=== PATIENT | female | born 1960 | race Two or more races ===

== ENCOUNTER → 2016-08-18 | Outpatient (CLI) | payer MEDICAID | LOC: RAD 08:50 | PROVIDERS: ATTEND Specialist | DX: C34.92 Malignant neoplasm of unspecified part of left bronchus or lung (principal) | CPT/HCPCS: 71260; 74177 ==

== ENCOUNTER 2016-09-12 08:21 | Day surgery (SDC) | payer MEDICAID ==
[2016-09-09 12:47] LABS: HEMATOCRIT 41.4 % (36.0-47.0); HEMOGLOBIN 13.9 g/dL (12.0-15.5); HGB HCT DIFFERENCE 0.3; MEAN CORPUSCULAR HEMOGLOBIN 30.8 pg (27.0-33.4); MEAN CORPUSCULAR HGB CONC 33.5 g/dL (32.0-36.0); MEAN CORPUSCULAR VOLUME 92 fl (80-97); RED CELL DISTRIBUTION WIDTH 14.9 % (11.5-14.0); WHITE BLOOD COUNT 8.7 10^3/uL (4.0-10.5)
[2016-09-09 13:10] LABS: ANION GAP 17 (5-19); BLOOD UREA NITROGEN 4 mg/dL (7-20); CALCIUM 9.7 mg/dL (8.4-10.2); CARBON DIOXIDE 26 mmol/L (22-30); CHLORIDE 93 mmol/L (98-107); CREATININE RESULT 0.35 mg/dL (0.52-1.25); GLUCOSE 82 mg/dL (75-110); POTASSIUM 3.8 mmol/L (3.6-5.0); SODIUM 136.3 mmol/L (137-145)
--- NOTE | 2016-09-09 19:38 | EKG REPORT ---
SEVERITY:- NORMAL ECG - SINUS RHYTHM : Confirmed by: Jaja Freeman 09-Sep-2016 19:36:56
[~2016-09-12 08:21] MED LIST: CEFAZOLIN 1 GM/D5W RTU 1 GM/50 ML RTUPB IV PRN; DEXTROSE 5%-1/2 NORMAL SALINE 1,000 ML IV PRN; LACTATED RINGERS 1000 ML IV PRN; LIDOCAINE 0.5% INJ-PF (5 MG/ML) 50 ML SDV SUBCUT PRN; METRONIDAZOLE 500 MG/NS RTU 100 ML IV PRN
[2016-09-12] MEDS ORDERED: FENTANYL CITRATE INJ/PF 250 MCG/5 ML AMPULE ONE (10:05)
[2016-09-12] MEDS ORDERED: MIDAZOLAM 2 MG/2 ML INJ ONE (10:05)
[2016-09-12] MEDS ORDERED: PROPOFOL INJ 200 MG/20 ML VIAL IV ONE (10:06)
[2016-09-12] MEDS ORDERED: BUPIVACAINE HCL 0.25 % INJ/PF (2.5 MG/1 ML) 30 ML VIAL ONE (10:07)
[2016-09-12] MEDS ORDERED: LIDOCAINE 0.5% INJ-PF (5 MG/ML) 50 ML SDV ONE (10:07)
[2016-09-12] MEDS ORDERED: PROMETHAZINE HCL INJ 25 MG/1 ML VIAL IV PRN ×2 (11:20)
[2016-09-12] MEDS ORDERED: OXYCODONE-ACETAMINOPHEN 5-325 MG TABLET PO PRN ×3 (11:20→13:00)
[2016-09-12] MEDS ORDERED: FENTANYL CITRATE INJ/PF 100 MCG/2 ML AMPUL IV PRN ×3 (11:20)
[2016-09-12] MEDS ORDERED: DIPHENHYDRAMINE HCL 50 MG/ML VIAL IV PRN (11:20)
[2016-09-12] MEDS ORDERED: MORPHINE SULFATE 10 MG/ML INJ IV PRN (11:20)
[2016-09-12] MEDS ORDERED: MEPERIDINE HCL/PF INJ 25 MG/1 ML DISP.SYRIN IV PRN (11:20)
--- NOTE | 2016-09-12 11:30 | PDOC DISCHARGE SUMMARY ---
Discharge Summary (SDC) - Discharge Final Diagnosis: #1 hidradenitis of axilla. #2 lung cancer. #3 tobacco use disorder. Date of Surgery: 09/12/16 Discharge Date: 09/12/16 Condition: Fair Treatment or Instructions: #1 activities within moderation encouraged. #2 follow up in my office by appointment in about 1 week. Call for appointment. #3 the wounds covered clean and dry until office visit. #4 hold off on school/work until evaluation in office. #5 may shower in 48 hours, keep operated area as dry as possible. #6 discharge from ambulatory when ASU criteria met. #7 medications per medication reconciliation sheet. #8 Toradol by prescription.. Also may have one Percocet up to every 2 hours when necessary for pain greater than 4 out of 10 while in the ASU Prescriptions: Ketorolac Tromethamine [Toradol 10 mg Tablet] 10 mg PO Q8HP #9 tablet Discharge Diet: As Tolerated Respiratory Treatments at Home: Deep Breathing/Coughing Discharge Activity: Activity As Tolerated Report the Following to Your Physician Immediately: Fever over 101 Degrees, Unusual Bleeding
--- NOTE | 2016-09-12 11:42 | Operative Report ---
Operative Report DATE OF SURGERY: 09/12/16 PREOPERATIVE DIAGNOSIS: #1 hidradenitis of axilla. #2 lung cancer. #3 tobacco use disorder. POSTOPERATIVE DIAGNOSIS: #1 hidradenitis of axilla. #2 lung cancer. #3 tobacco use disorder. OPERATION: Complex incision and drainage of left axillary abscesses. SURGEON: BRYSON MORATAYA GLASS CURVATURE GAUGER: none ANESTHESIA: LMAC TISSUE REMOVED OR ALTERED: Skin abscesses COMPLICATIONS: None ESTIMATED BLOOD LOSS: 5 mL. INTRAOPERATIVE FINDINGS: Several superficial small abscesses in the left axilla. Satisfactory drained by unroofing them. Tissue sent for culture. PROCEDURE: After going over the procedure, the patient was taken to the operating room. She was sedated and the left axilla prepared with Betadine. The right axilla which was consented for was actually free of abscess at this time. After the universal timeout in which it was verified that the patient received IV antibiotic, the procedure commenced. Anesthesia was generously infiltrated and a low and around the lesions. 3 separate areas were identified each about 2 cm across. The draining somewhat were now excised using a 15 blade scalpel circumferentially down to the subcutaneous tissue. This was done for the 3 areas. These were submitted for culture. The wounds were now cauterized. There were addressed with Surgicel and gauze and the procedure concluded.
[2016-09-12] MEDS ORDERED: OXYCODONE-ACETAMINOPHEN 5-325 MG TABLET ONE (12:45)
[2016-09-12] MEDS ORDERED: METOCLOPRAMIDE HCL INJ/PF 10 MG/2 ML SDV ONE (13:28)
[2016-09-12] MEDS ORDERED: LIDOCAINE 2% INJ-PF (20 MG/ML) 10 ML AMPUL ONE (13:28)
[2016-09-12] MEDS ORDERED: ONDANSETRON HCL INJ/PF 4 MG/2 ML SDV ONE (13:28)
[2016-09-12] MEDS ORDERED: GLYCOPYRROLATE INJ 0.4 MG/2 ML VIAL ONE (13:28)
[2016-09-12] MEDS ORDERED: KETOROLAC TROMETHAMINE 60 MG/2 ML SDV ONE (13:28)
[2016-09-12 14:26] VITALS: BP 125/85
== END 2016-09-12 14:00 | disposition home or self-care (01) ==
LOC: OROUT 08:21
PROVIDERS: ATTEND Surgery
PROC: 0J9F0ZZ Drainage of Left Upper Arm Subcutaneous Tissue and Fascia, Open Approach (ICD-10-PCS; principal; 2016-09-12 10:00)
DX: L73.2 Hidradenitis suppurativa (principal); I10 Essential (primary) hypertension; C34.90 Malignant neoplasm of unspecified part of unspecified bronchus or lung; F17.210 Nicotine dependence, cigarettes, uncomplicated; J44.9 Chronic obstructive pulmonary disease, unspecified; Z79.899 Other long term (current) drug therapy
CPT/HCPCS: 93005; 36415 ×2; 87070; 87205; 84703; 85027; 87075; 87077; 80048; 87186; 71020; 93010; 10061; J2250; J0690; J1885; J3010; J3490 ×3; J2765; J2405; S0020; J2704

== ENCOUNTER 2016-11-01 21:32 | Inpatient (IN) | payer MEDICAID ==
[2016-11-01] MEDS ORDERED: HYDROMORPHONE HCL INJ/PF 2 MG/ML AMPULE IV ONE (22:38)
--- NOTE | 2016-11-01 22:42 | ER Document Report ---
ED General - General Chief Complaint: General Weakness Stated Complaint: WEAKNESS Mode of Arrival: Ambulatory Information source: Patient Notes: 56-year-old female history of lung cancer presents with complaints of headache abdominal pain. TRAVEL OUTSIDE OF THE [place] IN LAST 30 DAYS: No - HPI Onset: Other - 2 To 3 weeks Onset/Duration: Persistent Quality of pain: Achy Severity: Mild Pain Level: 1 Associated symptoms: Weakness Exacerbated by: Denies Relieved by: Denies Similar symptoms previously: Yes Recently seen / treated by doctor: Yes - patient is to have a CT workup next week - Related Data Allergies/Adverse Reactions: No Known Allergies Allergy (Verified 09/13/16 01:31) Past Medical History - Social History Smoking Status: Former Smoker Cigarette use (# per day): Yes Chew tobacco use (# tins/day): No Smoking Education Provided: No Frequency of alcohol use: Heavy Family History: Reviewed & Not Pertinent Patient has suicidal ideation: No Patient has homicidal ideation: No - Past Medical History Cardiac Medical History: Reports: Hx Hypercholesterolemia, Hx Hypertension Denies: Hx Coronary Artery Disease, Hx Heart Attack Pulmonary Medical History: Reports: Hx COPD Denies: Hx Asthma, Hx Bronchitis, Hx Pneumonia Neurological Medical History: Denies: Hx Cerebrovascular Accident, Hx Seizures Renal/ Medical History: Denies: Hx Peritoneal Dialysis Malignancy Medical History: Reports: Hx Lung Cancer - Stage IIIB, squamous cell carcinoma, lung involvement, lymph node. GI Medical History: Denies: Hx Hepatitis, Hx Hiatal Hernia, Hx Ulcer Musculoskeltal Medical History: Denies Hx Arthritis Psychiatric Medical History: Denies: Hx Depression Infectious Medical History: Denies: Hx Hepatitis Past Surgical History: Reports: Hx Appendectomy, Hx Section - 1, Hx Orthopedic Surgery - right knee. Denies: Hx Hysterectomy, Hx Mastectomy, Hx Open Heart Surgery, Hx Pacemaker - Immunizations Hx Diphtheria, Pertussis, Tetanus Vaccination: No Review of Systems - Review of Systems Notes: REVIEW OF SYSTEMS: CONSTITUTIONAL : Denies fever, chills, or sweats. Denies recent illness. EENT: Denies eye, ear, throat, or mouth pain or symptoms. Denies nasal or sinus congestion or discharge. Denies throat, tongue, or mouth swelling or difficulty swallowing. CARDIOVASCULAR: Denies chest pain. Denies palpitations or racing or irregular heart beat. Denies ankle edema. RESPIRATORY: Denies cough, cold, or chest congestion. Denies shortness of breath, difficulty breathing, or wheezing. GASTROINTESTINAL: Admits to abdominal pain GENITOURINARY: Denies difficulty urinating, painful urination, burning, frequency, blood in urine, or discharge. FEMALE GENITOURINARY: Denies vaginal bleeding, heavy or abnormal periods, irregular periods. Denies vaginal discharge or odor. MUSCULOSKELETAL: Denies back or neck pain or stiffness. Denies joint pain or swelling. SKIN: Denies rash, lesions or sores. HEMATOLOGIC : Denies easy bruising or bleeding. LYMPHATIC: Denies swollen, enlarged glands. NEUROLOGICAL: Admits to headache PSYCHIATRIC: Denies anxiety or stress. Denies depression, suicidal ideation, or homicidal ideation. ALL OTHER SYSTEMS REVIEWED AND NEGATIVE. Dictation was performed using [employer] voice recognition software PHYSICAL EXAMINATION: GENERAL: Well-appearing, well-nourished and in no acute distress. HEAD: Atraumatic, normocephalic. EYES: Pupils equal round and reactive to light, extraocular movements intact, conjunctiva are normal. ENT: Nares patent, oropharynx clear without exudates. Moist mucous membranes. NECK: Normal range of motion, supple without lymphadenopathy LUNGS: Breath sounds clear to auscultation bilaterally and equal. No wheezes rales or rhonchi. HEART: Regular rate and rhythm without murmurs ABDOMEN: Soft, nontender, nondistended abdomen. No guarding, no rebound. No masses appreciated. Female : deferred Musculoskeletal: Normal range of motion, no pitting or edema. No cyanosis. NEUROLOGICAL: Cranial nerves grossly intact. Normal speech, normal gait. Normal sensory, motor exams PSYCH: Normal mood, normal affect. SKIN: Warm, Dry, normal turgor, no rashes or lesions noted. Physical Exam - Vital signs Vitals: Temp BP 97.9 F 115/81 11/01/16 21:37 11/01/16 21:37 Course - Re-evaluation Re-evalutation: 11/01/16 22:43 Lab work is pending at this time as well as CT imaging. Patient otherwise is in no distress 11/02/16 00:59 Patient potassium is noted to be 2.6 calcium is extremely low as well, she will will be given supplementation CT is still pending at this time. She does appear to have acute pancreatitis Patient will be admitted to hospitalist service - Vital Signs Vital signs: Temp Pulse Resp BP Pulse Ox 97.9 F 17 103/82 99 11/01/16 21:37 11/01/16 22:43 11/01/16 22:43 11/01/16 22:43 - Laboratory Result Diagrams: 11/01/16 22:40 11/01/16 23:25 Laboratory results interpreted by me: 11/01/16 11/01/16 22:40 23:25 WBC 11.6 H RBC 3.44 L Hgb 10.2 L Hct 30.2 L RDW 16.9 H Absolute Neutrophils 8.8 H Sodium 135.9 L Potassium 2.6 L* Chloride 93 L BUN 3 L Creatinine 0.46 L Calcium 5.2 L* AST 77 H Alkaline Phosphatase 195 H Total Protein 5.4 L Albumin 2.9 L Lipase 380.3 H Critical Care Note - Critical Care Note Total time excluding time spent on procedures (mins): 39 Comments: 39 minutes of critical care time spent in direct contact evaluating and reevaluating the patient, treating symptoms, reviewing labs and studies and speaking with family and consultants excluding any procedures Discharge - Discharge Clinical Impression: Alcohol abuse, Carcinoma of left lung, History of alcoholism, Hypocalcemia, Hypokalemia Acute pancreatitis Qualifiers: Pancreatitis type: alcohol induced Acute pancreatitis complication: unspecified Qualified Code(s): K85.20 - Alcohol induced acute pancreatitis without necrosis or infection Condition: Fair Disposition: ADMITTED INPATIENT Admitting Provider: Hospitalist Unit Admitted: [facility]
[2016-11-01 22:53] LABS: ABSOLUTE BASOPHILS # (AUTO) 0.1 10^3/uL (0.0-0.2); ABSOLUTE LYMPHOCYTES (AUTO) 1.8 10^3/uL (0.5-4.7); ABSOLUTE MONOCYTES (AUTO) 0.9 10^3/uL (0.1-1.4); ABSOLUTE NEUT (AUTO) 8.8 10^3/uL (1.7-8.2); BASOPHILS % (AUTO) 0.6 % (0-2); EOSINOPHILS % (AUTO) 0.1 % (0-6); HEMATOCRIT 30.2 % (36.0-47.0); HEMOGLOBIN 10.2 g/dL (12.0-15.5); HGB HCT DIFFERENCE 0.4; LYMPHOCYTES % (AUTO) 15.2 % (13-45); MEAN CORPUSCULAR HEMOGLOBIN 29.7 pg (27.0-33.4); MEAN CORPUSCULAR HGB CONC 33.9 g/dL (32.0-36.0); MEAN CORPUSCULAR VOLUME 88 fl (80-97); MONOCYTES % (AUTO) 7.6 % (3-13); RED BLOOD COUNT 3.44 10^6/uL (3.72-5.28); RED CELL DISTRIBUTION WIDTH 16.9 % (11.5-14.0); SEGMENTED NEUTROPHILS % (AUTO) 76.5 % (42-78); WHITE BLOOD COUNT 11.6 10^3/uL (4.0-10.5)
[2016-11-01 23:55] LABS: ALANINE AMINOTRANSFERASE 43 U/L (9-52); ALBUMIN 2.9 g/dL (3.5-5.0); ALCOHOL 169 mg/dL (NONE DETECTED); ALKALINE PHOSPHATASE 195 U/L (38-126); ANION GAP 16 (5-19); ASPARTATE AMINO TRANSFERASE 77 U/L (14-36); BILIRUBIN,DIRECT 0.2 mg/dL (0.0-0.4); BILIRUBIN,TOTAL 0.3 mg/dL (0.2-1.3); BLOOD UREA NITROGEN 3 mg/dL (7-20); CARBON DIOXIDE 27 mmol/L (22-30); CHLORIDE 93 mmol/L (98-107); CREATININE RESULT 0.46 mg/dL (0.52-1.25); GLUCOSE 79 mg/dL (75-110); LIPASE 380.3 U/L (23-300); SODIUM 135.9 mmol/L (137-145); TOTAL PROTEIN 5.4 g/dL (6.3-8.2)
[2016-11-02 00:05] LABS: CALCIUM 5.2 mg/dL (8.4-10.2); POTASSIUM 2.6 mmol/L (3.6-5.0)
[2016-11-02] MEDS ORDERED: POTASSI CL 40 MEQ/NS 1L 1,000 ML IV PRN (00:08)
[2016-11-02] MEDS ORDERED: POTASSIUM CHLORIDE 10 MEQ TABLET.SA PO ONE (00:08)
[2016-11-02] MEDS ORDERED: CALCIUM GLUCONATE 1000 MG/10 ML INJ IV ONE ×2 (00:54→04:52)
[2016-11-02] MEDS ORDERED: THIAMINE HCL 100 MG in NORMAL SALINE 50 ML IV ONE (00:57)
[2016-11-02] MEDS ORDERED: THIAMINE HCL INJ 200 MG/2 ML VIAL ONE (01:35)
[2016-11-02 02:04] LABS: ADD ON TESTING BLD IN LAB ACKNOWLEDGE
[2016-11-02 02:22] LABS: MAGNESIUM 0.5 mg/dL (1.6-2.3)
[2016-11-02 03:24] LABS: URINE BARBITURATES SCREEN NEGATIVE; URINE METHADONE SCREEN NEGATIVE; URINE OPIATES LOW NEGATIVE; URINE PHENCYCLIDINE SCREEN NEGATIVE
[2016-11-02] MEDS: MAGNESIUM SULFATE/D5W 1 GM/100 ML RTUPB IV SCH ×3 (03:30→06:23)
[2016-11-02 04:18] LABS: ALBUMIN 2.8 g/dL (3.5-5.0); ANION GAP 16 (5-19); BLOOD UREA NITROGEN 2 mg/dL (7-20); CARBON DIOXIDE 27 mmol/L (22-30); CHLORIDE 94 mmol/L (98-107); CREATININE RESULT 0.44 mg/dL (0.52-1.25); GLUCOSE 75 mg/dL (75-110); POTASSIUM 3.1 mmol/L (3.6-5.0); SODIUM 137.1 mmol/L (137-145)
[2016-11-02 04:34] LABS: CALCIUM 5.7 mg/dL (8.4-10.2)
[2016-11-02] MEDS ORDERED: POTASSI CL 20 MEQ/50 ML RIDER 50 ML IV SCH (05:00)
[2016-11-02] MEDS ORDERED: IPRATROPIUM/ALBUTEROL 0.5-2.5 MG/3 ML AMPUL NEB PRN (05:47)
[2016-11-02] MEDS ORDERED: LORAZEPAM INJ 2 MG/1 ML VIAL IV PRN (05:49)
[2016-11-02] MEDS ORDERED: POTASSI CL 20 MEQ/NS 1L 1,000 ML IV PRN (05:51)
[2016-11-02] MEDS ORDERED: ACETAMINOPHEN 325 MG TABLET PO PRN (06:08)
[2016-11-02] MEDS ORDERED: MAGNESIUM SULFATE/D5W 1 GM/100 ML RTUPB IV SCH ×2 (08:00→11:00)
[2016-11-02] MEDS ORDERED: POTASSI CL 20 MEQ/50 ML RIDER 20 MEQ/50 ML RTUPB IV SCH (08:00)
[2016-11-02 08:24] LABS: ABSOLUTE BASOPHILS # (AUTO) 0.1 10^3/uL (0.0-0.2); ABSOLUTE LYMPHOCYTES (AUTO) 0.8 10^3/uL (0.5-4.7); ABSOLUTE MONOCYTES (AUTO) 0.7 10^3/uL (0.1-1.4); ABSOLUTE NEUT (AUTO) 7.8 10^3/uL (1.7-8.2); BASOPHILS % (AUTO) 0.9 % (0-2); HEMATOCRIT 27.5 % (36.0-47.0); HEMOGLOBIN 9.7 g/dL (12.0-15.5); HGB HCT DIFFERENCE 1.6; LYMPHOCYTES % (AUTO) 8.9 % (13-45); MEAN CORPUSCULAR HEMOGLOBIN 30.4 pg (27.0-33.4); MEAN CORPUSCULAR HGB CONC 35.2 g/dL (32.0-36.0); MEAN CORPUSCULAR VOLUME 86 fl (80-97); MONOCYTES % (AUTO) 7.2 % (3-13); RED BLOOD COUNT 3.18 10^6/uL (3.72-5.28); RED CELL DISTRIBUTION WIDTH 17.1 % (11.5-14.0); WHITE BLOOD COUNT 9.4 10^3/uL (4.0-10.5)
[2016-11-02 08:29] LABS: PARTIAL THROMBOPLASTIN TIME 27.5 SEC (23.5-35.8)
--- NOTE | 2016-11-02 08:47 | PDOC H&P ---
History of Present Illness Admission Date/PCP: 11/02/16 01:[address] Jett Patient complains of: generalized weakness, headache, abdominal pain History of Present Illness: JOCELIN PALMA is a 56 year old -Sammarinese female, currently undergoing chemotherapy for reported age 5 lung cancer, chronic hypokalemia, pack-a-day smoker, case of beer every "several days," history of pulmonary embolus, history of ulcer at the gastroesophageal junction, COPD, hypertension, current marijuana user, and history of cocaine abuse, who presents to the emergency room for evaluation of above complaints. Patient has been discussed with emergency room physician who evaluated the patient. She describes a 2 to three-week history of persistent aching mild generalized abdominal tenderness, along with associated generalized weakness. Nothing in particular made the abdominal pain worse. No nausea and vomiting for the past 48 hours. No diarrhea for several days. Intermittent mild dysuria. Intermittent feeling of "cold and hot." Chronic cough, without recent significant change. Currently on Keflex; cannot remember exactly why she was taking this.. Laboratory results are listed in [facility] and are reviewed. X-ray summary results are listed below, with full report(s) reviewed. . Social history/personal habits: Single. 5 children. Lives alone. On disability. Pack of cigarettes per day. Remaining personal habits as noted above. Allergies/adverse reactions NKDA. Home medications Home medications initially autopopulated into [employer] may not accurately reflect patient's true medications, dosages, and/or frequencies. technical training manager to reconcile medications. Unfortunately, patient uncertain of medications/dosages/frequencies. REVIEW OF SYSTEMS: Constitutional: See history and present illness. Eyes: Recent laser surgery; scheduled to have laser surgery on other eye in the near future. ENT: No swallowing problems or complaints. No hearing problems or complaints. Pulmonary: No current complaints. Cardiovascular: No current complaints, including chest pain. Gastrointestinal: See history and present illness. Skin: No current complaints, including rashes. Hematologic: Easy bruising. Neurologic: No current complaints, including numbness or tingling. Musculoskeletal: No current complaints, including painful joints. Psychiatric: Anxiety depression; denies suicidal or homicidal ideation. Endocrine: No current complaints, including polyuria. Genitourinary: See history and present illness. PHYSICAL EXAMINATION: 5 feet 4 inches tall. 52 kg. BMI 19.7 kg/m. Blood pressure 115/90. Pulse 87 and regular. 97% saturation on room air. Respirations are 22 and unlabored. Temperature 98.2. Thin otherwise well-developed -[place]ammar[place] female appearing approximately her stated age. Pleasant awake alert and cooperative. Rather talkative. Somewhat anxious, without agitation. Appears to feel a bit under the weather, so to speak. Female emergency room nurse Laya is present. Skin is warm and dry. No grossly obvious evidence of rash in areas of skin examined. No subcutaneous nodules palpated. ENT: Hearing grossly normal to normal conversation. Tongue midline on protrusion pink and slightly moist. Eyes: No scleral icterus. Pupils equal and reactive to light at 4 mm. [place] conjunctivae. Neck is supple and nontender to gentle active range of motion and palpation. Midline trachea. No palpable thyroid nodule mass enlargement or tenderness. Lymphatic: No palpable cervical or clavicular nodes. Neck and lymphatic exams limited by patient body habitus. Psychiatric: Fair to reasonable insight into acute and chronic medical issues. Oriented to time location and why here. Lungs: Auscultation reveals clear and equal breath sounds bilaterally. No use of accessory respiratory muscles. Cardiovascular: Heart regular rate and rhythm, without gallop murmur or rub. No carotid or abdominal aortic bruits. No ankle or pedal edema. palpable dorsalis pedis pulses. Abdomen: soft, , nontender with positive bowel sounds. No upper abdominal mass or organomegaly palpated. Extremities: Feet are warm and dry. No calf tenderness to compression. No grossly obvious visual evidence of calf swelling. Gentle manipulation of lower extremities fails to reveal any obvious evidence of injury or instability to knees hips or ankles. Neurologic: Moves upper extremities grossly normally. Patellar reflexes absent. Absent Babinski. Light touch is intact at feet. Dorsiflexion and plantarflexion of feet 5 / 5 and symmetric. Past Medical History Cardiac Medical History: Reports: Hyperlipidema, Hypertension Denies: Congestive Heart Failure, DVT, Myocardial Infarction, Pulmonary Embolism Pulmonary Medical History: Reports: Chronic Obstructive Pulmonary Disease (COPD) Denies: Asthma, Bronchitis, Pneumonia, Sleep Apnea EENT Medical History: Denies: Ears, Throat Neurological Medical History: Denies: Hemorrhagic CVA, Ischemic CVA, Seizures Endocrine Medical History: Denies: Diabetes Mellitus Type 1, Diabetes Mellitus Type 2, Hyperthyroidism, Hypothyroidism Renal/ Medical History: Reports: None Malignancy Medical History: Reports: Lung Cancer - Stage IIIB, squamous cell carcinoma, lung involvement, lymph node. GI Medical History: Reports: Peptic Ulcer Disease - History of GE ulcer, April 2016 Denies: Cirrhosis, Hepatitis, Hiatal Hernia Musculoskeltal Medical History: Denies: Arthritis Skin Medical History: Reports: None Psychiatric Medical History: Reports: Alcohol Dependency, Depression, General Anxiety Disorder, Substance Abuse - History of cocaine use., Tobacco Dependency Hematology: Reports: Sickle Cell Disease - trait carrier Denies: Anemia Infectious Medical History: Denies: Clostridium Difficile, Hepatitis B, Hepatitis C, Methicillin- Resistant Staph Aureus Past Surgical History Past Surgical History: Reports: Appendectomy, Section - 1, Orthopedic Surgery - right knee Denies: Amputation, Hysterectomy, Mastectomy, Pacemaker Social History Information Source: Patient, Emergency Med Personnel, [facility] Records Lives with: Alone Smoking Status: Current Every Day Smoker Frequency of Alcohol Use: Heavy Hx Recreational Drug Use: Yes Drugs: Cocaine - History of use, Marijuana Hx Prescription Drug Abuse: No - Advance Directive Resuscitation Status: Full Code Surrogate healthcare decision maker:: Siblings Family History Family History: Reviewed & Not Pertinent, CAD, Malignancy Parental Family History Reviewed: Yes - father of cancer; mother of myocardial infarction. Children Family History Reviewed: Yes - Healthy Sibling(s) Family History Reviewed.: Yes - Brother with uncertain medical problems. Medication/Allergy Home Medications: Gabapentin [Neurontin 100 mg Capsule] 100 mg PO TID 11/02/16 Oxycodone HCl [Roxicodone] 30 mg PO Q4HP PRN 11/02/16 Allergies/Adverse Reactions: No Known Allergies Allergy (Verified 09/13/16 01:31) Physical Exam Vital Signs: Temp Pulse Resp BP Pulse Ox 98.2 F 17 115/90 H 91 L 11/02/16 01:00 11/02/16 03:01 11/02/16 03:00 11/02/16 03:01 Intake & Output 11/01/16 11/02/16 11/03/16 00:59 00:59 00:59 Weight 52 kg Results Laboratory Results: 11/02/16 03:48 11/02/16 03:48 Sodium 137.1 Potassium 3.1 L Chloride 94 L Carbon Dioxide 27 Anion Gap 16 BUN 2 L Creatinine 0.44 L Est GFR ( Amer) > 60 Est GFR (Non-Af Amer) > 60 Glucose 75 Calcium 5.7 L* Albumin 2.8 L Impressions: Abdomen/Pelvis CT 11/01/16 21:59 IMPRESSION: Mild nonspecific jejunitis. Otherwise, no suspicious interval change. Head CT 11/01/16 21:59 IMPRESSION: Small right maxillary sinusitis with possible fungal superinfection. Otherwise, no suspicious interval change. Consider contrast MRI correlation for increased sensitivity -specificity . Assessment & Plan - Diagnosis (1) Abnormal CT of paranasal sinuses Is this a current diagnosis for this admission?: YesPlan: Consider further imaging and/or ENT consult. (2) Hypocalcemia Is this a current diagnosis for this admission?: YesPlan: Electrolyte replacement with follow-up chemistry. (3) Hypokalemia Is this a current diagnosis for this admission?: YesPlan: Electrolyte replacement with follow-up chemistry. I have strongly encouraged patient not to get out of bed without notifying staff , to avoid a fall with injury. Knee high SCDs for DVT prophylaxis, [along with subcutaneous heparin. Impression and plans were discussed with patient, who concurs. Time spent in evaluation and management of patient: 63 minutes. (4) Hypomagnesemia Is this a current diagnosis for this admission?: YesPlan: Electrolyte replacement with follow-up chemistry. (5) Alcohol abuse Is this a current diagnosis for this admission?: YesPlan: Banana bag with when necessary Ativan. Observe for withdrawal symptoms. None at present time. (6) Carcinoma of left lung Is this a current diagnosis for this admission?: YesPlan: Oncology consult. (7) Tobacco abuse Is this a current diagnosis for this admission?: YesPlan: When necessary nicotine patch. (8) Abnormal CT of the abdomen Is this a current diagnosis for this admission?: YesPlan: Consider GI consult. - Inpatient Certification Based on my medical assessment, after consideration of the patient's comorbidities, presenting symptoms, or acuity I expect that the services needed warrant INPATIENT care.: Yes I certify that my determination is in accordance with my understanding of Medicare's requirements for reasonable and necessary INPATIENT services [42 CFR 412.3e].: Yes Medical Necessity: Need Close Monitoring Due to Risk of Patient Decompensation, Need For Continuous Telemetry Monitoring, Risk of Complication if Not Cared For in Hospital, Risk of Diagnosis Which Will Require Inpatient Eval/Care/Monitoring Post Hospital Care: D/C or Transfer Summary
[2016-11-02 08:55] LABS: ALBUMIN 2.9 g/dL (3.5-5.0); ANION GAP 14 (5-19); CARBON DIOXIDE 26 mmol/L (22-30); CHLORIDE 98 mmol/L (98-107); CREATININE RESULT 0.44 mg/dL (0.52-1.25); GLUCOSE 79 mg/dL (75-110); MAGNESIUM 1.5 mg/dL (1.6-2.3); POTASSIUM 3.5 mmol/L (3.6-5.0); SODIUM 137.8 mmol/L (137-145)
[2016-11-02 08:59] LABS: BLOOD UREA NITROGEN < 2 mg/dL (7-20)
[2016-11-02 09:05] LABS: FREE T3 2.54 pg/mL (2.77-5.27)
[2016-11-02 09:11] LABS: CALCIUM 6.3 mg/dL (8.4-10.2)
[2016-11-02] MEDS: TIOTROPIUM BROMIDE DPI 5 CAP/KIT (18 MCG/CAP) IH SCH (09:56)
[2016-11-02] MEDS: MAGNESIUM OXIDE 400 MG TABLET PO SCH ×3 (09:56→17:17)
[2016-11-02] MEDS: NICOTINE 21 MG/24 HR PATCH.TD24 TD PRN (09:56)
[2016-11-02] MEDS: HEPARIN SOD (PORCINE) 5,000 UNIT/ML 1 ML SYRINGE SUBCUT SCH ×2 (09:56→23:06)
[2016-11-02] MEDS: THIAMINE HCL 100 MG TABLET PO SCH (09:56)
[2016-11-02] MEDS: FOLIC ACID 1 MG TABLET PO SCH (09:56)
[2016-11-02] MEDS ORDERED: POTASSIUM CHLORIDE 10 MEQ TABLET.SA PO SCH ×2 (10:00)
[2016-11-02] MEDS ORDERED: NORMAL SALINE 1000 ML 1,000 ML with THIAMINE HCL 100 MG, MVI, ADULT NO.1 WITH VIT K 10 ... IV SCH ×4 (10:00)
[2016-11-02] MEDS ORDERED: CALCIUM GLUCONATE 2,000 MG in DEXTROSE 5%-WATER 100 ML IV ONE (10:12)
[2016-11-02] MEDS: OXYCODONE HCL IR 5 MG TABLET PO PRN ×4 (10:28→23:04)
--- NOTE | 2016-11-02 12:28 | PDOC CONSULTATION ---
Consultation Consult Date: 11/02/16 Attending physician:: KELLI CORTES Consult reason:: gerd. abdominal pain. chronic anemia requiring blood transfusions. ETOH use. abnormal CT scan showing jejunitis. lung cancer History of Present Illness Admission Date/PCP: 11/02/16 05:48 History of Present Illness: patient has been admitted by the [facility] service patient does have chronic ETOH use patient admitted for lower abdominal pain patient had CT scan done that showed jejunitis has been receiving chemo for her lung cancer she has had blood transfusion in the past does have anemia patient stated on a PPI for GERD patient has not had a GI work up in the past have spoken with Dr Barger will try to speak with Dr Jett Past Medical History Cardiac Medical History: Reports: Hyperlipidema, Hypertension Denies: Congestive Heart Failure, Coronary Artery Disease, DVT, Myocardial Infarction, Pulmonary Embolism Pulmonary Medical History: Reports: Chronic Obstructive Pulmonary Disease (COPD) Denies: Asthma, Bronchitis, Pneumonia, Sleep Apnea EENT Medical History: Denies: Ears, Throat Neurological Medical History: Denies: Hemorrhagic CVA, Ischemic CVA, Seizures Endocrine Medical History: Denies: Diabetes Mellitus Type 1, Diabetes Mellitus Type 2, Hyperthyroidism, Hypothyroidism Renal/ Medical History: Reports: None Malignancy Medical History: Reports: Lung Cancer - Stage IIIB, squamous cell carcinoma, lung involvement, lymph node. GI Medical History: Reports: Peptic Ulcer Disease - History of GE ulcer, April 2016 Denies: Cirrhosis, Hepatitis, Hiatal Hernia Musculoskeltal Medical History: Denies: Arthritis Skin Medical History: Reports: None Psychiatric Medical History: Reports: Alcohol Dependency, Depression, General Anxiety Disorder, Substance Abuse - History of cocaine use., Tobacco Dependency Hematology: Reports: Sickle Cell Disease - trait carrier Denies: Anemia Infectious Medical History: Denies: Clostridium Difficile, Hepatitis B, Hepatitis C, Methicillin- Resistant Staph Aureus Past Surgical History Past Surgical History: Reports: Appendectomy, Section - 1, Orthopedic Surgery - right knee Denies: Amputation, Hysterectomy, Mastectomy, Pacemaker Social History Lives with: Alone Smoking Status: Current Every Day Smoker Frequency of Alcohol Use: Heavy Hx Recreational Drug Use: Yes Drugs: Cocaine - History of use, Marijuana Hx Prescription Drug Abuse: No - Advance Directive Resuscitation Status: Full Code Family History Family History: Reviewed & Not Pertinent, CAD, Malignancy Parental Family History Reviewed: Yes Children Family History Reviewed: Unknown Sibling(s) Family History Reviewed.: Unknown Medication/Allergy Home Medications: Gabapentin [Neurontin 100 mg Capsule] 100 mg PO TID 11/02/16 Oxycodone HCl [Roxicodone] 30 mg PO Q4HP PRN 11/02/16 Allergies/Adverse Reactions: No Known Allergies Allergy (Verified 09/13/16 01:31) Review of Systems Constitutional: ABSENT: fever(s), headache(s), night sweats, weakness Eyes: ABSENT: visual disturbances Ears: ABSENT: hearing changes Nose, Mouth, and Throat: ABSENT: mouth pain, sore throat Cardiovascular: ABSENT: chest pain, edema, palpitations Respiratory: ABSENT: dyspnea, hemoptysis Gastrointestinal: PRESENT: abdominal pain, heartburn. ABSENT: diarrhea, melena Genitourinary: ABSENT: dysuria, hematuria Musculoskeletal: ABSENT: deformity, joint swelling Integumentary: ABSENT: pruritus Neurological: ABSENT: syncope, tingling, tremor(s), vertigo Psychiatric: PRESENT: anxiety Endocrine: ABSENT: polydipsia, polyphagia, polyuria Hematologic/Lymphatic: ABSENT: easy bruising Physical Exam Vital Signs: Temp Pulse Resp BP Pulse Ox 98.5 F 80 17 111/97 H 94 11/02/16 09:19 11/02/16 10:28 11/02/16 10:28 11/02/16 09:19 11/02/16 10:28 General appearance: PRESENT: no acute distress, well-developed Head exam: PRESENT: atraumatic, normocephalic Eye exam: PRESENT: EOMI, PERRLA. ABSENT: periorbital swelling, scleral icterus Mouth exam: PRESENT: moist Throat exam: ABSENT: tonsillar exudate, tonsillogmegaly Neck exam: ABSENT: meningismus, tenderness, thyromegaly Respiratory exam: PRESENT: symmetrical, unlabored. ABSENT: tachypnea, wheezes Cardiovascular exam: PRESENT: RRR, +S1, +S2 Pulses: PRESENT: normal carotid pulses GI/Abdominal exam: PRESENT: soft, tenderness. ABSENT: ascites, Lozoya's sign, rebound, rigid Extremities exam: ABSENT: joint swelling Musculoskeletal exam: PRESENT: full ROM Neurological exam: PRESENT: alert, awake, oriented to time, oriented to situation, CN II-XII grossly intact Psychiatric exam: PRESENT: anxious Focused psych exam: ABSENT: restlessness Skin exam: PRESENT: normal color. ABSENT: mottled, pallor, urticaria, vesicles Results Laboratory Results: 11/02/16 08:12 11/02/16 08:12 11/02/16 11/02/16 11/02/16 08:12 08:12 08:12 WBC 9.4 RBC 3.18 L Hgb 9.7 L Hct 27.5 L MCV 86 MCH 30.4 MCHC 35.2 RDW 17.1 H Plt Count 174 Seg Neutrophils % 83.0 H Lymphocytes % 8.9 L Monocytes % 7.2 Eosinophils % 0.0 Basophils % 0.9 Absolute Neutrophils 7.8 Absolute Lymphocytes 0.8 Absolute Monocytes 0.7 Absolute Eosinophils 0.0 Absolute Basophils 0.1 Sodium 137.8 Potassium 3.5 L Chloride 98 Carbon Dioxide 26 Anion Gap 14 BUN < 2 L Creatinine 0.44 L Est GFR ( Amer) > 60 Est GFR (Non-Af Amer) > 60 Glucose 79 Calcium 6.3 L* Ionized Calcium Raúl Magnesium 1.5 L Albumin 2.9 L Free T4 1.14 Free T3 pg/mL 2.54 L 11/02/16 08:12 WBC RBC Hgb Hct MCV MCH MCHC RDW Plt Count Seg Neutrophils % Lymphocytes % Monocytes % Eosinophils % Basophils % Absolute Neutrophils Absolute Lymphocytes Absolute Monocytes Absolute Eosinophils Absolute Basophils Sodium Potassium Chloride Carbon Dioxide Anion Gap BUN Creatinine Est GFR ( Amer) Est GFR (Non-Af Amer) Glucose Calcium Ionized Calcium Raúl 0.89 L Magnesium Albumin Free T4 Free T3 pg/mL Impressions: Abdomen/Pelvis CT 11/01/16 21:59 IMPRESSION: Mild nonspecific jejunitis. Otherwise, no suspicious interval change. Head CT 11/01/16 21:59 IMPRESSION: Small right maxillary sinusitis with possible fungal superinfection. Otherwise, no suspicious interval change. Consider contrast MRI correlation for increased sensitivity -specificity . Facial Bones CT 11/02/16 00:00 IMPRESSION: There is moderate mucosal thickening in the right maxillary sinus with some chronic changes of sinusitis seen in the maxillary sinus milian. There is obstruction of the right ostiomeatal unit. The remainder the paranasal sinuses are clear. No other significant abnormality identified. Assessment & Plan - Diagnosis (1) GERD (gastroesophageal reflux disease) Plan: will need EGD , rule out possible peptic ulcer disease probably would benefit from Propofol sedation (2) Abnormal CT of the abdomen Is this a current diagnosis for this admission?: YesPlan: jejunitis could be non specific will evaluate small intestinal mucosa with biopsy (3) History of alcoholism Plan: continue to follow (4) Acute blood loss anemia Plan: will need to exclude a colitis given that she has abdominal pain as well colonoscopy tomorrow as well (5) Abdominal pain Plan: generalized in both LLQ and RLQ started fairly recently with this admission has not had colonoscopy in the past will proceed to make sure no other etiology - Time Time Spent: 50 to 70 Minutes
[2016-11-02] MEDS: MULTIVITAMINS W-IRON TABLET, CHEWABLE PO SCH (12:49)
[2016-11-02] MEDS: METRONIDAZOLE 500 MG/NS RTU 100 ML IV SCH ×3 (12:53→23:11)
[2016-11-02] MEDS ORDERED: POTASSIUM CHLORIDE 20 MEQ/50 ML RTU IV ONE (13:00)
[2016-11-02] MEDS ORDERED: PEG 3350/NA SULF,BICARB,CL/KCL 4000 ML PO PRN (13:45)
[2016-11-02] MEDS: GABAPENTIN 100 MG CAPSULE PO SCH ×2 (13:52→23:05)
[2016-11-02 17:17] LABS: ANION GAP 13 (5-19); BLOOD UREA NITROGEN 4 mg/dL (7-20); CALCIUM 7.3 mg/dL (8.4-10.2); CARBON DIOXIDE 24 mmol/L (22-30); CHLORIDE 97 mmol/L (98-107); CREATININE RESULT 0.45 mg/dL (0.52-1.25); GLUCOSE 99 mg/dL (75-110); MAGNESIUM 1.6 mg/dL (1.6-2.3); POTASSIUM 3.8 mmol/L (3.6-5.0); SODIUM 133.5 mmol/L (137-145)
[2016-11-02] MEDS: [UNRECOGNIZED DRUG - REMARK] IV SCH ×4 (17:28)
[2016-11-02] MEDS ORDERED: MORPHINE SULFATE 10 MG/ML INJ IV ONE (20:30)
[2016-11-02] MEDS: LORATADINE 10 MG TABLET PO SCH (23:05)
[2016-11-02] MEDS: FLUTICASONE NASAL SPRAY 50 MCG/SPRY 120 SPRAY/16 GM NASL SCH (23:15)
[2016-11-03] MEDS: OXYCODONE HCL IR 5 MG TABLET PO PRN ×4 (03:21→23:42)
[2016-11-03] MEDS: GABAPENTIN 100 MG CAPSULE PO SCH ×3 (06:29→21:46)
[2016-11-03] MEDS: METRONIDAZOLE 500 MG/NS RTU 100 ML IV SCH ×4 (06:34→23:41)
[2016-11-03 08:26] LABS: ANION GAP 10 (5-19); CARBON DIOXIDE 28 mmol/L (22-30); CHLORIDE 99 mmol/L (98-107); CREATININE RESULT 0.44 mg/dL (0.52-1.25); GLUCOSE 83 mg/dL (75-110); POTASSIUM 3.4 mmol/L (3.6-5.0); SODIUM 137.1 mmol/L (137-145)
[2016-11-03] MEDS ORDERED: MORPHINE SULFATE 10 MG/ML INJ IV ONE (08:30)
[2016-11-03 08:34] LABS: BLOOD UREA NITROGEN < 2 mg/dL (7-20)
[2016-11-03 08:42] LABS: CALCIUM 6.7 mg/dL (8.4-10.2); MAGNESIUM 0.9 mg/dL (1.6-2.3)
[2016-11-03] MEDS: MAGNESIUM OXIDE 400 MG TABLET PO SCH ×3 (09:21→17:11)
[2016-11-03] MEDS: FOLIC ACID 1 MG TABLET PO SCH (09:21)
[2016-11-03] MEDS: THIAMINE HCL 100 MG TABLET PO SCH (09:21)
[2016-11-03] MEDS: HEPARIN SOD (PORCINE) 5,000 UNIT/ML 1 ML SYRINGE SUBCUT SCH ×2 (09:21→21:47)
[2016-11-03] MEDS: MAGNESIUM SULFATE/D5W 100 ML IV SCH ×3 (09:25→15:33)
[2016-11-03] MEDS: MULTIVITAMINS W-IRON TABLET, CHEWABLE PO SCH (11:15)
[2016-11-03] MEDS: NICOTINE 21 MG/24 HR PATCH.TD24 TD PRN (11:21)
[2016-11-03] MEDS ORDERED: PROPOFOL INJ 200 MG/20 ML VIAL IV ONE (14:18)
--- NOTE | 2016-11-03 14:19 | Operative Report ---
Operative Report DATE OF SURGERY: 11/03/16 Operative Report: The risks, benefits and alternatives of the procedure including risks of bleeding, perforation requiring surgery are explained to the patient detail and informed consent is obtained. Patient was taken to the operating room and placed in the left, lateral decubital position. Timeout is called. Propofol medication is administered. A rectal examination is done which did not reveal any masses, tears or fissures. An Olympus video scope was inserted into the patient's rectum. The scope was then gradually advanced all the way to the cecum. The cecum as identified by the usual anatomical landmarks of the ileocecal valve as well as the appendiceal office. Transillumination also confirms location of the scope. Prep was reasonably good. Photo documentations obtained. The scope was then sequentially pulled back via the various segments of the colon including the ascending colon, hepatic flexure , transverse colon, splenic flexure, descending colon and finally into the rectosigmoid portions of the colon. Retroflexion maneuvers performed. The risks benefits and alternatives of the procedure explained to the patient in detail and informed consent is obtained that GIF Olympus video scope was inserted into the patient's mouth and hypopharynx the esophagus is identified intubated and insufflated the scope was then advanced through the esophagus stomach and duodenum retroflexion maneuver is done the esophagus stomach and first and second portions of the duodenum examined PREOPERATIVE DIAGNOSIS: Anemia weight loss. Abdominal pain. Abnormal CT scan. Gastroesophageal reflux disease POSTOPERATIVE DIAGNOSIS: Diverticulosis. Internal hemorrhoids. Mild right- sided inflammation status post biopsy. Gastritis status post biopsy. Hiatal hernia. Esophagitis OPERATION: Colonoscopy with biopsy. EGD with biopsy SURGEON: KELLI CORTES ANESTHESIA: LMAC TISSUE REMOVED OR ALTERED: Right-sided colon specimens obtained. Gastric mucosal specimen obtained COMPLICATIONS: None. ESTIMATED BLOOD LOSS: none. INTRAOPERATIVE FINDINGS: As described above. PROCEDURE: Patient tolerated the procedure well. She sent back to her room in good condition. No immediate postprocedure complications are noted. We'll restart diet. No GI bleeding noted. Abdominal pain could be explained by spasm, possible IBS. We'll await on biopsies Follow-up as needed
--- NOTE | 2016-11-03 14:40 | PDOC PROGRESS REPORT ---
Subjective Progress Note for:: 11/03/16 Subjective:: Patient underwent prep for colonoscopy last night. Patient reports that she is hungry. Patient denies chest pain, shortness of breath, abdominal pain, nausea, vomiting , fevers, chills, constipation, headache, new onset weakness. Physical Exam Vital Signs: Temp Pulse Resp BP Pulse Ox 97.6 F 65 16 99/67 L 100 11/03/16 13:50 11/03/16 14:05 11/03/16 14:05 11/03/16 14:05 11/03/16 14:05 Intake & Output 11/02/16 11/03/16 11/04/16 06:59 06:59 06:59 Intake Total 1954 700 Balance 1954 700 Weight 55.5 kg Exam: General: Awake alert and oriented x3, no acute respiratory distress HEENT: AT/NC, PERRL, EOMI, oropharynx is moist, pink, no scleral icterus, no conjunctival injection, alopecia Neck: No JVD, trachea midline Chest: Prolonged expiratory phase, Clear to auscultation bilaterally, no wheezes rhonchi or rales CV: Regular rate and rhythm, normal S1 and S2, no murmur, rub, or gallop Abdomen: Soft, nontender to palpation, nondistended, active bowel sounds; no rebound, rigidity, or guarding Extremities: No cyanosis, clubbing or edema Neuro: Cranial nerves II through XII are grossly intact without focal deficits; awake alert and oriented x3 Psych: Normal mood and affect Results Laboratory Results: 11/02/16 08:12 11/03/16 07:54 11/02/16 11/03/16 11/03/16 16:50 07:54 07:54 Sodium 133.5 L 137.1 Potassium 3.8 3.4 L Chloride 97 L 99 Carbon Dioxide 24 28 Anion Gap 13 10 BUN 4 L < 2 L Creatinine 0.45 L 0.44 L Est GFR ( Amer) > 60 > 60 Est GFR (Non-Af Amer) > 60 > 60 Glucose 99 83 Calcium 7.3 L 6.7 L* Ionized Calcium Raúl 0.93 L Magnesium 1.6 0.9 L* Impressions: Abdomen/Pelvis CT 11/01/16 21:59 IMPRESSION: Mild nonspecific jejunitis. Otherwise, no suspicious interval change. Head CT 11/01/16 21:59 IMPRESSION: Small right maxillary sinusitis with possible fungal superinfection. Otherwise, no suspicious interval change. Consider contrast MRI correlation for increased sensitivity -specificity . Facial Bones CT 11/02/16 00:00 IMPRESSION: There is moderate mucosal thickening in the right maxillary sinus with some chronic changes of sinusitis seen in the maxillary sinus milian. There is obstruction of the right ostiomeatal unit. The remainder the paranasal sinuses are clear. No other significant abnormality identified. Assessment & Plan - Diagnosis (1) Abnormal CT of the abdomen Is this a current diagnosis for this admission?: YesPlan: Patient CT reveals jejunitis. Have sent MONALISA and p-ANCA and c-ANCA for possible vasculitis related to her underlying malignancy and treatment. unlikely to be infectious secondary to patient never being neutropenic. (2) Alcohol abuse Is this a current diagnosis for this admission?: YesPlan: Have advised to stop. Place on thiamine and folic acid. (3) Lung cancer Qualifiers: Laterality: unspecified laterality Lung location: unspecified part of lung Qualified Code(s): C34.90 - Malignant neoplasm of unspecified part of unspecified bronchus or lung Is this a current diagnosis for this admission?: YesPlan: Patient is currently undergoing chemotherapy with with good results according to her. (4) GERD (gastroesophageal reflux disease) Qualifiers: Esophagitis presence: with esophagitis Qualified Code(s): K21.0 - Gastro-esophageal reflux disease with esophagitis Is this a current diagnosis for this admission?: YesPlan: Place patient on PPI. (5) GI bleed Qualifiers: GI bleed type/associated pathology: unspecified gastrointestinal hemorrhage type Qualified Code(s): K92.2 - Gastrointestinal hemorrhage, unspecified Is this a current diagnosis for this admission?: NoPlan: Patient has history of GI bleed from GE ulcer. Patient is to undergo upper and lower endoscopy today. (6) Tobacco abuse Is this a current diagnosis for this admission?: YesPlan: Patient is advised to stop. Given nicotine patch. (7) Hypocalcemia Is this a current diagnosis for this admission?: YesPlan: Give IV calcium and place on [employer] before meals. (8) Hypokalemia Is this a current diagnosis for this admission?: YesPlan: Give patient daily potassium supplement. (9) Hypomagnesemia Is this a current diagnosis for this admission?: YesPlan: Replete and recheck. - Time Time Spent with patient: 25-34 minutes Medications reviewed and adjusted accordingly: Yes Anticipated discharge: Home Within: within 24 hours
[2016-11-03] MEDS: FLUTICASONE NASAL SPRAY 50 MCG/SPRY 120 SPRAY/16 GM NASL SCH ×2 (15:05→21:49)
[2016-11-03] MEDS: TIOTROPIUM BROMIDE DPI 5 CAP/KIT (18 MCG/CAP) IH SCH (15:06)
[2016-11-03] MEDS ORDERED: CALCIUM GLUCONATE 1000 MG/10 ML INJ IV ONE (15:30)
[2016-11-03] MEDS ORDERED: POTASSIUM CHLORIDE 10 MEQ TABLET.SA PO ONE (16:00)
[2016-11-03] MEDS: CALCIUM CARBONATE 500 MG TAB.CHEW PO SCH ×2 (17:11→21:46)
[2016-11-03] MEDS: [UNRECOGNIZED DRUG - REMARK] IV SCH ×4 (17:12)
[2016-11-03 17:37] LABS: CYTOPLASMIC (C-ANCA) <1:20 titer (Neg:<1:20)
[2016-11-03] MEDS: LORATADINE 10 MG TABLET PO SCH (21:47)
--- NOTE | 2016-11-04 01:07 | PDOC CONSULTATION ---
Consultation Consult Date: 11/02/16 Consult reason:: NSCLC History of Present Illness Admission Date/PCP: 11/02/16 05:48 History of Present Illness: JOCELIN PALMA is a 56 year old -[place] female, currently undergoing chemotherapy for reported age 5 lung cancer, chronic hypokalemia, pack-a-day smoker, case of beer every "several days," history of pulmonary embolus, history of ulcer at the gastroesophageal junction, COPD, hypertension, current marijuana user, and history of cocaine abuse, who presents to the emergency room for evaluation of above complaints. Patient has been discussed with emergency room physician who evaluated the patient. She describes a 2 to three-week history of persistent aching mild generalized abdominal tenderness, along with associated generalized weakness. Nothing in particular made the abdominal pain worse. No nausea and vomiting for the past 48 hours. No diarrhea for several days. Intermittent mild dysuria. Intermittent feeling of "cold and hot." Chronic cough, without recent significant change. Currently on Keflex; cannot remember exactly why she was taking this.. Laboratory results are listed in [employer] and are reviewed. X-ray summary results are listed below, with full report(s) reviewed. . Social history/personal habits: Single. 5 children. Lives alone. On disability. Pack of cigarettes per day. Remaining personal habits as noted above. Allergies/adverse reactions NKDA. Home medications Home medications initially autopopulated into [employer] may not accurately reflect patient's true medications, dosages, and/or frequencies. communication electronic technician to reconcile medications. Unfortunately, patient uncertain of medications/dosages/frequencies. REVIEW OF SYSTEMS: Constitutional: See history and present illness. Eyes: Recent laser surgery; scheduled to have laser surgery on other eye in the near future. Past Medical History Cardiac Medical History: Reports: Hyperlipidema, Hypertension Denies: Congestive Heart Failure, Coronary Artery Disease, DVT, Myocardial Infarction, Pulmonary Embolism Pulmonary Medical History: Reports: Chronic Obstructive Pulmonary Disease (COPD) Denies: Asthma, Bronchitis, Pneumonia, Sleep Apnea EENT Medical History: Denies: Ears, Throat Neurological Medical History: Denies: Hemorrhagic CVA, Ischemic CVA, Seizures Endocrine Medical History: Denies: Diabetes Mellitus Type 1, Diabetes Mellitus Type 2, Hyperthyroidism, Hypothyroidism Renal/ Medical History: Reports: None Malignancy Medical History: Reports: Lung Cancer - Stage IIIB, squamous cell carcinoma, lung involvement, lymph node. GI Medical History: Reports: Peptic Ulcer Disease - History of GE ulcer, April 2016 Denies: Cirrhosis, Hepatitis, Hiatal Hernia Musculoskeltal Medical History: Denies: Arthritis Skin Medical History: Reports: None Psychiatric Medical History: Reports: Alcohol Dependency, Depression, General Anxiety Disorder, Substance Abuse - History of cocaine use., Tobacco Dependency Hematology: Reports: Sickle Cell Disease - trait carrier Denies: Anemia Infectious Medical History: Denies: Clostridium Difficile, Hepatitis B, Hepatitis C, Methicillin- Resistant Staph Aureus Past Surgical History Past Surgical History: Reports: Appendectomy, Section - 1, Orthopedic Surgery - right knee Denies: Amputation, Hysterectomy, Mastectomy, Pacemaker Social History Lives with: Alone Smoking Status: Current Every Day Smoker Cigarettes Packs Per Day: 1 Number of Years Smokin Frequency of Alcohol Use: Heavy Hx Recreational Drug Use: Yes Drugs: Cocaine - History of use, Marijuana Hx Prescription Drug Abuse: No - Advance Directive Resuscitation Status: Full Code Family History Family History: Reviewed & Not Pertinent, CAD, Malignancy Parental Family History Reviewed: Yes Children Family History Reviewed: Yes Sibling(s) Family History Reviewed.: Yes Medication/Allergy Home Medications: Gabapentin [Neurontin 100 mg Capsule] 100 mg PO TID 11/02/16 Oxycodone HCl [Roxicodone] 30 mg PO Q4HP PRN 11/02/16 Allergies/Adverse Reactions: No Known Allergies Allergy (Verified 09/13/16 01:31) Review of Systems All systems: reviewed and no additional remarkable complaints except as stated Constitutional: PRESENT: anorexia Ears: PRESENT: as per HPI Cardiovascular: PRESENT: as per HPI Respiratory: PRESENT: as per HPI Gastrointestinal: PRESENT: nausea Physical Exam Vital Signs: Temp Pulse Resp BP Pulse Ox 98.8 F 74 16 145/97 H 100 11/03/16 20:00 11/03/16 20:00 11/03/16 20:00 11/03/16 20:00 11/03/16 20:00 Intake & Output 11/02/16 11/03/16 11/04/16 06:59 06:59 06:59 Intake Total 1954 1773 Balance 1954 1773 Weight 55.5 kg General appearance: PRESENT: no acute distress Head exam: PRESENT: atraumatic GI/Abdominal exam: PRESENT: tenderness Musculoskeletal exam: PRESENT: full ROM Neurological exam: PRESENT: alert, awake Psychiatric exam: PRESENT: anxious Results Laboratory Results: 11/02/16 08:12 11/03/16 07:54 11/03/16 11/03/16 07:54 07:54 Sodium 137.1 Potassium 3.4 L Chloride 99 Carbon Dioxide 28 Anion Gap 10 BUN < 2 L Creatinine 0.44 L Est GFR ( Amer) > 60 Est GFR (Non-Af Amer) > 60 Glucose 83 Calcium 6.7 L* Ionized Calcium Raúl 0.93 L Magnesium 0.9 L* Impressions: Abdomen/Pelvis CT 11/01/16 21:59 IMPRESSION: Mild nonspecific jejunitis. Otherwise, no suspicious interval change. Head CT 11/01/16 21:59 IMPRESSION: Small right maxillary sinusitis with possible fungal superinfection. Otherwise, no suspicious interval change. Consider contrast MRI correlation for increased sensitivity -specificity . Facial Bones CT 11/02/16 00:00 IMPRESSION: There is moderate mucosal thickening in the right maxillary sinus with some chronic changes of sinusitis seen in the maxillary sinus milian. There is obstruction of the right ostiomeatal unit. The remainder the paranasal sinuses are clear. No other significant abnormality identified. Assessment & Plan - Diagnosis (1) History of alcoholism Plan: Vitamin replacement, look for withdrawal (2) Lung cancer Qualifiers: Laterality: unspecified laterality Lung location: unspecified part of lung Qualified Code(s): C34.90 - Malignant neoplasm of unspecified part of unspecified bronchus or lung Is this a current diagnosis for this admission?: YesPlan: Change her therapy and set up for staging - Time Critical Time spent with patient: 25-34 minutes
[2016-11-04] MEDS: METRONIDAZOLE 500 MG/NS RTU 100 ML IV SCH ×2 (05:47→12:34)
[2016-11-04] MEDS: GABAPENTIN 100 MG CAPSULE PO SCH (05:47)
[2016-11-04] MEDS: OXYCODONE HCL IR 5 MG TABLET PO PRN ×2 (05:47→09:46)
[2016-11-04 06:57] LABS: ANION GAP 12 (5-19); CALCIUM 7.7 mg/dL (8.4-10.2); CARBON DIOXIDE 26 mmol/L (22-30); CHLORIDE 96 mmol/L (98-107); CREATININE RESULT 0.48 mg/dL (0.52-1.25); GLUCOSE 85 mg/dL (75-110); POTASSIUM 3.5 mmol/L (3.6-5.0)
[2016-11-04 07:05] LABS: BLOOD UREA NITROGEN < 2 mg/dL (7-20)
[2016-11-04 07:06] LABS: MAGNESIUM 0.9 mg/dL (1.6-2.3)
[2016-11-04] MEDS: MAGNESIUM SULFATE/D5W 1 GM/100 ML RTUPB IV SCH ×3 (08:29→12:29)
[2016-11-04] MEDS ORDERED: CALCIUM GLUCONATE 1000 MG/10 ML INJ IV ONE (08:30)
[2016-11-04] MEDS ORDERED: POTASSIUM CHLORIDE 10 MEQ TABLET.SA PO ONE (08:30)
[2016-11-04] MEDS: CALCIUM CARBONATE 500 MG TAB.CHEW PO SCH ×2 (08:40→12:33)
[2016-11-04] MEDS: MAGNESIUM OXIDE 400 MG TABLET PO SCH (09:24)
[2016-11-04] MEDS: FOLIC ACID 1 MG TABLET PO SCH (09:25)
[2016-11-04] MEDS: FLUTICASONE NASAL SPRAY 50 MCG/SPRY 120 SPRAY/16 GM NASL SCH (09:26)
[2016-11-04] MEDS: TIOTROPIUM BROMIDE DPI 5 CAP/KIT (18 MCG/CAP) IH SCH (09:26)
[2016-11-04] MEDS: THIAMINE HCL 100 MG TABLET PO SCH (09:35)
[2016-11-04] MEDS: HEPARIN SOD (PORCINE) 5,000 UNIT/ML 1 ML SYRINGE SUBCUT SCH (09:35)
[2016-11-04] MEDS ORDERED: POTASSIUM CHLORIDE 10 MEQ TABLET.SA PO SCH (10:00)
[2016-11-04] MEDS: MULTIVITAMINS W-IRON TABLET, CHEWABLE PO SCH (12:33)
[2016-11-04 13:29] VITALS: BP 145/97
--- NOTE | 2016-11-04 18:54 | PDOC DISCHARGE SUMMARY ---
General - Admit/Disc Date/PCP Admission Date/Primary Care Provider: 11/02/16 05:48 Discharge Date: 11/04/16 - Discharge Diagnosis (1) Jejunitis Is this a current diagnosis for this admission?: Yes (2) Alcohol abuse Is this a current diagnosis for this admission?: Yes (3) Lung cancer Is this a current diagnosis for this admission?: Yes (4) GERD (gastroesophageal reflux disease) Is this a current diagnosis for this admission?: Yes (5) Tobacco abuse Is this a current diagnosis for this admission?: Yes (6) Hypocalcemia Is this a current diagnosis for this admission?: Yes (7) Hypokalemia Is this a current diagnosis for this admission?: Yes (8) Hypomagnesemia Is this a current diagnosis for this admission?: Yes - Additional Information Resuscitation Status: Full Code Discharge Diet: Regular Discharge Activity: Activity As Tolerated Home Medications: Gabapentin [Neurontin 100 mg Capsule] 100 mg PO TID 11/02/16 Oxycodone HCl [Roxicodone] 30 mg PO Q4HP PRN 11/02/16 Calcium Carbonate [Tums Chewable 500 mg Tab.chew] 500 mg PO MEALSHS #1 bot 11/04 Fluticasone Propionate [Flonase Nasal Bricelyn 50 Mcg/Bricelyn 16 gm] 1 spray NASL Q12 #1 bot 11/04/16 Folic Acid [Folvite 1 mg Tablet] 1 mg PO DAILY #90 tablet 11/04/16 Gabapentin [Neurontin 100 mg Capsule] 100 mg PO Q8 #30 capsule 11/04/16 Loratadine [Claritin 10 mg Tablet] 10 mg PO QHS #90 tablet 11/04/16 Magnesium Oxide [Mag-Ox 400 mg Tablet] 400 mg PO TID #90 tablet 11/04/16 Metronidazole [Flagyl 500 mg Tablet] 500 mg PO TID #21 tablet 11/04/16 Multivitamins W-Iron [Flintstones Chewable Multivit W/Fe Tab] 2 tab PO DAILY@ 1200 tab.chew 11/04/16 Oxycodone HCl [Oxy-Ir 5 mg Tablet] 10 mg PO Q4HP PRN tablet 11/04/16 Pantoprazole Sodium [Protonix] 40 mg PO DAILY #30 tablet 11/04/16 Thiamine HCl [Thiamine 100 mg Tablet] 100 mg PO DAILY #90 tablet 11/04/16 History of Present Illness History of Present Illness: Please see H&P for full history of present illness Hospital Course Hospital Course: Patient is a 56-year-old [place] female with history of lung cancer stage IIIB , tobacco abuse, alcohol abuse, history of pulmonary embolus, history of GI bleed secondary to gastric ulcer, COPD, hypertension, marijuana abuse, prescription drug abuse and cocaine abuse who presented to the emergency department with complaints of generalized weakness headache and abdominal pain. Patient apparently had been at 2-3 week history of mild generalized abdominal tenderness along with weakness. Patient was found to be profoundly hypokalemic , hypocalcemic, and hypomagnesemic. Patient had been drinking a case of beer every few days prior to presentation. CT of the abdomen and pelvis revealed jejunitis. Patient was admitted and placed on IV fluids. Her electrolyte derangements were repleted. Patient underwent upper and lower endoscopy by GI which were unrevealing. Did show resolution in the interim resolution of her ulcer at GE junction. Patient had been started and I elected to continue patient on Flagyl as she had improvement of her white count with this. Patient to continue complain of vague somatic complaints requesting pain medication, but patient is on a pain contract with her oncologist. Patient is discharged home in stable condition today. She is advised not to drink alcohol taking Flagyl. She was advised of the results of this would happen. Patient was advised to stop smoking. Physical Exam Vital Signs: Temp Pulse Resp BP Pulse Ox 98.0 F 75 19 145/97 H 99 11/04/16 13:27 11/04/16 13:27 11/04/16 13:27 11/04/16 13:27 11/04/16 13:27 Intake & Output 11/03/16 11/04/16 11/05/16 06:59 06:59 06:59 Intake Total 1954 2892 240 Output Total 5 Balance 1954 8154 474 Weight 55.5 kg 57.8 kg Exam: General: Awake alert and oriented x3, no acute respiratory distress HEENT: AT/NC, PERRL, EOMI, oropharynx is moist, pink, no scleral icterus, no conjunctival injection, alopecia Neck: No JVD, trachea midline Chest: Prolonged expiratory phase, Clear to auscultation bilaterally, no wheezes rhonchi or rales CV: Regular rate and rhythm, normal S1 and S2, no murmur, rub, or gallop Abdomen: Soft, nontender to palpation, nondistended, active bowel sounds; no rebound, rigidity, or guarding Extremities: No cyanosis, clubbing or edema Neuro: Cranial nerves II through XII are grossly intact without focal deficits; awake alert and oriented x3 Psych: Normal mood and affect Results Laboratory Results: 11/02/16 08:12 11/04/16 06:02 11/04/16 06:02 Sodium 134.0 L Potassium 3.5 L Chloride 96 L Carbon Dioxide 26 Anion Gap 12 BUN < 2 L Creatinine 0.48 L Est GFR ( Amer) > 60 Est GFR (Non-Af Amer) > 60 Glucose 85 Calcium 7.7 L Magnesium 0.9 L* Impressions: Abdomen/Pelvis CT 11/01/16 21:59 IMPRESSION: Mild nonspecific jejunitis. Otherwise, no suspicious interval change. Head CT 11/01/16 21:59 IMPRESSION: Small right maxillary sinusitis with possible fungal superinfection. Otherwise, no suspicious interval change. Consider contrast MRI correlation for increased sensitivity -specificity . Facial Bones CT 11/02/16 00:00 IMPRESSION: There is moderate mucosal thickening in the right maxillary sinus with some chronic changes of sinusitis seen in the maxillary sinus milian. There is obstruction of the right ostiomeatal unit. The remainder the paranasal sinuses are clear. No other significant abnormality identified. Qualifiers PATEINT BEING DISCHARGED WITH ANY OF THE FOLLOWING DIAGNOSIS?: No Plan Time Spent: Less than 30 Minutes
== END 2016-11-04 14:00 | disposition home or self-care (01) | DRG 392 ==
LOC: ER 21:32 → EH 11-02 01:15 → UNDOADMIN 11-02 01:15 → EH 11-02 04:00 → 3N 11-02 15:07
PROVIDERS: ADMIT Family Medicine; ATTEND Family Medicine
PROC: 0DB68ZX Excision of Stomach, Via Natural or Artificial Opening Endoscopic, Diagnostic (ICD-10-PCS; principal; 2016-11-03 13:00)
PROC: 0DBF8ZX Excision of Right Large Intestine, Via Natural or Artificial Opening Endoscopic, Diagnostic (ICD-10-PCS; 2016-11-03 13:00)
DX: K52.9 Noninfective gastroenteritis and colitis, unspecified (principal); C34.90 Malignant neoplasm of unspecified part of unspecified bronchus or lung; D62 Acute posthemorrhagic anemia; K92.2 Gastrointestinal hemorrhage, unspecified; K21.9 Gastro-esophageal reflux disease without esophagitis; E83.51 Hypocalcemia; E87.6 Hypokalemia; E83.42 Hypomagnesemia; J44.9 Chronic obstructive pulmonary disease, unspecified; J32.0 Chronic maxillary sinusitis; I10 Essential (primary) hypertension; F17.210 Nicotine dependence, cigarettes, uncomplicated; F12.10 Cannabis abuse, uncomplicated; F14.10 Cocaine abuse, uncomplicated; E78.5 Hyperlipidemia, unspecified; F10.20 Alcohol dependence, uncomplicated; F32.9 Major depressive disorder, single episode, unspecified; F41.1 Generalized anxiety disorder; D57.3 Sickle-cell trait; K57.90 Diverticulosis of intestine, part unspecified, without perforation or abscess without bleeding; K64.8 Other hemorrhoids; K44.9 Diaphragmatic hernia without obstruction or gangrene; K29.70 Gastritis, unspecified, without bleeding; K20.9 Esophagitis, unspecified; Z86.711 Personal history of pulmonary embolism; Z87.11 Personal history of peptic ulcer disease; Z60.2 Problems related to living alone; Z79.899 Other long term (current) drug therapy; Z80.9 Family history of malignant neoplasm, unspecified; Z82.49 Family history of ischemic heart disease and other diseases of the circulatory system
CPT/HCPCS: 36415; 43239; 45380; 70450; 70486; 740; 74177; 80048; 80053; 80307; 82040; 82330; 82962; 83690; 83735; 84439; 84443; 84481; 85025; 85610; 85730; 86021; 86038; 88305; 88342; 96374; 99291; J0610; J1170; J1644; J2270; J2704; J3411; J3475; J3480; J3490; J7030; J7620

== ENCOUNTER → 2016-11-15 | Outpatient (CLI) | payer MEDICAID | LOC: RAD 12:48 | PROVIDERS: ATTEND Specialist | DX: C34.92 Malignant neoplasm of unspecified part of left bronchus or lung (principal); C34.2 Malignant neoplasm of middle lobe, bronchus or lung | CPT/HCPCS: 70460; 71260 ==

== ENCOUNTER 2016-11-16 14:52 | Inpatient (IN) | payer MEDICAID ==
[2016-11-16] MEDS ORDERED: MORPHINE SULFATE 10 MG/ML INJ ONE (16:46)
[2016-11-16] MEDS ORDERED: HYDROMORPHONE HCL INJ/PF 2 MG/ML AMPULE ONE ×3 (17:29→22:28)
[2016-11-16] MEDS ORDERED: POTASSI CL 20 MEQ/50 ML RIDER 20 MEQ/50 ML RTUPB IV ONE (18:46)
[2016-11-16] MEDS ORDERED: CALCIUM GLUCONATE 1000 MG/10 ML INJ IV ONE (18:48)
[2016-11-16] MEDS ORDERED: POTASSI CL 20 MEQ/D5NS 1L 20 MEQ/1,000 ML RTUINJ IV ONE (20:05)
[2016-11-16] MEDS ORDERED: POTASSI CL 20 MEQ/50 ML RIDER 40 MEQ/100 ML RTUPB IV ONE (21:33)
[2016-11-17] MEDS ORDERED: HYDROMORPHONE HCL INJ/PF 2 MG/ML AMPULE ONE ×9 (01:22→20:13)
--- NOTE | 2016-11-17 07:42 | PDOC CONSULTATION ---
Consultation Consult Date: 11/16/16 Attending physician:: KELLI CORTES Consult reason:: GI bleeding History of Present Illness Admission Date/PCP: 11/16/16 21:53 YEMI RIVERA MD History of Present Illness: JOCELIN PALMA is a 56 year old female she had a previous admission about 2 weeks ago she is currently receiving chemotherapy presented with abdominal pain, GI bleeding on the last admission patient had EGD and colonoscopy done EGD was negative she did have some diverticulosis but no acute bleeding site was identified patient was subsequently discharged patient presents to ED with some rectal bleeding was noted to have Hgb of 6.5 previously Hgb was around 7.5 on last admission I was called by the ED physician electronic medical records not available at time of admission I had spoken to Dr Anders patient will be admitted she likely will need to be transfused I would currently hold off on any intervention unless there are gross signs of bleeding she already had a significant work up 2 weeks ago ? consider bleeding scan Past Medical History Cardiac Medical History: Reports: Hyperlipidema, Hypertension Denies: Congestive Heart Failure, Coronary Artery Disease, DVT, Myocardial Infarction, Pulmonary Embolism Pulmonary Medical History: Reports: Chronic Obstructive Pulmonary Disease (COPD) Denies: Asthma, Bronchitis, Pneumonia, Sleep Apnea Neurological Medical History: Denies: Seizures Endocrine Medical History: Denies: Diabetes Mellitus Type 1, Diabetes Mellitus Type 2, Hyperthyroidism, Hypothyroidism Malignancy Medical History: Reports: Lung Cancer - Stage IIIB, squamous cell carcinoma, lung involvement, lymph node. GI Medical History: Denies: Cirrhosis, Hepatitis, Hiatal Hernia Musculoskeltal Medical History: Denies: Arthritis Psychiatric Medical History: Reports: Depression Hematology: Reports: Sickle Cell Disease - trait carrier Denies: Anemia Infectious Medical History: Denies: Clostridium Difficile, Methicillin-Resistant Staph Aureus Past Surgical History Past Surgical History: Reports: Appendectomy, Section - 1, Orthopedic Surgery - right knee Denies: Amputation, Hysterectomy, Mastectomy, Pacemaker Social History Smoking Status: Unknown if Ever Smoked Frequency of Alcohol Use: Heavy Hx Recreational Drug Use: Yes Drugs: Cocaine - History of use, Marijuana Hx Prescription Drug Abuse: No Family History Family History: Reviewed & Not Pertinent, CAD, Malignancy Parental Family History Reviewed: Yes Children Family History Reviewed: Unknown Sibling(s) Family History Reviewed.: Unknown Medication/Allergy Home Medications: Clonazepam [Klonopin] 0.5 mg PO QHS 11/16/16 Dronabinol [Marinol 2.5 mg Capsule] 2.5 mg PO BID 11/16/16 Gabapentin [Neurontin 100 mg Capsule] 100 mg PO TID 11/16/16 Magnesium Oxide [Mag-Ox 400 mg Tablet] 400 mg PO BID 11/16/16 Oxycodone HCl [Roxicodone] 30 mg PO Q4HP PRN 11/16/16 Potassium Chloride [K-Tab ER] 20 meq PO DAILY 11/16/16 Allergies/Adverse Reactions: No Known Allergies Allergy (Verified 09/13/16 01:31) Review of Systems Constitutional: ABSENT: fever(s), headache(s), night sweats, weakness Eyes: ABSENT: visual disturbances Ears: ABSENT: hearing changes Nose, Mouth, and Throat: ABSENT: mouth pain Cardiovascular: ABSENT: chest pain, orthropnea Respiratory: ABSENT: dyspnea, hemoptysis Gastrointestinal: ABSENT: hematemesis, nausea, vomiting Genitourinary: ABSENT: dysuria, hematuria Musculoskeletal: ABSENT: deformity Integumentary: ABSENT: pruritus Neurological: ABSENT: syncope, tingling, tremor(s), vertigo Endocrine: ABSENT: polydipsia, polyphagia, polyuria Hematologic/Lymphatic: ABSENT: easy bruising Physical Exam Vital Signs: Temp Pulse Resp BP Pulse Ox 98.2 F 97 22 H 141/90 H 98 11/17/16 06:43 11/17/16 06:43 11/17/16 06:43 11/17/16 06:43 11/17/16 06:43 Intake & Output 11/16/16 11/17/16 11/18/16 06:59 06:59 06:59 Weight 50.802 kg General appearance: PRESENT: no acute distress, cooperative Head exam: PRESENT: atraumatic, normocephalic Eye exam: PRESENT: EOMI, PERRLA. ABSENT: periorbital swelling, scleral icterus Mouth exam: PRESENT: moist, neck supple Throat exam: ABSENT: tonsillar exudate, tonsillogmegaly Neck exam: ABSENT: meningismus, tenderness, thyromegaly Respiratory exam: PRESENT: symmetrical. ABSENT: accessory muscle use, chest wall tenderness Cardiovascular exam: PRESENT: RRR, +S1, +S2 GI/Abdominal exam: PRESENT: soft. ABSENT: rebound, rigid, tenderness Extremities exam: ABSENT: joint swelling Musculoskeletal exam: PRESENT: full ROM Neurological exam: PRESENT: oriented to time, oriented to situation, reflexes normal Psychiatric exam: PRESENT: anxious, appropriate affect Skin exam: PRESENT: normal color. ABSENT: mottled, pallor, urticaria, vesicles Results Impressions: Abdomen/Pelvis CT 11/17/16 00:00 IMPRESSION: No acute findings. Small cholelithiasis-sludge. Assessment & Plan - Diagnosis (1) Acute blood loss anemia Plan: previous GI work up done about 2 weeks ago patient had been taken to the OR colonoscopy was completed to the cecum, EGD was performed no source was identified she did have diverticulosis, no colitis was noted no colon mass was noted would transfuse monitor H/H get bleeding scan if has bleeding Spoke with Dr Anders - Time Time Spent: 50 to 70 Minutes
--- NOTE | 2016-11-17 09:36 | HISTORY AND PHYSICAL E ---
History and Physical NAME: JOCELIN PALMA : 1960 AGE: 56Y ADMITTED: 11/15/2016 ROOM: ONCOLOGIST: Yemi Rivera M.D. CHIEF COMPLAINT: Rectal bleeding. HISTORY OF PRESENT ILLNESS: This is a 56-year-old female with past medical history of stage III lung cancer who is under the treatment of Dr. Yemi Rivera of Oncology who presents with rectal bleeding. The patient was admitted to the hospital a few weeks ago and had rectal bleeding for which she was evaluated by Dr. Francois of Gastroenterology. At that time, she had an EGD while in the hospital that was negative. She subsequently had a colonoscopy 2 weeks ago as an outpatient that showed diverticulosis. The case was discussed with Dr. Francois, and he feels that she has a diverticular bleed and that endoscopic workup is not entirely necessary at this time. The patient has also been having 1 day of abdominal pain in the mid abdominal region, really somewhat non-specific. She has no nausea or vomiting. PAST MEDICAL HISTORY: Past medical history includes: 1. Lung cancer. 2. Alcohol abuse. 3. Peptic ulcer disease. PAST SURGICAL HISTORY: 1. Right chest port. 2. Appendectomy. FAMILY HISTORY: Positive for breast cancer in her sister. SOCIAL HISTORY: She drinks. She smokes. She is single. She is a [id number]. [id number] is her sister, Kaylie. MEDICATIONS: 1. Ongoing chemotherapy. 2. Klonopin. 3. Neurontin. 4. Potassium chloride. REVIEW OF SYSTEMS: Notable for abdominal pain and melena as mentioned above. Otherwise, she denies fever or chills, weight loss, weight gain, visual disturbance, headache, hearing loss, dyspnea, cough, hemoptysis, chest pain, orthopnea, edema, nausea or vomiting, dysuria, urinary urgency or frequency, hematuria, rashes, wounds, joint pain, joint swelling, focal weakness or numbness, dizziness, dysphasia, dysarthria, ataxia, polydipsia, polyuria, heat or cold intolerance, depression, anxiety, hallucinations, delusions, bleeding, bruising. PHYSICAL EXAMINATION: VITAL SIGNS: Blood pressure is 99/73. Pulse 114. Respiratory rate is 20. O2 saturation 100% on room air. GENERAL: She is very thin and frail appearing with alopecia noted. HEENT: Normocephalic. Sclerae anicteric. Conjunctivae clear. Extraocular movements intact. Pupils are equal, round, and reactive to light and accommodation. Oropharynx has moist mucous membranes. NECK: Midline trachea. No thyromegaly. RESPIRATORY: Clear to auscultation. No wheeze or rhonchi. ANESTHESIA: Regular rate and rhythm. No murmurs, gallops, rubs. ABDOMEN: Soft, nondistended. She has non-specific tenderness throughout the abdomen with no guarding. Positive bowel sounds. EXTREMITIES: No edema, cyanosis, clubbing. MUSCULOSKELETAL: No joint swelling or deformity. VASCULAR EXAM: Normal radial pulses. NEUROLOGIC: She is alert and oriented to person, place, and time. Normal speech. Cranial nerves intact. 5/5 strength in all four extremities. Normal tactile sensation in all four extremities. SKIN EXAMINATION: No rashes. No wounds. PSYCHIATRIC: Appropriate mood and affect. LABORATORIES: EKG shows sinus tachycardia. CBC: White blood count 5.3, hemoglobin 6.0, hematocrit 18.1, platelets 189. Chemistry panel: Sodium 138, potassium 2.8, chloride 101, bicarbonate 27, BUN 6, creatinine 0.5, glucose 103. Liver function tests unremarkable. ASSESSMENT AND PLAN: 1. Hemorrhagic shock. Patient will be transfused 2 units of packed red blood cells. Continue to monitor vital signs q.1 hour. 2. Acute blood loss anemia. The patient will be transfused 2 units of blood. Monitor hemoglobin and hematocrit q.12 hours. 3. Lower gastrointestinal bleed. Patient had recent upper endoscopy that was negative. Lower endoscopy 2 weeks ago showed diverticular disease. She likely has diverticular bleed. Given her abdominal pain and the fact that she is on chemotherapy, I would like to do a CT of the abdomen and pelvis to rule out acute diverticulitis. Consult Dr. Francois of Gastroenterology. 4. Stage III lung cancer. Consult Dr. Rivera of Oncology for recommendations. 5. Tobacco abuse. 6. Alcohol abuse. Monitor for signs of withdrawal. 7. History of peptic ulcer disease. Recent esophagogastroduodenoscopy negative. DICTATING PHYSICIAN: VINICIUS MURRAY M.D. [id number] PHY#: [id number] ID: [id number] JOB#: [id number] ACCT: [id number] cc:YEMI RIVERA M.D. > MTDD
[2016-11-17 10:36] LABS: ABSOLUTE LYMPHOCYTES (AUTO) 0.7 10^3/uL (0.5-4.7); ABSOLUTE MONOCYTES (AUTO) 0.5 10^3/uL (0.1-1.4); ABSOLUTE NEUT (AUTO) 4.1 10^3/uL (1.7-8.2); BASOPHILS % (AUTO) 0.5 % (0-2); HEMATOCRIT 18.1 % (36.0-47.0); HGB HCT DIFFERENCE -0.1; LYMPHOCYTES % (AUTO) 12.9 % (13-45); MEAN CORPUSCULAR HEMOGLOBIN 30.8 pg (27.0-33.4); MEAN CORPUSCULAR HGB CONC 33.3 g/dL (32.0-36.0); MONOCYTES % (AUTO) 9.1 % (3-13); RED BLOOD COUNT 1.96 10^6/uL (3.72-5.28); RED CELL DISTRIBUTION WIDTH 20.2 % (11.5-14.0); SEGMENTED NEUTROPHILS % (AUTO) 77.5 % (42-78); WHITE BLOOD COUNT 5.3 10^3/uL (4.0-10.5)
--- NOTE | 2016-11-17 10:36 | EKG REPORT ---
SEVERITY:- OTHERWISE NORMAL ECG - SINUS TACHYCARDIA ATRIAL PREMATURE COMPLEX : Confirmed by: Maira Rose MD 17-Nov-2016 10:36:26
[2016-11-17 11:38] LABS: PROTHROMBIN TIME 14.9 SEC (11.4-15.4)
[2016-11-17 12:20] LABS: ANION GAP 7 (5-19); BLOOD UREA NITROGEN 9 mg/dL (7-20); CARBON DIOXIDE 23 mmol/L (22-30); CHLORIDE 104 mmol/L (98-107); CREATININE RESULT 0.53 mg/dL (0.52-1.25); GLUCOSE 93 mg/dL (75-110); POTASSIUM 3.4 mmol/L (3.6-5.0)
[2016-11-17] MEDS ORDERED: POTASSIUM CHLORIDE 20 MEQ/15 ML UDCUP ONE (12:33)
[2016-11-17 12:36] LABS: ABSOLUTE BASOPHILS # (AUTO) 0.1 10^3/uL (0.0-0.2); ABSOLUTE LYMPHOCYTES (AUTO) 1.6 10^3/uL (0.5-4.7); ABSOLUTE MONOCYTES (AUTO) 0.8 10^3/uL (0.1-1.4); ABSOLUTE NEUT (AUTO) 4.3 10^3/uL (1.7-8.2); BASOPHILS % (AUTO) 1.2 % (0-2); EOSINOPHILS % (AUTO) 0.6 % (0-6); HEMATOCRIT 18.1 % (36.0-47.0); HGB HCT DIFFERENCE 1.1; LYMPHOCYTES % (AUTO) 23.3 % (13-45); MEAN CORPUSCULAR HEMOGLOBIN 30.8 pg (27.0-33.4); MEAN CORPUSCULAR HGB CONC 35.2 g/dL (32.0-36.0); MEAN CORPUSCULAR VOLUME 88 fl (80-97); MONOCYTES % (AUTO) 11.5 % (3-13); RED BLOOD COUNT 2.06 10^6/uL (3.72-5.28); RED CELL DISTRIBUTION WIDTH 17.1 % (11.5-14.0); SEGMENTED NEUTROPHILS % (AUTO) 63.4 % (42-78); WHITE BLOOD COUNT 6.8 10^3/uL (4.0-10.5)
[2016-11-17 12:39] LABS: CALCIUM 5.6 mg/dL (8.4-10.2)
[2016-11-17 12:40] LABS: MAGNESIUM 0.5 mg/dL (1.6-2.3)
[2016-11-17 12:41] LABS: HEMOGLOBIN 6.4 g/dL (12.0-15.5)
[2016-11-17] MEDS ORDERED: CALCIUM GLUCONATE 1,000 MG in DEXTROSE 5%-WATER 50 ML IV ONE (12:41)
[2016-11-17 12:43] LABS: MEAN CORPUSCULAR VOLUME 92 fl (80-97)
[2016-11-17 12:45] LABS: ABSOLUTE BASOPHILS # (AUTO) 0.1 10^3/uL (0.0-0.2); ABSOLUTE LYMPHOCYTES (AUTO) 1.7 10^3/uL (0.5-4.7); ABSOLUTE MONOCYTES (AUTO) 0.8 10^3/uL (0.1-1.4); ABSOLUTE NEUT (AUTO) 4.5 10^3/uL (1.7-8.2); BASOPHILS % (AUTO) 0.8 % (0-2); HEMATOCRIT 21.5 % (36.0-47.0); HGB HCT DIFFERENCE -0.2; LYMPHOCYTES % (AUTO) 24.2 % (13-45); MEAN CORPUSCULAR HGB CONC 32.9 g/dL (32.0-36.0); MEAN CORPUSCULAR VOLUME 91 fl (80-97); MONOCYTES % (AUTO) 11.6 % (3-13); RED BLOOD COUNT 2.36 10^6/uL (3.72-5.28); RED CELL DISTRIBUTION WIDTH 17.8 % (11.5-14.0); SEGMENTED NEUTROPHILS % (AUTO) 63.4 % (42-78); WHITE BLOOD COUNT 7.1 10^3/uL (4.0-10.5)
[2016-11-17] MEDS ORDERED: NORMAL SALINE 250 ML IV PRN ×4 (12:45→23:53)
[2016-11-17 12:46] LABS: HEMOGLOBIN 7.1 g/dL (12.0-15.5)
[2016-11-17] MEDS: MAGNESIUM SULFATE/D5W 1 GM/100 ML RTUPB IV SCH ×3 (13:31→16:45)
[2016-11-17] MEDS ORDERED: CALCIUM GLUCONATE 1000 MG/10 ML INJ IV ONE (14:00)
--- NOTE | 2016-11-17 14:01 | PDOC PROGRESS REPORT ---
Subjective Progress Note for:: 11/17/16 Subjective:: Patient had full units of blood ordered and to have been transfused. Her hemoglobin did rise by approximately a crampiness come back down to about 6-1/ 2. She remains in the ED at this point in time. She does have an ICU bed pending. May want to consider doing a bleeding scan. When she was scoped 2 weeks ago she was noted to have some diverticulosis. She likely could have diverticular bleeding. Physical Exam Vital Signs: Temp Pulse Resp BP Pulse Ox 98.2 F 97 22 H 141/90 H 98 11/17/16 06:43 11/17/16 06:43 11/17/16 06:43 11/17/16 06:43 11/17/16 06:43 Intake & Output 11/16/16 11/17/16 11/18/16 06:59 06:59 06:59 Weight 50.802 kg General appearance: PRESENT: mild distress, well-developed, well-nourished Head exam: PRESENT: atraumatic, normocephalic Eye exam: PRESENT: EOMI, PERRLA. ABSENT: nystagmus, periorbital swelling, scleral icterus Mouth exam: PRESENT: moist Throat exam: ABSENT: tonsillar exudate, tonsillogmegaly Neck exam: ABSENT: meningismus, tenderness, thyromegaly Respiratory exam: PRESENT: symmetrical, unlabored. ABSENT: tachypnea, wheezes Cardiovascular exam: PRESENT: RRR, +S1, +S2 GI/Abdominal exam: PRESENT: soft. ABSENT: ascites, Lozoya's sign, rebound, tenderness Extremities exam: ABSENT: joint swelling Neurological exam: PRESENT: oriented to time, oriented to situation, reflexes normal Skin exam: PRESENT: normal color. ABSENT: mottled, pallor, petechiae, urticaria , vesicles Results Laboratory Results: 11/17/16 11:38 11/17/16 11:38 11/17/16 11/17/16 11:38 11:38 WBC 6.8 RBC 2.06 L Hgb 6.4 L Hct 18.1 L MCV 88 MCH 30.8 MCHC 35.2 RDW 17.1 H Plt Count 119 L Seg Neutrophils % 63.4 Lymphocytes % 23.3 Monocytes % 11.5 Eosinophils % 0.6 Basophils % 1.2 Absolute Neutrophils 4.3 Absolute Lymphocytes 1.6 Absolute Monocytes 0.8 Absolute Eosinophils 0.0 Absolute Basophils 0.1 Sodium 134.0 L Potassium 3.4 L Chloride 104 Carbon Dioxide 23 Anion Gap 7 BUN 9 Creatinine 0.53 Est GFR ( Amer) > 60 Est GFR (Non-Af Amer) > 60 Glucose 93 Calcium 5.6 L* Magnesium 0.5 L* Impressions: Abdomen/Pelvis CT 11/17/16 00:00 IMPRESSION: No acute findings. Small cholelithiasis-sludge. Assessment & Plan - Diagnosis (1) Acute blood loss anemia Plan: Monitor H&H. Transfuse 2 more units. May want to consider bleeding scan known diverticulosis no colitis noted on previous colonoscopy EGD was negative - Time Time Spent with patient: 15-24 minutes
[2016-11-17] MEDS ORDERED: ONDANSETRON HCL INJ/PF 4 MG/2 ML SDV ONE (15:27)
[2016-11-17 16:17] LABS: CALCIUM 6.8 mg/dL (8.4-10.2)
[2016-11-17 16:19] LABS: GLUCOSE 103 mg/dL (75-110); POTASSIUM 2.9 mmol/L (3.6-5.0)
[2016-11-17 16:20] LABS: ALBUMIN 2.4 g/dL (3.5-5.0); ANION GAP 9 (5-19); ASPARTATE AMINO TRANSFERASE 35 U/L (14-36); BLOOD UREA NITROGEN 7 mg/dL (7-20); CARBON DIOXIDE 28 mmol/L (22-30); CHLORIDE 102 mmol/L (98-107); SODIUM 138.9 mmol/L (137-145)
[2016-11-17 16:21] LABS: ALANINE AMINOTRANSFERASE 25 U/L (9-52); ALKALINE PHOSPHATASE 85 U/L (38-126); BILIRUBIN,DIRECT 0.3 mg/dL (0.0-0.4); BILIRUBIN,TOTAL 0.8 mg/dL (0.2-1.3); TOTAL PROTEIN 4.7 g/dL (6.3-8.2)
[2016-11-17 16:22] LABS: LIPASE 128.2 U/L (23-300)
[2016-11-17] MEDS ORDERED: POTASSI CL 20 MEQ/50 ML RIDER 50 ML IV ONE (16:31)
[2016-11-17] MEDS ORDERED: LORAZEPAM INJ 2 MG/1 ML VIAL IV PRN (16:45)
[2016-11-17] MEDS ORDERED: POTASSI CL 20 MEQ/D5NS 1L 1,000 ML IV PRN (16:47)
[2016-11-17] MEDS ORDERED: DRONABINOL 2.5 MG CAPSULE PO SCH (18:00)
[2016-11-17] MEDS ORDERED: MAGNESIUM OXIDE 400 MG TABLET PO SCH (18:00)
[2016-11-17] MEDS ORDERED: GABAPENTIN 100 MG CAPSULE PO SCH (18:00)
--- NOTE | 2016-11-17 20:40 | PROGRESS NOTE E ---
Progress Note NAME: JOCELIN PALMA : 1960 AGE: 56Y DATE: 11/17/2016 ROOM: ED60 TIME SPENT: Time spent managing patient 35 minutes. SUBJECTIVE: The patient still has frequent blood bowel movements. She still has some abdominal pain, but this is relieved by current pain regimen. She is complaining of anxiety and difficulty sleeping in the Emergency Department. She denies fever, chills, nausea, vomiting. OBJECTIVE: VITAL SIGNS: Temperature 98.2. Blood pressure 141/90. Pulse 94. Respirations 22. O2 saturation 98%. GENERAL: She is alert in no acute distress. HEENT: Sclerae anicteric. Conjunctivae clear. Oropharynx has moist mucous membranes. NECK: No JVD. Midline trachea. RESPIRATORY: Clear to auscultation. No wheeze or rhonchi. CARDIAC: Regular rate and rhythm. No murmurs, gallops, rubs. ABDOMEN: Soft, nondistended. Non-specific tenderness. No rebound or guarding. EXTREMITIES: No edema, cyanosis, clubbing. NEUROLOGIC: Cranial nerves intact. SKIN: No rashes. PSYCHIATRIC: Appropriate mood and affect. LABORATORIES: White blood count 6.8, hemoglobin 6.4, hematocrit 18.1, platelets 119. Sodium 134, potassium 3.4, chloride 104, bicarbonate 23, BUN 9, creatinine 0.53, glucose 93, calcium 5.6. Magnesium 0.5. CT of the abdomen and pelvis shows no acute findings. It is noted that she has cholelithiasis and sludge. ASSESSMENT: 1. HEMORRHAGIC SHOCK. Now resolved. Blood pressure stabilized after transfusions. 2. ACUTE BLOOD LOSS ANEMIA. Secondary to lower GI bleeding. We will transfuse another 2 units of packed red blood cells for a total of 4 units so far. Monitor H and H for stability. 3. LOWER GASTROINTESTINAL BLEED. Patient had recent upper endoscopy that was negative. Recent lower endoscopy showed diverticular disease. Dr. Francois has been consulted. We will check a bleeding scan. If the patient has identifiable source of bleeding or does not resolve clinically, we may have to consult Surgery as well. 4. STAGE III LUNG CANCER. I have placed a consult for Dr. Jett of Oncology. 5. TOBACCO ABUSE. 6. ALCOHOL ABUSE. Monitor for signs of withdrawal. P.r.n. Ativan. 7. HISTORY OF PEPTIC ULCER DISEASE. Recent EGD negative. 8. HYPOCALCEMIA. Replace. 9. HYPOMAGNESEMIA. Replace. DICTATING PHYSICIAN: VINICIUS MURRAY M.D. [id number] PHY#: [id number] ID: [id number] JOB#: [id number] ACCT: [id number] cc: >
[2016-11-17] MEDS ORDERED: CLONAZEPAM 1 MG TABLET PO SCH (22:00)
[2016-11-18 00:59] LABS: HEMATOCRIT 20.2 % (36.0-47.0); HGB HCT DIFFERENCE -0.1; MEAN CORPUSCULAR HEMOGLOBIN 29.9 pg (27.0-33.4); MEAN CORPUSCULAR VOLUME 91 fl (80-97); RED BLOOD COUNT 2.22 10^6/uL (3.72-5.28); RED CELL DISTRIBUTION WIDTH 15.3 % (11.5-14.0); WHITE BLOOD COUNT 12.6 10^3/uL (4.0-10.5)
[2016-11-18 01:08] LABS: ANION GAP 6 (5-19); BLOOD UREA NITROGEN 8 mg/dL (7-20); CARBON DIOXIDE 21 mmol/L (22-30); CHLORIDE 107 mmol/L (98-107); CREATININE RESULT 0.51 mg/dL (0.52-1.25); GLUCOSE 108 mg/dL (75-110); POTASSIUM 3.1 mmol/L (3.6-5.0); SODIUM 133.9 mmol/L (137-145)
[2016-11-18 01:19] LABS: HEMOGLOBIN 6.7 g/dL (12.0-15.5)
[2016-11-18 01:23] LABS: MAGNESIUM 1.3 mg/dL (1.6-2.3)
[2016-11-18 01:26] LABS: CALCIUM 5.4 mg/dL (8.4-10.2)
[2016-11-18] MEDS ORDERED: MAGNESIUM SULFATE/D5W 1 GM/100 ML RTUPB IV ONE (01:38)
[2016-11-18] MEDS ORDERED: POTASSI CL 20 MEQ/50 ML RIDER 20 MEQ/50 ML RTUPB IV ONE (01:38)
--- NOTE | 2016-11-18 01:47 | PDOC TRANSFER SUMMARY ---
General Admission Date/PCP: 11/16/16 21:53 YEMI RIVERA MD Resuscitation Status: Full Code - Transfer Diagnosis (1) Shock Is this a current diagnosis for this admission?: YesDiagnosis Summary: Secondary to GI bleed. Currently in intensive care unit. Plans are to transport patient to [facility]. Accepting physician Dr. Saleh, screen roller. Hope to proceed with air transport. Continue transfusions as necessary. Systolic pressure 93 at present. No vasopressor needed so far. Patient remains awake alert maintaining her airway well. (2) abn bleeding scan Is this a current diagnosis for this admission?: YesDiagnosis Summary: Per Dr. Navarro, on-call surgeon who saw patient, the next step in workup of patient's GI bleeding should be arteriogram. Unfortunately, our facility does not have this capability at this time of night. Therefore, transport as above. (3) Lung cancer Is this a current diagnosis for this admission?: Yes (4) Hypokalemia Is this a current diagnosis for this admission?: YesDiagnosis Summary: Potassium riders have been ordered. (5) Hypomagnesemia Is this a current diagnosis for this admission?: YesDiagnosis Summary: Magnesium riders have been ordered. (6) GI bleed Is this a current diagnosis for this admission?: Yes (7) Acute blood loss anemia Is this a current diagnosis for this admission?: Yes (8) Hypocalcemia Is this a current diagnosis for this admission?: YesDiagnosis Summary: Albumin pending. Treat as necessary. - Transfer Medications Home Medications: Clonazepam [Klonopin] 0.5 mg PO QHS 11/16/16 Dronabinol [Marinol 2.5 mg Capsule] 2.5 mg PO BID 11/16/16 Gabapentin [Neurontin 100 mg Capsule] 100 mg PO TID 11/16/16 Magnesium Oxide [Mag-Ox 400 mg Tablet] 400 mg PO BID 11/16/16 Oxycodone HCl [Roxicodone] 30 mg PO Q4HP PRN 11/16/16 Potassium Chloride [K-Tab ER] 20 meq PO DAILY 11/16/16 Transfer Medications: Current Medications Clonazepam (Klonopin 1 Mg Tablet) 0.5 mg PO QHS STEWART Stop: 11/24/16 21:59 Gabapentin (Neurontin 100 Mg Capsule) 100 mg PO TID STEWART Stop: 12/17/16 17:59 Potassium Chloride/Dextrose/Sod Cl (D5ns 1000 Ml/Kcl 20 Meq Premix Bag) 1,000 mls @ 100 mls/hr IV CONTINUOUS PRN PRN Reason: THIS MED IS NOT "PRN" Stop: 12/17/16 16:46 Sodium Chloride (Nacl 0.9% 250 Ml Iv Soln) 250 mls @ 30 mls/hr IV .DURING TRANSFUSION PRN PRN Reason: THIS MED IS NOT "PRN" Stop: 11/18/16 23:52 Sodium Chloride (Nacl 0.9% 250 Ml Iv Soln) 250 mls @ 0 mls/hr IV CONTINUOUS PRN ; As Directed PRN Reason: AFTER EACH UNIT Stop: 11/18/16 23:52 Potassium Chloride/Water (Potassium Chloride Dariel 20 Meq/50 Ml) 50 mls @ 25 mls/hr IV Q2H STEWART Stop: 11/18/16 05:44 Magnesium Sulfate/Dextrose (Magnesium Sulfate Rtu-D5w 1 Gm/100 Ml Premix) 100 mls @ 100 mls/hr IV Q1H STEWART Stop: 11/18/16 03:44 Lorazepam (Ativan Inj 2 Mg/1 Ml Vial) 1 mg IV Q8HP PRN PRN Reason: ANXIETY Stop: 11/24/16 16:44 Last Admin: 11/17/16 17:31 Dose: 1 mg Magnesium Oxide (Mag-Ox 400 Mg Tablet) 400 mg PO BID STEWART Stop: 12/17/16 17:59 Potassium Chloride (Klor-Con 10 Meq Tablet.Sa) 20 meq PO DAILY STEWART Stop: 12/18/16 09:59 - Allergies Allergies/Adverse Reactions: No Known Allergies Allergy (Verified 09/13/16 01:31) Hospital Course Hospital Course: Please see transcribed history and physical, GI consult, and progress notes. Patient continues to have bloody stools. Initial hemoglobin of 6. Hemoglobin 6.7 after 4 units of blood. Borderline low blood pressure, with systolic pressure in the low 90s. Patient remains awake alert maintaining airway well. Seen earlier in the evening by on-call surgeon Dr. Navarro. He stated arteriogram of the area of concern would be necessary. Unfortunately, our facility doesn't have such capability at this time of night. Therefore, tertiary center transfer felt warranted. Discussed in detail with Dr. Saleh, screen roller at [facility]. He has graciously accepted the patient for transport. Beds are reportedly available. Daughter and son at patient's bedside with patient's approval. Plans discussed with all in layperson's terms, including rationale for transport to a tertiary facility that has arteriographic capability, and risk of transport, all discussed in detail. All are willing to proceed and patient wishes to be transported. Patient wishes to be full code. Stable for transport. Air transport requested. 65 minutes critical care time spent in evaluation and management of patient, including direct patient evaluation on multiple occasions, lengthy bedside discussion with son and daughter, with patient's approval, telephone discussions with on-call general surgeon, telephone discussion with transfer center at [facility], and telephone discussion with accepting screen roller at [facility]. Time also spent in entering of multiple orders into the electronic health record. Physical Exam Vital Signs: Temp Pulse Resp BP Pulse Ox 98.1 F 120 H 18 110/75 91 L 11/17/16 20:45 11/17/16 20:45 11/17/16 20:45 11/17/16 20:45 11/17/16 20:45 Intake & Output 11/17/16 11/18/16 11/19/16 00:59 00:59 00:59 Intake Total 300 0 Balance 300 0 Weight 50.802 kg Results Laboratory Results: 11/18/16 00:42 11/18/16 00:42 11/17/16 11/17/16 11/18/16 11:38 11:38 00:42 WBC 6.8 12.6 H RBC 2.06 L 2.22 L Hgb 6.4 L 6.7 L Hct 18.1 L 20.2 L MCV 88 91 MCH 30.8 29.9 MCHC 35.2 33.0 RDW 17.1 H 15.3 H Plt Count 119 L 76 L Seg Neutrophils % 63.4 Lymphocytes % 23.3 Monocytes % 11.5 Eosinophils % 0.6 Basophils % 1.2 Absolute Neutrophils 4.3 Absolute Lymphocytes 1.6 Absolute Monocytes 0.8 Absolute Eosinophils 0.0 Absolute Basophils 0.1 Sodium 134.0 L Potassium 3.4 L Chloride 104 Carbon Dioxide 23 Anion Gap 7 BUN 9 Creatinine 0.53 Est GFR ( Amer) > 60 Est GFR (Non-Af Amer) > 60 Glucose 93 Calcium 5.6 L* Magnesium 0.5 L* 11/18/16 00:42 WBC RBC Hgb Hct MCV MCH MCHC RDW Plt Count Seg Neutrophils % Lymphocytes % Monocytes % Eosinophils % Basophils % Absolute Neutrophils Absolute Lymphocytes Absolute Monocytes Absolute Eosinophils Absolute Basophils Sodium 133.9 L Potassium 3.1 L Chloride 107 Carbon Dioxide 21 L Anion Gap 6 BUN 8 Creatinine 0.51 L Est GFR ( Amer) > 60 Est GFR (Non-Af Amer) > 60 Glucose 108 Calcium 5.4 L* Magnesium 1.3 L Impressions: Abdomen/Pelvis CT 11/17/16 00:00 IMPRESSION: No acute findings. Small cholelithiasis-sludge. GI Bleed Scan Nuclear Medicine 11/17/16 00:00 IMPRESSION: Positive for active gastrointestinal bleeding in the right lower quadrant, probably cecum.
[2016-11-18] MEDS: POTASSI CL 20 MEQ/50 ML RIDER 50 ML IV SCH ×2 (01:50→03:14)
[2016-11-18] MEDS: MAGNESIUM SULFATE/D5W 100 ML IV SCH ×2 (01:52→02:40)
[2016-11-18] MEDS ORDERED: DEXTROSE 50%-WATER 25 GM/50 ML DISP.SYRIN IV PRN ×2 (01:55)
[2016-11-18] MEDS ORDERED: GLUCAGON,HUMAN RECOMB 1 MG INJ SUBCUT PRN (01:55)
[2016-11-18] MEDS ORDERED: DEXTROSE 40% GEL 15 GM TUBE PO PRN ×2 (01:55)
[2016-11-18 01:56] LABS: ADD ON TESTING BLD IN LAB ACKNOWLEDGE
[2016-11-18 02:00] LABS: ALBUMIN 1.5 g/dL (3.5-5.0)
[2016-11-18 03:49] VITALS: BP 110/94
[2016-11-18] MEDS ORDERED: DRONABINOL 2.5 MG CAPSULE PO SCH (10:00)
[2016-11-18] MEDS ORDERED: POTASSIUM CHLORIDE 10 MEQ TABLET.SA PO SCH (10:00)
--- NOTE | 2016-11-18 10:26 | PDOC CONSULTATION ---
Consultation Consult Date: 11/17/16 Consult reason:: gi bleed History of Present Illness Admission Date/PCP: 11/16/16 21:53 YEMI RIVERA MD History of Present Illness: JOCELIN PALMA is a 56 year old female currently hospitalized for gi bleed. had recent gi bleed 2 weeks ago and underwent cscope that showed diverticulosis but no tumor and a negative egd. recurrent bleed that began 2 days ago with dark blood per rectum and crampy abdominal pain. on her fourth unit of blood ( received her third unit after last hct of 18 late this am. currently on fourth unit transfusion now). prior h/o appendectomy. no anticoagulation h/o stage 3 lung cancer undergoing chemo- last cycle 3 weeks ago. no known h/o cirrhosis. bleeding scan noted to be positive tonight and general surgery now being consulted. Past Medical History Cardiac Medical History: Reports: Hyperlipidema, Hypertension Denies: Congestive Heart Failure, Coronary Artery Disease, DVT, Myocardial Infarction, Pulmonary Embolism Pulmonary Medical History: Reports: Chronic Obstructive Pulmonary Disease (COPD) Denies: Asthma, Bronchitis, Pneumonia, Sleep Apnea Neurological Medical History: Denies: Seizures Endocrine Medical History: Denies: Diabetes Mellitus Type 1, Diabetes Mellitus Type 2, Hyperthyroidism, Hypothyroidism Malignancy Medical History: Reports: Lung Cancer - Stage IIIB, squamous cell carcinoma, lung involvement, lymph node. GI Medical History: Denies: Cirrhosis, Hepatitis, Hiatal Hernia Musculoskeltal Medical History: Denies: Arthritis Psychiatric Medical History: Reports: Depression Hematology: Reports: Sickle Cell Disease - trait carrier Denies: Anemia Infectious Medical History: Denies: Clostridium Difficile, Methicillin-Resistant Staph Aureus Past Surgical History Past Surgical History: Reports: Appendectomy, Section - 1, Orthopedic Surgery - right knee Denies: Amputation, Hysterectomy, Mastectomy, Pacemaker Social History Smoking Status: Unknown if Ever Smoked Frequency of Alcohol Use: Heavy Hx Recreational Drug Use: Yes Drugs: Cocaine - History of use, Marijuana Hx Prescription Drug Abuse: No Family History Family History: Reviewed & Not Pertinent, CAD, Malignancy Parental Family History Reviewed: No Children Family History Reviewed: No Sibling(s) Family History Reviewed.: No Medication/Allergy Home Medications: Clonazepam [Klonopin] 0.5 mg PO QHS 11/16/16 Dronabinol [Marinol 2.5 mg Capsule] 2.5 mg PO BID 11/16/16 Gabapentin [Neurontin 100 mg Capsule] 100 mg PO TID 11/16/16 Magnesium Oxide [Mag-Ox 400 mg Tablet] 400 mg PO BID 11/16/16 Oxycodone HCl [Roxicodone] 30 mg PO Q4HP PRN 11/16/16 Potassium Chloride [K-Tab ER] 20 meq PO DAILY 11/16/16 Allergies/Adverse Reactions: No Known Allergies Allergy (Verified 09/13/16 01:31) Physical Exam Vital Signs: Temp Pulse Resp BP Pulse Ox 98.1 F 120 H 18 110/75 91 L 11/17/16 20:45 11/17/16 20:45 11/17/16 20:45 11/17/16 20:45 11/17/16 20:45 Intake & Output 11/16/16 11/17/16 11/18/16 06:59 06:59 06:59 Intake Total 300 Balance 300 Weight 50.802 kg General appearance: PRESENT: no acute distress, cooperative Eye exam: PRESENT: conjunctiva pink Respiratory exam: PRESENT: clear to auscultation davide Cardiovascular exam: PRESENT: tachycardia GI/Abdominal exam: PRESENT: other - soft, nd, minimal tenderness diffusely, no peritoneal signs. Neurological exam: PRESENT: other - somnulent but arousable and gives a history. Results Laboratory Results: 11/17/16 11:38 11/17/16 11:38 11/17/16 11/17/16 11:38 11:38 WBC 6.8 RBC 2.06 L Hgb 6.4 L Hct 18.1 L MCV 88 MCH 30.8 MCHC 35.2 RDW 17.1 H Plt Count 119 L Seg Neutrophils % 63.4 Lymphocytes % 23.3 Monocytes % 11.5 Eosinophils % 0.6 Basophils % 1.2 Absolute Neutrophils 4.3 Absolute Lymphocytes 1.6 Absolute Monocytes 0.8 Absolute Eosinophils 0.0 Absolute Basophils 0.1 Sodium 134.0 L Potassium 3.4 L Chloride 104 Carbon Dioxide 23 Anion Gap 7 BUN 9 Creatinine 0.53 Est GFR ( Amer) > 60 Est GFR (Non-Af Amer) > 60 Glucose 93 Calcium 5.6 L* Magnesium 0.5 L* Impressions: Abdomen/Pelvis CT 11/17/16 00:00 IMPRESSION: No acute findings. Small cholelithiasis-sludge. GI Bleed Scan Nuclear Medicine 11/17/16 00:00 IMPRESSION: Positive for active gastrointestinal bleeding in the right lower quadrant, probably cecum. Assessment & Plan - Diagnosis (1) GI bleed Qualifiers: GI bleed type/associated pathology: unspecified gastrointestinal hemorrhage type Qualified Code(s): K92.2 - Gastrointestinal hemorrhage, unspecified Is this a current diagnosis for this admission?: YesPlan: likely ongoing right colon bleed as indicated by tagged RBC scan but RBC scan is not a precise study. need an arteriogram to localize bleeding source accurately. long discussion with daughter about options of performing right hemicolectomy (risk of missing bleeding source), total abdominocolectomy (less risk of missing bleeding source but higher mobidity), or transfer to facility that can do an arteriogram (risk involved in transfer and delay of definitive care). Her daughter gives consent for her to transfer to appropriate facility. d /w Dr Bernal about her management and he will arrange transfer and take care of her transfusion needs.
== END 2016-11-18 03:25 | disposition short-term general hospital (02) | DRG 812 ==
LOC: ER 14:52 → EH 21:53 → UNDOADMIN 21:53 → ICU 11-18 00:29
PROVIDERS: ADMIT Family Medicine; ATTEND Family Medicine
PROC: 30233N1 Transfusion of Nonautologous Red Blood Cells into Peripheral Vein, Percutaneous Approach (ICD-10-PCS; principal; 2016-11-16)
DX: D62 Acute posthemorrhagic anemia (principal); R57.9 Shock, unspecified; K62.5 Hemorrhage of anus and rectum; C34.90 Malignant neoplasm of unspecified part of unspecified bronchus or lung; K92.2 Gastrointestinal hemorrhage, unspecified; K57.90 Diverticulosis of intestine, part unspecified, without perforation or abscess without bleeding; I10 Essential (primary) hypertension; E83.51 Hypocalcemia; E83.42 Hypomagnesemia; E87.6 Hypokalemia; E78.5 Hyperlipidemia, unspecified; J44.9 Chronic obstructive pulmonary disease, unspecified; F41.8 Other specified anxiety disorders; F10.10 Alcohol abuse, uncomplicated; F17.210 Nicotine dependence, cigarettes, uncomplicated; Z79.899 Other long term (current) drug therapy
CPT/HCPCS: 36415; 36430; 74178; 78278; 80048; 80053; 82040; 83690; 83735; 85025; 85027; 85610; 86850; 86900; 86901; 86920; 93005; 93010; 99285; A9560; J0610; J1170; J2060; J3475; J3480; P9016; Q9969

== ENCOUNTER 2016-11-30 13:08 | Inpatient (IN) | payer MEDICAID ==
[2016-11-30] MEDS ORDERED: OXYCODONE-ACETAMINOPHEN 5-325 MG TABLET PO ONE (14:42)
[2016-11-30] MEDS ORDERED: NORMAL SALINE 500 ML IV ONE (14:43)
--- NOTE | 2016-11-30 14:49 | ER Document Report ---
ED Medical Screen (RME) - General Chief Complaint: Shortness Of Breath Stated Complaint: SHORTNESS OF BREATH Time Seen by Provider: 11/30/16 14:40 Mode of Arrival: Wheelchair Notes: This is a 56-year-old female with stage III lung cancer who is undergoing chemotherapy who presents with bilateral flank pain, cough, shortness of breath and dysuria for the past 2 days. She denies any fevers or chills. Of note she was admitted here on November 16 for a GI bleed. She required 4 units blood transfusion prior to transfer to [facility] for persistent bleeding. She was discharged home 1 week ago, on November 23. She denies any further GI bleeding. I have greeted and performed a rapid initial assessment of this patient. A comprehensive ED assessment and evaluation of the patient, analysis of test results and completion of the medical decision making process will be conducted by additional ED providers. TRAVEL OUTSIDE OF THE [place] IN LAST 30 DAYS: No - Related Data Allergies/Adverse Reactions: No Known Allergies Allergy (Verified 11/30/16 14:08) Past Medical History - Past Medical History Cardiac Medical History: Reports: Hx Hypercholesterolemia, Hx Hypertension Denies: Hx Congestive Heart Failure, Hx Coronary Artery Disease, Hx DVT, Hx Heart Attack, Hx Pulmonary Embolism Pulmonary Medical History: Reports: Hx COPD Denies: Hx Asthma, Hx Bronchitis, Hx Pneumonia, Hx Sleep Apnea Neurological Medical History: Denies: Hx Cerebrovascular Accident, Hx Seizures Endocrine Medical History: Denies: Hx Diabetes Mellitus Type 1, Hx Diabetes Mellitus Type 2, Hx Hyperthyroidism, Hx Hypothyroidism Renal/ Medical History: Denies: Hx Peritoneal Dialysis Malignancy Medical History: Reports: Hx Lung Cancer - Stage IIIB, squamous cell carcinoma, lung involvement, lymph node. GI Medical History: Denies: Hx Cirrhosis, Hx Hepatitis, Hx Hiatal Hernia, Hx Ulcer Musculoskeltal Medical History: Denies Hx Arthritis Psychiatric Medical History: Reports: Hx Depression Infectious Medical History: Denies: Hx C-Diff, Hx Hepatitis, Hx MRSA Past Surgical History: Reports: Hx Appendectomy, Hx Section - 1, Hx Orthopedic Surgery - right knee. Denies: Hx Hysterectomy, Hx Mastectomy, Hx Open Heart Surgery, Hx Pacemaker - Immunizations Hx Diphtheria, Pertussis, Tetanus Vaccination: No Physical Exam - Vital signs Vitals: Temp Pulse Resp BP Pulse Ox 98.8 F 120 H 20 115/78 100 11/30/16 13:15 11/30/16 13:15 11/30/16 13:15 11/30/16 13:15 11/30/16 13:15 - General Notes: Ill-appearing elderly female who is in moderate distress secondary to pain. Course - Vital Signs Vital signs: Temp Pulse Resp BP Pulse Ox 98.8 F 120 H 20 115/78 100 11/30/16 13:15 11/30/16 13:15 11/30/16 13:15 11/30/16 13:15 11/30/16 13:15
[2016-11-30 15:36] LABS: HEMATOCRIT 31.5 % (36.0-47.0); HEMOGLOBIN 10.4 g/dL (12.0-15.5); HGB HCT DIFFERENCE -0.3; MEAN CORPUSCULAR HEMOGLOBIN 30.5 pg (27.0-33.4); MEAN CORPUSCULAR HGB CONC 32.9 g/dL (32.0-36.0); MEAN CORPUSCULAR VOLUME 93 fl (80-97); RED BLOOD COUNT 3.41 10^6/uL (3.72-5.28); RED CELL DISTRIBUTION WIDTH 15.1 % (11.5-14.0)
[2016-11-30 15:47] LABS: ALANINE AMINOTRANSFERASE 26 U/L (9-52); ALBUMIN 2.6 g/dL (3.5-5.0); ALKALINE PHOSPHATASE 177 U/L (38-126); ANION GAP 13 (5-19); ASPARTATE AMINO TRANSFERASE 26 U/L (14-36); BILIRUBIN,DIRECT 0.4 mg/dL (0.0-0.4); BILIRUBIN,TOTAL 0.8 mg/dL (0.2-1.3); BLOOD UREA NITROGEN 11 mg/dL (7-20); CALCIUM 7.5 mg/dL (8.4-10.2); CARBON DIOXIDE 27 mmol/L (22-30); CHLORIDE 94 mmol/L (98-107); CREATININE RESULT 0.58 mg/dL (0.52-1.25); GLUCOSE 92 mg/dL (75-110); POTASSIUM 3.1 mmol/L (3.6-5.0); TOTAL PROTEIN 5.9 g/dL (6.3-8.2)
[2016-11-30 15:48] LABS: CREATINE KINASE < 20 U/L (30-135)
[2016-11-30 16:00] LABS: CREATINE KINASE MB < 0.22 ng/mL (<4.55); TROPONIN I < 0.012 ng/mL
[2016-11-30 16:04] LABS: BAND NEUTROPHILS % (MANUAL) 8 % (3-5); BASOPHILS % (MANUAL) 0 % (0-2); EOSINOPHILS % (MANUAL) 0 % (0-6); LYMPHOCYTES % (MANUAL) 2 % (13-45); NUCLEATED RED BLOOD CELLS 1 /100 WBC (0); TOTAL CELLS COUNTED 100
[2016-11-30 16:07] LABS: ANISOCYTOSIS SLIGHT; POIKILOCYTOSIS SLIGHT; POLYCHROMASIA SLIGHT; TARGET CELLS SLIGHT; TOXIC GRANULATION SLIGHT
[2016-11-30 16:08] LABS: PLATELET CLUMPS PRESENT
--- NOTE | 2016-11-30 16:29 | RADIOLOGY REPORT (SQ) ---
EXAM DESCRIPTION: CHEST SINGLE VIEW COMPLETED DATE/TIME: 11/30/2016 4:14 pm REASON FOR STUDY: cough, SOB COMPARISON: CT dated 11/17/2016. EXAM PARAMETERS: NUMBER OF VIEWS: One view. TECHNIQUE: Single frontal radiographic view of the chest acquired. RADIATION DOSE: NA LIMITATIONS: None. FINDINGS: LUNGS AND PLEURA: Mass in the left lung with central cavitation appears essentially unchan ged. No new nodules or masses. No infiltrates. No pleural effusion. No pneumothorax. MEDIASTINUM AND HILAR STRUCTURES: No masses. Contour normal. HEART AND VASCULAR STRUCTURES: Heart normal in size. Normal vasculature. BONES: No acute findings. Degenerative changes with scoliosis. HARDWARE: Vascular access port. OTHER: No other significant finding. IMPRESSION: STABLE APPEARANCE OF THE CAVITARY LESION IN THE LEFT LUNG. NO APPARENT ACUTE FINDINGS. TECHNICAL DOCUMENTATION: JOB ID: [id number]
[2016-11-30] MEDS ORDERED: PIPERACILLIN/TAZOBACTAM 3.375 GM VIAL IV ONE (16:35)
[2016-11-30] MEDS: VANCOMYCIN HCL INJ 1000 MG VIAL IV ONE ×2 (16:35→18:06)
[2016-11-30 16:49] LABS: APPEARANCE,URINE CLOUDY; BILIRUBIN,URINE NEGATIVE (NEGATIVE); GLUCOSE, URINE NEGATIVE (NEGATIVE); KETONES,URINE NEGATIVE (NEGATIVE); LEUKOCYTE ESTERASE,URINE MODERATE (NEGATIVE); NITRITE,URINE POSITIVE (NEGATIVE); PROTEIN,URINE 100 mg/dL (NEGATIVE); URINE SPECIFIC GRAVITY 1.008; UROBILINOGEN,URINE NEGATIVE mg/dL (<2.0)
[2016-11-30] MEDS ORDERED: ONDANSETRON HCL INJ/PF 4 MG/2 ML SDV IV ONE (16:59)
[2016-11-30] MEDS ORDERED: MORPHINE SULFATE 10 MG/ML INJ IV ONE (16:59)
[2016-11-30] MEDS ORDERED: RINGERS SOLUTION,LACTATED 1,000 ML IV ONE (17:18)
--- NOTE | 2016-11-30 17:18 | ER Document Report ---
ED General - General Chief Complaint: Shortness Of Breath Stated Complaint: SHORTNESS OF BREATH Time Seen by Provider: 11/30/16 14:40 Mode of Arrival: Wheelchair Notes: This is a 56-year-old female with stage III lung cancer who is undergoing chemotherapy who presents with bilateral flank pain, cough, shortness of breath and dysuria for the past 2 days. She denies any fevers or chills. Of note she was admitted here on November 16 for a GI bleed. She required 4 units blood transfusion prior to transfer to [facility] for persistent bleeding. She was discharged home 1 week ago, on November 23. She denies any further GI bleeding. TRAVEL OUTSIDE OF THE [place] IN LAST 30 DAYS: No - Related Data Allergies/Adverse Reactions: No Known Allergies Allergy (Verified 11/30/16 14:08) Past Medical History - Social History Smoking Status: Unknown if Ever Smoked Family History: Reviewed & Not Pertinent, CAD, Malignancy Patient has suicidal ideation: No Patient has homicidal ideation: No - Past Medical History Cardiac Medical History: Reports: Hx Hypercholesterolemia, Hx Hypertension Denies: Hx Congestive Heart Failure, Hx Coronary Artery Disease, Hx DVT, Hx Heart Attack, Hx Pulmonary Embolism Pulmonary Medical History: Reports: Hx COPD Denies: Hx Asthma, Hx Bronchitis, Hx Pneumonia, Hx Sleep Apnea Neurological Medical History: Denies: Hx Cerebrovascular Accident, Hx Seizures Endocrine Medical History: Denies: Hx Diabetes Mellitus Type 1, Hx Diabetes Mellitus Type 2, Hx Hyperthyroidism, Hx Hypothyroidism Renal/ Medical History: Denies: Hx Peritoneal Dialysis Malignancy Medical History: Reports: Hx Lung Cancer - Stage IIIB, squamous cell carcinoma, lung involvement, lymph node. GI Medical History: Denies: Hx Cirrhosis, Hx Hepatitis, Hx Hiatal Hernia, Hx Ulcer Musculoskeltal Medical History: Denies Hx Arthritis Psychiatric Medical History: Reports: Hx Depression Infectious Medical History: Denies: Hx C-Diff, Hx Hepatitis, Hx MRSA Past Surgical History: Reports: Hx Appendectomy, Hx Section - 1, Hx Orthopedic Surgery - right knee. Denies: Hx Hysterectomy, Hx Mastectomy, Hx Open Heart Surgery, Hx Pacemaker - Immunizations Hx Diphtheria, Pertussis, Tetanus Vaccination: No Review of Systems - Review of Systems Constitutional: See HPI, Chills, Fever, Malaise EENT: No symptoms reported Cardiovascular: No symptoms reported. denies: Chest pain Respiratory: See HPI, Short of breath Gastrointestinal: See HPI Genitourinary: See HPI, Burning, Dysuria Skin: No symptoms reported Hematologic/Lymphatic: No symptoms reported Neurological/Psychological: No symptoms reported Physical Exam - Vital signs Vitals: Temp Pulse Resp BP Pulse Ox 98.8 F 120 H 20 115/78 100 11/30/16 13:15 11/30/16 13:15 11/30/16 13:15 11/30/16 13:15 11/30/16 13:15 - Notes Notes: PHYSICAL EXAMINATION: GENERAL: well appearing, conversant, appears older than stated age, uncomfortable secondary to back pain HEAD: Atraumatic, normocephalic. EYES: Pupils equal round and reactive to light, extraocular movements intact, sclera anicteric, conjunctiva are normal. ENT: nares patent, oropharynx clear without exudates. Moist mucous membranes. NECK: Normal range of motion, supple without lymphadenopathy LUNGS: Breath sounds clear to auscultation bilaterally and equal. No wheezes rales or rhonchi. HEART: Tachycardic, Regular rate and rhythm without murmurs ABDOMEN: Soft, nontender, normoactive bowel sounds. Bilateral flank TTP. No guarding/rebound EXTREMITIES: Normal range of motion NEUROLOGICAL: Cranial nerves grossly intact. No Gross focal motor or sensory deficits appreciated. PSYCH: Normal mood, normal affect. Course - Re-evaluation Re-evalutation: 11/30/16 19:13 Labs show evidence of pyelonephritis and possible sepsis with elevated white count and bandemia. IV antibiotics were initiated in the triage area as a main side bed was not available yet. I discussed the case with the hospitalist Dr. Anders who will admit patient to the [facility]. - Vital Signs Vital signs: Temp Pulse Resp BP Pulse Ox 99.3 F 107 H 20 108/82 96 11/30/16 17:11 11/30/16 17:11 11/30/16 18:01 11/30/16 18:01 11/30/16 18:52 - Laboratory Result Diagrams: 11/30/16 15:13 11/30/16 15:13 Laboratory results interpreted by me: 11/30/16 11/30/16 11/30/16 13:20 15:13 15:13 WBC 39.2 H* RBC 3.41 L Hgb 10.4 L Hct 31.5 L RDW 15.1 H Seg Neuts % (Manual) 87 H Band Neutrophils % 8 H Lymphocytes % (Manual) 2 L Abs Neuts (Manual) 37.2 H Sodium 134.0 L Potassium 3.1 L Chloride 94 L Calcium 7.5 L Alkaline Phosphatase 177 H Creatine Kinase < 20 L Total Protein 5.9 L Albumin 2.6 L Urine Protein 100 H Urine Blood SMALL H Urine Nitrite POSITIVE H Ur Leukocyte Esterase MODERATE H Discharge - Discharge Clinical Impression: Pyelonephritis Leukocytosis Qualifiers: Leukocytosis type: unspecified Qualified Code(s): D72.829 - Elevated white blood cell count, unspecified Lung cancer Qualifiers: Laterality: unspecified laterality Lung location: unspecified part of lung Qualified Code(s): C34.90 - Malignant neoplasm of unspecified part of unspecified bronchus or lung Condition: Serious Disposition: ADMITTED INPATIENT Admitting Provider: Hospitalist Rosibel Anders Unit Admitted: [facility]
[2016-11-30] MEDS ORDERED: ACETAMINOPHEN 325 MG TABLET PO PRN (17:22)
[2016-11-30] MEDS ORDERED: ONDANSETRON HCL INJ/PF 4 MG/2 ML SDV IV PRN (17:22)
--- NOTE | 2016-11-30 17:59 | PDOC H&P ---
History of Present Illness Admission Date/PCP: Dr. Marguerite jett Patient complains of: Back pain, dysuria History of Present Illness: JOCELIN PALMA is a 56 year old female with past medical history of stage III lung cancer treated by Dr. Shawna Jett presents with 1 day history of dysuria and low back pain. Patient was recently admitted to our facility and transferred to [facility] for gastrointestinal bleeding. During that hospitalization her GI bleed resolved spontaneously. She had a Thomas catheter in during hospitalization it was removed upon discharge. She has also been having fevers and chills. Past Medical History Cardiac Medical History: Reports: Hyperlipidema, Hypertension Denies: Congestive Heart Failure, Coronary Artery Disease, DVT, Myocardial Infarction, Pulmonary Embolism Pulmonary Medical History: Reports: Chronic Obstructive Pulmonary Disease (COPD) Denies: Asthma, Bronchitis, Pneumonia, Sleep Apnea Neurological Medical History: Denies: Seizures Endocrine Medical History: Denies: Diabetes Mellitus Type 1, Diabetes Mellitus Type 2, Hyperthyroidism, Hypothyroidism Malignancy Medical History: Reports: Lung Cancer - Stage IIIB, squamous cell carcinoma, lung involvement, lymph node. GI Medical History: Denies: Cirrhosis, Hepatitis, Hiatal Hernia Musculoskeltal Medical History: Denies: Arthritis Psychiatric Medical History: Reports: Depression Hematology: Reports: Sickle Cell Disease - trait carrier Denies: Anemia Infectious Medical History: Denies: Clostridium Difficile, Methicillin-Resistant Staph Aureus Past Surgical History Past Surgical History: Reports: Appendectomy, Section - 1, Orthopedic Surgery - right knee, Other - Right chest Port-A-Cath Denies: Amputation, Hysterectomy, Mastectomy, Pacemaker Social History Information Source: Patient Lives with: Family Smoking Status: Current Every Day Smoker Frequency of Alcohol Use: Heavy Hx Recreational Drug Use: Yes Drugs: Cocaine - History of use, Marijuana Hx Prescription Drug Abuse: No - Advance Directive Resuscitation Status: Do Not Resuscitate Family History Family History: CAD, Malignancy Parental Family History Reviewed: Yes Children Family History Reviewed: Yes Sibling(s) Family History Reviewed.: Yes Medication/Allergy Home Medications: Clonazepam [Klonopin] 0.5 mg PO QHS 11/16/16 Dronabinol [Marinol 2.5 mg Capsule] 2.5 mg PO BID 11/16/16 Gabapentin [Neurontin 100 mg Capsule] 100 mg PO TID 11/16/16 Magnesium Oxide [Mag-Ox 400 mg Tablet] 400 mg PO BID 11/16/16 Oxycodone HCl [Roxicodone] 30 mg PO Q4HP PRN 11/16/16 Potassium Chloride [K-Tab ER] 20 meq PO DAILY 11/16/16 Allergies/Adverse Reactions: No Known Allergies Allergy (Verified 11/30/16 14:08) Review of Systems Constitutional: PRESENT: chills, fatigue, fever(s). ABSENT: headache(s), weight gain, weight loss Eyes: ABSENT: visual disturbances Ears: ABSENT: hearing changes Cardiovascular: ABSENT: chest pain, dyspnea on exertion, edema, orthropnea, palpitations Respiratory: ABSENT: cough, hemoptysis Gastrointestinal: ABSENT: abdominal pain, constipation, diarrhea, hematemesis, hematochezia, nausea, vomiting Genitourinary: PRESENT: dysuria. ABSENT: hematuria Musculoskeletal: PRESENT: back pain. ABSENT: joint swelling Integumentary: ABSENT: rash, wounds Neurological: ABSENT: abnormal gait, abnormal speech, confusion, dizziness, focal weakness, syncope Psychiatric: ABSENT: anxiety, depression, homidical ideation, suicidal ideation Endocrine: ABSENT: cold intolerance, heat intolerance, polydipsia, polyuria Hematologic/Lymphatic: ABSENT: easy bleeding, easy bruising Physical Exam Vital Signs: Temp Pulse Resp BP Pulse Ox 99.3 F 107 H 20 97/64 L 95 11/30/16 17:11 11/30/16 17:11 11/30/16 17:25 11/30/16 17:11 11/30/16 17:30 Intake & Output 11/29/16 11/30/16 12/01/16 06:59 06:59 06:59 Weight 51.3 kg PHYSICAL EXAM: GENERAL: Appears well, no acute distress HEENT: Normocephalic, no scleral icterus, conjunctiva clear, EOEM intact, PERRLA , moist mucous membranes NECK: trachea midline, no thyromegally RESPIRATORY: Clear to auscultation, no wheezes/rhonchi CARDIAC: Regular rate and rhythm, no murmur/laura/rub ABDOMEN: Soft, no distension, no tenderness, no guarding, normal bowel sounds, negative Lozoya sign RECTAL: deferred : deferred EXTREMITIES: No edema, cyanosis, clubbing MUSCULOSKELETAL: Bilateral CVA tenderness VASCULAR: normal peripheral pulses NEUROLOGIC: Alert, oriented to person/place/time, normal speech, cranial nerves grossly intact, 5/5 strength in all extremities, tactile sensation intact in all extremities SKIN: No rash, no wounds, no worrisome skin lesions PSYCHIATRIC: Normal mood, normal affect Results Laboratory Results: 11/30/16 15:13 11/30/16 15:13 11/30/16 11/30/16 11/30/16 13:20 15:13 15:13 WBC 39.2 H* RBC 3.41 L Hgb 10.4 L Hct 31.5 L MCV 93 MCH 30.5 MCHC 32.9 RDW 15.1 H Plt Count 352 Seg Neutrophils % Not Reportable Lymphocytes % Not Reportable Monocytes % Not Reportable Eosinophils % Not Reportable Basophils % Not Reportable Absolute Neutrophils Not Reportable Absolute Lymphocytes Not Reportable Absolute Monocytes Not Reportable Absolute Eosinophils Not Reportable Absolute Basophils Not Reportable Sodium 134.0 L Potassium 3.1 L Chloride 94 L Carbon Dioxide 27 Anion Gap 13 BUN 11 Creatinine 0.58 Est GFR ( Amer) > 60 Est GFR (Non-Af Amer) > 60 Glucose 92 Calcium 7.5 L Total Bilirubin 0.8 AST 26 ALT 26 Alkaline Phosphatase 177 H Total Protein 5.9 L Albumin 2.6 L Urine Color YELLOW Urine Appearance CLOUDY Urine pH 6.0 Ur Specific [place] 1.008 Urine Protein 100 H Urine Glucose (UA) NEGATIVE Urine Ketones NEGATIVE Urine Blood SMALL H Urine Nitrite POSITIVE H Ur Leukocyte Esterase MODERATE H Urine WBC (Auto) >182 Urine RBC (Auto) 18 11/30/16 11/30/16 15:13 15:13 Creatine Kinase < 20 L CK-MB (CK-2) < 0.22 Troponin I < 0.012 Impressions: Chest X-Ray 11/30/16 14:42 IMPRESSION: STABLE APPEARANCE OF THE CAVITARY LESION IN THE LEFT LUNG. NO APPARENT ACUTE FINDINGS. Assessment & Plan - Diagnosis (1) Sepsis Is this a current diagnosis for this admission?: YesPlan: Secondary to acute pyelonephritis. Give IV fluids, IV antibiotics. (2) Pyelonephritis Is this a current diagnosis for this admission?: YesPlan: Start patient on IV Zosyn pending blood and urine culture. (3) Lung cancer Is this a current diagnosis for this admission?: YesPlan: Consult Dr. Jett of hematology. (4) GI bleed Qualifiers: GI bleed type/associated pathology: unspecified gastrointestinal hemorrhage type Qualified Code(s): K92.2 - Gastrointestinal hemorrhage, unspecified Is this a current diagnosis for this admission?: YesPlan: Patient had GI bleed secondary to diverticular disease and was recently released from [facility]. I will avoid pharmacologic DVT prophylaxis for this reason (5) Hypokalemia Is this a current diagnosis for this admission?: YesPlan: Place. Follow-up labs. Check magnesium level. - Time Time Spent: Greater than 70 Minutes
[2016-11-30] MEDS: HYDROMORPHONE HCL INJ/PF 2 MG/ML AMPULE IV PRN ×2 (18:06→22:00)
[2016-11-30] MEDS: POTASSI CL 20 MEQ/50 ML RIDER 50 ML IV SCH ×2 (19:50→19:57)
[2016-11-30] MEDS: POTASSI CL 20 MEQ/NS 1L 1,000 ML IV PRN (19:54)
[2016-12-01] MEDS: PIPERACILLIN SODIUM/TAZOBACTAM 3.375 GM in NORMAL SALINE 100 ML IV SCH ×5 (00:03→23:35)
[2016-12-01] MEDS: HYDROMORPHONE HCL INJ/PF 2 MG/ML AMPULE IV PRN ×5 (02:16→23:03)
[2016-12-01 05:08] LABS: HEMATOCRIT 22.4 % (36.0-47.0); HGB HCT DIFFERENCE -0.8; MEAN CORPUSCULAR HEMOGLOBIN 29.4 pg (27.0-33.4); MEAN CORPUSCULAR HGB CONC 31.9 g/dL (32.0-36.0); MEAN CORPUSCULAR VOLUME 92 fl (80-97); RED BLOOD COUNT 2.43 10^6/uL (3.72-5.28); RED CELL DISTRIBUTION WIDTH 15.7 % (11.5-14.0)
[2016-12-01 05:22] LABS: HEMOGLOBIN 7.2 g/dL (12.0-15.5)
[2016-12-01 05:30] LABS: BASOPHILS % (MANUAL) 0 % (0-2); EOSINOPHILS % (MANUAL) 0 % (0-6); LYMPHOCYTES % (MANUAL) 5 % (13-45); TOTAL CELLS COUNTED 100
[2016-12-01 05:31] LABS: ANISOCYTOSIS 1+; POLYCHROMASIA SLIGHT; TOXIC GRANULATION 1+; TOXIC VACUOLATION PRESENT
[2016-12-01 05:32] LABS: WHITE BLOOD COUNT 30.5 10^3/uL (4.0-10.5)
[2016-12-01 05:33] LABS: BAND NEUTROPHILS % (MANUAL) 14 % (3-5)
[2016-12-01 06:45] LABS: PROTHROMBIN TIME 17.9 SEC (11.4-15.4)
[2016-12-01 06:46] LABS: PARTIAL THROMBOPLASTIN TIME 38.4 SEC (23.5-35.8)
[2016-12-01 06:48] LABS: ANION GAP 11 (5-19); BLOOD UREA NITROGEN 12 mg/dL (7-20); CARBON DIOXIDE 21 mmol/L (22-30); CHLORIDE 101 mmol/L (98-107); CREATININE RESULT 0.93 mg/dL (0.52-1.25); GLUCOSE 91 mg/dL (75-110); POTASSIUM 3.8 mmol/L (3.6-5.0); SODIUM 132.8 mmol/L (137-145)
[2016-12-01] MEDS ORDERED: NORMAL SALINE 250 ML IV PRN ×2 (06:58)
[2016-12-01 06:59] LABS: CALCIUM 5.9 mg/dL (8.4-10.2); MAGNESIUM 0.6 mg/dL (1.6-2.3)
[2016-12-01] MEDS ORDERED: CALCIUM GLUCONATE 1,000 MG in DEXTROSE 5%-WATER 50 ML IV ONE (07:25)
[2016-12-01] MEDS ORDERED: CALCIUM GLUCONATE 1000 MG/10 ML INJ IV ONE (07:45)
[2016-12-01] MEDS: OXYCODONE HCL IR 5 MG TABLET PO PRN ×3 (08:08→20:17)
[2016-12-01] MEDS: MAGNESIUM SULFATE/D5W 100 ML IV SCH ×2 (08:10→12:56)
[2016-12-01 08:48] LABS: WHITE BLOOD COUNT 39.2 10^3/uL (4.0-10.5)
[2016-12-01] MEDS ORDERED: DRONABINOL 2.5 MG CAPSULE PO ONE (09:00)
[2016-12-01] MEDS: POTASSIUM CHLORIDE 10 MEQ TABLET.SA PO SCH (09:42)
[2016-12-01] MEDS: MAGNESIUM OXIDE 400 MG TABLET PO SCH ×2 (09:45→17:40)
[2016-12-01] MEDS: ONDANSETRON HCL INJ/PF 4 MG/2 ML SDV IV PRN (09:45)
--- NOTE | 2016-12-01 09:57 | EKG REPORT ---
SEVERITY:- ABNORMAL ECG - SINUS TACHYCARDIA MULTIFORM VENTRICULAR PREMATURE COMPLEXES : Confirmed by: Jaja Freeman 01-Dec-2016 09:55:03
[2016-12-01] MEDS ORDERED: (PENDING PHARMACY ID) (Potassium Chloride [K-Tab Er] 20 MEQ) PO SCH (10:00)
--- NOTE | 2016-12-01 12:46 | PDOC PROGRESS REPORT ---
Subjective Progress Note for:: 12/01/16 Subjective:: Patient feeling much better today in general. She is having some nausea. Patient denies fever, chills, headache, new focal weakness, chest pain, shortness of breath, abdominal pain, diarrhea, constipation. Physical Exam Vital Signs: Temp Pulse Resp BP Pulse Ox 98.4 F 124 H 19 118/86 H 100 12/01/16 12:05 12/01/16 12:05 12/01/16 12:05 12/01/16 12:05 12/01/16 12:05 Intake & Output 11/30/16 12/01/16 12/02/16 06:59 06:59 06:59 Intake Total 2367 774 Output Total 250 150 Balance 2117 624 Weight 57.1 kg GENERAL: No acute distress, alopecia secondary to chemotherapy HEENT: Conjunctiva clear, nonicteric, moist mucous membranes, no JVD, midline trachea RESPIRATORY: Clear to auscultation bilaterally, no wheezes, no rhonchi CARDIAC: Regular rate and rhythm, no murmurs/gallops/rubs ABDOMEN: Soft, nondistended, nontender, positive bowel sounds, no rebound, no guarding EXTREMETIES: No edema, cyanosis, clubbing NEUROLOGIC: Alert, oriented to person/place/time, CN's grossly intact, no focal deficits SKIN: No rash, wounds PSYCH: Normal mood, normal affect Results Laboratory Results: 12/01/16 04:00 12/01/16 06:26 11/30/16 11/30/16 12/01/16 18:00 23:00 04:00 WBC RBC Hgb Hct MCV MCH MCHC RDW Plt Count Seg Neutrophils % Lymphocytes % Monocytes % Eosinophils % Basophils % Absolute Neutrophils Absolute Lymphocytes Absolute Monocytes Absolute Eosinophils Absolute Basophils Sodium Cancelled Potassium Cancelled Chloride Cancelled Carbon Dioxide Cancelled Anion Gap Cancelled BUN Cancelled Creatinine Cancelled Est GFR ( Amer) Cancelled Est GFR (Non-Af Amer) Cancelled Glucose Cancelled Lactic Acid 3.2 H 1.0 Calcium Cancelled Magnesium Cancelled Blood Type Antibody Screen 12/01/16 12/01/16 12/01/16 04:00 05:30 06:26 WBC 30.5 H* RBC 2.43 L Hgb 7.2 L D Hct 22.4 L MCV 92 MCH 29.4 MCHC 31.9 L RDW 15.7 H Plt Count 237 Seg Neutrophils % Not Reportable Lymphocytes % Not Reportable Monocytes % Not Reportable Eosinophils % Not Reportable Basophils % Not Reportable Absolute Neutrophils Not Reportable Absolute Lymphocytes Not Reportable Absolute Monocytes Not Reportable Absolute Eosinophils Not Reportable Absolute Basophils Not Reportable Sodium 132.8 L Potassium 3.8 Chloride 101 Carbon Dioxide 21 L Anion Gap 11 BUN 12 Creatinine 0.93 Est GFR ( Amer) > 60 Est GFR (Non-Af Amer) > 60 Glucose 91 Lactic Acid Calcium 5.9 L* Magnesium 0.6 L* Blood Type O POSITIVE Antibody Screen NEGATIVE Impressions: Chest X-Ray 11/30/16 14:42 IMPRESSION: STABLE APPEARANCE OF THE CAVITARY LESION IN THE LEFT LUNG. NO APPARENT ACUTE FINDINGS. Assessment & Plan - Diagnosis (1) Sepsis Is this a current diagnosis for this admission?: YesPlan: Secondary to acute pyelonephritis. Give IV fluids, IV antibiotics. (2) Gram-negative bacteremia Is this a current diagnosis for this admission?: YesPlan: Secondary to urinary tract infection. Continue IV Zosyn pending further identification and susceptibility. (3) Pyelonephritis Is this a current diagnosis for this admission?: YesPlan: Continue IV Zosyn pending blood and urine culture. (4) Lung cancer Qualifiers: Laterality: unspecified laterality Lung location: unspecified part of lung Qualified Code(s): C34.90 - Malignant neoplasm of unspecified part of unspecified bronchus or lung Is this a current diagnosis for this admission?: YesPlan: Consult Dr. Jett of hematology. (5) GI bleed Qualifiers: GI bleed type/associated pathology: unspecified gastrointestinal hemorrhage type Qualified Code(s): K92.2 - Gastrointestinal hemorrhage, unspecified Is this a current diagnosis for this admission?: YesPlan: Patient had GI bleed secondary to diverticular disease and was recently released from [facility]. I will avoid pharmacologic DVT prophylaxis for this reason. Hemoccult stool secondary to drop in H&H over past 24 hours. (6) Hypokalemia Is this a current diagnosis for this admission?: YesPlan: Corrected. (7) Anemia Qualifiers: Anemia type: other cause Other causes of anemia: acute posthemorrhagic Qualified Code(s): D62 - Acute posthemorrhagic anemia Is this a current diagnosis for this admission?: YesPlan: Patient's hemoglobin and hematocrit have dropped significantly over past 24 hours. This is possibly secondary to hemodilution. I will Hemoccult stool. Transfuse 2 units PRBC. Monitor H&H for stability given recent GI bleed. (8) Hypocalcemia Is this a current diagnosis for this admission?: YesPlan: Replace (9) Hypomagnesemia Is this a current diagnosis for this admission?: YesPlan: Replace - Time Time Spent with patient: 35 or more minutes
[2016-12-01] MEDS: GABAPENTIN 100 MG CAPSULE PO SCH ×2 (13:48→21:39)
[2016-12-01 14:46] LABS: PATH REVIEW PATHOLOGIST REVIEWED
[2016-12-01 14:47] LABS: PATH REVIEW PATHOLOGIST REVIEWED
[2016-12-01] MEDS: DRONABINOL 2.5 MG CAPSULE PO SCH (15:34)
[2016-12-01] MEDS: POTASSI CL 20 MEQ/NS 1L 1,000 ML IV PRN ×2 (15:57→23:05)
[2016-12-01] MEDS ORDERED: DRONABINOL 2.5 MG CAPSULE PO SCH (16:00)
[2016-12-01] MEDS ORDERED: MAGNESIUM SULFATE/D5W 1 GM/100 ML RTUPB IV ONE (20:08)
[2016-12-01 20:25] LABS: HEMATOCRIT 28.4 % (36.0-47.0); HEMOGLOBIN 9.2 g/dL (12.0-15.5); HGB HCT DIFFERENCE -0.8; MEAN CORPUSCULAR HEMOGLOBIN 29.2 pg (27.0-33.4); MEAN CORPUSCULAR HGB CONC 32.5 g/dL (32.0-36.0); MEAN CORPUSCULAR VOLUME 90 fl (80-97); RED BLOOD COUNT 3.17 10^6/uL (3.72-5.28); RED CELL DISTRIBUTION WIDTH 16.8 % (11.5-14.0); WHITE BLOOD COUNT 25.8 10^3/uL (4.0-10.5)
[2016-12-01 20:48] LABS: BAND NEUTROPHILS % (MANUAL) 16 % (3-5); BASOPHILS % (MANUAL) 0 % (0-2); EOSINOPHILS % (MANUAL) 0 % (0-6); LYMPHOCYTES % (MANUAL) 3 % (13-45); TOTAL CELLS COUNTED 100
[2016-12-01 20:50] LABS: ANISOCYTOSIS 1+; HYPOCHROMASIA SLIGHT; OVALOCYTES SLIGHT; PLATELET CLUMPS PRESENT; POIKILOCYTOSIS SLIGHT
[2016-12-01] MEDS: CLONAZEPAM 1 MG TABLET PO SCH (21:39)
[2016-12-01] MEDS ORDERED: (PENDING PHARMACY ID) (Clonazepam [Klonopin] 0.5 MG) PO SCH (22:00)
--- NOTE | 2016-12-02 00:34 | PDOC CONSULTATION ---
Consultation Consult Date: 12/01/16 Consult reason:: NSCLC History of Present Illness Admission Date/PCP: 11/30/16 17:23 RUTH WANG MD History of Present Illness: JOCELIN PALMA is a 56 year old female with past medical history of stage III / possibly IV NSC lung cancer treated recently with Taxotere/ Cisplatin who presents with 1 day history of dysuria and low back pain. Patient was recently admitted to [facility] for a GIB and anemia and transferred to [facility]. During that hospitalization her GI bleed resolved spontaneously after a tagged study was suggestive of a cecal bleed. Follow up studies showed cessation of active bleeding and GI did not claude to proceed withy a colonoscopy.She had a Thomas catheter in during hospitalization and it was removed upon discharge. She has also been having fevers and chills and presented here with UTI and marked leukocytosis. She was placed on BSA and transfused 2 units of PRBC's. Her pain has improved. Her recent Head CT was negative and her CT of the chest showed improvement. Past Medical History Cardiac Medical History: Reports: Hyperlipidema, Hypertension Denies: Congestive Heart Failure, Coronary Artery Disease, DVT, Myocardial Infarction, Pulmonary Embolism Pulmonary Medical History: Reports: Chronic Obstructive Pulmonary Disease (COPD) Denies: Asthma, Bronchitis, Pneumonia, Sleep Apnea Neurological Medical History: Denies: Seizures Endocrine Medical History: Denies: Diabetes Mellitus Type 1, Diabetes Mellitus Type 2, Hyperthyroidism, Hypothyroidism Malignancy Medical History: Reports: Lung Cancer - Stage IIIB, squamous cell carcinoma, lung involvement, lymph node. GI Medical History: Denies: Cirrhosis, Hepatitis, Hiatal Hernia Musculoskeltal Medical History: Denies: Arthritis Psychiatric Medical History: Reports: Alcohol Dependency, Depression, Tobacco Dependency Hematology: Reports: Sickle Cell Disease - trait carrier Denies: Anemia Infectious Medical History: Denies: Clostridium Difficile, Methicillin-Resistant Staph Aureus Past Surgical History Past Surgical History: Reports: Appendectomy, Section - 1, Orthopedic Surgery - right knee, Other - Right chest Port-A-Cath Denies: Amputation, Hysterectomy, Mastectomy, Pacemaker Social History Lives with: Family Smoking Status: Current Every Day Smoker Cigarettes Packs Per Day: 1 Last Time Smoked: 11/30/2016 Frequency of Alcohol Use: Occasional Hx Recreational Drug Use: Yes Drugs: Marijuana Hx Prescription Drug Abuse: No - Advance Directive Resuscitation Status: Do Not Resuscitate Family History Family History: Reviewed & Not Pertinent, CAD, Malignancy Parental Family History Reviewed: Yes Children Family History Reviewed: Yes Sibling(s) Family History Reviewed.: Yes Medication/Allergy Home Medications: Clonazepam [Klonopin] 0.5 mg PO QHS 11/30/16 Dronabinol [Marinol 2.5 mg Capsule] 2.5 mg PO BID 11/30/16 Gabapentin [Neurontin 100 mg Capsule] 100 mg PO Q8 11/30/16 Magnesium Oxide [Mag-Ox 400 mg Tablet] 400 mg PO BID 11/30/16 Oxycodone HCl [Roxicodone] 30 mg PO Q4HP PRN 11/30/16 Potassium Chloride [K-Tab ER] 20 meq PO DAILY 11/30/16 Allergies/Adverse Reactions: No Known Allergies Allergy (Verified 11/30/16 14:08) Review of Systems Constitutional: PRESENT: fever(s) Gastrointestinal: PRESENT: as per HPI Physical Exam Vital Signs: Temp Pulse Resp BP Pulse Ox 100.5 F H 103 H 19 136/84 H 95 12/01/16 23:33 12/01/16 23:33 12/01/16 23:33 12/01/16 23:33 12/01/16 23:33 Intake & Output 11/30/16 12/01/16 12/02/16 06:59 06:59 06:59 Intake Total 2367 2548 Output Total 250 450 Balance 2117 2098 Weight 57.1 kg General appearance: PRESENT: no acute distress Head exam: PRESENT: atraumatic, normocephalic, other - Alopecia Eye exam: PRESENT: EOMI, PERRLA Ear exam: PRESENT: normal external ear exam Mouth exam: PRESENT: tongue midline Respiratory exam: PRESENT: rhonchi Cardiovascular exam: PRESENT: RRR GI/Abdominal exam: PRESENT: normal bowel sounds, soft Musculoskeletal exam: PRESENT: full ROM Neurological exam: PRESENT: alert, awake, oriented to person, oriented to place , oriented to time, oriented to situation, CN II-XII grossly intact Psychiatric exam: PRESENT: appropriate affect Results Laboratory Results: 12/01/16 18:20 12/01/16 06:26 12/01/16 12/01/16 12/01/16 04:00 04:00 05:30 WBC 30.5 H* RBC 2.43 L Hgb 7.2 L D Hct 22.4 L MCV 92 MCH 29.4 MCHC 31.9 L RDW 15.7 H Plt Count 237 Seg Neutrophils % Not Reportable Lymphocytes % Not Reportable Monocytes % Not Reportable Eosinophils % Not Reportable Basophils % Not Reportable Absolute Neutrophils Not Reportable Absolute Lymphocytes Not Reportable Absolute Monocytes Not Reportable Absolute Eosinophils Not Reportable Absolute Basophils Not Reportable Sodium Cancelled Potassium Cancelled Chloride Cancelled Carbon Dioxide Cancelled Anion Gap Cancelled BUN Cancelled Creatinine Cancelled Est GFR ( Amer) Cancelled Est GFR (Non-Af Amer) Cancelled Glucose Cancelled Calcium Cancelled Magnesium Cancelled Blood Type O POSITIVE Antibody Screen NEGATIVE 12/01/16 12/01/16 06:26 18:20 WBC 25.8 H RBC 3.17 L Hgb 9.2 L Hct 28.4 L MCV 90 MCH 29.2 MCHC 32.5 RDW 16.8 H Plt Count 178 Seg Neutrophils % Not Reportable Lymphocytes % Not Reportable Monocytes % Not Reportable Eosinophils % Not Reportable Basophils % Not Reportable Absolute Neutrophils Not Reportable Absolute Lymphocytes Not Reportable Absolute Monocytes Not Reportable Absolute Eosinophils Not Reportable Absolute Basophils Not Reportable Sodium 132.8 L Potassium 3.8 Chloride 101 Carbon Dioxide 21 L Anion Gap 11 BUN 12 Creatinine 0.93 Est GFR ( Amer) > 60 Est GFR (Non-Af Amer) > 60 Glucose 91 Calcium 5.9 L* Magnesium 0.6 L* Blood Type Antibody Screen Impressions: Chest X-Ray 11/30/16 14:42 IMPRESSION: STABLE APPEARANCE OF THE CAVITARY LESION IN THE LEFT LUNG. NO APPARENT ACUTE FINDINGS. Assessment & Plan - Diagnosis (1) Gram-negative bacteremia Is this a current diagnosis for this admission?: YesPlan: IV antibioticss per primary team. (2) Leukocytosis Qualifiers: Leukocytosis type: unspecified Qualified Code(s): D72.829 - Elevated white blood cell count, unspecified Is this a current diagnosis for this admission?: YesPlan: Appears to be reactive as recent WBC normal. (3) Lung cancer Qualifiers: Laterality: unspecified laterality Lung location: unspecified part of lung Qualified Code(s): C34.90 - Malignant neoplasm of unspecified part of unspecified bronchus or lung Is this a current diagnosis for this admission?: YesPlan: Recent scans with negative Head CT and Chest CT improved. (4) Pyelonephritis Is this a current diagnosis for this admission?: YesPlan: Antibiotics as above (5) Alcohol abuse Is this a current diagnosis for this admission?: YesPlan: Place on vitamins and prophylaxis - Time Time Spent: 50 to 70 Minutes Critical Time spent with patient: 25-34 minutes Medications reviewed and adjusted accordingly: Yes Anticipated discharge: Home Within: within 48 hours, within 72 hours - Inpatient Certification Based on my medical assessment, after consideration of the patient's comorbidities, presenting symptoms, or acuity I expect that the services needed warrant INPATIENT care.: Yes I certify that my determination is in accordance with my understanding of Medicare's requirements for reasonable and necessary INPATIENT services [42 CFR 412.3e].: Yes Medical Necessity: Need for IV Antibiotics
[2016-12-02] MEDS: OXYCODONE HCL IR 5 MG TABLET PO PRN ×3 (04:17→18:13)
[2016-12-02 04:50] LABS: HEMATOCRIT 29.7 % (36.0-47.0); HEMOGLOBIN 9.9 g/dL (12.0-15.5); MEAN CORPUSCULAR HEMOGLOBIN 29.8 pg (27.0-33.4); MEAN CORPUSCULAR HGB CONC 33.4 g/dL (32.0-36.0); MEAN CORPUSCULAR VOLUME 89 fl (80-97); RED BLOOD COUNT 3.32 10^6/uL (3.72-5.28); RED CELL DISTRIBUTION WIDTH 16.9 % (11.5-14.0); WHITE BLOOD COUNT 19.3 10^3/uL (4.0-10.5)
[2016-12-02] MEDS: GABAPENTIN 100 MG CAPSULE PO SCH ×3 (05:04→21:15)
[2016-12-02] MEDS: PIPERACILLIN SODIUM/TAZOBACTAM 3.375 GM in NORMAL SALINE 100 ML IV SCH ×4 (05:04→23:44)
[2016-12-02 05:05] LABS: ANION GAP 8 (5-19); BLOOD UREA NITROGEN 14 mg/dL (7-20); CARBON DIOXIDE 20 mmol/L (22-30); CHLORIDE 103 mmol/L (98-107); CREATININE RESULT 1.14 mg/dL (0.52-1.25); GLUCOSE 78 mg/dL (75-110); POTASSIUM 3.8 mmol/L (3.6-5.0); SODIUM 131.4 mmol/L (137-145)
[2016-12-02] MEDS: POTASSI CL 20 MEQ/NS 1L 1,000 ML IV PRN ×2 (05:06→18:14)
[2016-12-02 05:37] LABS: ANISOCYTOSIS 1+; BAND NEUTROPHILS % (MANUAL) 5 % (3-5); BASOPHILS % (MANUAL) 0 % (0-2); EOSINOPHILS % (MANUAL) 0 % (0-6); LYMPHOCYTES % (MANUAL) 1 % (13-45); POLYCHROMASIA SLIGHT; TOTAL CELLS COUNTED 100; TOXIC GRANULATION SLIGHT; TOXIC VACUOLATION PRESENT
[2016-12-02 05:38] LABS: BURR CELLS 1+; POIKILOCYTOSIS SLIGHT
[2016-12-02 06:11] LABS: FOLATE 8.68 ng/mL (>2.76)
[2016-12-02 06:15] LABS: CALCIUM 6.6 mg/dL (8.4-10.2)
[2016-12-02 06:20] LABS: MAGNESIUM 1.5 mg/dL (1.6-2.3)
[2016-12-02] MEDS ORDERED: CALCIUM GLUCONATE 1,000 MG in DEXTROSE 5%-WATER 50 ML IV ONE (07:01)
[2016-12-02] MEDS ORDERED: MAGNESIUM SULFATE/D5W 1 GM/100 ML RTUPB IV ONE (07:45)
[2016-12-02] MEDS: DRONABINOL 2.5 MG CAPSULE PO SCH ×2 (07:57→15:08)
[2016-12-02] MEDS ORDERED: CALCIUM GLUCONATE 1000 MG/10 ML INJ IV ONE (08:00)
[2016-12-02] MEDS: ONDANSETRON HCL INJ/PF 4 MG/2 ML SDV IV PRN (08:49)
[2016-12-02] MEDS: POTASSIUM CHLORIDE 10 MEQ TABLET.SA PO SCH (09:11)
[2016-12-02] MEDS: FERROUS SULFATE 325 MG TABLET PO SCH (09:11)
[2016-12-02] MEDS: DOCUSATE SODIUM 100 MG CAPSULE PO SCH ×2 (09:11→17:47)
[2016-12-02] MEDS: POLYETHYLENE GLYCOL 3350 POWDER 17 GM/1 PACKET PO SCH (09:12)
[2016-12-02] MEDS: MAGNESIUM OXIDE 400 MG TABLET PO SCH ×2 (09:12→17:47)
[2016-12-02] MEDS: NICOTINE 21 MG/24 HR PATCH.TD24 TD SCH (09:13)
--- NOTE | 2016-12-02 11:42 | PDOC PROGRESS REPORT ---
Subjective Progress Note for:: 12/02/16 Subjective:: Patient is feeling much better today. Patient denies fever, chills, headache, new focal weakness, chest pain, shortness of breath, abdominal pain, nausea, vomiting, diarrhea, constipation. Physical Exam Vital Signs: Temp Pulse Resp BP Pulse Ox 99.6 F 118 H 18 112/81 97 12/02/16 07:38 12/02/16 07:38 12/02/16 07:38 12/02/16 07:38 12/02/16 07:38 Intake & Output 12/01/16 12/02/16 12/03/16 06:59 06:59 06:59 Intake Total 2367 4775 Output Total 185 2050 Balance 2116 2739 Weight 57.1 kg 61 kg GENERAL: No acute distress, alopecia secondary to chemotherapy HEENT: Conjunctiva clear, nonicteric, moist mucous membranes, no JVD, midline trachea RESPIRATORY: Clear to auscultation bilaterally, no wheezes, no rhonchi CARDIAC: Regular rate and rhythm, no murmurs/gallops/rubs ABDOMEN: Soft, nondistended, nontender, positive bowel sounds, no rebound, no guarding EXTREMETIES: No edema, cyanosis, clubbing NEUROLOGIC: Alert, oriented to person/place/time, CN's grossly intact, no focal deficits SKIN: No rash, wounds PSYCH: Normal mood, normal affect Results Laboratory Results: 12/02/16 04:10 12/02/16 04:10 12/01/16 12/01/16 12/01/16 04:00 05:30 18:20 WBC 30.5 H* 25.8 H RBC 2.43 L 3.17 L Hgb 7.2 L D 9.2 L Hct 22.4 L 28.4 L MCV 92 90 MCH 29.4 29.2 MCHC 31.9 L 32.5 RDW 15.7 H 16.8 H Plt Count 237 178 Seg Neutrophils % Not Reportable Lymphocytes % Not Reportable Monocytes % Not Reportable Eosinophils % Not Reportable Basophils % Not Reportable Absolute Neutrophils Not Reportable Absolute Lymphocytes Not Reportable Absolute Monocytes Not Reportable Absolute Eosinophils Not Reportable Absolute Basophils Not Reportable Retic Count (auto) Absolute Retic Sodium Potassium Chloride Carbon Dioxide Anion Gap BUN Creatinine Est GFR ( Amer) Est GFR (Non-Af Amer) Glucose Calcium Magnesium Iron TIBC % Saturation Ferritin Vitamin B12 Folate Blood Type O POSITIVE Antibody Screen NEGATIVE 12/02/16 12/02/16 04:10 04:10 WBC 19.3 H RBC 3.32 L Hgb 9.9 L Hct 29.7 L MCV 89 MCH 29.8 MCHC 33.4 RDW 16.9 H Plt Count 175 Seg Neutrophils % Not Reportable Lymphocytes % Not Reportable Monocytes % Not Reportable Eosinophils % Not Reportable Basophils % Not Reportable Absolute Neutrophils Not Reportable Absolute Lymphocytes Not Reportable Absolute Monocytes Not Reportable Absolute Eosinophils Not Reportable Absolute Basophils Not Reportable Retic Count (auto) 2.34 Absolute Retic 0.078 Sodium 131.4 L Potassium 3.8 Chloride 103 Carbon Dioxide 20 L Anion Gap 8 BUN 14 Creatinine 1.14 Est GFR ( Amer) > 60 Est GFR (Non-Af Amer) 50 L Glucose 78 Calcium 6.6 L* Magnesium 1.5 L Iron < 10.1 L TIBC 197 L % Saturation UNABLE TO CALCULATE Ferritin 74.00 Vitamin B12 > 1000.0 H Folate 8.68 Blood Type Antibody Screen Impressions: Chest X-Ray 11/30/16 14:42 IMPRESSION: STABLE APPEARANCE OF THE CAVITARY LESION IN THE LEFT LUNG. NO APPARENT ACUTE FINDINGS. Assessment & Plan - Diagnosis (1) Sepsis Is this a current diagnosis for this admission?: YesPlan: Secondary to acute pyelonephritis. Continue IV fluids, IV antibiotics. (2) Gram-negative bacteremia Is this a current diagnosis for this admission?: YesPlan: Secondary to urinary tract infection. Continue IV Zosyn pending further identification and susceptibility. (3) Pyelonephritis Is this a current diagnosis for this admission?: YesPlan: Continue IV Zosyn pending blood and urine culture. (4) Lung cancer Qualifiers: Laterality: unspecified laterality Lung location: unspecified part of lung Qualified Code(s): C34.90 - Malignant neoplasm of unspecified part of unspecified bronchus or lung Is this a current diagnosis for this admission?: YesPlan: Consult Dr. Jett of hematology. (5) GI bleed Qualifiers: GI bleed type/associated pathology: unspecified gastrointestinal hemorrhage type Qualified Code(s): K92.2 - Gastrointestinal hemorrhage, unspecified Is this a current diagnosis for this admission?: YesPlan: Patient had GI bleed secondary to diverticular disease and was recently released from [facility]. I will avoid pharmacologic DVT prophylaxis for this reason. Hemoccult stool secondary to drop in H&H over past 24 hours. (6) Hypokalemia Is this a current diagnosis for this admission?: YesPlan: Corrected. (7) Anemia Qualifiers: Anemia type: other cause Other causes of anemia: acute posthemorrhagic Qualified Code(s): D62 - Acute posthemorrhagic anemia Is this a current diagnosis for this admission?: YesPlan: Patient's hemoglobin and hematocrit have dropped significantly over past 24 hours. This is possibly secondary to hemodilution. I will Hemoccult stool. Transfused 2 units PRBC. Monitor H&H for stability given recent GI bleed. (8) Hypocalcemia Is this a current diagnosis for this admission?: YesPlan: Replace (9) Hypomagnesemia Is this a current diagnosis for this admission?: YesPlan: Replace - Time Time Spent with patient: 35 or more minutes
[2016-12-02] MEDS: ALBUTEROL SULFATE 0.083% NEB 2.5 MG/3 ML AMPUL NEB PRN ×2 (14:17→21:15)
[2016-12-02] MEDS: HYDROMORPHONE HCL INJ/PF 2 MG/ML AMPULE IV PRN ×2 (15:08→22:07)
[2016-12-02] MEDS: CLONAZEPAM 1 MG TABLET PO SCH (21:15)
[2016-12-03] MEDS: HYDROMORPHONE HCL INJ/PF 2 MG/ML AMPULE IV PRN ×2 (04:23→09:57)
[2016-12-03 05:28] LABS: ABSOLUTE LYMPHOCYTES (AUTO) 0.4 10^3/uL (0.5-4.7); ABSOLUTE MONOCYTES (AUTO) 0.5 10^3/uL (0.1-1.4); ABSOLUTE NEUT (AUTO) 6.5 10^3/uL (1.7-8.2); BASOPHILS % (AUTO) 0.5 % (0-2); EOSINOPHILS % (AUTO) 0.6 % (0-6); HEMATOCRIT 28.9 % (36.0-47.0); HEMOGLOBIN 9.7 g/dL (12.0-15.5); HGB HCT DIFFERENCE 0.2; LYMPHOCYTES % (AUTO) 5.8 % (13-45); MEAN CORPUSCULAR HEMOGLOBIN 29.8 pg (27.0-33.4); MEAN CORPUSCULAR HGB CONC 33.5 g/dL (32.0-36.0); MEAN CORPUSCULAR VOLUME 89 fl (80-97); MONOCYTES % (AUTO) 6.4 % (3-13); RED BLOOD COUNT 3.25 10^6/uL (3.72-5.28); RED CELL DISTRIBUTION WIDTH 16.7 % (11.5-14.0); SEGMENTED NEUTROPHILS % (AUTO) 86.7 % (42-78); WHITE BLOOD COUNT 7.5 10^3/uL (4.0-10.5)
[2016-12-03] MEDS: POTASSI CL 20 MEQ/NS 1L 1,000 ML IV PRN (05:28)
[2016-12-03] MEDS: PIPERACILLIN SODIUM/TAZOBACTAM 3.375 GM in NORMAL SALINE 100 ML IV SCH (05:31)
[2016-12-03] MEDS: GABAPENTIN 100 MG CAPSULE PO SCH ×3 (05:33→21:40)
[2016-12-03 05:37] LABS: ANION GAP 8 (5-19); BLOOD UREA NITROGEN 10 mg/dL (7-20); CALCIUM 7.4 mg/dL (8.4-10.2); CARBON DIOXIDE 21 mmol/L (22-30); CHLORIDE 104 mmol/L (98-107); CREATININE RESULT 0.91 mg/dL (0.52-1.25); GLUCOSE 89 mg/dL (75-110); POTASSIUM 3.6 mmol/L (3.6-5.0)
[2016-12-03] MEDS ORDERED: FUROSEMIDE INJ/PF 20 MG/2 ML SDV IV ONE (08:02)
--- NOTE | 2016-12-03 08:07 | PDOC PROGRESS REPORT ---
Subjective Progress Note for:: 12/03/16 Subjective:: Patient is having cough and shortness of breath today. She denies fever, chills , headache, chest pain, abdominal pain, nausea, vomiting. Physical Exam Vital Signs: Temp Pulse Resp BP Pulse Ox 97.4 F 88 17 114/89 H 96 12/03/16 04:38 12/03/16 07:00 12/03/16 04:38 12/03/16 04:38 12/03/16 04:38 Intake & Output 12/02/16 12/03/16 12/04/16 06:59 06:59 06:59 Intake Total 4789 4400 Output Total 2050 2600 Balance 2739 1800 Weight 61 kg 61.2 kg GENERAL: No acute distress, alopecia secondary to chemotherapy HEENT: Conjunctiva clear, nonicteric, moist mucous membranes, no JVD, midline trachea RESPIRATORY: Bilateral rhonchi CARDIAC: Regular rate and rhythm, no murmurs/gallops/rubs ABDOMEN: Soft, nondistended, nontender, positive bowel sounds, no rebound, no guarding EXTREMETIES: No edema, cyanosis, clubbing NEUROLOGIC: Alert, oriented to person/place/time, CN's grossly intact, no focal deficits SKIN: No rash, wounds PSYCH: Normal mood, normal affect Results Laboratory Results: 12/03/16 04:30 12/03/16 04:30 12/03/16 12/03/16 12/03/16 04:30 04:30 06:40 WBC 7.5 RBC 3.25 L Hgb 9.7 L Hct 28.9 L MCV 89 MCH 29.8 MCHC 33.5 RDW 16.7 H Plt Count 129 L Seg Neutrophils % 86.7 H Lymphocytes % 5.8 L Monocytes % 6.4 Eosinophils % 0.6 Basophils % 0.5 Absolute Neutrophils 6.5 Absolute Lymphocytes 0.4 L Absolute Monocytes 0.5 Absolute Eosinophils 0.0 Absolute Basophils 0.0 Sodium 133.0 L Potassium 3.6 Chloride 104 Carbon Dioxide 21 L Anion Gap 8 BUN 10 Creatinine 0.91 Est GFR ( Amer) > 60 Est GFR (Non-Af Amer) > 60 Glucose 89 Calcium 7.4 L Stool Occult Blood NEGATIVE Impressions: Chest X-Ray 11/30/16 14:42 IMPRESSION: STABLE APPEARANCE OF THE CAVITARY LESION IN THE LEFT LUNG. NO APPARENT ACUTE FINDINGS. Assessment & Plan - Diagnosis (1) Dyspnea Qualifiers: Dyspnea type: unspecified Qualified Code(s): R06.00 - Dyspnea, unspecified Is this a current diagnosis for this admission?: YesPlan: Likely secondary to volume overload. Discontinue IV fluids. Give Lasix 20 mg IV 1 dose. Check chest x-ray. (2) Sepsis Is this a current diagnosis for this admission?: YesPlan: Secondary to acute pyelonephritis. White blood count now normal. Afebrile. (3) Gram-negative bacteremia Is this a current diagnosis for this admission?: YesPlan: Secondary to urinary tract infection. (4) Pyelonephritis Is this a current diagnosis for this admission?: YesPlan: Urine culture growing E. coli sensitive to Levaquin. Discontinue Zosyn. Start Levaquin 750 mg p.o. daily until 12/13/2016. (5) Lung cancer Qualifiers: Laterality: unspecified laterality Lung location: unspecified part of lung Qualified Code(s): C34.90 - Malignant neoplasm of unspecified part of unspecified bronchus or lung Is this a current diagnosis for this admission?: YesPlan: Dr. Jett of hematology. (6) GI bleed Qualifiers: GI bleed type/associated pathology: unspecified gastrointestinal hemorrhage type Qualified Code(s): K92.2 - Gastrointestinal hemorrhage, unspecified Is this a current diagnosis for this admission?: YesPlan: Patient had GI bleed secondary to diverticular disease and was recently released from [facility]. I will avoid pharmacologic DVT prophylaxis for this reason. Hemoccult stool negative. (7) Hypokalemia Is this a current diagnosis for this admission?: Yes (8) Anemia Qualifiers: Anemia type: other cause Other causes of anemia: acute posthemorrhagic Qualified Code(s): D62 - Acute posthemorrhagic anemia Is this a current diagnosis for this admission?: YesPlan: Patient's hemoglobin and hematocrit have dropped significantly over past 24 hours. This is possibly secondary to hemodilution. Hemoccult negative. Transfused 2 units PRBC. Monitor H&H for stability given recent GI bleed. (9) Hypocalcemia Is this a current diagnosis for this admission?: Yes (10) Hypomagnesemia Is this a current diagnosis for this admission?: Yes - Time Time Spent with patient: 35 or more minutes
[2016-12-03] MEDS: OXYCODONE HCL IR 5 MG TABLET PO PRN ×3 (08:11→20:02)
[2016-12-03] MEDS: DRONABINOL 2.5 MG CAPSULE PO SCH ×2 (08:13→16:38)
--- NOTE | 2016-12-03 08:53 | RADIOLOGY REPORT (SQ) ---
EXAM DESCRIPTION: CHEST SINGLE VIEW COMPLETED DATE/TIME: 12/03/2016 8:44 am REASON FOR STUDY: dyspnea COMPARISON: CT chest 11/15/2016, 08/18/2016 Chest films 09/09/2016, 11/30/2016 EXAM PARAMETERS: NUMBER OF VIEWS: One view. TECHNIQUE: Single frontal radiographic view of the chest acquired. RADIATION DOSE: NA LIMITATIONS: None. FINDINGS: LUNGS AND PLEURA: Stable cavitary left upper lobe mass. Question early or developing right upper lobe airspace disease marginating the minor fissure, and at the right lung apex. No pleural effusion. No pneumothorax. MEDIASTINUM AND HILAR STRUCTURES: No masses. Contour normal. HEART AND VASCULAR STRUCTURES: Heart normal in size. Normal vasculature. BONES: No acute findings. HARDWARE: Right-sided permanent central line tip superior vena cava. OTHER: No other significant finding. IMPRESSION: New patchy right upper lobe airspace disease worrisome for pneumonia. Unchanged left upper lobe cavitary lung mass. TECHNICAL DOCUMENTATION: JOB ID: [id number]
[2016-12-03] MEDS: DOCUSATE SODIUM 100 MG CAPSULE PO SCH ×2 (09:57→18:02)
[2016-12-03] MEDS: FERROUS SULFATE 325 MG TABLET PO SCH (09:57)
[2016-12-03] MEDS: MAGNESIUM OXIDE 400 MG TABLET PO SCH ×2 (09:57→18:02)
[2016-12-03] MEDS: POLYETHYLENE GLYCOL 3350 POWDER 17 GM/1 PACKET PO SCH (09:58)
[2016-12-03] MEDS: POTASSIUM CHLORIDE 10 MEQ TABLET.SA PO SCH (09:58)
[2016-12-03] MEDS: LEVOFLOXACIN 750 MG TABLET PO SCH (09:58)
[2016-12-03] MEDS: NICOTINE 21 MG/24 HR PATCH.TD24 TD SCH (09:59)
--- NOTE | 2016-12-03 11:07 | PDOC PROGRESS REPORT ---
Subjective Progress Note for:: 12/03/16 Subjective:: No acute events overnight Physical Exam Vital Signs: Temp Pulse Resp BP Pulse Ox 97.6 F 110 H 22 H 137/98 H 100 12/03/16 08:14 12/03/16 08:14 12/03/16 08:14 12/03/16 08:14 12/03/16 08:14 Intake & Output 12/02/16 12/03/16 12/04/16 06:59 06:59 06:59 Intake Total 4789 4400 Output Total 2050 2600 Balance 2739 1800 Weight 61 kg 61.2 kg General appearance: PRESENT: no acute distress, well-developed, well-nourished Head exam: PRESENT: atraumatic, normocephalic Eye exam: PRESENT: conjunctiva pink, EOMI, PERRLA. ABSENT: scleral icterus Ear exam: PRESENT: normal external ear exam Mouth exam: PRESENT: moist, tongue midline Neck exam: ABSENT: carotid bruit, JVD, lymphadenopathy, thyromegaly Respiratory exam: PRESENT: clear to auscultation davide. ABSENT: rales, rhonchi, wheezes Cardiovascular exam: PRESENT: RRR. ABSENT: diastolic murmur, rubs, systolic murmur Pulses: PRESENT: normal dorsalis pedis pul Vascular exam: PRESENT: normal capillary refill GI/Abdominal exam: PRESENT: normal bowel sounds, soft. ABSENT: distended, guarding, mass, organolmegaly, rebound, tenderness Rectal exam: PRESENT: deferred Extremities exam: PRESENT: full ROM. ABSENT: calf tenderness, clubbing, pedal edema Neurological exam: PRESENT: alert, awake, oriented to person, oriented to place , oriented to time, oriented to situation, CN II-XII grossly intact. ABSENT: motor sensory deficit Psychiatric exam: PRESENT: appropriate affect, normal mood. ABSENT: homicidal ideation, suicidal ideation Skin exam: PRESENT: dry, intact, warm. ABSENT: cyanosis, rash Results Laboratory Results: 12/03/16 04:30 12/03/16 04:30 12/03/16 12/03/16 12/03/16 04:30 04:30 06:40 WBC 7.5 RBC 3.25 L Hgb 9.7 L Hct 28.9 L MCV 89 MCH 29.8 MCHC 33.5 RDW 16.7 H Plt Count 129 L Seg Neutrophils % 86.7 H Lymphocytes % 5.8 L Monocytes % 6.4 Eosinophils % 0.6 Basophils % 0.5 Absolute Neutrophils 6.5 Absolute Lymphocytes 0.4 L Absolute Monocytes 0.5 Absolute Eosinophils 0.0 Absolute Basophils 0.0 Sodium 133.0 L Potassium 3.6 Chloride 104 Carbon Dioxide 21 L Anion Gap 8 BUN 10 Creatinine 0.91 Est GFR ( Amer) > 60 Est GFR (Non-Af Amer) > 60 Glucose 89 Calcium 7.4 L Stool Occult Blood NEGATIVE 11/30/16 18:00 Blood Blood Culture - Final Escherichia Coli Impressions: Chest X-Ray 12/03/16 08:02 IMPRESSION: New patchy right upper lobe airspace disease worrisome for pneumonia. Unchanged left upper lobe cavitary lung mass. Assessment & Plan - Diagnosis (1) Lung cancer Qualifiers: Laterality: unspecified laterality Lung location: unspecified part of lung Qualified Code(s): C34.90 - Malignant neoplasm of unspecified part of unspecified bronchus or lung Is this a current diagnosis for this admission?: YesPlan: Per Dr. Jett recent scans stable, no changes, will follow. Con't current management. - Time Time Spent with patient: 15-24 minutes Critical Time spent with patient: 15-24 minutes
[2016-12-03] MEDS: ALBUTEROL SULFATE 0.083% NEB 2.5 MG/3 ML AMPUL NEB PRN (13:41)
[2016-12-03] MEDS ORDERED: FENTANYL 25 MCG/HR PATCH.TD72 TD SCH ×2 (15:00→17:00)
[2016-12-03] MEDS: CLONAZEPAM 1 MG TABLET PO SCH (21:40)
[2016-12-04] MEDS: OXYCODONE HCL IR 5 MG TABLET PO PRN ×4 (00:19→19:46)
[2016-12-04] MEDS: GABAPENTIN 100 MG CAPSULE PO SCH ×3 (06:54→22:08)
[2016-12-04 07:09] LABS: ABSOLUTE EOSINOPHILS # (AUTO) 0.1 10^3/uL (0.0-0.6); ABSOLUTE LYMPHOCYTES (AUTO) 0.7 10^3/uL (0.5-4.7); ABSOLUTE MONOCYTES (AUTO) 0.9 10^3/uL (0.1-1.4); ABSOLUTE NEUT (AUTO) 6.2 10^3/uL (1.7-8.2); BASOPHILS % (AUTO) 0.4 % (0-2); EOSINOPHILS % (AUTO) 0.9 % (0-6); HEMATOCRIT 29.2 % (36.0-47.0); HEMOGLOBIN 9.8 g/dL (12.0-15.5); HGB HCT DIFFERENCE 0.2; LYMPHOCYTES % (AUTO) 8.8 % (13-45); MEAN CORPUSCULAR HEMOGLOBIN 29.2 pg (27.0-33.4); MEAN CORPUSCULAR HGB CONC 33.6 g/dL (32.0-36.0); MEAN CORPUSCULAR VOLUME 87 fl (80-97); MONOCYTES % (AUTO) 10.9 % (3-13); RED BLOOD COUNT 3.37 10^6/uL (3.72-5.28); RED CELL DISTRIBUTION WIDTH 15.9 % (11.5-14.0); WHITE BLOOD COUNT 7.8 10^3/uL (4.0-10.5)
[2016-12-04] MEDS: DRONABINOL 2.5 MG CAPSULE PO SCH ×2 (07:31→18:51)
--- NOTE | 2016-12-04 08:12 | PDOC PROGRESS REPORT ---
Subjective Progress Note for:: 12/04/16 Subjective:: Patient complains of some discomfort with swallowing. Patient is medically stable for discharge from the hospital however she states that she will not leave the hospital until she feels 100%. I advised her that with her lung cancer and comorbid conditions she may never feel 100%. She is ambulating about the hallway to the nurses station and asking for various things I am working on the unit. She denies fever, chills, headache, shortness of breath, chest pain, abdominal pain, nausea, vomiting. Physical Exam Vital Signs: Temp Pulse Resp BP Pulse Ox 98.6 F 104 H 16 116/62 99 12/04/16 07:24 12/04/16 07:24 12/04/16 07:24 12/04/16 07:24 12/04/16 07:24 Intake & Output 12/03/16 12/04/16 12/05/16 06:59 06:59 06:59 Intake Total 4400 3342 Output Total 2600 1100 Balance 1800 2242 Weight 61.2 kg 60.3 kg GENERAL: No acute distress, alopecia secondary to chemotherapy HEENT: Conjunctiva clear, nonicteric, moist mucous membranes, no JVD, midline trachea RESPIRATORY: Bilateral rhonchi CARDIAC: Regular rate and rhythm, no murmurs/gallops/rubs ABDOMEN: Soft, nondistended, nontender, positive bowel sounds, no rebound, no guarding EXTREMETIES: No edema, cyanosis, clubbing NEUROLOGIC: Alert, oriented to person/place/time, CN's grossly intact, no focal deficits SKIN: No rash, wounds PSYCH: Normal mood, normal affect Results Laboratory Results: 12/04/16 06:43 12/03/16 04:30 12/02/16 12/04/16 04:10 06:43 WBC 7.8 RBC 3.37 L Hgb 9.8 L Hct 29.2 L MCV 87 MCH 29.2 MCHC 33.6 RDW 15.9 H Plt Count 150 Seg Neutrophils % 79.0 H Lymphocytes % 8.8 L Monocytes % 10.9 Eosinophils % 0.9 Basophils % 0.4 Absolute Neutrophils 6.2 Absolute Lymphocytes 0.7 Absolute Monocytes 0.9 Absolute Eosinophils 0.1 Absolute Basophils 0.0 Transferrin 113 L 11/30/16 18:00 Blood Blood Culture - Final Escherichia Coli Impressions: Chest X-Ray 12/03/16 08:02 IMPRESSION: New patchy right upper lobe airspace disease worrisome for pneumonia. Unchanged left upper lobe cavitary lung mass. Assessment & Plan - Diagnosis (1) Sepsis Is this a current diagnosis for this admission?: YesPlan: Secondary to acute pyelonephritis and pneumonia. White blood count now normal. Afebrile. (2) Pneumonia Is this a current diagnosis for this admission?: YesPlan: Patient has a right upper lobe pneumonia on chest x-ray. This is likely bacterial. She is afebrile with a normal white blood count on oral Levaquin. (3) Gram-negative bacteremia Is this a current diagnosis for this admission?: YesPlan: Secondary to urinary tract infection. (4) Pyelonephritis Is this a current diagnosis for this admission?: YesPlan: Urine culture growing E. coli sensitive to Levaquin. Continue Levaquin 750 mg p.o. daily until 12/13/2016. (5) Lung cancer Qualifiers: Laterality: unspecified laterality Lung location: unspecified part of lung Qualified Code(s): C34.90 - Malignant neoplasm of unspecified part of unspecified bronchus or lung Is this a current diagnosis for this admission?: YesPlan: Dr. Jett of hematology. (6) GI bleed Qualifiers: GI bleed type/associated pathology: unspecified gastrointestinal hemorrhage type Qualified Code(s): K92.2 - Gastrointestinal hemorrhage, unspecified Is this a current diagnosis for this admission?: YesPlan: Patient had GI bleed secondary to diverticular disease and was recently released from [facility]. I will avoid pharmacologic DVT prophylaxis for this reason. Hemoccult stool negative. (7) Hypokalemia Is this a current diagnosis for this admission?: YesPlan: Corrected. (8) Anemia Qualifiers: Anemia type: other cause Other causes of anemia: acute posthemorrhagic Qualified Code(s): D62 - Acute posthemorrhagic anemia Is this a current diagnosis for this admission?: YesPlan: Patient's hemoglobin and hematocrit have dropped significantly over past 24 hours. This is possibly secondary to hemodilution. Hemoccult negative. Transfused 2 units PRBC. Monitor H&H for stability given recent GI bleed. (9) Hypocalcemia Is this a current diagnosis for this admission?: Yes (10) Hypomagnesemia Is this a current diagnosis for this admission?: Yes - Time Time Spent with patient: 25-34 minutes Anticipated discharge: Home Within: within 24 hours
[2016-12-04] MEDS: LEVOFLOXACIN 750 MG TABLET PO SCH (10:28)
[2016-12-04] MEDS: MAGNESIUM OXIDE 400 MG TABLET PO SCH ×2 (10:28→18:51)
[2016-12-04] MEDS: POTASSIUM CHLORIDE 10 MEQ TABLET.SA PO SCH (10:28)
[2016-12-04] MEDS: FERROUS SULFATE 325 MG TABLET PO SCH (10:28)
[2016-12-04] MEDS: POLYETHYLENE GLYCOL 3350 POWDER 17 GM/1 PACKET PO SCH (10:29)
[2016-12-04] MEDS: NICOTINE 21 MG/24 HR PATCH.TD24 TD SCH (10:29)
[2016-12-04] MEDS: NYSTATIN 500000 UNIT/5 ML UDCUP PO SCH ×4 (10:29→22:08)
[2016-12-04] MEDS: DOCUSATE SODIUM 100 MG CAPSULE PO SCH ×2 (10:29→18:52)
[2016-12-04] MEDS ORDERED: FENTANYL 50 MCG/HR PATCH.TD72 TD SCH (19:00)
[2016-12-04] MEDS: CLONAZEPAM 1 MG TABLET PO SCH (22:08)
[2016-12-05] MEDS: GABAPENTIN 100 MG CAPSULE PO SCH ×2 (05:08→14:48)
[2016-12-05] MEDS: OXYCODONE HCL IR 5 MG TABLET PO PRN ×3 (05:08→14:48)
[2016-12-05] MEDS: ONDANSETRON HCL INJ/PF 4 MG/2 ML SDV IV PRN (05:08)
[2016-12-05 05:10] LABS: ABSOLUTE BASOPHILS # (AUTO) 0.1 10^3/uL (0.0-0.2); ABSOLUTE EOSINOPHILS # (AUTO) 0.1 10^3/uL (0.0-0.6); ABSOLUTE MONOCYTES (AUTO) 0.7 10^3/uL (0.1-1.4); ABSOLUTE NEUT (AUTO) 7.1 10^3/uL (1.7-8.2); EOSINOPHILS % (AUTO) 0.8 % (0-6); HEMATOCRIT 30.9 % (36.0-47.0); HEMOGLOBIN 10.2 g/dL (12.0-15.5); HGB HCT DIFFERENCE -0.3; LYMPHOCYTES % (AUTO) 11.5 % (13-45); MEAN CORPUSCULAR HEMOGLOBIN 29.1 pg (27.0-33.4); MEAN CORPUSCULAR HGB CONC 32.9 g/dL (32.0-36.0); MEAN CORPUSCULAR VOLUME 88 fl (80-97); MONOCYTES % (AUTO) 7.8 % (3-13); RED CELL DISTRIBUTION WIDTH 16.2 % (11.5-14.0); SEGMENTED NEUTROPHILS % (AUTO) 78.9 % (42-78)
[2016-12-05 05:27] LABS: ANION GAP 9 (5-19); BLOOD UREA NITROGEN 4 mg/dL (7-20); CALCIUM 8.1 mg/dL (8.4-10.2); CARBON DIOXIDE 30 mmol/L (22-30); CHLORIDE 95 mmol/L (98-107); CREATININE RESULT 0.83 mg/dL (0.52-1.25); GLUCOSE 94 mg/dL (75-110)
[2016-12-05 05:37] LABS: MAGNESIUM 0.8 mg/dL (1.6-2.3); POTASSIUM 2.7 mmol/L (3.6-5.0)
[2016-12-05] MEDS ORDERED: POTASSIUM CHLORIDE 20 MEQ/15 ML UDCUP PO ONE (06:00)
[2016-12-05] MEDS: MAGNESIUM SULFATE/D5W 1 GM/100 ML RTUPB IV SCH ×3 (06:14→08:31)
[2016-12-05] MEDS: POTASSIUM CHLORIDE 20 MEQ/15 ML UDCUP PO SCH ×4 (07:26→14:48)
[2016-12-05] MEDS: DRONABINOL 2.5 MG CAPSULE PO SCH (07:26)
[2016-12-05] MEDS ORDERED: MAGNESIUM SULFATE/D5W 100 ML IV SCH (08:30)
[2016-12-05] MEDS: POTASSIUM CHLORIDE 10 MEQ TABLET.SA PO SCH (09:47)
[2016-12-05] MEDS: LEVOFLOXACIN 750 MG TABLET PO SCH (09:47)
[2016-12-05] MEDS: MAGNESIUM OXIDE 400 MG TABLET PO SCH (09:47)
[2016-12-05] MEDS: FERROUS SULFATE 325 MG TABLET PO SCH (09:47)
[2016-12-05] MEDS: NICOTINE 21 MG/24 HR PATCH.TD24 TD SCH (09:48)
[2016-12-05] MEDS: NYSTATIN 500000 UNIT/5 ML UDCUP PO SCH ×2 (09:49→14:49)
[2016-12-05] MEDS: DOCUSATE SODIUM 100 MG CAPSULE PO SCH (09:49)
[2016-12-05] MEDS: POLYETHYLENE GLYCOL 3350 POWDER 17 GM/1 PACKET PO SCH (09:49)
[2016-12-05 12:47] LABS: ANION GAP 6 (5-19); BLOOD UREA NITROGEN 4 mg/dL (7-20); CALCIUM 7.9 mg/dL (8.4-10.2); CARBON DIOXIDE 31 mmol/L (22-30); CHLORIDE 94 mmol/L (98-107); CREATININE RESULT 0.73 mg/dL (0.52-1.25); GLUCOSE 95 mg/dL (75-110); MAGNESIUM 1.6 mg/dL (1.6-2.3); SODIUM 130.8 mmol/L (137-145)
[2016-12-05 13:07] LABS: POTASSIUM 3.6 mmol/L (3.6-5.0)
--- NOTE | 2016-12-05 14:53 | PDOC DISCHARGE SUMMARY ---
General - Admit/Disc Date/PCP Admission Date/Primary Care Provider: 11/30/16 17:23 RUTH WANG MD Discharge Date: 12/05/16 - Discharge Diagnosis (1) Sepsis Is this a current diagnosis for this admission?: Yes (2) Pneumonia Is this a current diagnosis for this admission?: Yes (3) Gram-negative bacteremia Is this a current diagnosis for this admission?: Yes (4) Pyelonephritis Is this a current diagnosis for this admission?: Yes (5) Lung cancer Is this a current diagnosis for this admission?: Yes (6) GI bleed Is this a current diagnosis for this admission?: Yes (7) Hypokalemia Is this a current diagnosis for this admission?: Yes (8) Anemia Is this a current diagnosis for this admission?: Yes (9) Hypocalcemia Is this a current diagnosis for this admission?: Yes (10) Hypomagnesemia Is this a current diagnosis for this admission?: Yes - Additional Information Resuscitation Status: Do Not Resuscitate Discharge Diet: Regular Discharge Activity: Activity As Tolerated Home Medications: Clonazepam [Klonopin] 0.5 mg PO QHS 11/30/16 Dronabinol [Marinol 2.5 mg Capsule] 2.5 mg PO BID 11/30/16 Gabapentin [Neurontin 100 mg Capsule] 100 mg PO Q8 11/30/16 Oxycodone HCl [Roxicodone] 30 mg PO Q4HP PRN 11/30/16 Docusate Sodium [Colace 100 mg Capsule] 100 mg PO BID #60 capsule 12/05/16 Fentanyl [Duragesic 50 Mcg/Hr Transdermal Patch] 1 each TD Q72H #4 patch.td72 Ferrous Sulfate [Feosol 325 mg Tablet] 325 mg PO DAILY #30 tablet 12/05/16 Levofloxacin [Levaquin 750 mg Tablet] 750 mg PO DAILY #7 tablet 12/05/16 Magnesium Oxide [Mag-Ox 400 mg Tablet] 800 mg PO BID #120 tablet 12/05/16 Nystatin [Mycostatin 500,000 Unit/5 ml Susp Udcup] 500,000 unit PO QID #28 udc 12/05/16 Polyethylene Glycol 3350 [Miralax Powder 17 gm/Packet] 17 gm PO DAILY #30 powd.pack 12/05/16 Potassium Chloride [K-Tab ER] 20 meq PO BID #60 tablet.er 12/05/16 History of Present Illness Patient complains of: Dysuria History of Present Illness: JOCELIN PALMA is a 56 year old female with past medical history of stage III lung cancer treated by Dr. Shawna Jett presents with 1 day history of dysuria and low back pain. Patient was recently admitted to our facility and transferred to [facility] for gastrointestinal bleeding. During that hospitalization her GI bleed resolved spontaneously. She had a Thomas catheter in during hospitalization it was removed upon discharge. She has also been having fevers and chills. Hospital Course Hospital Course: Patient was admitted for urinary tract infection and pyelonephritis and associated sepsis. She was initially treated with IV antibiotics pending culture. Eventually blood culture and urine culture all grew E. coli sensitive to Levaquin. Patient has now been transitioned to oral Levaquin and remained stable. She has stage III lung cancer that is followed by Dr. Jett of oncology and she is on chemotherapy for this. She will need to follow-up with Dr. Jett for this after discharge. She has hypokalemia and hypomagnesemia chronically. We had to replace her potassium and magnesium via IV route on occasion during hospitalization. Have increased her chronic potassium and magnesium supplements on discharge. Patient has tobacco abuse and was smoking in her bathroom during this admission on the day prior to discharge. Patient had recent GI bleed for which she was transferred to [facility]. GI bleed was diverticular in nature. She has been Hemoccult negative this admission. Patient has anemia of chronic disease for which she required transfusion 2 units PRBC this admission. H&H has been stable posttransfusion. Patient was noted to have right upper lung field airspace disease on chest x- ray. She has remained stable on Levaquin. Physical Exam Vital Signs: Temp Pulse Resp BP Pulse Ox 97.2 F 90 18 106/83 99 12/05/16 11:50 12/05/16 11:50 12/05/16 11:50 12/05/16 11:50 12/05/16 11:50 Intake & Output 12/04/16 12/05/16 12/06/16 06:59 06:59 06:59 Intake Total 3342 1940 240 Output Total 1100 4050 1600 Balance 2242 -2110 -1360 Weight 60.3 kg 57.8 kg GENERAL: No acute distress, alopecia secondary to chemotherapy HEENT: Conjunctiva clear, nonicteric, moist mucous membranes, no JVD, midline trachea RESPIRATORY: Bilateral rhonchi CARDIAC: Regular rate and rhythm, no murmurs/gallops/rubs ABDOMEN: Soft, nondistended, nontender, positive bowel sounds, no rebound, no guarding EXTREMETIES: No edema, cyanosis, clubbing NEUROLOGIC: Alert, oriented to person/place/time, CN's grossly intact, no focal deficits SKIN: No rash, wounds PSYCH: Normal mood, normal affect Results Laboratory Results: 12/05/16 04:45 12/05/16 12:08 12/05/16 12/05/16 12/05/16 04:45 04:45 12:08 WBC 9.0 RBC 3.50 L Hgb 10.2 L Hct 30.9 L MCV 88 MCH 29.1 MCHC 32.9 RDW 16.2 H Plt Count 195 Seg Neutrophils % 78.9 H Lymphocytes % 11.5 L Monocytes % 7.8 Eosinophils % 0.8 Basophils % 1.0 Absolute Neutrophils 7.1 Absolute Lymphocytes 1.0 Absolute Monocytes 0.7 Absolute Eosinophils 0.1 Absolute Basophils 0.1 Sodium 134.0 L 130.8 L Potassium 2.7 L* 3.6 Chloride 95 L 94 L Carbon Dioxide 30 31 H Anion Gap 9 6 BUN 4 L 4 L Creatinine 0.83 0.73 Est GFR ( Amer) > 60 > 60 Est GFR (Non-Af Amer) > 60 > 60 Glucose 94 95 Calcium 8.1 L 7.9 L Magnesium 0.8 L* 1.6 Impressions: Chest X-Ray 12/03/16 08:02 IMPRESSION: New patchy right upper lobe airspace disease worrisome for pneumonia. Unchanged left upper lobe cavitary lung mass. Qualifiers PATEINT BEING DISCHARGED WITH ANY OF THE FOLLOWING DIAGNOSIS?: No Plan Time Spent: Less than 30 Minutes
[2016-12-05 15:58] VITALS: BP 113/74
[2016-12-05] MEDS ORDERED: CLONAZEPAM 1 MG TABLET PO SCH (22:00)
== END 2016-12-05 16:39 | disposition home or self-care (01) | DRG 871 ==
LOC: ER 13:08 → EH 17:23 → UNDOADMIN 18:04 → EH 18:04 → 3N 19:30
PROC: 30233N1 Transfusion of Nonautologous Red Blood Cells into Peripheral Vein, Percutaneous Approach (ICD-10-PCS; principal; 2016-12-01)
PROC: 3E0F73Z Introduction of Anti-inflammatory into Respiratory Tract, Via Natural or Artificial Opening (ICD-10-PCS; 2016-12-02)
DX: A41.51 Sepsis due to Escherichia coli [E. coli] (principal); J18.9 Pneumonia, unspecified organism; N10 Acute pyelonephritis; C34.90 Malignant neoplasm of unspecified part of unspecified bronchus or lung; C77.9 Secondary and unspecified malignant neoplasm of lymph node, unspecified; N39.0 Urinary tract infection, site not specified; D63.8 Anemia in other chronic diseases classified elsewhere; E87.6 Hypokalemia; B96.20 Unspecified Escherichia coli [E. coli] as the cause of diseases classified elsewhere; E83.51 Hypocalcemia; E83.42 Hypomagnesemia; E78.5 Hyperlipidemia, unspecified; F10.10 Alcohol abuse, uncomplicated; I10 Essential (primary) hypertension; J44.9 Chronic obstructive pulmonary disease, unspecified; Z90.49 Acquired absence of other specified parts of digestive tract; F17.210 Nicotine dependence, cigarettes, uncomplicated; Z79.899 Other long term (current) drug therapy; Z82.49 Family history of ischemic heart disease and other diseases of the circulatory system; Z80.9 Family history of malignant neoplasm, unspecified
CPT/HCPCS: 36415; 36430; 71010; 80048; 80053; 81001; 82272; 82550; 82553; 82607; 82728; 82746; 83540; 83550; 83605; 83735; 84466; 84484; 85025; 85045; 85610; 85730; 86850; 86900; 86901; 86920; 87040; 87077; 87086; 87088; 87186; 93005; 93010; 94640; 96365; 96375; 99285; A9270-GY; J0610; J1170; J1940; J2270; J2405; J2543; J3370; J3475; J3480; J3490; J7040; J7120; P9016

== ENCOUNTER 2016-12-22 09:18 | Day surgery (SDC) | payer MEDICAID ==
[~2016-12-22 09:18] MED LIST changes: +BUPIVACAINE HCL 0.75% INJ/PF (7.5 MG/1 ML) 10 ML SDV OD PRN; -CEFAZOLIN 1 GM/D5W RTU 1 GM/50 ML RTUPB IV PRN; +CHONDR SU A NA/HYALUR INTRAOC KIT (SURGICARE) ONE; -DEXTROSE 5%-1/2 NORMAL SALINE 1,000 ML IV PRN; +EPINEPHRINE INJ/PF 1 MG/1 ML AMPULE ONE; +FENTANYL CITRATE INJ/PF 100 MCG/2 ML AMPUL ONE; +KETOROLAC TROMETHAMINE 0.45% 4 DROP/0.4 ML DROPERETTE OD PRN; -LACTATED RINGERS 1000 ML IV PRN; -LIDOCAINE 0.5% INJ-PF (5 MG/ML) 50 ML SDV SUBCUT PRN; +LIDOCAINE 1% INJ-PF (10 MG/ML) 30 ML SDV ONE; -METRONIDAZOLE 500 MG/NS RTU 100 ML IV PRN; +MIDAZOLAM 2 MG/2 ML INJ ONE
[2016-12-22] MEDS: TROPICAMIDE 1% OPH SOLN 3 ML OD PRN ×3 (09:45→10:05)
[2016-12-22] MEDS: BESIFLOXACIN HCL 0.6% OPH SUSP 5 ML BOTTLE OD PRN ×3 (09:45→10:42)
[2016-12-22] MEDS: CYCLOPENTOLATE 0.2%/PHENYLEPHRINE 1% OPH SOLN 2 ML OD PRN ×3 (09:45→10:05)
[2016-12-22] MEDS: TETRACAINE HCL 0.5% OPH SOLN 2 ML OD PRN ×3 (09:46→10:12)
[2016-12-22] MEDS ORDERED: ALBUTEROL SULFATE 0.083% NEB 2.5 MG/3 ML AMPUL NEB ONE (09:50)
--- NOTE | 2016-12-25 20:54 | [facility] OPERATIVE REPORT E ---
[facility] Operative Report NAME: JOCELIN PALMA AGE: 56Y DATE OF SURGERY: 12/22/2016 ROOM: PREOPERATIVE DIAGNOSES: 1. CATARACT, RIGHT EYE. 2. PUPIL MIOSIS, RIGHT EYE. POSTOPERATIVE DIAGNOSES: 1. CATARACT, RIGHT EYE. 2. PUPIL MIOSIS, RIGHT EYE. OPERATION: Complex cataract extraction with use of Malyugin ring due to a very miotic pupil. SURGEON: NOEMI TAO M.D. ANESTHESIA: Topical. PROCEDURE: After obtaining appropriate consent, the patient's right eye was prepped and draped in sterile fashion as well as the surgeon in a sterile manner and cataract surgery was started. First a paracentesis blade was used to make a small side-port incision. Viscoelastic was used to inflate the anterior chamber. Next a 2.4 mm incision was made with the paracentesis blade. A continuous capsulorrhexis incision was made using a cystotome and Utrata forceps. Following this hydrodissection was carried out to make the lens fully loose and mobile and it was rotated 90 degrees. Following this, a ngmmdx-sls-lyqmfzy technique was used to phacoemulsify the lens with a CDE of 6.78. The remaining cortex was removed with irrigation/aspiration. Provisc was instilled into the capsular bag to inflate the bag. A SN60WF, 20.0 diopter lens was placed. The remaining viscoelastic material was removed with irrigation/aspiration. Following this, a 10-0 nylon suture was used to close the incision and it was found to be watertight. Vigamox was instilled in the eye and a protective shield was placed over the eye. The patient returned to the postoperative recovery in stable condition. Prior to making the capsulorrhexis, a Malyugin ring was inserted due to a very miotic pupil. This was removed at the end of the case. DICTATING PHYSICIAN: NOEMI TAO M.D. [id number] PHY#: [id number] ID: [id number] JOB#: [id number] ACCT: [id number] cc:NOEMI TAO M.D. >
--- NOTE | 2016-12-25 20:54 | [facility] DISCHARGE SUMMARY E ---
[facility] Discharge Summary NAME: JOCELIN PALMA AGE: 56Y ADMITTED: 12/22/2016 DISCHARGED: 12/22/2016 HISTORY OF PRESENT ILLNESS: This is a 56-year-old female who underwent cataract extraction complex with use of Malyugin ring due to pupil miosis. DIAGNOSES: 1. Cataract, right eye. 2. Pupil miosis, right eye. HOSPITAL COURSE: She underwent surgery because she was having difficulty seeing words on the TV and blurred vision, making it difficult to watch. DISCHARGE INSTRUCTIONS: 1. She should be on a regular diet. 2. No bending at the waist. 3. No heavy lifting. 4. She should use Besivance, Ilevro, and Durezol at 3 p.m. and 8 p.m. and is to sleep with a rigid shield. 5. I will see her for 1 day postoperative tomorrow. DICTATING PHYSICIAN: NOEMI TAO M.D. [id number] PHY#: [id number] ID: [id number] JOB#: [id number] ACCT: [id number] cc:NOEMI TAO M.D. >
== END 2016-12-22 11:36 | disposition home or self-care (01) ==
LOC: SC 09:18
PROVIDERS: ATTEND Internal Medicine
PROC: 08RJ3JZ Replacement of Right Lens with Synthetic Substitute, Percutaneous Approach (ICD-10-PCS; principal; 2016-12-22 10:30)
DX: H25.811 Combined forms of age-related cataract, right eye (principal); H57.03 Miosis; H40.031 Anatomical narrow angle, right eye; H04.123 Dry eye syndrome of bilateral lacrimal glands; Z96.1 Presence of intraocular lens; E78.00 Pure hypercholesterolemia, unspecified; F17.210 Nicotine dependence, cigarettes, uncomplicated; Z85.118 Personal history of other malignant neoplasm of bronchus and lung; M10.9 Gout, unspecified; Z79.899 Other long term (current) drug therapy
CPT/HCPCS: 66982; V2632; J2250; J3490 ×4; J0171; J3010; 142

== ENCOUNTER → 2017-01-10 | Outpatient (CLI) | payer MEDICAID ==
--- NOTE | 2017-01-10 14:12 | RADIOLOGY REPORT (SQ) ---
EXAM DESCRIPTION: CT CHEST WITH COMPLETED DATE/TIME: 01/10/2017 1:38 pm REASON FOR STUDY: LUNG CA (C34.92) C34.92 MALIGNANT NEOPLASM OF UNSP PART OF LEFT BRONCHUS OR L COMPARISON: 11/15/2016 TECHNIQUE: CT scan of the chest performed using helical scanning technique with dynamic intravenous contrast injection. Images reviewed with lung, soft tissue and bone windows. Reconstructed coronal and sagittal MPR images reviewed. All images stored on PACS. All CT scanners at this facility use dose modulation, iterative reconstruction, and/or weight based d osing when appropriate to reduce radiation dose to as low as reasonably achievable (ALARA). [facility]: Dose Right [facility]: CareDose [facility]: Dose Right [facility]: Teradose 4D [facility]: [employer] CONTRAST TYPE AND DOSE: contrast/concentration: Isovue 370.00 mg/ml; Total Contrast Delivered: 80.0 ml; Total Saline Delivered: 55.0 ml RENAL FUNCTION: BUN 4, creatinine 0.6 RADIATION DOSE: Up-to-date CT equipment and radiation dose reduction techniques were employed. CTDIv ol: 3.3 mGy. DLP: 126 mGy-cm. . LIMITATIONS: None. FINDINGS: LUNGS AND PLEURA: The thick walled cavitary mass in the left hilar region has increased in size. It now measures 5.5 x 3.9 cm in greatest dimensions. This is measured on lung windows. Ther e is focal airspace disease in the right middle lobe new from prior study this could represent atelec tasis or less likely pneumonia. No discrete separate pulmonary nodules are identified. HILAR AND MEDIASTINAL STRUCTURES: No identified masses or abnormal nodes. HEART AND VASCULAR STRUCTURES: No aneurysm or dissection. No central pulmonary emboli. No pericardi al effusion. Filling defect in the SVC is most likely secondary to mixing of opacified an unopacifie d blood. HARDWARE: None in the chest. UPPER ABDOMEN: Stable in appearance. There are hypoattenuating lesions in both the left and right lo bes of liver. Most likely cysts. THYROID AND OTHER SOFT TISSUES: No masses. No adenopathy. BONES: No significant finding. OTHER: No other significant finding. IMPRESSION: The left perihilar cavitary mass is increasing in size. No other significant changes. TECHNICAL DOCUMENTATION: JOB ID: [id number] Quality ID # [id number]: Final reports with documentation of one or more dose reduction techniques (e.g., Au tomated exposure control, adjustment of the mA and/or kV according to patient size, use of iterative reconstruction technique) 2010 [employer]- All Rights Reserved
== END ==
LOC: RAD 12:50
PROVIDERS: ATTEND Specialist
DX: C34.92 Malignant neoplasm of unspecified part of left bronchus or lung (principal)
CPT/HCPCS: 71260

== ENCOUNTER 2017-01-16 08:34 | Observation (INO) | payer MEDICAID ==
[2017-01-16 09:22] LABS: APPEARANCE,URINE SLIGHTLY-CLOUDY; BILIRUBIN,URINE NEGATIVE (NEGATIVE); GLUCOSE, URINE NEGATIVE (NEGATIVE); KETONES,URINE NEGATIVE (NEGATIVE); LEUKOCYTE ESTERASE,URINE TRACE (NEGATIVE); NITRITE,URINE NEGATIVE (NEGATIVE); PROTEIN,URINE NEGATIVE (NEGATIVE); URINE SPECIFIC GRAVITY 1.008; UROBILINOGEN,URINE NEGATIVE mg/dL (<2.0)
--- NOTE | 2017-01-16 09:24 | ER Document Report ---
ED Medical Screen (RME) - General Information source: Patient TRAVEL OUTSIDE OF THE [place] IN LAST 30 DAYS: No - HPI Associated Symptoms: Other - see above - General Chief Complaint: Abdominal Pain Stated Complaint: ABDOMINAL PAIN Time Seen by Provider: 01/16/17 09:19 Notes: Patient is a 56 year old female with a history of stage 4 lung cancer presents to the ED with complaints of back pain (worse on right side), generalized abdominal pain, weakness and burning with urination. Patient denies a fever. ( RAOUL FRANKLIN) - HPI Notes: 01/16/17 09:24 (SADE BAZAN) - Related Data Allergies/Adverse Reactions: No Known Allergies Allergy (Verified 01/16/17 08:38) Past Medical History - General Information source: Patient - Past Medical History Cardiac Medical History: Reports: Hx Hypercholesterolemia, Hx Hypertension - NO MEDS Denies: Hx Congestive Heart Failure, Hx Coronary Artery Disease, Hx DVT, Hx Heart Attack, Hx Pulmonary Embolism Pulmonary Medical History: Reports: Hx COPD Denies: Hx Asthma, Hx Bronchitis, Hx Pneumonia, Hx Sleep Apnea Neurological Medical History: Denies: Hx Cerebrovascular Accident, Hx Seizures Endocrine Medical History: Denies: Hx Diabetes Mellitus Type 1, Hx Diabetes Mellitus Type 2, Hx Hyperthyroidism, Hx Hypothyroidism Renal/ Medical History: Denies: Hx Peritoneal Dialysis Malignancy Medical History: Reports: Hx Lung Cancer - Stage IIIB, squamous cell carcinoma, lung involvement, lymph node. GI Medical History: Denies: Hx Cirrhosis, Hx Hepatitis, Hx Hiatal Hernia, Hx Ulcer Musculoskeltal Medical History: Denies Hx Arthritis Psychiatric Medical History: Reports: Hx Depression Infectious Medical History: Denies: Hx C-Diff, Hx Hepatitis, Hx MRSA Past Surgical History: Reports: Hx Appendectomy, Hx Section - 1, Hx Orthopedic Surgery - right knee, Other - Right chest Port-A-Cath. Denies: Hx Hysterectomy, Hx Mastectomy, Hx Open Heart Surgery, Hx Pacemaker - Immunizations Hx Diphtheria, Pertussis, Tetanus Vaccination: No Review of Systems - Review of Systems Constitutional: See HPI, Weakness. denies: Fever EENT: No symptoms reported Cardiovascular: No symptoms reported Respiratory: No symptoms reported Gastrointestinal: See HPI, Abdominal pain Genitourinary: See HPI, Burning Female Genitourinary: No symptoms reported Musculoskeletal: See HPI, Back pain Skin: No symptoms reported Hematologic/Lymphatic: No symptoms reported Neurological/Psychological: No symptoms reported Physical Exam - General General appearance: Other - uncomfortable - Abdominal Tenderness: Tender - mild generalized tenderness - Vital signs Vitals: Temp Pulse Resp BP Pulse Ox 98.1 F 100 22 H 121/89 H 98 01/16/17 08:38 01/16/17 08:38 01/16/17 08:38 01/16/17 08:38 01/16/17 08:38 Scribe Documentation - Scribe Written by Bryan:: bryan Ayers, 01/16/2017, 0927 acting as scribe for :: Roxi
[2017-01-16 10:18] LABS: ABSOLUTE BASOPHILS # (AUTO) 0.1 10^3/uL (0.0-0.2); ABSOLUTE EOSINOPHILS # (AUTO) 0.1 10^3/uL (0.0-0.6); ABSOLUTE LYMPHOCYTES (AUTO) 1.1 10^3/uL (0.5-4.7); ABSOLUTE MONOCYTES (AUTO) 1.2 10^3/uL (0.1-1.4); ABSOLUTE NEUT (AUTO) 6.3 10^3/uL (1.7-8.2); BASOPHILS % (AUTO) 0.6 % (0-2); EOSINOPHILS % (AUTO) 0.6 % (0-6); HEMATOCRIT 26.5 % (36.0-47.0); HEMOGLOBIN 8.7 g/dL (12.0-15.5); HGB HCT DIFFERENCE -0.4; LYMPHOCYTES % (AUTO) 12.8 % (13-45); MEAN CORPUSCULAR VOLUME 88 fl (80-97); MONOCYTES % (AUTO) 13.2 % (3-13); RED BLOOD COUNT 3.01 10^6/uL (3.72-5.28); RED CELL DISTRIBUTION WIDTH 17.8 % (11.5-14.0); SEGMENTED NEUTROPHILS % (AUTO) 72.8 % (42-78); WHITE BLOOD COUNT 8.7 10^3/uL (4.0-10.5)
[2017-01-16 10:23] LABS: PROTHROMBIN TIME 13.6 SEC (11.4-15.4)
[2017-01-16 10:39] LABS: ALANINE AMINOTRANSFERASE 20 U/L (9-52); ALBUMIN 2.7 g/dL (3.5-5.0); ALKALINE PHOSPHATASE 203 U/L (38-126); ANION GAP 11 (5-19); ASPARTATE AMINO TRANSFERASE 29 U/L (14-36); BILIRUBIN,DIRECT 0.3 mg/dL (0.0-0.4); BILIRUBIN,TOTAL 0.6 mg/dL (0.2-1.3); BLOOD UREA NITROGEN 6 mg/dL (7-20); CALCIUM 9.1 mg/dL (8.4-10.2); CARBON DIOXIDE 26 mmol/L (22-30); CHLORIDE 96 mmol/L (98-107); CREATININE RESULT 0.55 mg/dL (0.52-1.25); GLUCOSE 84 mg/dL (75-110); LIPASE 194.9 U/L (23-300); POTASSIUM 3.1 mmol/L (3.6-5.0); SODIUM 133.2 mmol/L (137-145); TOTAL PROTEIN 6.1 g/dL (6.3-8.2)
[2017-01-16] MEDS ORDERED: NORMAL SALINE 1000 ML 1,000 ML IV ONE (10:52)
[2017-01-16] MEDS ORDERED: ONDANSETRON HCL INJ/PF 4 MG/2 ML SDV IV ONE (10:52)
[2017-01-16] MEDS ORDERED: MORPHINE SULFATE 10 MG/ML INJ IV ONE (10:52)
[2017-01-16] MEDS ORDERED: NORMAL SALINE 500 ML IV ONE (10:52)
[2017-01-16] MEDS ORDERED: MAGNESIUM SULFATE/D5W 100 ML IV ONE (12:35)
--- NOTE | 2017-01-16 12:44 | RADIOLOGY REPORT (SQ) ---
EXAM DESCRIPTION: CT ABD/PELVIS WITH IV ONLY COMPLETED DATE/TIME: 01/16/2017 12:25 pm REASON FOR STUDY: lower abd pain gi bleeding hx of lung ca COMPARISON: 11/02/2016 TECHNIQUE: CT scan of the abdomen and pelvis performed using helical scanning technique with dynamic intravenous contrast injection. No oral contrast. Images reviewed with lung, soft tissue, and bone windows. Reconstructed coronal and sagittal MPR images reviewed. Delayed images for evaluation of the urinary system also acquired. All images stored on PACS. All CT scanners at this facility use dose modulation, iterative reconstruction, and/or weight based d osing when appropriate to reduce radiation dose to as low as reasonably achievable (ALARA). [facility]: Dose Right [facility]: CareDose [facility]: Dose Right [facility]: Teradose 4D [facility]: [employer] CONTRAST TYPE AND DOSE: contrast/concentration: Isovue 370.00 mg/ml; Total Contrast Delivered: 51.0 ml; Total Saline Delivered: 65.0 ml RENAL FUNCTION: Creatinine 0.54 RADIATION DOSE: Up-to-date CT equipment and radiation dose reduction techniques were employed. CTDIv ol: 5.2 - 6.6 mGy. DLP: 560 mGy-cm.. LIMITATIONS: None. FINDINGS: LOWER CHEST: There is fatty infiltration of the liver. The previously described low densi ty areas in the liver appears stable. LIVER: Normal size. No masses. No dilated ducts. SPLEEN: Normal size. No focal lesions. PANCREAS: No masses. No significant calcifications. No adjacent inflammation or peripancreatic fluid collections. Pancreatic duct not dilated. GALLBLADDER: No identified stones by CT criteria. No inflammatory changes to suggest cholecystitis. ADRENAL GLANDS: No significant masses or asymmetry. RIGHT KIDNEY AND URETER: No solid masses. No significant calcifications. No hydronephrosis or hyd roureter. LEFT KIDNEY AND URETER: No solid masses. No significant calcifications. No hydronephrosis or hydr oureter. AORTA AND VESSELS: No aneurysm. There is ectasia of the abdominal aorta and iliac vessels with vascu lar calcifications. No dissection. Renal arteries, SMA, celiac without stenosis. RETROPERITONEUM: No retroperitoneal adenopathy, hemorrhage or masses. BOWEL AND PERITONEAL CAVITY: No masses or inflammatory changes. No free fluid or peritoneal masses. Multiple colonic diverticula are again identified without CT evidence for diverticulitis. APPENDIX: Not identified. PELVIS: No mass. No free fluid. There is some thickening of the milian of the bladder presumably rel ated to its non distended state. ABDOMINAL WALL: No masses. No hernias. BONES: There is a mild lumbar scoliosis with associated degenerative changes. OTHER: No other significant finding. IMPRESSION: NO SIGNIFICANT OR ACUTE FINDING IN THE ABDOMEN OR PELVIS ON CT SCAN WITH IV CONTRAST. TECHNICAL DOCUMENTATION: JOB ID: [id number] Quality ID # [id number]: Final reports with documentation of one or more dose reduction techniques (e.g., Au tomated exposure control, adjustment of the mA and/or kV according to patient size, use of iterative reconstruction technique) 2010 [employer]- All Rights Reserved
[2017-01-16] MEDS ORDERED: ACETAMINOPHEN 325 MG TABLET PO PRN (13:21)
[2017-01-16] MEDS ORDERED: ONDANSETRON HCL INJ/PF 4 MG/2 ML SDV IV PRN (13:21)
--- NOTE | 2017-01-16 13:41 | ER Document Report ---
ED General - General Chief Complaint: Abdominal Pain Stated Complaint: ABDOMINAL PAIN Time Seen by Provider: 01/16/17 09:19 TRAVEL OUTSIDE OF THE [place] IN LAST 30 DAYS: No - HPI Patient complains to provider of: Abdominal pain Notes: Patient coming in for evaluation of abdominal pain. Patient has a history of lung cancer currently undergoing oral chemotherapy with a port in the right upper chest. Patient states lower abdominal pain ongoing for the last few days worse today also states bright red blood per rectum last few times she has had a bowel movement patient does state she has history of GI bleeds in the past. Patient also states has a history of diverticulosis. Denies fevers chills nausea vomiting. Patient is requesting pain medication "stronger than morphine ". Denies chest pain - Related Data Allergies/Adverse Reactions: No Known Allergies Allergy (Verified 01/16/17 08:38) Past Medical History - General Information source: Patient - Social History Smoking Status: Unknown if Ever Smoked Family History: Reviewed & Not Pertinent, CAD, Malignancy Patient has suicidal ideation: No Patient has homicidal ideation: No - Past Medical History Cardiac Medical History: Reports: Hx Hypercholesterolemia, Hx Hypertension - NO MEDS Denies: Hx Congestive Heart Failure, Hx Coronary Artery Disease, Hx DVT, Hx Heart Attack, Hx Pulmonary Embolism Pulmonary Medical History: Reports: Hx COPD Denies: Hx Asthma, Hx Bronchitis, Hx Pneumonia, Hx Sleep Apnea Neurological Medical History: Denies: Hx Cerebrovascular Accident, Hx Seizures Endocrine Medical History: Denies: Hx Diabetes Mellitus Type 1, Hx Diabetes Mellitus Type 2, Hx Hyperthyroidism, Hx Hypothyroidism Renal/ Medical History: Denies: Hx Peritoneal Dialysis Malignancy Medical History: Reports: Hx Lung Cancer - Stage IIIB, squamous cell carcinoma, lung involvement, lymph node. GI Medical History: Denies: Hx Cirrhosis, Hx Hepatitis, Hx Hiatal Hernia, Hx Ulcer Musculoskeltal Medical History: Denies Hx Arthritis Psychiatric Medical History: Reports: Hx Depression Infectious Medical History: Denies: Hx C-Diff, Hx Hepatitis, Hx MRSA Past Surgical History: Reports: Hx Appendectomy, Hx Section - 1, Hx Orthopedic Surgery - right knee, Other - Right chest Port-A-Cath. Denies: Hx Hysterectomy, Hx Mastectomy, Hx Open Heart Surgery, Hx Pacemaker - Immunizations Hx Diphtheria, Pertussis, Tetanus Vaccination: No Review of Systems - Review of Systems Constitutional: No symptoms reported EENT: No symptoms reported Cardiovascular: No symptoms reported Respiratory: No symptoms reported Gastrointestinal: Abdominal pain Genitourinary: No symptoms reported Female Genitourinary: No symptoms reported Musculoskeletal: No symptoms reported Skin: No symptoms reported Hematologic/Lymphatic: No symptoms reported Neurological/Psychological: No symptoms reported -: Yes All other systems reviewed and negative Physical Exam - Vital signs Vitals: Temp Pulse Resp BP Pulse Ox 98.1 F 100 22 H 121/89 H 98 01/16/17 08:38 01/16/17 08:38 01/16/17 08:38 01/16/17 08:38 01/16/17 08:38 Interpretation: Normal - General General appearance: Appears well, Alert - HEENT Head: Normocephalic, Atraumatic Eyes: Normal Pupils: PERRL - Respiratory Respiratory status: No respiratory distress Chest status: Nontender Breath sounds: Normal Chest palpation: Normal - Cardiovascular Rhythm: Regular Heart sounds: Normal auscultation Murmur: No - Abdominal Inspection: Normal Distension: No distension Bowel sounds: Normal Tenderness: Nontender Organomegaly: No organomegaly - Rectal Stool: Heme positive, Other - Bright red blood per rectum Hemorrhoids: None - Back Back: Normal, Nontender - Extremities General upper extremity: Normal inspection, Nontender, Normal color, Normal ROM , Normal temperature General lower extremity: Normal inspection, Nontender, Normal color, Normal ROM , Normal temperature, Normal weight bearing. No: Delbert's sign - Neurological Neuro grossly intact: Yes Cognition: Normal Orientation: AAOx4 Sharon Coma Scale Eye Opening: Spontaneous Gio Coma Scale Verbal: Oriented Sharon Coma Scale Motor: Obeys Commands Sharon Coma Scale Total: 15 Speech: Normal Motor strength normal: LUE, RUE, LLE, RLE Sensory: Normal - Psychological Associated symptoms: Normal affect, Normal mood - Skin Skin Temperature: Warm Skin Moisture: Dry Skin Color: Normal Course - Re-evaluation Re-evalutation: 01/16/17 15:28 Patient's lab work shows hypokalemia hypomagnesemia with bright red blood per rectum with a negative CAT scan for acute diverticulitis. Did discuss surgery states that they will cover in need of colonoscopy. Patient will be admitted to the hospital service for further evaluation. - Vital Signs Vital signs: Temp Pulse Resp BP Pulse Ox 98.1 F 100 22 H 121/89 H 98 01/16/17 08:38 01/16/17 08:38 01/16/17 08:38 01/16/17 08:38 01/16/17 08:38 - Laboratory Result Diagrams: 01/16/17 09:55 01/16/17 09:55 Laboratory results interpreted by me: 01/16/17 01/16/17 01/16/17 08:40 09:55 09:55 RBC 3.01 L Hgb 8.7 L Hct 26.5 L RDW 17.8 H Lymphocytes % 12.8 L Monocytes % 13.2 H Sodium 133.2 L Potassium 3.1 L Chloride 96 L BUN 6 L Magnesium Alkaline Phosphatase 203 H Total Protein 6.1 L Albumin 2.7 L Urine Blood SMALL H Ur Leukocyte Esterase TRACE H 01/16/17 09:55 RBC Hgb Hct RDW Lymphocytes % Monocytes % Sodium Potassium Chloride BUN Magnesium 0.9 L* Alkaline Phosphatase Total Protein Albumin Urine Blood Ur Leukocyte Esterase Discharge - Discharge Clinical Impression: Hypokalemia, Hypomagnesemia, GI bleed Admitting Provider: [facility] Unit Admitted: [facility]
[2017-01-16] MEDS ORDERED: PANTOPRAZOLE SODIUM 40 MG VIAL IV ONE (13:45)
[2017-01-16] MEDS ORDERED: MAGNESIUM SULFATE/D5W 1 GM/100 ML RTUPB IV ONE ×2 (14:00→23:01)
[2017-01-16] MEDS ORDERED: POTASSI CL 20 MEQ/50 ML RIDER 20 MEQ/50 ML RTUPB IV ONE ×2 (14:00→23:01)
--- NOTE | 2017-01-16 14:04 | PDOC H&P ---
History of Present Illness Admission Date/PCP: YEMI RIVERA MD Patient complains of: Rectal bleeding History of Present Illness: JOCELIN PALMA is a 56 year old female with past medical history of lung cancer and rectal bleeding secondary to diverticulosis and internal hemorrhoids presents again with episode of rectal bleeding. She was admitted to our facility at the end of October of this year for the same thing. She underwent colonoscopy prior to that admission on 11/03/[address] Francois which showed diverticulosis and internal hemorrhoids. As mentioned above patient has history of lung cancer and was previously followed by Dr. Rivera of oncology but has transition care to Dr. Alvares. She has not received chemotherapy in 2 months secondary to recurrent hospital admissions. She has chronic pain associated with her malignancy. She is currently complaining of abdominal pain. Her abdominal CT shows no acute source of pain. Patient has a history of tobacco and alcohol abuse but states she quit smoking and drinking 2 months ago. Medications have not been verified. Past Medical History Cardiac Medical History: Reports: Hyperlipidema, Hypertension - NO MEDS Denies: Congestive Heart Failure, Coronary Artery Disease, DVT, Myocardial Infarction, Pulmonary Embolism Pulmonary Medical History: Reports: Chronic Obstructive Pulmonary Disease (COPD) Denies: Asthma, Bronchitis, Pneumonia, Sleep Apnea Neurological Medical History: Denies: Seizures Endocrine Medical History: Denies: Diabetes Mellitus Type 1, Diabetes Mellitus Type 2, Hyperthyroidism, Hypothyroidism Malignancy Medical History: Reports: Lung Cancer - Stage IIIB, squamous cell carcinoma, lung involvement, lymph node. GI Medical History: Denies: Cirrhosis, Hepatitis, Hiatal Hernia Musculoskeltal Medical History: Denies: Arthritis Psychiatric Medical History: Reports: Depression Hematology: Reports: Sickle Cell Disease - trait carrier Denies: Anemia Infectious Medical History: Denies: Clostridium Difficile, Methicillin-Resistant Staph Aureus Past Surgical History Past Surgical History: Reports: Appendectomy, Section - 1, Orthopedic Surgery - right knee, Other - Right chest Port-A-Cath Denies: Amputation, Hysterectomy, Mastectomy, Pacemaker Social History Information Source: Patient Lives with: Family Smoking Status: Former Smoker Frequency of Alcohol Use: None - Quit drinking 2 months ago Hx Recreational Drug Use: Yes Drugs: Marijuana Hx Prescription Drug Abuse: No - Advance Directive Resuscitation Status: Do Not Resuscitate Family History Family History: CAD, Malignancy Parental Family History Reviewed: Yes Children Family History Reviewed: Yes Sibling(s) Family History Reviewed.: Yes Medication/Allergy Home Medications: Clonazepam [Klonopin] 0.5 mg PO QHS 11/30/16 Dronabinol [Marinol 2.5 mg Capsule] 2.5 mg PO BID 11/30/16 Gabapentin [Neurontin 100 mg Capsule] 100 mg PO Q8 11/30/16 Oxycodone HCl [Roxicodone] 30 mg PO Q4HP PRN 11/30/16 Docusate Sodium [Colace 100 mg Capsule] 100 mg PO BID #60 capsule 12/05/16 Fentanyl [Duragesic 50 Mcg/Hr Transdermal Patch] 1 each TD Q72H #4 patch.td72 Ferrous Sulfate [Feosol 325 mg Tablet] 325 mg PO DAILY #30 tablet 12/05/16 Levofloxacin [Levaquin 750 mg Tablet] 750 mg PO DAILY #7 tablet 12/05/16 Magnesium Oxide [Mag-Ox 400 mg Tablet] 800 mg PO BID #120 tablet 12/05/16 Nystatin [Mycostatin 500,000 Unit/5 ml Susp Udcup] 500,000 unit PO QID #28 udc 12/05/16 Polyethylene Glycol 3350 [Miralax Powder 17 gm/Packet] 17 gm PO DAILY #30 powd.pack 12/05/16 Potassium Chloride [K-Tab ER] 20 meq PO BID #60 tablet.er 12/05/16 Besifloxacin HCl [Besivance 0.6% Oph Susp 5 ml] 1 drop OP ASDIR 12/22/16 Difluprednate [Durezol] 1 drop OP ASDIR 12/22/16 Nepafenac [Ilevro] 1 drop OP ASDIR 12/22/16 Allergies/Adverse Reactions: No Known Allergies Allergy (Verified 01/16/17 08:38) Review of Systems Constitutional: ABSENT: chills, fever(s), headache(s), weight gain, weight loss Eyes: ABSENT: visual disturbances Ears: ABSENT: hearing changes Cardiovascular: ABSENT: chest pain, dyspnea on exertion, edema, orthropnea, palpitations Respiratory: ABSENT: cough, hemoptysis Gastrointestinal: PRESENT: abdominal pain, hematochezia. ABSENT: constipation, diarrhea, hematemesis, melena, nausea, vomiting Genitourinary: PRESENT: dysuria. ABSENT: hematuria Musculoskeletal: PRESENT: back pain. ABSENT: joint swelling Integumentary: ABSENT: rash, wounds Neurological: ABSENT: abnormal gait, abnormal speech, confusion, dizziness, focal weakness, syncope Psychiatric: ABSENT: anxiety, depression, homidical ideation, suicidal ideation Endocrine: ABSENT: cold intolerance, heat intolerance, polydipsia, polyuria Hematologic/Lymphatic: ABSENT: easy bleeding, easy bruising Physical Exam Vital Signs: Temp Pulse Resp BP Pulse Ox 98.1 F 100 22 H 121/89 H 98 01/16/17 08:38 01/16/17 08:38 01/16/17 08:38 01/16/17 08:38 01/16/17 08:38 Intake & Output 01/15/17 01/16/17 01/17/17 06:59 06:59 06:59 Weight 47.5 kg PHYSICAL EXAM: GENERAL: Appears well, no acute distress HEENT: Normocephalic, no scleral icterus, conjunctiva clear, EOEM intact, PERRLA , moist mucous membranes NECK: trachea midline, no thyromegally RESPIRATORY: Clear to auscultation, no wheezes/rhonchi CARDIAC: Regular rate and rhythm, no murmur/laura/rub ABDOMEN: Soft, no distension, no tenderness, no guarding, normal bowel sounds, negative Lozoya sign RECTAL: deferred : deferred EXTREMITIES: No edema, cyanosis, clubbing MUSCULOSKELETAL: No joint swelling or deformity VASCULAR: normal peripheral pulses NEUROLOGIC: Alert, oriented to person/place/time, normal speech, cranial nerves grossly intact, 5/5 strength in all extremities, tactile sensation intact in all extremities SKIN: No rash, no wounds, no worrisome skin lesions PSYCHIATRIC: Normal mood, normal affect Results Laboratory Results: 01/16/17 09:55 01/16/17 09:55 01/16/17 01/16/17 01/16/17 08:40 09:55 09:55 WBC 8.7 RBC 3.01 L Hgb 8.7 L Hct 26.5 L MCV 88 MCH 29.0 MCHC 33.0 RDW 17.8 H Plt Count 321 Seg Neutrophils % 72.8 Lymphocytes % 12.8 L Monocytes % 13.2 H Eosinophils % 0.6 Basophils % 0.6 Absolute Neutrophils 6.3 Absolute Lymphocytes 1.1 Absolute Monocytes 1.2 Absolute Eosinophils 0.1 Absolute Basophils 0.1 Sodium 133.2 L Potassium 3.1 L Chloride 96 L Carbon Dioxide 26 Anion Gap 11 BUN 6 L Creatinine 0.55 Est GFR ( Amer) > 60 Est GFR (Non-Af Amer) > 60 Glucose 84 Lactic Acid Calcium 9.1 Magnesium Total Bilirubin 0.6 AST 29 ALT 20 Alkaline Phosphatase 203 H Total Protein 6.1 L Albumin 2.7 L Lipase 194.9 Urine Color YELLOW Urine Appearance SLIGHTLY-CLOUDY Urine pH 6.0 Ur Specific Higgins 1.008 Urine Protein NEGATIVE Urine Glucose (UA) NEGATIVE Urine Ketones NEGATIVE Urine Blood SMALL H Urine Nitrite NEGATIVE Ur Leukocyte Esterase TRACE H Urine WBC (Auto) 6 Urine RBC (Auto) 1 Stool Occult Blood 01/16/17 01/16/17 01/16/17 09:55 10:50 11:10 WBC RBC Hgb Hct MCV MCH MCHC RDW Plt Count Seg Neutrophils % Lymphocytes % Monocytes % Eosinophils % Basophils % Absolute Neutrophils Absolute Lymphocytes Absolute Monocytes Absolute Eosinophils Absolute Basophils Sodium Potassium Chloride Carbon Dioxide Anion Gap BUN Creatinine Est GFR ( Amer) Est GFR (Non-Af Amer) Glucose Lactic Acid 1.1 Calcium Magnesium 0.9 L* Total Bilirubin AST ALT Alkaline Phosphatase Total Protein Albumin Lipase Urine Color Urine Appearance Urine pH Ur Specific Higgins Urine Protein Urine Glucose (UA) Urine Ketones Urine Blood Urine Nitrite Ur Leukocyte Esterase Urine WBC (Auto) Urine RBC (Auto) Stool Occult Blood POSITIVE Impressions: Abdomen/Pelvis CT 01/16/17 10:51 IMPRESSION: NO SIGNIFICANT OR ACUTE FINDING IN THE ABDOMEN OR PELVIS ON CT SCAN WITH IV CONTRAST. Assessment & Plan - Diagnosis (1) GI bleed Qualifiers: GI bleed type/associated pathology: unspecified gastrointestinal hemorrhage type Qualified Code(s): K92.2 - Gastrointestinal hemorrhage, unspecified Is this a current diagnosis for this admission?: YesPlan: Placed in observation status. Serial hemoglobin and hematocrit. IV Protonix. Dr. Seo of surgery aware and agreeable to consult if bleeding worsens. Discharged home in a.m. if H&H remains stable. Likely secondary to diverticulosis and internal hemorrhoids noted on colonoscopy performed by Dr. Francois in October of this year. (2) Anemia Qualifiers: Anemia type: other cause Other causes of anemia: acute posthemorrhagic Qualified Code(s): D62 - Acute posthemorrhagic anemia Is this a current diagnosis for this admission?: YesPlan: Likely secondary to malignancy and rectal bleeding. Monitor H&H every 8 hours and transfuse for hemoglobin less than 8.0. (3) Lung cancer Qualifiers: Laterality: unspecified laterality Lung location: unspecified part of lung Qualified Code(s): C34.90 - Malignant neoplasm of unspecified part of unspecified bronchus or lung Is this a current diagnosis for this admission?: YesPlan: Consult Dr. Alvares of oncology (4) Abdominal pain Is this a current diagnosis for this admission?: YesPlan: CT of the abdomen and pelvis shows no acute process. As needed IV Dilaudid. (5) Hyponatremia Is this a current diagnosis for this admission?: Yes (6) Hypokalemia Is this a current diagnosis for this admission?: YesPlan: Replace. Follow-up labs in morning. (7) Hypomagnesemia Is this a current diagnosis for this admission?: YesPlan: Replace. Follow-up labs in morning. - Time Time Spent: Greater than 70 Minutes Anticipated discharge: Home Within: within 48 hours
[2017-01-16] MEDS: HYDROMORPHONE HCL INJ/PF 2 MG/ML AMPULE IV PRN ×3 (14:37→21:29)
[2017-01-16] MEDS: POTASSI CL 20 MEQ/D5NS 1L 1,000 ML IV PRN (15:30)
[2017-01-16 16:10] LABS: ABSOLUTE BASOPHILS # (AUTO) 0.1 10^3/uL (0.0-0.2); ABSOLUTE EOSINOPHILS # (AUTO) 0.1 10^3/uL (0.0-0.6); ABSOLUTE LYMPHOCYTES (AUTO) 1.5 10^3/uL (0.5-4.7); ABSOLUTE MONOCYTES (AUTO) 1.3 10^3/uL (0.1-1.4); ABSOLUTE NEUT (AUTO) 4.9 10^3/uL (1.7-8.2); BASOPHILS % (AUTO) 0.7 % (0-2); EOSINOPHILS % (AUTO) 1.1 % (0-6); HEMATOCRIT 26.3 % (36.0-47.0); HEMOGLOBIN 8.6 g/dL (12.0-15.5); HGB HCT DIFFERENCE -0.5; LYMPHOCYTES % (AUTO) 18.9 % (13-45); MEAN CORPUSCULAR HEMOGLOBIN 29.1 pg (27.0-33.4); MEAN CORPUSCULAR HGB CONC 32.7 g/dL (32.0-36.0); MEAN CORPUSCULAR VOLUME 89 fl (80-97); MONOCYTES % (AUTO) 16.1 % (3-13); RED BLOOD COUNT 2.96 10^6/uL (3.72-5.28); RED CELL DISTRIBUTION WIDTH 17.7 % (11.5-14.0); SEGMENTED NEUTROPHILS % (AUTO) 63.2 % (42-78); WHITE BLOOD COUNT 7.8 10^3/uL (4.0-10.5)
[2017-01-16] MEDS: PANTOPRAZOLE SODIUM 40 MG VIAL IV SCH (21:30)
[2017-01-16 22:11] LABS: ANION GAP 8 (5-19); BLOOD UREA NITROGEN 6 mg/dL (7-20); CALCIUM 7.9 mg/dL (8.4-10.2); CARBON DIOXIDE 24 mmol/L (22-30); CHLORIDE 100 mmol/L (98-107); CREATININE RESULT 0.44 mg/dL (0.52-1.25); GLUCOSE 80 mg/dL (75-110); POTASSIUM 3.2 mmol/L (3.6-5.0); SODIUM 132.2 mmol/L (137-145)
[2017-01-16 22:37] LABS: MAGNESIUM 1.2 mg/dL (1.6-2.3)
[2017-01-17] MEDS: MAGNESIUM SULFATE/D5W 1 GM/100 ML RTUPB IV SCH ×6 (00:46→11:19)
[2017-01-17] MEDS: POTASSI CL 20 MEQ/50 ML RIDER 20 MEQ/50 ML RTUPB IV SCH ×2 (00:52→01:30)
[2017-01-17 01:26] LABS: ABSOLUTE EOSINOPHILS # (AUTO) 0.3 10^3/uL (0.0-0.6); ABSOLUTE LYMPHOCYTES (AUTO) 1.2 10^3/uL (0.5-4.7); ABSOLUTE MONOCYTES (AUTO) 0.8 10^3/uL (0.1-1.4); ABSOLUTE NEUT (AUTO) 6.7 10^3/uL (1.7-8.2); BASOPHILS % (AUTO) 0.4 % (0-2); EOSINOPHILS % (AUTO) 3.1 % (0-6); HEMATOCRIT 23.2 % (36.0-47.0); HGB HCT DIFFERENCE -0.4; LYMPHOCYTES % (AUTO) 13.1 % (13-45); MEAN CORPUSCULAR HEMOGLOBIN 29.6 pg (27.0-33.4); MEAN CORPUSCULAR HGB CONC 32.9 g/dL (32.0-36.0); MEAN CORPUSCULAR VOLUME 90 fl (80-97); MONOCYTES % (AUTO) 9.3 % (3-13); RED BLOOD COUNT 2.58 10^6/uL (3.72-5.28); RED CELL DISTRIBUTION WIDTH 17.6 % (11.5-14.0); SEGMENTED NEUTROPHILS % (AUTO) 74.1 % (42-78); WHITE BLOOD COUNT 9.1 10^3/uL (4.0-10.5)
[2017-01-17] MEDS: HYDROMORPHONE HCL INJ/PF 2 MG/ML AMPULE IV PRN ×2 (01:28→05:38)
[2017-01-17 01:29] LABS: HEMOGLOBIN 7.6 g/dL (12.0-15.5)
[2017-01-17] MEDS: POTASSI CL 20 MEQ/D5NS 1L 1,000 ML IV PRN (03:10)
[2017-01-17 07:58] LABS: ANION GAP 7 (5-19); BLOOD UREA NITROGEN 4 mg/dL (7-20); CALCIUM 8.3 mg/dL (8.4-10.2); CARBON DIOXIDE 24 mmol/L (22-30); CHLORIDE 100 mmol/L (98-107); CREATININE RESULT 0.47 mg/dL (0.52-1.25); GLUCOSE 93 mg/dL (75-110); MAGNESIUM 1.6 mg/dL (1.6-2.3); POTASSIUM 4.1 mmol/L (3.6-5.0); SODIUM 131.1 mmol/L (137-145)
--- NOTE | 2017-01-17 08:26 | PDOC CONSULTATION ---
Consultation Consult Date: 01/17/17 Attending physician:: VINICIUS MURRAY Consult reason:: Known history of stage IV lung cancer, here with GI bleed, anemia History of Present Illness Admission Date/PCP: 01/16/17 13:22 YEMI RIVERA MD Patient complains of: GI bleed, anemia History of Present Illness: 56-year-old female with known history of stage IV lung cancer, recently with noted progression, specifically progression with increasing size of primary lung tumor, but there is not multiorgan involvement, we were planning on initiating immunotherapy most likely next week, but she has had some recurrent admissions for GI bleed, has had endoscopies done about 8 weeks ago, she does have internal hemorrhoids known. She had transfusion, is feeling a little bit better today, would like to advance her diet. Past Medical History Cardiac Medical History: Reports: Hyperlipidema, Hypertension - NO MEDS Denies: Congestive Heart Failure, Coronary Artery Disease, DVT, Myocardial Infarction, Pulmonary Embolism Pulmonary Medical History: Reports: Chronic Obstructive Pulmonary Disease (COPD) Denies: Asthma, Bronchitis, Pneumonia, Sleep Apnea Neurological Medical History: Denies: Seizures Endocrine Medical History: Denies: Diabetes Mellitus Type 1, Diabetes Mellitus Type 2, Hyperthyroidism, Hypothyroidism Malignancy Medical History: Reports: Lung Cancer - Stage IIIB, squamous cell carcinoma, lung involvement, lymph node. GI Medical History: Denies: Cirrhosis, Hepatitis, Hiatal Hernia Musculoskeltal Medical History: Denies: Arthritis Psychiatric Medical History: Reports: Depression Hematology: Reports: Sickle Cell Disease - trait carrier Denies: Anemia Infectious Medical History: Denies: Clostridium Difficile, Methicillin-Resistant Staph Aureus Past Surgical History Past Surgical History: Reports: Appendectomy, Section - 1, Orthopedic Surgery - right knee, Other - Right chest Port-A-Cath Denies: Amputation, Hysterectomy, Mastectomy, Pacemaker Social History Lives with: Family Smoking Status: Current Every Day Smoker Frequency of Alcohol Use: Heavy Hx Recreational Drug Use: Yes Drugs: Marijuana Hx Prescription Drug Abuse: No - Advance Directive Resuscitation Status: Do Not Resuscitate Family History Family History: Reviewed & Not Pertinent, CAD, Malignancy Parental Family History Reviewed: Yes Children Family History Reviewed: Yes Sibling(s) Family History Reviewed.: Yes Medication/Allergy Home Medications: Oxycodone HCl [Roxicodone] 30 mg PO Q4HP PRN 01/16/17 Allergies/Adverse Reactions: No Known Allergies Allergy (Verified 01/16/17 08:38) Review of Systems Constitutional: ABSENT: chills, fever(s), headache(s), weight gain, weight loss Eyes: ABSENT: visual disturbances Ears: ABSENT: hearing changes Cardiovascular: ABSENT: chest pain, dyspnea on exertion, edema, orthropnea, palpitations Respiratory: ABSENT: cough, hemoptysis Gastrointestinal: ABSENT: abdominal pain, constipation, diarrhea, hematemesis, hematochezia, nausea, vomiting Genitourinary: ABSENT: dysuria, hematuria Musculoskeletal: ABSENT: joint swelling Integumentary: ABSENT: rash, wounds Neurological: ABSENT: abnormal gait, abnormal speech, confusion, dizziness, focal weakness, syncope Psychiatric: ABSENT: anxiety, depression, homidical ideation, suicidal ideation Endocrine: ABSENT: cold intolerance, heat intolerance, polydipsia, polyuria Hematologic/Lymphatic: ABSENT: easy bleeding, easy bruising Physical Exam Vital Signs: Temp Pulse Resp BP Pulse Ox 97.6 F 63 20 127/84 H 99 01/17/17 06:55 01/17/17 07:00 01/17/17 06:55 01/17/17 06:55 01/17/17 06:55 Intake & Output 01/16/17 01/17/17 01/18/17 06:59 06:59 06:59 Intake Total 2243 Balance 2243 Weight 56.2 kg General appearance: PRESENT: no acute distress, well-developed, well-nourished Head exam: PRESENT: atraumatic, normocephalic Eye exam: PRESENT: conjunctiva pink, EOMI, PERRLA. ABSENT: scleral icterus Ear exam: PRESENT: normal external ear exam Mouth exam: PRESENT: moist, tongue midline Neck exam: ABSENT: carotid bruit, JVD, lymphadenopathy, thyromegaly Respiratory exam: PRESENT: clear to auscultation davide. ABSENT: rales, rhonchi, wheezes Cardiovascular exam: PRESENT: RRR. ABSENT: diastolic murmur, rubs, systolic murmur Pulses: PRESENT: normal dorsalis pedis pul Vascular exam: PRESENT: normal capillary refill GI/Abdominal exam: PRESENT: normal bowel sounds, soft. ABSENT: distended, guarding, mass, organolmegaly, rebound, tenderness Rectal exam: PRESENT: deferred Extremities exam: PRESENT: full ROM. ABSENT: calf tenderness, clubbing, pedal edema Neurological exam: PRESENT: alert, awake, oriented to person, oriented to place , oriented to time, oriented to situation, CN II-XII grossly intact. ABSENT: motor sensory deficit Psychiatric exam: PRESENT: appropriate affect, normal mood. ABSENT: homicidal ideation, suicidal ideation Skin exam: PRESENT: dry, intact, warm. ABSENT: cyanosis, rash Results Laboratory Results: 01/17/17 01:10 01/17/17 07:15 01/16/17 01/16/17 01/16/17 15:28 16:02 21:40 WBC 7.8 RBC 2.96 L Hgb 8.6 L Hct 26.3 L MCV 89 MCH 29.1 MCHC 32.7 RDW 17.7 H Plt Count 296 Seg Neutrophils % 63.2 Lymphocytes % 18.9 Monocytes % 16.1 H Eosinophils % 1.1 Basophils % 0.7 Absolute Neutrophils 4.9 Absolute Lymphocytes 1.5 Absolute Monocytes 1.3 Absolute Eosinophils 0.1 Absolute Basophils 0.1 Sodium 132.2 L Potassium 3.2 L Chloride 100 Carbon Dioxide 24 Anion Gap 8 BUN 6 L Creatinine 0.44 L Est GFR ( Amer) > 60 Est GFR (Non-Af Amer) > 60 Glucose 80 Calcium 7.9 L Magnesium 1.2 L* Blood Type O POSITIVE Antibody Screen NEGATIVE 01/17/17 01/17/17 01:10 07:15 WBC 9.1 RBC 2.58 L Hgb 7.6 L Hct 23.2 L MCV 90 MCH 29.6 MCHC 32.9 RDW 17.6 H Plt Count 265 Seg Neutrophils % 74.1 Lymphocytes % 13.1 Monocytes % 9.3 Eosinophils % 3.1 Basophils % 0.4 Absolute Neutrophils 6.7 Absolute Lymphocytes 1.2 Absolute Monocytes 0.8 Absolute Eosinophils 0.3 Absolute Basophils 0.0 Sodium 131.1 L Potassium 4.1 Chloride 100 Carbon Dioxide 24 Anion Gap 7 BUN 4 L Creatinine 0.47 L Est GFR ( Amer) > 60 Est GFR (Non-Af Amer) > 60 Glucose 93 Calcium 8.3 L Magnesium 1.6 Blood Type Antibody Screen Impressions: Abdomen/Pelvis CT 01/16/17 10:51 IMPRESSION: NO SIGNIFICANT OR ACUTE FINDING IN THE ABDOMEN OR PELVIS ON CT SCAN WITH IV CONTRAST. Assessment & Plan - Diagnosis (1) Lung cancer Qualifiers: Laterality: right Lung location: middle lobe of lung Qualified Code(s): C34.2 - Malignant neoplasm of middle lobe, bronchus or lung Is this a current diagnosis for this admission?: YesPlan: Patient with known lung cancer, stage IV, plan for further treatment as an outpatient, today had a long discussion with patient about next steps of care, we spent greater than 40 minutes in discussion. - Time Time Spent: Greater than 70 Minutes Critical Time spent with patient: 35 or more minutes Within: within 24 hours
[2017-01-17 08:56] LABS: ABSOLUTE BASOPHILS # (AUTO) 0.1 10^3/uL (0.0-0.2); ABSOLUTE EOSINOPHILS # (AUTO) 0.4 10^3/uL (0.0-0.6); ABSOLUTE LYMPHOCYTES (AUTO) 1.2 10^3/uL (0.5-4.7); ABSOLUTE MONOCYTES (AUTO) 0.9 10^3/uL (0.1-1.4); BASOPHILS % (AUTO) 0.6 % (0-2); EOSINOPHILS % (AUTO) 4.9 % (0-6); HEMATOCRIT 27.6 % (36.0-47.0); HEMOGLOBIN 9.1 g/dL (12.0-15.5); HGB HCT DIFFERENCE -0.3; LYMPHOCYTES % (AUTO) 14.2 % (13-45); MEAN CORPUSCULAR HEMOGLOBIN 29.8 pg (27.0-33.4); MEAN CORPUSCULAR VOLUME 90 fl (80-97); MONOCYTES % (AUTO) 10.8 % (3-13); RED BLOOD COUNT 3.06 10^6/uL (3.72-5.28); RED CELL DISTRIBUTION WIDTH 16.7 % (11.5-14.0); SEGMENTED NEUTROPHILS % (AUTO) 69.5 % (42-78); WHITE BLOOD COUNT 8.6 10^3/uL (4.0-10.5)
--- NOTE | 2017-01-17 08:56 | Progress Note ---
Provider Note Provider Note: January 17, 2017: Serial hemoglobin and hematocrit show gradual decrease. Hemoglobin 7.6. Review of admitting physician's history and physical reveals recommendation for transfusion for hemoglobin less than 8. At 2:05 AM this morning, I went to the patient's bedside. She is awake and alert smiling quite pleasant. Floor nurse Aurora is present. Rationale for blood transfusion recommended to patient. Discussed in lay person 's terms. She has had transfusions in the past, without difficulty. Patient understands the risks associated with blood product transfusion to include, but not be limited to, transfusion reaction, which can be fatal, along with hepatitis and/or HIV viruses. Discussed in lay person's terms. Patient agrees to undergo transfusion of blood products.
[2017-01-17] MEDS: PANTOPRAZOLE SODIUM 40 MG VIAL IV SCH (09:33)
[2017-01-17] MEDS: OXYCODONE HCL IR 5 MG TABLET PO PRN ×4 (09:33→22:58)
--- NOTE | 2017-01-17 16:31 | PDOC PROGRESS REPORT ---
Subjective Progress Note for:: 01/17/17 Subjective:: Patient reports she is passing a small amount of blood. Patient received one unit of PRBC overnight for a Hgb 7.6 with elevation to 9.1 after. Patient is tolerating oral. She reports a commitment to stopping alcohol, tobacco. Complain of her normal pain, and requests Dilaudid. Physical Exam Vital Signs: Temp Pulse Resp BP Pulse Ox 97.6 F 65 20 127/84 H 99 01/17/17 06:55 01/17/17 06:55 01/17/17 06:55 01/17/17 06:55 01/17/17 06:55 Intake & Output 01/16/17 01/17/17 01/18/17 06:59 06:59 06:59 Intake Total 2243 Balance 2243 Weight 56.2 kg Exam: GENERAL: No acute distress HEENT: Alopecia, Conjunctiva clear, nonicteric, moist mucous membranes, no JVD, midline trachea RESPIRATORY: Clear to auscultation bilaterally, no wheezes, no rhonchi CARDIAC: Regular rate and rhythm, no murmurs/gallops/rubs ABDOMEN: Soft, nondistended, nontender, positive bowel sounds, no rebound, no guarding EXTREMETIES: No edema, cyanosis, clubbing NEUROLOGIC: A+Ox3, oriented to person/place/time, CN's grossly intact, no focal deficits SKIN: No rash, wounds PSYCH: normal mood and affect Results Laboratory Results: 01/17/17 01:10 01/16/17 01/16/17 01/16/17 15:28 16:02 21:40 WBC 7.8 RBC 2.96 L Hgb 8.6 L Hct 26.3 L MCV 89 MCH 29.1 MCHC 32.7 RDW 17.7 H Plt Count 296 Seg Neutrophils % 63.2 Lymphocytes % 18.9 Monocytes % 16.1 H Eosinophils % 1.1 Basophils % 0.7 Absolute Neutrophils 4.9 Absolute Lymphocytes 1.5 Absolute Monocytes 1.3 Absolute Eosinophils 0.1 Absolute Basophils 0.1 Sodium 132.2 L Potassium 3.2 L Chloride 100 Carbon Dioxide 24 Anion Gap 8 BUN 6 L Creatinine 0.44 L Est GFR ( Amer) > 60 Est GFR (Non-Af Amer) > 60 Glucose 80 Calcium 7.9 L Magnesium 1.2 L* Blood Type O POSITIVE Antibody Screen NEGATIVE 01/17/17 01:10 WBC 9.1 RBC 2.58 L Hgb 7.6 L Hct 23.2 L MCV 90 MCH 29.6 MCHC 32.9 RDW 17.6 H Plt Count 265 Seg Neutrophils % 74.1 Lymphocytes % 13.1 Monocytes % 9.3 Eosinophils % 3.1 Basophils % 0.4 Absolute Neutrophils 6.7 Absolute Lymphocytes 1.2 Absolute Monocytes 0.8 Absolute Eosinophils 0.3 Absolute Basophils 0.0 Sodium Potassium Chloride Carbon Dioxide Anion Gap BUN Creatinine Est GFR ( Amer) Est GFR (Non-Af Amer) Glucose Calcium Magnesium Blood Type Antibody Screen Impressions: Abdomen/Pelvis CT 01/16/17 10:51 IMPRESSION: NO SIGNIFICANT OR ACUTE FINDING IN THE ABDOMEN OR PELVIS ON CT SCAN WITH IV CONTRAST. Assessment & Plan - Diagnosis (1) Lung cancer Qualifiers: Laterality: right Lung location: middle lobe of lung Qualified Code(s): C34.2 - Malignant neoplasm of middle lobe, bronchus or lung Is this a current diagnosis for this admission?: YesPlan: Defer to oncology for this. Patient reports a Progression of disease that despite treatment. (2) Hypokalemia Is this a current diagnosis for this admission?: YesPlan: replete and Recheck (3) Hypomagnesemia Is this a current diagnosis for this admission?: YesPlan: replete and recheck (4) Hyponatremia Is this a current diagnosis for this admission?: YesPlan: Mild 2/2 to intravascular volume depletion (5) Acute blood loss anemia Is this a current diagnosis for this admission?: YesPlan: S/p 1 unit of PRBC on 01/16/17 Continue to monitor and if Hgb falls below 8, will transfuse (6) Alcohol abuse Is this a current diagnosis for this admission?: YesPlan: Thiamine and folic acid encourage abstinence (7) Anemia of chronic disease Is this a current diagnosis for this admission?: Yes (8) Tobacco abuse Is this a current diagnosis for this admission?: YesPlan: Given nicotine replacement - Time Time Spent with patient: 25-34 minutes - Inpatient Certification Based on my medical assessment, after consideration of the patient's comorbidities, presenting symptoms, or acuity I expect that the services needed warrant INPATIENT care.: Yes I certify that my determination is in accordance with my understanding of Medicare's requirements for reasonable and necessary INPATIENT services [42 CFR 412.3e].: Yes Medical Necessity: Risk of Complication if Not Cared For in Hospital Post Hospital Care: D/C Supervisor [employer] Documentation
[2017-01-17] MEDS: LANSOPRAZOLE 15 MG TAB.RAP.DR PO SCH (16:32)
[2017-01-17] MEDS ORDERED: NICOTINE 21 MG/24 HR PATCH.TD24 TD SCH (18:00)
[2017-01-18] MEDS: LANSOPRAZOLE 15 MG TAB.RAP.DR PO SCH (05:44)
[2017-01-18] MEDS: OXYCODONE HCL IR 5 MG TABLET PO PRN ×2 (05:45→09:51)
--- NOTE | 2017-01-18 07:58 | PDOC PROGRESS REPORT ---
Subjective Progress Note for:: 01/18/17 Subjective:: Pt doing well this am, no further rectal bleeding, tolerating full diet today Physical Exam Vital Signs: Temp Pulse Resp BP Pulse Ox 98.0 F 69 16 123/87 H 100 01/18/17 00:14 01/18/17 02:00 01/18/17 00:14 01/18/17 00:14 01/18/17 00:14 Intake & Output 01/17/17 01/18/17 01/19/17 06:59 06:59 06:59 Intake Total 2243 944 Balance 2243 944 Weight 56.2 kg General appearance: PRESENT: no acute distress, well-developed, well-nourished Head exam: PRESENT: atraumatic, normocephalic Eye exam: PRESENT: conjunctiva pink, EOMI, PERRLA. ABSENT: scleral icterus Ear exam: PRESENT: normal external ear exam Mouth exam: PRESENT: moist, tongue midline Neck exam: ABSENT: carotid bruit, JVD, lymphadenopathy, thyromegaly Respiratory exam: PRESENT: clear to auscultation davide. ABSENT: rales, rhonchi, wheezes Cardiovascular exam: PRESENT: RRR. ABSENT: diastolic murmur, rubs, systolic murmur Pulses: PRESENT: normal dorsalis pedis pul Vascular exam: PRESENT: normal capillary refill GI/Abdominal exam: PRESENT: normal bowel sounds, soft. ABSENT: distended, guarding, mass, organolmegaly, rebound, tenderness Rectal exam: PRESENT: deferred Extremities exam: PRESENT: full ROM. ABSENT: calf tenderness, clubbing, pedal edema Neurological exam: PRESENT: alert, awake, oriented to person, oriented to place , oriented to time, oriented to situation, CN II-XII grossly intact. ABSENT: motor sensory deficit Psychiatric exam: PRESENT: appropriate affect, normal mood. ABSENT: homicidal ideation, suicidal ideation Skin exam: PRESENT: dry, intact, warm. ABSENT: cyanosis, rash Results Laboratory Results: 01/17/17 08:20 01/17/17 07:15 01/17/17 01/17/17 07:15 08:20 WBC 8.6 RBC 3.06 L Hgb 9.1 L Hct 27.6 L MCV 90 MCH 29.8 MCHC 33.0 RDW 16.7 H Plt Count 280 Seg Neutrophils % 69.5 Lymphocytes % 14.2 Monocytes % 10.8 Eosinophils % 4.9 Basophils % 0.6 Absolute Neutrophils 6.0 Absolute Lymphocytes 1.2 Absolute Monocytes 0.9 Absolute Eosinophils 0.4 Absolute Basophils 0.1 Sodium 131.1 L Potassium 4.1 Chloride 100 Carbon Dioxide 24 Anion Gap 7 BUN 4 L Creatinine 0.47 L Est GFR ( Amer) > 60 Est GFR (Non-Af Amer) > 60 Glucose 93 Calcium 8.3 L Magnesium 1.6 Impressions: Abdomen/Pelvis CT 01/16/17 10:51 IMPRESSION: NO SIGNIFICANT OR ACUTE FINDING IN THE ABDOMEN OR PELVIS ON CT SCAN WITH IV CONTRAST. Assessment & Plan - Diagnosis (1) Lung cancer Qualifiers: Laterality: right Lung location: middle lobe of lung Qualified Code(s): C34.2 - Malignant neoplasm of middle lobe, bronchus or lung Is this a current diagnosis for this admission?: YesPlan: Will f/u in clinic next week for new treatment w/ OPDIVO. From onc standpoint, ok to d/c home today. She should not need any pain meds, we will give thru our office, no other meds per oncology should be needed. Had discussion again about therapy and risks/benefits today, spent 40min in discussion again. Will sign off. - Time Time Spent with patient: 35 or more minutes Critical Time spent with patient: 35 or more minutes Anticipated discharge: Home
[2017-01-18 08:46] LABS: HEMATOCRIT 28.9 % (36.0-47.0); HEMOGLOBIN 9.6 g/dL (12.0-15.5); HGB HCT DIFFERENCE -0.1; MEAN CORPUSCULAR HEMOGLOBIN 29.5 pg (27.0-33.4); MEAN CORPUSCULAR HGB CONC 33.1 g/dL (32.0-36.0); MEAN CORPUSCULAR VOLUME 89 fl (80-97); RED BLOOD COUNT 3.25 10^6/uL (3.72-5.28); RED CELL DISTRIBUTION WIDTH 16.5 % (11.5-14.0); WHITE BLOOD COUNT 8.8 10^3/uL (4.0-10.5)
[2017-01-18 09:42] VITALS: BP 127/84
--- NOTE | 2017-01-18 17:10 | PDOC DISCHARGE SUMMARY ---
General - Admit/Disc Date/PCP Admission Date/Primary Care Provider: 01/16/17 13:22 YEMI RIVERA MD Discharge Date: 01/18/17 - Discharge Diagnosis (1) Lung cancer Is this a current diagnosis for this admission?: Yes (2) Hypokalemia Is this a current diagnosis for this admission?: Yes (3) Hypomagnesemia Is this a current diagnosis for this admission?: Yes (4) Hyponatremia Is this a current diagnosis for this admission?: Yes (5) Acute blood loss anemia Is this a current diagnosis for this admission?: Yes (6) Alcohol abuse Is this a current diagnosis for this admission?: Yes (7) Anemia of chronic disease Is this a current diagnosis for this admission?: Yes (8) Tobacco abuse Is this a current diagnosis for this admission?: Yes - Additional Information Resuscitation Status: Do Not Resuscitate Discharge Diet: Regular Discharge Activity: Activity As Tolerated Home Medications: Oxycodone HCl [Roxicodone] 30 mg PO Q4HP PRN 01/16/17 Omeprazole Magnesium [Prilosec Otc] 20 mg PO BID #60 tablet. 01/18/17 History of Present Illness History of Present Illness: JOCELIN PALMA is a 56 year old female with past medical history of lung cancer and rectal bleeding secondary to diverticulosis and internal hemorrhoids presents again with episode of rectal bleeding. She was admitted to our facility at the end of October of this year for the same thing. She underwent colonoscopy prior to that admission on 11/03/[address] Francois which showed diverticulosis and internal hemorrhoids. As mentioned above patient has history of lung cancer and was previously followed by Dr. Rivera of oncology but has transition care to Dr. Alvares. She has not received chemotherapy in 2 months secondary to recurrent hospital admissions. She has chronic pain associated with her malignancy. She is currently complaining of abdominal pain. Her abdominal CT shows no acute source of pain. Patient has a history of tobacco and alcohol abuse but states she quit smoking and drinking 2 months ago. Hospital Course Hospital Course: Patient reported that she did not actually stop smoking or drinking, but is now committed to doing so. Patient continued to be monitored in the hospital and had several small episodes of rectal bleeding which improved. She received 1 unit of packed red blood cells on 01/16/2015 and hemoglobin was stable from 01/17 -01/18. Patient was discharged in stable condition. She was seen by her oncologist here in the hospital as she continued to request more narcotics, given her history of abuse, I am disinclined to acquiesce to this request. Was only being given 1 week of narcotics by her oncologist at a time. She is advised to follow with him for changes in her pain management. Found to have have hypomagnesemia which was repleted. Doing well and requesting discharge. Physical Exam Vital Signs: Temp Pulse Resp BP Pulse Ox 98.1 F 85 18 127/84 H 100 01/18/17 09:35 01/18/17 09:35 01/18/17 09:35 01/18/17 09:35 01/18/17 09:35 Intake & Output 01/17/17 01/18/17 01/19/17 06:59 06:59 06:59 Intake Total 2243 944 Balance 2243 944 Weight 56.2 kg Exam: GENERAL: No acute distress HEENT: Alopecia, Conjunctiva clear, nonicteric, moist mucous membranes, no JVD, midline trachea RESPIRATORY: Clear to auscultation bilaterally, no wheezes, no rhonchi CARDIAC: Regular rate and rhythm, no murmurs/gallops/rubs ABDOMEN: Soft, nondistended, nontender, positive bowel sounds, no rebound, no guarding EXTREMETIES: No edema, cyanosis, clubbing NEUROLOGIC: A+Ox3, oriented to person/place/time, CN's grossly intact, no focal deficits SKIN: No rash, wounds PSYCH: normal mood and affect Results Laboratory Results: 01/18/17 08:09 01/17/17 07:15 01/18/17 08:09 WBC 8.8 RBC 3.25 L Hgb 9.6 L Hct 28.9 L MCV 89 MCH 29.5 MCHC 33.1 RDW 16.5 H Plt Count 337 01/16/17 23:20 Clean Catch Midstream Urine Culture - Final Lactobacillus (Vaginal Crystal) Impressions: Abdomen/Pelvis CT 01/16/17 10:51 IMPRESSION: NO SIGNIFICANT OR ACUTE FINDING IN THE ABDOMEN OR PELVIS ON CT SCAN WITH IV CONTRAST. Qualifiers PATEINT BEING DISCHARGED WITH ANY OF THE FOLLOWING DIAGNOSIS?: No Plan Time Spent: Less than 30 Minutes
== END 2017-01-18 11:20 | disposition home or self-care (01) ==
LOC: ER 08:34 → INTOOBSV 13:22 → EH 13:22 → UNDOADMIN 13:54 → 3S 16:56
PROVIDERS: ADMIT Family Medicine; ATTEND Family Medicine
DX: C34.2 Malignant neoplasm of middle lobe, bronchus or lung (principal); E87.6 Hypokalemia; E83.42 Hypomagnesemia; E87.1 Hypo-osmolality and hyponatremia; D62 Acute posthemorrhagic anemia; F10.10 Alcohol abuse, uncomplicated; D63.8 Anemia in other chronic diseases classified elsewhere; G89.3 Neoplasm related pain (acute) (chronic); K92.2 Gastrointestinal hemorrhage, unspecified; K64.8 Other hemorrhoids; F17.200 Nicotine dependence, unspecified, uncomplicated; D57.3 Sickle-cell trait; R30.0 Dysuria; M54.9 Dorsalgia, unspecified; R10.84 Generalized abdominal pain; Z87.19 Personal history of other diseases of the digestive system; Z79.899 Other long term (current) drug therapy; Z90.49 Acquired absence of other specified parts of digestive tract; Z66 Do not resuscitate; Z80.9 Family history of malignant neoplasm, unspecified
CPT/HCPCS: 36591; 99285; 86900; 86901; 36415; 87086; 36430; 86850; 82962; 83690; 83735 ×2; 85025 ×2; 85027; 85610; 82272; 80048 ×2; 80053; 81001; 86920; 83605; 74177; G0378 ×4; P9016; J3490 ×7; J3480 ×4; J2270; J1170 ×2; J3475 ×2; S0164 ×2; J2405; J7030; J7040

== ENCOUNTER 2017-02-06 09:26 | Outpatient (CLI) | payer MEDICAID ==
[~2017-02-06 09:26] MED LIST changes: +ACETAMINOPHEN 325 MG TABLET PO PRN; -BUPIVACAINE HCL 0.75% INJ/PF (7.5 MG/1 ML) 10 ML SDV OD PRN; -CHONDR SU A NA/HYALUR INTRAOC KIT (SURGICARE) ONE; +DIPHENHYDRAMINE HCL 25 MG CAPSULE PO PRN; -EPINEPHRINE INJ/PF 1 MG/1 ML AMPULE ONE; -FENTANYL CITRATE INJ/PF 100 MCG/2 ML AMPUL ONE; +FUROSEMIDE INJ/PF 20 MG/2 ML SDV IV PRN; -KETOROLAC TROMETHAMINE 0.45% 4 DROP/0.4 ML DROPERETTE OD PRN; -LIDOCAINE 1% INJ-PF (10 MG/ML) 30 ML SDV ONE; -MIDAZOLAM 2 MG/2 ML INJ ONE
[2017-02-06] MEDS ORDERED: NORMAL SALINE 250 ML IV PRN (10:27)
[2017-02-06] MEDS ORDERED: OXYCODONE HCL IR 5 MG TABLET PO ONE (12:00)
[2017-02-06 12:01] LABS: HGB HCT DIFFERENCE 0.1; MEAN CORPUSCULAR HEMOGLOBIN 28.3 pg (27.0-33.4); MEAN CORPUSCULAR HGB CONC 33.4 g/dL (32.0-36.0); RED BLOOD COUNT 2.01 10^6/uL (3.72-5.28); RED CELL DISTRIBUTION WIDTH 17.5 % (11.5-14.0); WHITE BLOOD COUNT 7.7 10^3/uL (4.0-10.5)
[2017-02-06 12:17] LABS: HEMOGLOBIN 5.7 g/dL (12.0-15.5)
[2017-02-06 12:37] LABS: MEAN CORPUSCULAR VOLUME 85 fl (80-97)
[2017-02-06] MEDS ORDERED: MAGNESIUM SULFATE 4 GM/D5W 100 ML IV ONE (13:00)
[2017-02-06] MEDS ORDERED: OXYCODONE HCL IR 5 MG TABLET PO PRN (16:00)
[2017-02-06 21:15] VITALS: BP 113/88
[2017-02-06] MEDS ORDERED: WARFARIN SODIUM 2 MG TABLET PO SCH (22:00)
== END 2017-02-06 22:06 | disposition home or self-care (01) ==
LOC: II 09:26 → 2N 09:32 → 3S 12:34 → II 22:06
PROVIDERS: ATTEND Internal Medicine
PROC: 30243N1 Transfusion of Nonautologous Red Blood Cells into Central Vein, Percutaneous Approach (ICD-10-PCS; principal; 2017-02-06)
DX: D64.9 Anemia, unspecified (principal)
CPT/HCPCS: 96374; 86900; 86901; 36415; 36430; 86850; 86920; P9016; J3475; J3490 ×3; J1940

== ENCOUNTER → 2017-03-22 | Outpatient (CLI) | payer MEDICAID ==
--- NOTE | 2017-03-22 11:49 | RADIOLOGY REPORT (SQ) ---
EXAM DESCRIPTION: CT CHEST WITH COMPLETED DATE/TIME: 03/22/2017 10:38 am REASON FOR STUDY: LUNG CA (C34.92) C34.92 MALIGNANT NEOPLASM OF UNSP PART OF LEFT BRONCHUS OR L COMPARISON: 01/10/2017. 11/15/2016. TECHNIQUE: CT scan of the chest performed using helical scanning technique with dynamic intravenous contrast injection. Images reviewed with lung, soft tissue and bone windows. Reconstructed coronal and sagittal MPR images reviewed. All images stored on PACS. All CT scanners at this facility use dose modulation, iterative reconstruction, and/or weight based d osing when appropriate to reduce radiation dose to as low as reasonably achievable (ALARA). [facility]: Dose Right [facility]: CareDose [facility]: Dose Right [facility]: Teradose 4D [facility]: [employer] CONTRAST TYPE AND DOSE: contrast/concentration: Isovue 370.00 mg/ml; Total Contrast Delivered: 80.0 ml; Total Saline Delivered: 26.6 ml RENAL FUNCTION: Creatinine 0.5 RADIATION DOSE: Up-to-date CT equipment and radiation dose reduction techniques were employed. CTDIv ol: 3.2 mGy. DLP: 121 mGy-cm. . LIMITATIONS: None. FINDINGS: LUNGS AND PLEURA: Cavitary lesion in the left upper lobe. The degree of peripheral soft t issue about the lesion has considerably improved. Some persistent lateral nodularity. Lesion measur es up to 3.3 cm maximally today, cavitary portion larger but overall the lesion has decreased in size . No developing lung lesions. Mild areas of scar. No pleural disease. HILAR AND MEDIASTINAL STRUCTURES: No identified masses or abnormal nodes. HEART AND VASCULAR STRUCTURES: Moderate coronary calcification. No pericardial effusion. Normal hea rt size. No evidence of focal aortic aneurysm or dissection. Central pulmonary arteries are free of clot. HARDWARE: Right port. Tip to the superior vena cava. UPPER ABDOMEN: Several low density grossly stable presumed cysts in the liver. No developing adrenal mass. THYROID AND OTHER SOFT TISSUES: No masses. No adenopathy. BONES: No significant finding. OTHER: No other significant finding. IMPRESSION: 1. Left upper lobe lesion has generally decreased in size since December, suggesting respon se to therapy. Although the cavity itself is larger, the peripheral soft tissue component has largel y regressed. Some mild associated peripheral nodularity persists. 2. No developing lung lesions. TECHNICAL DOCUMENTATION: JOB ID: [id number] Quality ID # [id number]: Final reports with documentation of one or more dose reduction techniques (e.g., Au tomated exposure control, adjustment of the mA and/or kV according to patient size, use of iterative reconstruction technique) 2010 [employer]- All Rights Reserved
== END ==
LOC: RAD 10:10
PROVIDERS: ATTEND Physician Assistant
DX: C34.92 Malignant neoplasm of unspecified part of left bronchus or lung (principal)
CPT/HCPCS: 71260

== ENCOUNTER → 2017-03-31 | Outpatient (CLI) | payer MEDICAID ==
--- NOTE | 2017-03-31 14:02 | RADIOLOGY REPORT (SQ) ---
EXAM DESCRIPTION: NM WHOLE BODY BONE SCAN COMPLETED DATE/TIME: 03/31/2017 1:00 pm REASON FOR STUDY: LUNG CA (C34.92) C34.92 MALIGNANT NEOPLASM OF UNSP PART OF LEFT BRONCHUS OR L COMPARISON: CT abdomen pelvis 01/16/2017 CT chest 03/30/2017 RADIONUCLIDE AND DOSE: 19.3 millicuries Tc99m MDP. The route of agent administration: Intravenous. ADDITIONAL DRUGS AND DOSES: None. TECHNIQUE: Routine delayed images at 3 hours post radionuclide injection acquired of the bony skelet on including anterior and posterior whole-body projections and additional focused images as needed. LIMITATIONS: None. FINDINGS: BONES: No increased uptake worrisome for metastatic disease given history of lung cancer. There is convex rightward lower thoracic/ upper lumbar spine curvature, with some facet arthropathy at on the last at L1-2. KIDNEYS: Symmetric excretion without obstruction. OTHER: No other significant finding. IMPRESSION: No bone scan evidence of metastatic disease COMMENT: Quality measure 147: Current bone scan is compared with any available plain radiographs, p rior bone scans, and CT/MRI. TECHNICAL DOCUMENTATION: JOB ID: [id number] [employer]- All Rights Reserved
== END ==
LOC: RAD 07:54
PROVIDERS: ATTEND Internal Medicine Hematology & Oncology
DX: C34.92 Malignant neoplasm of unspecified part of left bronchus or lung (principal)
CPT/HCPCS: 78306; A9561; Q9969

== ENCOUNTER → 2017-05-12 | Outpatient (CLI) | payer MEDICAID ==
--- NOTE | 2017-05-12 11:06 | RADIOLOGY REPORT (SQ) ---
EXAM DESCRIPTION: CT CHEST WITH COMPLETED DATE/TIME: 05/12/2017 9:47 am REASON FOR STUDY: LUNG CA (C34.92) C34.92 MALIGNANT NEOPLASM OF UNSP PART OF LEFT BRONCHUS OR L COMPARISON: CT chest 05/14/2007, 09/24/2010, 12/23/2015, 08/18/2016, 01/10/2017, 03/22/2017 Bone scan 03/31/2017 TECHNIQUE: CT scan of the chest performed using helical scanning technique with dynamic intravenous contrast injection. Images reviewed with lung, soft tissue and bone windows. Reconstructed coronal and sagittal MPR images reviewed. All images stored on PACS. All CT scanners at this facility use dose modulation, iterative reconstruction, and/or weight based d osing when appropriate to reduce radiation dose to as low as reasonably achievable (ALARA). [facility]: Dose Right [facility]: CareDose [facility]: Dose Right [facility]: Teradose 4D [facility]: [employer] CONTRAST TYPE AND DOSE: contrast/concentration: Isovue 370.00 mg/ml; Total Contrast Delivered: 80.0 ml; Total Saline Delivered: 55.0 ml RENAL FUNCTION: Creatinine 0.6 RADIATION DOSE: Up-to-date CT equipment and radiation dose reduction techniques were employed. CTDIv ol: 3.2 mGy. DLP: 134 mGy-cm. . LIMITATIONS: None. FINDINGS: LUNGS AND PLEURA: A thin walled residual cavity present in the left upper lobe abutting th e major fissure. There is persistent nodularity along the inferior edge of the cavity which is stabl e. Overall, this measures about 3.3 x 3 cm in size, similar compared to 03/22/2017. Cavity smaller, without NR wall as compared to 01/10/2017. No other significant lung parenchymal findings. No pleural effusion. No pneumothorax. HILAR AND MEDIASTINAL STRUCTURES: No identified masses or abnormal nodes. HEART AND VASCULAR STRUCTURES: No aneurysm or dissection. No central pulmonary emboli. No pericardi al effusion. Minimal coronary artery calcification HARDWARE: Right-sided permanent central line tip superior vena cava UPPER ABDOMEN: Small hiatal hernia. Focal fat at the falciform ligament. THYROID AND OTHER SOFT TISSUES: No masses. No adenopathy. BONES: No significant finding. OTHER: No other significant finding. IMPRESSION: Thin walled left upper lobe cavity in the area of prior tumor, similar compared to 2016 and smaller than on 01/10/2015 as above. TECHNICAL DOCUMENTATION: JOB ID: [id number] Quality ID # [id number]: Final reports with documentation of one or more dose reduction techniques (e.g., Au tomated exposure control, adjustment of the mA and/or kV according to patient size, use of iterative reconstruction technique) 2010 [employer]- All Rights Reserved
== END ==
LOC: RAD 09:07
PROVIDERS: ATTEND Internal Medicine Hematology & Oncology
DX: C34.92 Malignant neoplasm of unspecified part of left bronchus or lung (principal)
CPT/HCPCS: 71260

== ENCOUNTER 2017-05-18 01:25 | Emergency (ER) | payer MEDICAID ==
[2017-05-18] MEDS ORDERED: ASPIRIN 81 MG TABLET, CHEWABLE PO ONE (01:50)
[2017-05-18] MEDS ORDERED: MORPHINE SULFATE 10 MG/ML INJ IV ONE ×2 (01:55→04:25)
[2017-05-18] MEDS ORDERED: ONDANSETRON HCL INJ/PF 4 MG/2 ML SDV IV ONE (01:57)
--- NOTE | 2017-05-18 01:57 | ER Document Report ---
ED General - General Chief Complaint: Shortness Of Breath Stated Complaint: SHORT OF BREATH Time Seen by Provider: 05/18/17 01:31 Mode of Arrival: Medic Information source: Patient Notes: 56 year old female brought into ED today via EMS with complaints of nausea all day, and shortness of breath, weakness, and substernal chest pain "pressure" for the past hour. Patient additionally endorses a productive cough, though reports she usually has a productive cough, reporting stage 4 lung cancer, COPD , and is still actively smoking tobacco. Patient denies additional associated symptoms, including radiation of pain, palpitations, or fever/chills. Patient denies previous cardiac medical history. TRAVEL OUTSIDE OF THE [place] IN LAST 30 DAYS: No - Related Data Allergies/Adverse Reactions: No Known Allergies Allergy (Verified 01/16/17 08:38) Past Medical History - General Information source: Patient - Social History Smoking Status: Current Every Day Smoker Family History: Reviewed & Not Pertinent, CAD, Malignancy - Past Medical History Cardiac Medical History: Reports: Hx Hypercholesterolemia, Hx Hypertension - NO MEDS Denies: Hx Congestive Heart Failure, Hx Coronary Artery Disease, Hx DVT, Hx Heart Attack, Hx Pulmonary Embolism Pulmonary Medical History: Reports: Hx COPD Denies: Hx Asthma, Hx Bronchitis, Hx Pneumonia, Hx Sleep Apnea Neurological Medical History: Denies: Hx Cerebrovascular Accident, Hx Seizures Endocrine Medical History: Denies: Hx Diabetes Mellitus Type 1, Hx Diabetes Mellitus Type 2, Hx Hyperthyroidism, Hx Hypothyroidism Renal/ Medical History: Denies: Hx Peritoneal Dialysis Malignancy Medical History: Reports: Hx Lung Cancer - Stage IIIB, squamous cell carcinoma, lung involvement, lymph node. GI Medical History: Denies: Hx Cirrhosis, Hx Hepatitis, Hx Hiatal Hernia, Hx Ulcer Musculoskeltal Medical History: Denies Hx Arthritis Psychiatric Medical History: Reports: Hx Depression Infectious Medical History: Denies: Hx C-Diff, Hx Hepatitis, Hx MRSA Past Surgical History: Reports: Hx Appendectomy, Hx Section - 1, Hx Orthopedic Surgery - right knee, Other - Right chest Port-A-Cath. Denies: Hx Hysterectomy, Hx Mastectomy, Hx Open Heart Surgery, Hx Pacemaker - Immunizations Hx Diphtheria, Pertussis, Tetanus Vaccination: No Review of Systems - Review of Systems Constitutional: See HPI EENT: No symptoms reported Cardiovascular: See HPI Respiratory: See HPI Gastrointestinal: No symptoms reported Genitourinary: No symptoms reported Female Genitourinary: No symptoms reported Musculoskeletal: No symptoms reported Skin: No symptoms reported Hematologic/Lymphatic: No symptoms reported Neurological/Psychological: No symptoms reported Physical Exam - Vital signs Vitals: Pulse Ox 98 05/18/17 01:33 - Notes Notes: PHYSICAL EXAMINATION: GENERAL: Mildly uncomfortable appearing, but in no acute distress. Alert, oriented, and cooperative with exam. Speaking clearly and in full sentences. HEAD: Atraumatic, normocephalic. LUNGS: Breath sounds equal. Expiratory rhonchi noted RUL and MEGAN, cleared with coughing. HEART: Regular rate and rhythm without murmurs CHEST: Implanted port noted to right upper quadrant of chest. Chest expansion symmetrical, no tenderness on palpation of chest. ABDOMEN: Soft, no tenderness. EXTREMITIES: Normal range of motion, no edema, no cyanosis. PSYCH: Normal mood, normal affect. SKIN: Warm, dry, normal turgor Course - Re-evaluation Re-evalutation: Labwork today showing anemia, though on review, this appears to be a chronic, stable issue for patient. Cardiac workup negative/normal. EKG reviewed with MD. No inverted T waves or ST segment changes in consecutive leads. No acute pulmonary process identified on CXR. No PE identified, unchanged 3.3cm left upper lobe thin walled cavity, no definite acute pulmonary process identified on Chest/Abdomen CTA. Patient reports improvement in symptoms after administration of pain and nausea medications. 0710: Reviewed case with Oncologist, Dr. Goodwin. Dr. Goodwin reports patient has current narcotic agreement with her and so no recommended change to current treatment/pain management regimen. Patient to contact Dr. Goodwin today to arrange follow up. - Vital Signs Vital signs: Temp Pulse Resp BP Pulse Ox 98.5 F 13 98/70 L 94 05/18/17 08:26 05/18/17 08:01 05/18/17 08:01 05/18/17 08:01 - Laboratory Result Diagrams: 05/18/17 03:15 05/18/17 03:15 Laboratory results interpreted by me: 05/18/17 05/18/17 03:15 03:15 RBC 3.61 L Hgb 8.2 L Hct 25.4 L MCV 71 L MCH 22.8 L RDW 23.1 H Sodium 136.3 L Chloride 95 L AST 67 H - Diagnostic Test Radiology reviewed: Reports reviewed Discharge - Discharge Clinical Impression: Shortness of breath Chest pain Qualifiers: Chest pain type: unspecified Qualified Code(s): R07.9 - Chest pain, unspecified Condition: Stable Disposition: HOME, SELF-CARE Additional Instructions: At this time, your examination and workup show no significant acute abnormality. No significant abnormal physical findings were noted. All laboratory, EKG, and imaging (x-ray, CT scans) studies that were ordered show no significant abnormality or change from your baseline. Although your examination and all studies that were ordered showed no significant abnormal finding, there are no examinations and no studies that are 100% accurate. There is always the possibility that some abnormality could exist and not be detected with physical examination or within the limits and capabilities of laboratory and other studies. You should return or follow up as you were instructed on your visit today for further evaluation if your symptoms do not resolve. FOLLOW-UP CARE: Call your oncologist's office today to schedule follow up appointment. Please return to emergency department immediately if you have worsening or a significant change in your symptoms, chest pain, shortness of breath, vomiting, become unable to exert yourself due to pain or difficulty breathing, you pass out, have any pain that radiates into your arms, jaw, or back, or develop a fever. Please also return if you have any additional symptoms that are concerning to you. Referrals: RUTH WANG MD [Primary Care Provider] - Follow up as needed JAVI ABBOTT MD [ACTIVE STAFF] - 05/18/17
[2017-05-18] MEDS ORDERED: LIDOCAINE 4% TRANSPARENT DRESSING 5 GM KIT TP ONE (02:30)
--- NOTE | 2017-05-18 03:15 | RADIOLOGY REPORT (SQ) ---
EXAM DESCRIPTION: CHEST SINGLE VIEW CLINICAL HISTORY: Lung Cancer, COPD, new onset SOB, chest pain COMPARISON: 05/12/2017 FINDINGS: Single frontal view of the chest. Right-sided Mediport with tip in the SVC. Atherosclerotic calcification aortic arch. Heart is not enlarged. Leads overlie the chest. No consolidation, pneumothorax, or pleural effusion. No displaced rib fractures identified. Upper abdominal soft tissues are unremarkable. IMPRESSION: 1. No acute pulmonary process identified.
[2017-05-18 03:46] LABS: HEMATOCRIT 25.4 % (36.0-47.0); HEMOGLOBIN 8.2 g/dL (12.0-15.5); HGB HCT DIFFERENCE -0.8; MEAN CORPUSCULAR HEMOGLOBIN 22.8 pg (27.0-33.4); MEAN CORPUSCULAR HGB CONC 32.4 g/dL (32.0-36.0); MEAN CORPUSCULAR VOLUME 71 fl (80-97); RED BLOOD COUNT 3.61 10^6/uL (3.72-5.28); RED CELL DISTRIBUTION WIDTH 23.1 % (11.5-14.0); WHITE BLOOD COUNT 5.1 10^3/uL (4.0-10.5)
[2017-05-18 03:47] LABS: ALANINE AMINOTRANSFERASE 39 U/L (9-52); ALBUMIN 3.9 g/dL (3.5-5.0); ALKALINE PHOSPHATASE 85 U/L (38-126); ANION GAP 13 (5-19); ASPARTATE AMINO TRANSFERASE 67 U/L (14-36); BILIRUBIN,DIRECT 0.4 mg/dL (0.0-0.4); BILIRUBIN,TOTAL 0.7 mg/dL (0.2-1.3); BLOOD UREA NITROGEN 14 mg/dL (7-20); CALCIUM 9.2 mg/dL (8.4-10.2); CARBON DIOXIDE 28 mmol/L (22-30); CHLORIDE 95 mmol/L (98-107); CREATINE KINASE 96 U/L (30-135); CREATININE RESULT 0.57 mg/dL (0.52-1.25); GLUCOSE 77 mg/dL (75-110); POTASSIUM 3.6 mmol/L (3.6-5.0); SODIUM 136.3 mmol/L (137-145)
[2017-05-18 03:59] LABS: CREATINE KINASE MB 0.98 ng/mL (<4.55); TROPONIN I < 0.012 ng/mL
[2017-05-18 04:08] LABS: BAND NEUTROPHILS % (MANUAL) 3 % (3-5); BASOPHILS % (MANUAL) 0 % (0-2); EOSINOPHILS % (MANUAL) 1 % (0-6); LYMPHOCYTES % (MANUAL) 17 % (13-45); TOTAL CELLS COUNTED 100
[2017-05-18 04:10] LABS: ANISOCYTOSIS 3+; HYPOCHROMASIA 2+; MICROCYTOSIS 2+; OVALOCYTES SLIGHT; POIKILOCYTOSIS SLIGHT; POLYCHROMASIA SLIGHT; SCHISTOCYTES SLIGHT; TARGET CELLS SLIGHT; TOXIC GRANULATION SLIGHT
[2017-05-18] MEDS ORDERED: IPRATROPIUM/ALBUTEROL 0.5-2.5 MG/3 ML AMPUL NEB ONE (04:17)
--- NOTE | 2017-05-18 06:11 | RADIOLOGY REPORT (SQ) ---
EXAM DESCRIPTION: CTA of the chest per PE protocol with contrast. CLINICAL HISTORY: Lung Cancer, new onset chest pain, SOB COMPARISON: 05/12/2017 TECHNIQUE: CTA of the chest obtained following the uncomplicated intravenous administration of 100.3 mL of Isovue-370. 3-D/MIP reformatted images of the chest available for evaluation. FINDINGS: Chest: Mediastinal windows demonstrate an adequate contrast bolus. No pulmonary embolus identified. Respiratory motion artifact obscures the second middle and subsegmental pulmonary arterial branches particularly in the left upper lobe. Visualized thyroid gland is unremarkable. Atherosclerotic calcification of the thoracic aorta. Coronary artery atherosclerosis. No pericardial effusion or cardiomegaly. Small hiatal hernia. Scattered mediastinal lymph nodes are not enlarged by CT criteria. Lung windows demonstrate thin-walled cavity in the left upper lobe abutting the major fissure measuring 3.3 cm is unchanged. No pneumothorax or pleural effusion. No lobar consolidation. No abnormalities of the visualized trachea or airways. Limited images of the upper abdomen demonstrate no abnormalities of the visualized liver, spleen, pancreas, adrenal glands, or kidneys. No destructive osseous lesions. Degenerative change of the spine. DLP: 496.37 mGycm IMPRESSION: 1. No pulmonary embolus identified. 2. Unchanged 3.3 cm left upper lobe thin-walled cavity. 3. No definite acute pulmonary process identified. This exam was performed according to our departmental dose-optimization program, which includes automated exposure control, adjustment of the mA and/or kV according to patient size and/or use of iterative reconstruction technique.
[2017-05-18 08:27] VITALS: BP 98/70
--- NOTE | 2017-05-18 09:15 | EKG REPORT ---
SEVERITY:- ABNORMAL ECG - SINUS RHYTHM CONSIDER ANTEROSEPTAL INFARCT BORDERLINE T ABNORMALITIES, ANTERIOR LEADS : Confirmed by: Jaja Freeman 18-May-2017 09:15:06
== END 2017-05-18 08:27 | disposition home or self-care (01) ==
LOC: ER 01:25
DX: R06.02 Shortness of breath (principal); R11.0 Nausea; R53.1 Weakness; R07.9 Chest pain, unspecified; F17.200 Nicotine dependence, unspecified, uncomplicated; E78.00 Pure hypercholesterolemia, unspecified; I10 Essential (primary) hypertension; J44.9 Chronic obstructive pulmonary disease, unspecified
CPT/HCPCS: 93005; 36591; 96376; 94640; 99285; 96374; 96375; 36415; 82553; 82550; 85025; 80053; 84484; 71010; 71275; 93010; J2270; J3490; J2405; J7620

== ENCOUNTER 2017-05-22 10:29 | Outpatient (CLI) | payer MEDICAID ==
[2017-05-22] MEDS ORDERED: NORMAL SALINE 250 ML IV PRN (11:11)
[2017-05-22] MEDS ORDERED: ACETAMINOPHEN 325 MG TABLET PO PRN (11:12)
[2017-05-22] MEDS ORDERED: DIPHENHYDRAMINE HCL 25 MG CAPSULE PO PRN (11:12)
[2017-05-22] MEDS ORDERED: FUROSEMIDE INJ/PF 20 MG/2 ML SDV IV PRN (11:13)
[2017-05-22 12:16] LABS: HEMATOCRIT 19.4 % (36.0-47.0); HGB HCT DIFFERENCE -0.2; MEAN CORPUSCULAR HEMOGLOBIN 24.1 pg (27.0-33.4); MEAN CORPUSCULAR HGB CONC 32.9 g/dL (32.0-36.0); MEAN CORPUSCULAR VOLUME 73 fl (80-97); RED BLOOD COUNT 2.65 10^6/uL (3.72-5.28); RED CELL DISTRIBUTION WIDTH 24.4 % (11.5-14.0); WHITE BLOOD COUNT 5.3 10^3/uL (4.0-10.5)
[2017-05-22 12:20] LABS: HEMOGLOBIN 6.4 g/dL (12.0-15.5)
[2017-05-22] MEDS ORDERED: OXYCODONE HCL IR 5 MG TABLET PO ONE (12:30)
[2017-05-22 18:12] VITALS: BP 132/91
== END 2017-05-22 19:03 | disposition home or self-care (01) ==
LOC: II 10:29 → 2N 10:33 → II 19:03
PROVIDERS: ATTEND Internal Medicine Hematology & Oncology
PROC: 30243N1 Transfusion of Nonautologous Red Blood Cells into Central Vein, Percutaneous Approach (ICD-10-PCS; principal; 2017-05-22)
DX: D64.9 Anemia, unspecified (principal)
CPT/HCPCS: 86900; 86901; 36415; 36430; 86850; 86920; P9016; J3490 ×3; J1940

== ENCOUNTER 2017-07-21 07:53 | Outpatient (CLI) | payer MEDICAID ==
[~2017-07-21 07:53] MED LIST changes: -DIPHENHYDRAMINE HCL 25 MG CAPSULE PO PRN; +DIPHENHYDRAMINE HCL 50 MG/ML VIAL IV PRN; -FUROSEMIDE INJ/PF 20 MG/2 ML SDV IV PRN; +IRON DEXTRAN COMPLEX 1,000 MG in NORMAL SALINE 1000 ML 1,000 ML IV PRN; +NORMAL SALINE 250 ML IV PRN
[2017-07-21 08:23] VITALS: BP 127/90
== END 2017-07-21 13:13 | disposition home or self-care (01) ==
LOC: II 07:53 → 5TH 07:59 → II 13:13
PROVIDERS: ATTEND Internal Medicine Hematology & Oncology
PROC: 3E043GC Introduction of Other Therapeutic Substance into Central Vein, Percutaneous Approach (ICD-10-PCS; principal; 2017-07-21)
DX: D50.9 Iron deficiency anemia, unspecified (principal)
CPT/HCPCS: 96367; 96375; J3490; J1200; J1750; J7030; 96365; 96366

== ENCOUNTER 2017-07-23 11:14 | Emergency (ER) | payer MEDICAID ==
[2017-07-23] MEDS ORDERED: ONDANSETRON HCL INJ/PF 4 MG/2 ML SDV IV ONE ×2 (11:57→16:47)
[2017-07-23] MEDS ORDERED: NORMAL SALINE 1000 ML 1,000 ML IV PRN (11:57)
[2017-07-23] MEDS ORDERED: MORPHINE SULFATE 10 MG/ML INJ IV PRN (11:57)
--- NOTE | 2017-07-23 11:58 | ER Document Report ---
ED Medical Screen (RME) - General Chief Complaint: Decreased Appetite Stated Complaint: WEAKNESS Time Seen by Provider: 07/23/17 11:39 Mode of Arrival: Wheelchair Information source: Patient Notes: 57-year-old female with stage IV lung cancer presents to the emergency room with nausea, vomiting and abdominal pain. TRAVEL OUTSIDE OF THE [place] IN LAST 30 DAYS: No - Related Data Allergies/Adverse Reactions: No Known Allergies Allergy (Verified 07/23/17 11:14) Past Medical History - Social History Frequency of alcohol use: 4 -5 beers daily Drug Abuse: Marijuana - Past Medical History Cardiac Medical History: Reports: Hx Hypercholesterolemia, Hx Hypertension - NO MEDS Denies: Hx Congestive Heart Failure, Hx Coronary Artery Disease, Hx DVT, Hx Heart Attack, Hx Pulmonary Embolism Pulmonary Medical History: Reports: Hx COPD Denies: Hx Asthma, Hx Bronchitis, Hx Pneumonia, Hx Sleep Apnea Neurological Medical History: Denies: Hx Cerebrovascular Accident, Hx Seizures Endocrine Medical History: Denies: Hx Diabetes Mellitus Type 1, Hx Diabetes Mellitus Type 2, Hx Hyperthyroidism, Hx Hypothyroidism Renal/ Medical History: Denies: Hx Peritoneal Dialysis Malignancy Medical History: Reports: Hx Lung Cancer - Stage IIIB, squamous cell carcinoma, lung involvement, lymph node. GI Medical History: Denies: Hx Cirrhosis, Hx Hepatitis, Hx Hiatal Hernia, Hx Ulcer Musculoskeltal Medical History: Denies Hx Arthritis Psychiatric Medical History: Reports: Hx Depression Infectious Medical History: Denies: Hx C-Diff, Hx Hepatitis, Hx MRSA Past Surgical History: Reports: Hx Appendectomy, Hx Section - 1, Hx Orthopedic Surgery - right knee, Other - Right chest Port-A-Cath. Denies: Hx Hysterectomy, Hx Mastectomy, Hx Open Heart Surgery, Hx Pacemaker - Immunizations Hx Diphtheria, Pertussis, Tetanus Vaccination: No History of Influenza Vaccine for 04/2017 - 08/2017 Season: Yes Physical Exam - Vital signs Vitals: Temp Pulse Resp BP Pulse Ox 98.4 F 109 H 22 H 125/98 H 99 07/23/17 11:25 07/23/17 11:25 07/23/17 11:25 07/23/17 11:25 07/23/17 11:25 Course - Vital Signs Vital signs: Temp Pulse Resp BP Pulse Ox 98.4 F 109 H 22 H 125/98 H 99 07/23/17 11:25 07/23/17 11:25 07/23/17 11:25 07/23/17 11:25 07/23/17 11:25
--- NOTE | 2017-07-23 13:10 | ER Document Report ---
ED General - General Chief Complaint: Decreased Appetite Stated Complaint: WEAKNESS Time Seen by Provider: 07/23/17 11:39 Mode of Arrival: Wheelchair TRAVEL OUTSIDE OF THE [place] IN LAST 30 DAYS: No - HPI Notes: 57-year-old female with history of stage IV lung cancer, anemia, chronic pain syndrome, alcohol and tobacco abuse, presents with 3 days of inability to keep anything down she reports. She states she is vomiting liquids as well as not been able to keep her pain medication down. Denies diarrhea or stool change. She has had rectal bleeding in the past but has not noted this. She did receive an iron infusion 2 days ago. Symptoms seemed to start around that period of time. The pain is generalized, worse in her hips and abdomen though again does have recurrent abdominal pain. She denies hematemesis. Reports diffuse weakness. No melena. No specific chest pain or breathing difficulty. - Related Data Allergies/Adverse Reactions: No Known Allergies Allergy (Verified 07/23/17 11:14) Past Medical History - General Information source: Patient - Social History Smoking Status: Current Every Day Smoker Frequency of alcohol use: 4 -5 beers daily Drug Abuse: Marijuana Family History: Reviewed & Not Pertinent, CAD, Malignancy Patient has suicidal ideation: No Patient has homicidal ideation: No - Past Medical History Cardiac Medical History: Reports: Hx Hypercholesterolemia, Hx Hypertension - NO MEDS Denies: Hx Congestive Heart Failure, Hx Coronary Artery Disease, Hx DVT, Hx Heart Attack, Hx Pulmonary Embolism Pulmonary Medical History: Reports: Hx COPD Denies: Hx Asthma, Hx Bronchitis, Hx Pneumonia, Hx Sleep Apnea Neurological Medical History: Denies: Hx Cerebrovascular Accident, Hx Seizures Endocrine Medical History: Denies: Hx Diabetes Mellitus Type 1, Hx Diabetes Mellitus Type 2, Hx Hyperthyroidism, Hx Hypothyroidism Renal/ Medical History: Denies: Hx Peritoneal Dialysis Malignancy Medical History: Reports: Hx Lung Cancer - Stage IIIB, squamous cell carcinoma, lung involvement, lymph node. GI Medical History: Denies: Hx Cirrhosis, Hx Hepatitis, Hx Hiatal Hernia, Hx Ulcer Musculoskeltal Medical History: Denies Hx Arthritis Psychiatric Medical History: Reports: Hx Depression Infectious Medical History: Denies: Hx C-Diff, Hx Hepatitis, Hx MRSA Past Surgical History: Reports: Hx Appendectomy, Hx Section - 1, Hx Orthopedic Surgery - right knee, Other - Right chest Port-A-Cath. Denies: Hx Hysterectomy, Hx Mastectomy, Hx Open Heart Surgery, Hx Pacemaker - Immunizations Hx Diphtheria, Pertussis, Tetanus Vaccination: No Review of Systems - Review of Systems -: Yes All other systems reviewed and negative Physical Exam - Vital signs Vitals: Temp Pulse Resp BP Pulse Ox 98.4 F 109 H 22 H 125/98 H 99 07/23/17 11:25 07/23/17 11:25 07/23/17 11:25 07/23/17 11:25 07/23/17 11:25 Interpretation: Tachycardic - Notes Notes: GENERAL: VS as per nursing doc. thin female, chronically ill-appearing and in no acute distress. HEAD: Atraumatic, normocephalic. EYES: Pupils equal round and reactive to light, extraocular movements intact, sclera anicteric, no conjunctival injection or discharge. ENT: Nares patent, oropharynx clear without exudates, dry mucous membranes. NECK: Normal range of motion, supple without lymphadenopathy. LUNGS: Coarse and slightly decreased bilaterally. HEART: Tachycardic, regular without murmurs. ABDOMEN: Soft, mild generalized tenderness more in the periumbilical and epigastric region no guarding, no rebound. No masses appreciated. BACK: No CVA tenderness. EXTREMITIES: Normal range of motion, no calf tenderness, no edema. NEUROLOGICAL: Cranial nerves grossly intact. Normal speech. Normal sensory and motor exams. No gross cerebellar abnormalities. PSYCH: Normal mood, normal affect. SKIN: Warm, dry, poor skin turgor. Course - Re-evaluation Re-evalutation: 07/23/17 17:36 Patient's anemia is much improved since her infusion on Monday. I suspect she has a small amount of pancreatitis though her CT did not show it, she had some mild elevation in her lipase which seems consistent with the location of the pain she had. She does have a history of alcohol use though her alcohol was negative today. Her vomiting has resolved and she is feeling much better and asking for both food and drink. Magnesium has been supplemented. Abdominal recheck shows only minimal epigastric tenderness at this point. Currently having no signs of GI bleeding. She requests to go home but agrees to wait for the p.o. trial. - Vital Signs Vital signs: Temp Pulse Resp BP Pulse Ox 98.4 F 109 H 18 130/104 H 96 07/23/17 11:25 07/23/17 11:25 07/23/17 17:00 07/23/17 17:00 07/23/17 17:00 - Laboratory Result Diagrams: 07/23/17 13:25 07/23/17 13:25 Laboratory results interpreted by me: 07/23/17 07/23/17 13:25 13:25 Hgb 10.4 L Hct 31.3 L MCH 26.7 L RDW 22.0 H Plt Count 487 H Monocytes % 13.4 H Potassium 3.3 L Chloride 97 L Magnesium 1.4 L Direct Bilirubin 0.5 H AST 42 H Lipase 403.7 H - Diagnostic Test Radiology reviewed: Reports reviewed - No significant acute process noted. - EKG Interpretation by Me EKG shows normal: Sinus rhythm - Heart rate 94, nonspecific ST and T-wave abnormalities. QRS of normal duration. Discharge - Discharge Clinical Impression: Vomiting, Abdominal pain, Hypokalemia, Hypomagnesemia, Lung cancer Condition: Good Disposition: HOME, SELF-CARE Instructions: Abdominal Pain ([facility]), Antinausea Medication ([facility]), Oral Narcotic Medication ([facility]) Additional Instructions: Start with clear liquids and slowly advance diet. Return for worsening or concern. Take a multivitamin daily. Contact your oncologist tomorrow for follow-up in the next 1-2 days. Prescriptions: Promethazine HCl [Phenergan 25 mg Tablet] 1 tab PO Q4HP PRN #10 tablet PRN Reason: Hydrocodone/Acetaminophen [Conklin 10-325 mg Tablet] 1 tab PO Q6HP PRN #10 tablet PRN Reason: For Pain Referrals: RUTH WANG MD [Primary Care Provider] - Follow up tomorrow JAVI ABBOTT MD [ACTIVE STAFF] - (Call tomorrow for follow-up )
[2017-07-23 14:00] LABS: ABSOLUTE BASOPHILS # (AUTO) 0.1 10^3/uL (0.0-0.2); ABSOLUTE LYMPHOCYTES (AUTO) 1.1 10^3/uL (0.5-4.7); ABSOLUTE MONOCYTES (AUTO) 0.8 10^3/uL (0.1-1.4); ABSOLUTE NEUT (AUTO) 4.1 10^3/uL (1.7-8.2); EOSINOPHILS % (AUTO) 0.1 % (0-6); HEMATOCRIT 31.3 % (36.0-47.0); HEMOGLOBIN 10.4 g/dL (12.0-15.5); LYMPHOCYTES % (AUTO) 17.4 % (13-45); MEAN CORPUSCULAR HEMOGLOBIN 26.7 pg (27.0-33.4); MEAN CORPUSCULAR HGB CONC 33.3 g/dL (32.0-36.0); MEAN CORPUSCULAR VOLUME 80 fl (80-97); MONOCYTES % (AUTO) 13.4 % (3-13); PLATELET COUNT 487 10^3/uL (150-450); SEGMENTED NEUTROPHILS % (AUTO) 68.1 % (42-78); TOTAL CELLS COUNTED % (AUTO) 100 %; WHITE BLOOD COUNT 6.1 10^3/uL (4.0-10.5)
[2017-07-23 14:08] LABS: APPEARANCE,URINE SLIGHTLY-CLOUDY; BILIRUBIN,URINE NEGATIVE (NEGATIVE); COLOR,URINE YELLOW; GLUCOSE, URINE NEGATIVE (NEGATIVE); KETONES,URINE NEGATIVE (NEGATIVE); LEUKOCYTE ESTERASE,URINE NEGATIVE (NEGATIVE); NITRITE,URINE NEGATIVE (NEGATIVE); PROTEIN,URINE NEGATIVE (NEGATIVE); URINE SPECIFIC GRAVITY 1.011; UROBILINOGEN,URINE NEGATIVE mg/dL (<2.0)
[2017-07-23 14:19] LABS: ALANINE AMINOTRANSFERASE 16 U/L (9-52); ALBUMIN 4.4 g/dL (3.5-5.0); ALKALINE PHOSPHATASE 107 U/L (38-126); ANION GAP 10 (5-19); ASPARTATE AMINO TRANSFERASE 42 U/L (14-36); BILIRUBIN,DIRECT 0.5 mg/dL (0.0-0.4); BLOOD UREA NITROGEN 7 mg/dL (7-20); CALCIUM 9.6 mg/dL (8.4-10.2); CARBON DIOXIDE 30 mmol/L (22-30); CHLORIDE 97 mmol/L (98-107); GLUCOSE 96 mg/dL (75-110); LIPASE 403.7 U/L (23-300); MAGNESIUM 1.4 mg/dL (1.6-2.3); POTASSIUM 3.3 mmol/L (3.6-5.0); SODIUM 137.3 mmol/L (137-145); TOTAL PROTEIN 8.1 g/dL (6.3-8.2)
[2017-07-23 14:21] LABS: ALCOHOL < 10 mg/dL (NONE DETECTED)
[2017-07-23] MEDS ORDERED: MAGNESIUM SULFATE/D5W 1 GM/100 ML RTUPB IV ONE (14:23)
--- NOTE | 2017-07-23 16:32 | RADIOLOGY REPORT (SQ) ---
EXAM DESCRIPTION: CT ABD/PELVIS WITH IV ORAL COMPLETED DATE/TIME: 07/23/2017 4:20 pm REASON FOR STUDY: Abd pain COMPARISON: 08/18/2016 and 01/29/2016. None TECHNIQUE: CT scan of the abdomen and pelvis performed with intravenous and oral contrast using kylie tray scanning technique with dynamic intravenous contrast injection. Images reviewed with lung, soft t issue, and bone windows. Reconstructed coronal and sagittal MPR images reviewed. Delayed images for e valuation of the urinary system also acquired. All images stored on PACS. All CT scanners at this facility use dose modulation, iterative reconstruction, and/or weight based d osing when appropriate to reduce radiation dose to as low as reasonably achievable (ALARA). [facility]: Dose Right [facility]: CareDose [facility]: Dose Right [facility]: Teradose 4D [facility]: [employer] CONTRAST TYPE AND DOSE: contrast/concentration: Isovue 370.00 mg/ml; Total Contrast Delivered: 51.0 ml; Total Saline Delivered: 65.0 ml RENAL FUNCTION: BUN 7 creatinine 0.57. RADIATION DOSE: CT Rad equipment meets quality standard of care and radiation dose reduction techniq ues were employed. CTDIvol: 4.8 - 5.1 mGy. DLP: 479 mGy-cm.. LIMITATIONS: None. FINDINGS: LOWER CHEST: No significant findings. No nodules or infiltrates. LIVER: Normal size. Small subcentimeter low-attenuation lesions, probably cysts, unchanged. No dila randolph ducts. SPLEEN: Normal size. No focal lesions. PANCREAS: No masses. No significant calcifications. No adjacent inflammation or peripancreatic fluid collections. Pancreatic duct not dilated. GALLBLADDER: No identified stones by CT criteria. No inflammatory changes to suggest cholecystitis. ADRENAL GLANDS: No significant masses or asymmetry. RIGHT KIDNEY AND URETER: No solid masses. No significant calcification. No hydronephrosis or hydroure ter. LEFT KIDNEY AND URETER: No solid masses. No significant calcification. No hydronephrosis or hydrouret er. AORTA AND VESSELS: No aneurysm. No dissection. Renal arteries, SMA, celiac without stenosis. RETROPERITONEUM: No retroperitoneal adenopathy, hemorrhage or masses. BOWEL AND PERITONEAL CAVITY: No obstruction. No visualized masses. No free fluid. No inflammatory ch anges or thickening of bowel wall. APPENDIX: Surgically absent. PELVIS: No significant masses. Normal bladder. No free fluid. ABDOMINAL WALL: No masses. No hernias. BONES: No significant or acute findings. OTHER: No other significant finding. IMPRESSION: STABLE SMALL HEPATIC CYSTS. NO OTHER SIGNIFICANT OR ACUTE FINDINGS IN THE ABDOMEN OR PE LVIS. TECHNICAL DOCUMENTATION: JOB ID: [id number] Quality ID # [id number]: Final reports with documentation of one or more dose reduction techniques (e.g., Au tomated exposure control, adjustment of the mA and/or kV according to patient size, use of iterative reconstruction technique) 2010 [employer]- All Rights Reserved
[2017-07-23] MEDS ORDERED: MORPHINE SULFATE 10 MG/ML INJ IV ONE (16:46)
[2017-07-23] MEDS ORDERED: POTASSIUM CHLORIDE 20 MEQ/15 ML UDCUP PO ONE (17:23)
[2017-07-23 19:03] VITALS: BP 121/84
--- NOTE | 2017-07-23 19:51 | EKG REPORT ---
SEVERITY:- ABNORMAL ECG - SINUS RHYTHM CONSIDER ANTEROSEPTAL INFARCT BORDERLINE T WAVE ABNORMALITIES LV[facility] WITH SECONDARY ST-T CHANGES : Confirmed by: Jaja Freeman 23-Jul-2017 19:50:53
== END 2017-07-23 18:52 | disposition home or self-care (01) ==
LOC: ER 11:14
DX: R11.10 Vomiting, unspecified (principal); E83.42 Hypomagnesemia; E87.6 Hypokalemia; R10.9 Unspecified abdominal pain; R10.817 Generalized abdominal tenderness; R74.8 Abnormal levels of other serum enzymes; C34.90 Malignant neoplasm of unspecified part of unspecified bronchus or lung; D64.9 Anemia, unspecified; R53.1 Weakness; M25.559 Pain in unspecified hip; F17.200 Nicotine dependence, unspecified, uncomplicated; I10 Essential (primary) hypertension; J44.9 Chronic obstructive pulmonary disease, unspecified; R00.0 Tachycardia, unspecified
CPT/HCPCS: 93005; 36591; 96376; 99285; 96361; 96374; 96375; 86900; 86901; 36415; 86850; 80307; 83690; 83735; 85025; 80053; 81001; 74177; 93010; J2270; J3475; J3490; J2405; J7030

== ENCOUNTER → 2017-08-03 | Outpatient (CLI) | payer MEDICAID ==
--- NOTE | 2017-08-03 12:17 | RADIOLOGY REPORT (SQ) ---
EXAM DESCRIPTION: CT CHEST WITH; CT ABDOMEN IV CONTRAST ONLY COMPLETED DATE/TIME: 08/03/2017 10:24 am REASON FOR STUDY: LUNG CA C34.92 MALIGNANT NEOPLASM OF UNSP PART OF LEFT BRONCHUS OR L COMPARISON: CT chest and abdomen 01/29/2016, 01/10/2017, 03/22/2017, 05/12/2017, 05/18/2017 CT abdomen pelvis 08/18/2016, 01/16/2017, 07/22/2017 CONTRAST TYPE AND DOSE: contrast/concentration: Isovue 370.00 mg/ml; Total Contrast Delivered: 51.0 ml; Total Saline Delivered: 65.0 ml RENAL FUNCTION: Creatinine 0.6 TECHNIQUE: CT scan of the chest performed using helical scanning technique with dynamic intravenous contrast injection. Images reviewed with lung, soft tissue and bone windows. Reconstructed coronal a nd sagittal MPR images reviewed. All images stored on PACS. CT scan of the abdomen performed with intravenous and without oral contrastusing helical scanning matheus hnique with dynamic intravenous contrast injection. Images reviewed with lung, soft tissue and bone windows. Reconstructed coronal and sagittal MPR images reviewed. Delayed images for evaluation of t he urinary system also acquired and evaluated. All images stored on PACS. All CT scanners at this facility use dose modulation, iterative reconstruction, and/or weight based d osing when appropriate to reduce radiation dose to as low as reasonably achievable (ALARA). [facility]: Dose Right [facility]: CareDose [facility]: Dose Right [facility]: Teradose 4D [facility]: [employer] RADIATION DOSE: CT Rad equipment meets quality standard of care and radiation dose reduction techniq ues were employed. CTDIvol: 4.4 - 4.4 mGy. DLP: 427 mGy-cm. . LIMITATIONS: None. FINDINGS: CHEST: LUNGS AND PLEURA: In the left upper lobe, a cavitary nodule at the left lower hilum abuts the major f issure, 2.4 x 2.3 cm in size on image 60. This is currently over [facility] opacified with soft tissue or debris (was a thin walled cavity 05/18/2017, 2.4 x 2 cm in size). Remainder of the lungs are otherwise unremarkable. No pleural effusion. No pneumothorax. HILAR AND MEDIASTINAL STRUCTURES: No identified masses or abnormal nodes. HEART AND VASCULAR STRUCTURES: No aneurysm or dissection. No central pulmonary emboli. No pericardi al effusion. HARDWARE: Right-sided permanent central line tip superior vena cava THYROID AND OTHER SOFT TISSUES: No masses. No adenopathy. BONES: No significant finding. OTHER: No other significant finding. ABDOMEN AND PELVIS: LIVER: Normal size. No masses. No dilated ducts. Stable subcentimeter cysts scattered throughout th e liver parenchyma SPLEEN: Normal size. No focal lesions. PANCREAS: No masses. No significant calcifications. No adjacent inflammation or peripancreatic fluid collections. Pancreatic duct not dilated. GALLBLADDER: No identified stones by CT criteria. No inflammatory changes to suggest cholecystitis. ADRENAL GLANDS: No significant masses or asymmetry. RIGHT KIDNEY AND URETER: No solid masses. No significant calcification. No hydronephrosis or hydroure ter. LEFT KIDNEY AND URETER: No solid masses. No significant calcification. No hydronephrosis or hydrouret er. AORTA AND VESSELS: No aneurysm or dissection. Calcified abdominal aorta and origins of the renal art eries RETROPERITONEUM: No retroperitoneal adenopathy, hemorrhage or masses. BOWEL AND PERITONEAL CAVITY: No masses or inflammatory changes. No free fluid or peritoneal masses. APPENDIX: Not identified, post appendectomy ABDOMINAL WALL: No masses. No hernias. BONES: Multilevel degenerative disc changes OTHER: No other significant finding. IMPRESSION: Left upper lobe mass abutting the major fissure, now opacified with soft tissue or debri s. Slight enlargement compared to 05/18/2017. No CT evidence of metastatic disease to the chest or abdomen. TECHNICAL DOCUMENTATION: JOB ID: [id number] Quality ID # [id number]: Final reports with documentation of one or more dose reduction techniques (e.g., Au tomated exposure control, adjustment of the mA and/or kV according to patient size, use of iterative reconstruction technique) 2010 [employer]- All Rights Reserved
== END ==
LOC: RAD 08:47
PROVIDERS: ATTEND Internal Medicine
DX: C34.92 Malignant neoplasm of unspecified part of left bronchus or lung (principal)
CPT/HCPCS: 71260; 74160

== ENCOUNTER → 2017-08-11 | Outpatient (CLI) | payer MEDICAID ==
--- NOTE | 2017-08-11 10:29 | RADIOLOGY REPORT (SQ) ---
EXAM DESCRIPTION: MRI LUMBAR SPINE COMBO COMPLETED DATE/TIME: 08/11/2017 9:31 am REASON FOR STUDY: LOW BACK PAIN (M54.5), LUNG CA (C34.92) C34.92 MALIGNANT NEOPLASM OF UNSP PART OF LEFT BRONCHUS OR L M54.5 LOW BACK PAIN COMPARISON: None. TECHNIQUE: Sagittal and Axial imaging includes T1, T1 post gadolinium, T2, STIR and gradient echo se quences. Coronal T2/HASTE imaging. CONTRAST TYPE AND DOSE: 10 mL Prohance. RENAL FUNCTION: GFR > 60. LIMITATIONS: Motion. Positioning. FINDINGS: VISUALIZED UPPER ABDOMEN: Limited evaluation. No acute or suspicious findings suggested. SEGMENTATION: No transitional anatomy. The lowest well-developed disc space is labeled L5-S1. ALIGNMENT: Moderate scoliosis. Grade 1 anterolisthesis L4 relative to L 3, L5 relative to L4. VERTEBRAE: No acute fracture. BONE MARROW: Edema and enhancement L2-3 and L4-5 endplates. DISC SIGNAL: Desiccation multiple levels. POSTERIOR ELEMENTS: Intact. HARDWARE: None in the spine. CORD AND CONUS: Normal in size and signal intensity. Conus at the appropriate level. SOFT TISSUES: No aortic aneurysm seen. No bulky retroperitoneal adenopathy or mass. No paraspinal mas s or fluid. L1-L2: Disc bulge. No significant stenosis. L2-L3: Mild spinal stenosis due to disc osteophyte complex. L3-L4: Mild spinal stenosis due to disc osteophyte complex. L4-L5: Right lateral disc protrusion contacts the exiting right L4 nerve root. Facet arthropathy. L5-S1: Mild spinal stenosis due to disc osteophyte complex. Disc contacts the exiting right L5 nerve root. Facet arthropathy. LOWER THORACIC: Incompletely imaged. No stenosis seen. SACRUM: Visualized upper sacrum intact. ENHANCEMENT: Inflammatory enhancement pattern L2-3 and L 5 S1. No evidence of bone metastasis. OTHER: No other significant findings. IMPRESSION: Spondylosis, malalignment and facet arthropathy. Mild spinal stenosis. Right lateral d isc herniations at L4- 5 and L5-S1. TECHNICAL DOCUMENTATION: JOB ID: [id number] [employer]- All Rights Reserved
== END ==
LOC: RAD 08:22
PROVIDERS: ATTEND Internal Medicine Hematology & Oncology
DX: C34.92 Malignant neoplasm of unspecified part of left bronchus or lung (principal); M54.5 Low back pain
CPT/HCPCS: 82565; 72158; A9577

== ENCOUNTER 2017-08-29 14:49 | Emergency (ER) | payer MEDICAID ==
[2017-08-29] MEDS ORDERED: NORMAL SALINE 1000 ML 1,000 ML IV ONE (15:05)
[2017-08-29] MEDS ORDERED: NORMAL SALINE 250 ML IV PRN ×2 (15:14)
[2017-08-29] MEDS ORDERED: PANTOPRAZOLE SODIUM 40 MG VIAL IV ONE (15:14)
[2017-08-29] MEDS ORDERED: PANTOPRAZOLE SODIUM 40 MG VIAL IV PRN (15:15)
--- NOTE | 2017-08-29 15:17 | ER Document Report ---
ED GI Bleed / Rectal Pain - General Mode of Arrival: Ambulatory Information source: Patient TRAVEL OUTSIDE OF THE [place] IN LAST 30 DAYS: No - HPI Patient complains to provider of: Dark/tarry stools Onset: Yesterday <MAURA CORADO - Last Filed: 08/29/17 20:52> <MARCELLA FRAGA - Last Filed: 08/29/17 23:39> - General Chief Complaint: Rectal Bleeding Stated Complaint: RECTAL BLEEDING Time Seen by Provider: 08/29/17 15:02 Notes: Patient is a 57-year-old female with a history of stage IV lung cancer and GI bleeds presents to the emergency department via EMS complaining of rectal bleeding onset yesterday. Patient states the bleeding has worsened today and describes it as black and tarry. Patient states that she has had 4 episodes of bloody stool today. Patient also complains of abdominal pain and general malaise. Patient denies any recent illnesses or chest pain. Patient further denies being on any blood thinners or acid reflux medications. Patient is currently on Chemo. Patient also states she had a scope performed but unsure if any prevention was done. (MAURA CORADO) - Related Data Allergies/Adverse Reactions: No Known Allergies Allergy (Verified 07/23/17 11:14) Past Medical History - General Information source: Patient - Social History Smoking Status: Unknown if Ever Smoked Family History: Reviewed & Not Pertinent, CAD, Malignancy - Past Medical History Cardiac Medical History: Reports: Hx Hypercholesterolemia, Hx Hypertension - NO MEDS Pulmonary Medical History: Reports: Hx COPD Malignancy Medical History: Reports: Hx Lung Cancer - Stage IIIB, squamous cell carcinoma, lung involvement, lymph node. Psychiatric Medical History: Reports: Hx Depression Past Surgical History: Reports: Hx Appendectomy, Hx Section - 1, Hx Orthopedic Surgery - right knee, Other - Right chest Port-A-Cath - Immunizations Hx Diphtheria, Pertussis, Tetanus Vaccination: No <MAURA CORADO - Last Filed: 08/29/17 20:52> Review of Systems - Review of Systems Constitutional: No symptoms reported EENT: No symptoms reported Cardiovascular: No symptoms reported Respiratory: No symptoms reported Gastrointestinal: See HPI, Abdominal pain, Black stools, Rectal bleeding Genitourinary: No symptoms reported Female Genitourinary: No symptoms reported Musculoskeletal: No symptoms reported Skin: No symptoms reported Hematologic/Lymphatic: No symptoms reported Neurological/Psychological: No symptoms reported -: Yes All other systems reviewed and negative <MAURA CORADO - Last Filed: 08/29/17 20:52> Physical Exam <MAURA CORADO - Last Filed: 08/29/17 20:52> <MARCELLA FRAGA - Last Filed: 08/29/17 23:39> - Vital signs Vitals: Temp Pulse Resp BP Pulse Ox 97.6 F 92 18 89/64 L 95 08/29/17 15:03 08/29/17 15:03 08/29/17 15:03 08/29/17 15:03 08/29/17 15:03 - Notes Notes: GENERAL: Alert, interacts well. No acute distress. Hypotensive. HEAD: Normocephalic, atraumatic. EYES: Pupils equal, round, and reactive to light. Extraocular movements intact. ENT: Oral mucosa moist, tongue midline. NECK: Full range of motion. Supple. Trachea midline. LUNGS: Clear to auscultation bilaterally, no wheezes, rales, or rhonchi. No respiratory distress. HEART: Regular rate and rhythm. No murmurs, gallops, or rubs. ABDOMEN: Soft, non-tender. Non-distended. Bowel sounds present in all 4 quadrants. EXTREMITIES: Moves all 4 extremities spontaneously. No edema, radial and dorsalis pedis pulses 2/4 bilaterally. No cyanosis. NEUROLOGICAL: Alert and oriented x3. Normal speech. PSYCH: Normal affect, normal mood. SKIN: Warm, dry, normal turgor. No rashes or lesions noted. RECTAL: [place] to black colored stool. (MAURA CORADO) Course - Laboratory Result Diagrams: 08/29/17 15:19 08/29/17 15:19 - Consults Dr. Rodriguez Time consulted: 17:51 - Dr. Rodriguez accepts patient to [facility]. <MAURA CORADO - Last Filed: 08/29/17 20:52> - Laboratory Result Diagrams: 08/29/17 15:19 08/29/17 15:19 <FLAKITOMARCELLA - Last Filed: 08/29/17 23:39> - Vital Signs Vital signs: Temp Pulse Resp BP Pulse Ox 97.6 F 87 18 111/83 99 08/29/17 18:01 08/29/17 20:36 08/29/17 20:36 08/29/17 20:16 08/29/17 20:36 - Laboratory Laboratory results interpreted by me: 08/29/17 08/29/17 08/29/17 15:19 15:19 15:19 RBC 1.44 L Hgb 4.6 L* Hct 13.6 L* RDW 24.6 H Sodium 135.4 L Potassium 2.8 L* Carbon Dioxide 18 L Glucose 42 L Calcium 7.3 L Magnesium AST 47 H Total Protein 4.5 L Albumin 2.7 L Crossmatch See Detail 08/29/17 15:19 RBC Hgb Hct RDW Sodium Potassium Carbon Dioxide Glucose Calcium Magnesium 0.9 L* AST Total Protein Albumin Crossmatch Discharge <MAURA CORADO - Last Filed: 08/29/17 20:52> <MARCELLA FRAGA - Last Filed: 08/29/17 23:39> - Discharge Clinical Impression: GI bleed Qualifiers: GI bleed type/associated pathology: unspecified gastrointestinal hemorrhage type Qualified Code(s): K92.2 - Gastrointestinal hemorrhage, unspecified Condition: Stable Disposition: [facility] Scribe Attestation: 08/29/17 23:39 I personally performed the services described documentation, reviewed and edited the documentation which was dictated to describe my presence, and it accurately records my words and actions. (MARCELLA FRAGA) Scribe Documentation - Scribe Written by Scribe:: Blade Urbina, 08/29/2017 15:26 acting as scribe for :: Flakito <MAURA CORADO - Last Filed: 08/29/17 20:52>
[2017-08-29 15:37] LABS: MEAN CORPUSCULAR HEMOGLOBIN 32.3 pg (27.0-33.4); MEAN CORPUSCULAR HGB CONC 34.1 g/dL (32.0-36.0); MEAN CORPUSCULAR VOLUME 95 fl (80-97); PLATELET COUNT 244 10^3/uL (150-450); RED BLOOD COUNT 1.44 10^6/uL (3.72-5.28); RED CELL DISTRIBUTION WIDTH 24.6 % (11.5-14.0); WHITE BLOOD COUNT 4.7 10^3/uL (4.0-10.5)
[2017-08-29 15:42] LABS: PARTIAL THROMBOPLASTIN TIME 31.5 SEC (23.5-35.8)
[2017-08-29 15:50] LABS: ALANINE AMINOTRANSFERASE 26 U/L (9-52); ALBUMIN 2.7 g/dL (3.5-5.0); ALKALINE PHOSPHATASE 64 U/L (38-126); ANION GAP 16 (5-19); ASPARTATE AMINO TRANSFERASE 47 U/L (14-36); BILIRUBIN,DIRECT 0.1 mg/dL (0.0-0.4); BILIRUBIN,TOTAL 0.3 mg/dL (0.2-1.3); BLOOD UREA NITROGEN 13 mg/dL (7-20); CALCIUM 7.3 mg/dL (8.4-10.2); CARBON DIOXIDE 18 mmol/L (22-30); CHLORIDE 101 mmol/L (98-107); GLUCOSE 42 mg/dL (75-110); SODIUM 135.4 mmol/L (137-145); TOTAL PROTEIN 4.5 g/dL (6.3-8.2)
[2017-08-29 15:53] LABS: POTASSIUM 2.8 mmol/L (3.6-5.0)
[2017-08-29] MEDS ORDERED: POTASSI CL 20 MEQ/50 ML RIDER 20 MEQ/50 ML RTUPB IV SCH (15:55)
[2017-08-29 16:01] LABS: ABSOLUTE LYMPHOCYTES# (MANUAL) 0.9 10^3/uL (0.5-4.7); ABSOLUTE MONOCYTES # (MANUAL) 0.2 10^3/uL (0.1-1.4); ABSOLUTE NEUTROPHILS# (MANUAL) 3.5 10^3/uL (1.7-8.2); BASOPHILS % (MANUAL) 0 % (0-2); EOSINOPHILS % (MANUAL) 0 % (0-6); LYMPHOCYTES % (MANUAL) 20 % (13-45); MONOCYTES % (MANUAL) 5 % (3-13); SEGMENTED NEUTROPHILS % (MAN) 75 % (42-78); TOTAL CELLS COUNTED 100
[2017-08-29 16:02] LABS: ANISOCYTOSIS 3+; PLATELET COMMENT ADEQUATE
[2017-08-29 16:06] LABS: OVALOCYTES SLIGHT; POIKILOCYTOSIS 2+; TARGET CELLS 2+
[2017-08-29 16:12] LABS: HEMATOCRIT 13.6 % (36.0-47.0)
[2017-08-29 16:13] LABS: HEMOGLOBIN 4.6 g/dL (12.0-15.5)
[2017-08-29] MEDS: POTASSI CL 20 MEQ/50 ML RIDER 20 MEQ/50 ML RTUPB IV SCH ×3 (16:20→20:11)
[2017-08-29] MEDS: MAGNESIUM SULFATE/D5W 1 GM/100 ML RTUPB IV SCH ×2 (17:16→18:36)
[2017-08-29] MEDS ORDERED: ONDANSETRON HCL INJ/PF 4 MG/2 ML SDV IV ONE (19:48)
[2017-08-29] MEDS ORDERED: FENTANYL CITRATE INJ/PF 100 MCG/2 ML AMPUL IV ONE (19:48)
[2017-08-29 20:24] VITALS: BP 111/83
--- NOTE | 2017-08-29 20:42 | EKG REPORT ---
SEVERITY:- ABNORMAL ECG - SINUS RHYTHM LOW VOLTAGE THROUGHOUT NONSPECIFIC T ABNORMALITIES, DIFFUSE LEADS : Confirmed by: Domenico Mancilla MD 29-Aug-2017 20:41:49
[2017-08-30 12:12] LABS: PATH REVIEW PATHOLOGIST REVIEWED
== END 2017-08-29 20:55 | disposition short-term general hospital (02) ==
LOC: ER 14:49
DX: K92.2 Gastrointestinal hemorrhage, unspecified (principal); R53.81 Other malaise; R10.9 Unspecified abdominal pain; Z85.118 Personal history of other malignant neoplasm of bronchus and lung; Z79.899 Other long term (current) drug therapy
CPT/HCPCS: 99285; 96361; 96375; 96365; 96366; 96368; 86900; 86901; 36415; 36430; 86850; 83735; 85025; 85610; 85730; 82272; 80053; 84484; 86920; 93005; 93010; P9016; J3010; J3475; S0164; J2405; J3480; J7030

== ENCOUNTER → 2017-10-30 | Outpatient (CLI) | payer MEDICAID ==
--- NOTE | 2017-10-30 13:24 | RADIOLOGY REPORT (SQ) ---
EXAM DESCRIPTION: CT CHEST WITH; CT ABD/PELVIS WITH IV ORAL COMPLETED DATE/TIME: 10/30/2017 10:14 am REASON FOR STUDY: LUNG CA (C34.92) C34.92 MALIGNANT NEOPLASM OF UNSP PART OF LEFT BRONCHUS OR L COMPARISON: CT abdomen pelvis 08/03/2017 CT chest 08/03/2017, 05/18/2017, 03/22/2017, 06/08/2016, 01/29/2016, 12/23/2015, 09/24/2010 CONTRAST TYPE AND DOSE: contrast/concentration: Isovue 370.00 mg/ml; Total Contrast Delivered: 50.0 ml; Total Saline Delivered: 65.0 ml RENAL FUNCTION: creatinine 0.4 TECHNIQUE: CT scan of the chest performed using helical scanning technique with dynamic intravenous contrast injection. Images reviewed with lung, soft tissue and bone windows. Reconstructed coronal a nd sagittal MPR images reviewed. All images stored on PACS. CT scan of the abdomen and pelvis performed with intravenous and with oral contrastusing helical scan lisa technique with dynamic intravenous contrast injection. Images reviewed with lung, soft tissue a nd bone windows. Reconstructed coronal and sagittal MPR images reviewed. Delayed images for evaluat ion of the urinary system also acquired and evaluated. All images stored on PACS. All CT scanners at this facility use dose modulation, iterative reconstruction, and/or weight based d osing when appropriate to reduce radiation dose to as low as reasonably achievable (ALARA). [facility]: Dose Right [facility]: CareDose [facility]: Dose Right [facility]: Teradose 4D [facility]: Smart [employer] RADIATION DOSE: CT Rad equipment meets quality standard of care and radiation dose reduction techniq ues were employed. CTDIvol: 4.4 - 4.5 mGy. DLP: 586 mGy-cm. . LIMITATIONS: None. FINDINGS: CHEST: LUNGS AND PLEURA: In the left upper lobe, abutting the ventral edge of the major fissure, a treated l richie tumor is present with residual cavitary mass measuring 3.4 x 3.2 cm in size. This is larger than on 08/03/2017 where it measured 2.4 x 2.3 cm in size. There are multiple less than 5 mm new lung parenchymal nodules as compared to 08/18/2016 as follows: Anterior right upper lobe image 36 Right lower lobe near the major fissure axial image 52 Lateral right middle lobe image 73 and image 78 Right lateral costophrenic sulcus in the lower lobe image 97 Anterior left lower lobe image 74 Medial left lower lobe image 94 No pleural effusions. No pneumothorax. Airways are patent. HILAR AND MEDIASTINAL STRUCTURES: No adenopathy. Moderate wall thickening and luminal narrowing dist al esophagus above a small to moderate size hiatal hernia HEART AND VASCULAR STRUCTURES: No aneurysm or dissection. No central pulmonary emboli. No pericardi al effusion. HARDWARE: None. THYROID AND OTHER SOFT TISSUES: No masses. No adenopathy. BONES: Multiple subacute right anterior 4th through 6th rib fractures. OTHER: No other significant finding. ABDOMEN AND PELVIS: LIVER: Normal size. No masses. No dilated ducts. Stable small subcentimeter cysts in the right and left lobe liver unchanged from previous studies SPLEEN: Normal size. No focal lesions. PANCREAS: No masses. No significant calcifications. No adjacent inflammation or peripancreatic fluid collections. Pancreatic duct not dilated. GALLBLADDER: No identified stones by CT criteria. No inflammatory changes to suggest cholecystitis. ADRENAL GLANDS: No significant masses or asymmetry. RIGHT KIDNEY AND URETER: No solid masses. No significant calcification. No hydronephrosis or hydroure ter. LEFT KIDNEY AND URETER: No solid masses. No significant calcification. No hydronephrosis or hydrouret er. AORTA AND VESSELS: No aneurysm. No dissection. Renal arteries, SMA, celiac without stenosis. RETROPERITONEUM: No retroperitoneal adenopathy, hemorrhage or masses. BOWEL AND PERITONEAL CAVITY: No masses or inflammatory changes. No free fluid or peritoneal masses. APPENDIX: Surgically absent ABDOMINAL WALL: No masses. No hernias. PELVIS: No mass or free fluid. Normal bladder. BONES: No significant or acute findings. OTHER: No other significant finding. IMPRESSION: Increase in size of left upper lobe cavitary mass compared to previous exams Multiple new less than 5 mm lung parenchymal nodules compared to previous exams. No CT evidence of metastatic disease to the abdomen or pelvis NORMAL CT OF THE ABDOMEN AND PELVIS WITH ORAL AND INTRAVENOUS CONTRAST. TECHNICAL DOCUMENTATION: JOB ID: [id number] Quality ID # [id number]: Final reports with documentation of one or more dose reduction techniques (e.g., Au tomated exposure control, adjustment of the mA and/or kV according to patient size, use of iterative reconstruction technique) 2010 [employer]- All Rights Reserved Reading location - IP/workstation name: [email or web address]
== END ==
LOC: RAD 08:31
PROVIDERS: ATTEND Internal Medicine Hematology & Oncology
DX: C34.92 Malignant neoplasm of unspecified part of left bronchus or lung (principal); R91.8 Other nonspecific abnormal finding of lung field
CPT/HCPCS: 71260; 74177

== ENCOUNTER → 2018-02-07 | Outpatient (CLI) | payer MEDICAID ==
--- NOTE | 2018-02-07 15:56 | RADIOLOGY REPORT (SQ) ---
EXAM DESCRIPTION: CT CHEST WITHOUT COMPLETED DATE/TIME: 02/07/2018 11:11 am REASON FOR STUDY: MAL STACIE OF UNSPECIFIED PART OF LEFT BRONCHUS OR LUNG C34.92 MALIGNANT NEOPLASM OF UNSP PART OF LEFT BRONCHUS OR L COMPARISON: 10/30/2017 TECHNIQUE: CT scan performed of the chest without intravenous contrast. Images reviewed with lung, soft tissue and bone windows. Reconstructed coronal and sagittal MPR images reviewed. All images st ored on PACS. All CT scanners at this facility use dose modulation, iterative reconstruction, and/or weight based d osing when appropriate to reduce radiation dose to as low as reasonably achievable (ALARA). [facility]: Dose Right [facility]: CareDose [facility]: Dose Right [facility]: Teradose 4D [facility]: [employer] RADIATION DOSE: mGy. LIMITATIONS: No technical limitations. FINDINGS: LUNGS AND PLEURA: There is a small lesion in the anterior right lung on image 30 with the appearance of a torus. This is about 6 mm in size. The appearance but not the size has changed sinc e the earlier study. A couple small lesions adjacent to the fissure on image 48 are minimally more p rominent than on the earlier study. There is a 32 x 33 mm cavitary lesion in the left upper lobe adj acent to the hilum. The appearance is slightly different. The size is unchanged. A 1 cm satellite lesion is seen anterior to this on image 61. Another small donut shaped lesion is seen on the left o n image 73. This likewise has changed appearance since the earlier study. Multiple additional very small lesions are scattered in the lungs. HILAR AND MEDIASTINAL STRUCTURES: Small hiatal hernia. No mediastinal adenopathy or masses. HEART AND VASCULAR STRUCTURES: No aneurysm. No pericardial effusion. UPPER ABDOMEN: No significant findings. Limited exam. THYROID AND OTHER SOFT TISSUES: No masses. No adenopathy. BONES: There appear to be a couple of old anterior rib fractures on the right. No osseous metastases are appreciated. HARDWARE: None in the chest. OTHER: No other significant findings. IMPRESSION: Large cavitary left upper lobe lung mass with numerous smaller lesions in the lungs. Th ere is a 1 cm satellite lesion anterior to the mass that appears to be new. There are some slight ch anges. TECHNICAL DOCUMENTATION: JOB ID: [id number] Quality ID # [id number]: Final reports with documentation of one or more dose reduction techniques (e.g., Au tomated exposure control, adjustment of the mA and/or kV according to patient size, use of iterative reconstruction technique) 2010 [employer]- All Rights Reserved Reading location - IP/workstation name: [email or web address]
== END ==
LOC: RAD 11:24
PROVIDERS: ATTEND Internal Medicine Hematology & Oncology
DX: C34.92 Malignant neoplasm of unspecified part of left bronchus or lung (principal); R91.8 Other nonspecific abnormal finding of lung field; K44.9 Diaphragmatic hernia without obstruction or gangrene
CPT/HCPCS: 71250

== ENCOUNTER → 2018-03-09 | Outpatient (CLI) | payer MEDICAID ==
--- NOTE | 2018-03-09 14:04 | RADIOLOGY REPORT (SQ) ---
EXAM DESCRIPTION: BARIUM SWALLOW ESOPHAGUS COMPLETED DATE/TIME: 03/09/2018 9:25 am REASON FOR STUDY: DYSPHAGIA (R13.12) R13.12 DYSPHAGIA, OROPHARYNGEAL PHASE COMPARISON: None. TECHNIQUE: Under fluoroscopic guidance, patient ingested effervescent granules followed by thick and thin barium. Fluoroscopic spot images and routine radiographic images acquired and stored on PACS. 12 MM BARIUM TABLET GIVEN: No LIMITATIONS: None. FLUOROSCOPY TIME: FLUORO TIME: 1.37 minutes 8 images saved to PACS. FINDINGS: NEUROMUSCULAR COORDINATION OF SWALLOW: Normal. No aspiration. ESOPHAGEAL MOTILITY: Normal peristalsis. No esophageal spasm. ESOPHAGEAL MUCOSA: There is several cm of narrowing of the distal esophagus with mucosal irregularity . Upper endoscopy recommended for further evaluation. GASTRO-ESOPHAGEAL JUNCTION: A small hiatal hernia is present. No reflux identified. NON-GI TRACT STRUCTURES: No significant finding. OTHER: Irregular filling defects seen in the fundus of the stomach. IMPRESSION: SEVERAL CM OF IRREGULAR NARROWING OF THE DISTAL ESOPHAGUS. IRREGULAR FILLING DEFECTS IN THE FUNDUS. FINDINGS ARE CONCERNING FOR POSSIBLE MALIGNANCY. UPPER ENDOSCOPY RECOMMENDED FOR CRITICAL ACCESS HOSPITAL EVALUATION. SMALL HIATAL HERNIA RECOMMENDATION: UPPER ENDOSCOPY COMMENT: NONE Quality ID 145: Final reports for procedures using fluoroscopy that document radiation exposure cheryl myrna, or exposure time and number of fluorographic images (if radiation exposure indices are not avail able) TECHNICAL DOCUMENTATION: JOB ID: [id number] [employer]- All Rights Reserved Reading location - IP/workstation name: [email or web address]
== END ==
LOC: RAD 08:20
PROVIDERS: ATTEND Internal Medicine Gastroenterology
DX: K44.9 Diaphragmatic hernia without obstruction or gangrene (principal); R13.12 Dysphagia, oropharyngeal phase
CPT/HCPCS: 74220

== ENCOUNTER → 2018-03-12 | Outpatient (CLI) | payer MEDICAID ==
--- NOTE | 2018-03-12 11:13 | RADIOLOGY REPORT (SQ) ---
EXAM DESCRIPTION: CHEST 2 VIEWS COMPLETED DATE/TIME: 03/12/2018 10:38 am REASON FOR STUDY: COUGH (R05), LUNG CA (C34.92) COMPARISON: Chest CT scan dated 02/07/2018 EXAM PARAMETERS: NUMBER OF VIEWS: two views TECHNIQUE: Digital Frontal and Lateral radiographic views of the chest acquired. RADIATION DOSE: NA LIMITATIONS: none FINDINGS: LUNGS AND PLEURA: The previously described cavitary left upper lobe lung mass is again maureen ntified and demonstrates interval increase in size as compared to the previous study. I cannot exclu de a component of adjacent airspace consolidation or atelectatic changes. Tiny nodular density is id entified in the left lung apex. Chest CT scan may be of value for further evaluation. Remaining barbara g dasilva are clear. No pleural effusions are identified. MEDIASTINUM AND HILAR STRUCTURES: No masses or contour abnormalities. Left hilum is partially obscur ed due to adjacent densities. HEART AND VASCULAR STRUCTURES: Heart normal size. No evidence for failure. BONES: Thoracolumbar scoliosis is again identified. HARDWARE: Port-A-Cath is unchanged in position OTHER: No other significant finding. IMPRESSION: Interval increase in size of the cavitary left upper lobe lung mass as noted above. I c annot exclude a component of adjacent airspace consolidation or atelectatic changes. Chest CT scan m ay be of value for further evaluation. Other findings as noted above TECHNICAL DOCUMENTATION: JOB ID: [id number]- All Rights Reserved Reading location - IP/workstation name: [email or web address]
== END ==
LOC: RAD 10:13
PROVIDERS: ATTEND Internal Medicine Hematology & Oncology
DX: C34.92 Malignant neoplasm of unspecified part of left bronchus or lung (principal); R05 Cough
CPT/HCPCS: 71046

== ENCOUNTER 2018-03-15 08:06 | Inpatient (IN) | payer MEDICAID ==
--- NOTE | 2018-03-15 08:56 | ER Document Report ---
ED General - General Chief Complaint: Weakness Stated Complaint: WEAKNESS Time Seen by Provider: 03/15/18 08:19 Notes: 57-year-old female patient with known history of lung cancer, stage IV, on chemotherapy. Not on hospice, to the emergency department for evaluation of chest pain and not feeling well. Was diagnosed with pneumonia. Currently on antibiotics. Uncertain whether not she is running a fever or not. Complaining of left posterior chest pain and back pain. No significant shortness of breath outside of her normal shortness of breath. TRAVEL OUTSIDE OF THE [place] IN LAST 30 DAYS: No - HPI Onset: Last week Onset/Duration: Gradual, Worse Severity: Moderate Pain Level: 3 - Related Data Allergies/Adverse Reactions: No Known Allergies Allergy (Verified 03/15/18 08:52) Past Medical History - General Information source: Patient, [facility] Records - Social History Smoking Status: Current Every Day Smoker Cigarette use (# per day): Yes Smoking Education Provided: No Frequency of alcohol use: None Drug Abuse: None Lives with: Family Family History: Reviewed & Not Pertinent, CAD, Malignancy - Past Medical History Cardiac Medical History: Reports: Hx Hypercholesterolemia, Hx Hypertension - NO MEDS Denies: Hx Congestive Heart Failure, Hx Coronary Artery Disease, Hx DVT, Hx Heart Attack, Hx Pulmonary Embolism Pulmonary Medical History: Reports: Hx COPD Denies: Hx Asthma, Hx Bronchitis, Hx Pneumonia, Hx Sleep Apnea Neurological Medical History: Denies: Hx Cerebrovascular Accident, Hx Seizures Endocrine Medical History: Denies: Hx Diabetes Mellitus Type 1, Hx Diabetes Mellitus Type 2, Hx Hyperthyroidism, Hx Hypothyroidism Renal/ Medical History: Denies: Hx Peritoneal Dialysis Malignancy Medical History: Reports: Hx Lung Cancer - Stage IIIB, squamous cell carcinoma, lung involvement, lymph node. GI Medical History: Denies: Hx Cirrhosis, Hx Hepatitis, Hx Hiatal Hernia, Hx Ulcer Musculoskeletal Medical History: Denies Hx Arthritis Psychiatric Medical History: Reports: Hx Depression Infectious Medical History: Denies: Hx C-Diff, Hx Hepatitis, Hx MRSA Past Surgical History: Reports: Hx Appendectomy, Hx Section - 1, Hx Orthopedic Surgery - right knee, Other - Right chest Port-A-Cath. Denies: Hx Hysterectomy, Hx Mastectomy, Hx Open Heart Surgery, Hx Pacemaker - Immunizations Hx Diphtheria, Pertussis, Tetanus Vaccination: No Review of Systems - Review of Systems Notes: Constitutional: denies: Chills, Diaphoresis, Fever, Malaise, Weakness EENT: denies: Eye discharge, Blurred vision, Tearing, Double vision, Nose congestion, Nose discharge, Throat swelling, Mouth pain Cardiovascular: denies: Palpitations, Heart racing, Orthopnea,. Complains of chest pain and shortness of breath Respiratory: Chest pain, shortness of breath, cough, pneumonia Gastrointestinal: denies: Abdominal pain, Diarrhea, Nausea, Vomiting, Black stools, bright red blood in stool Genitourinary: denies: Burning, Dysuria, Discharge, Frequency, Flank pain, Hematuria Musculoskeletal: denies: Joint pain, Joint swelling, Muscle pain, Muscle stiffness,. Does complain of back pain Hematologic/Lymphatic: denies: Anemia, Easy bleeding, Easy bruising, Blood clots. History of lung cancer Neurological/Psychological: denies: Confusion, Dementia, Depression, Loss of consciousness Skin: No lesions, no masses, no skin breakdown, no abscesses Physical Exam - Vital signs Vitals: Temp Resp BP Pulse Ox 97.5 F 24 H 121/63 96 03/15/18 08:13 03/15/18 08:13 03/15/18 08:13 03/15/18 08:13 Interpretation: Normal - General General appearance: Appears well, Alert - HEENT Head: Normocephalic, Atraumatic Eyes: Normal Pupils: PERRL - Respiratory Respiratory status: No respiratory distress Chest status: Nontender Breath sounds: Nonproductive cough, Rhonchi. No: Wheezing Chest palpation: Normal - Cardiovascular Rhythm: Regular Heart sounds: Normal auscultation Murmur: No - Abdominal Inspection: Normal Distension: No distension Bowel sounds: Normal Tenderness: Nontender Organomegaly: No organomegaly - Back Back: Normal, Nontender - Extremities General upper extremity: Normal inspection, Nontender, Normal color, Normal ROM , Normal temperature General lower extremity: Normal inspection, Nontender, Normal color, Normal ROM , Normal temperature, Normal weight bearing. No: Delbert's sign - Neurological Neuro grossly intact: Yes Cognition: Normal Orientation: AAOx4 Ewing Coma Scale Eye Opening: Spontaneous Ewing Coma Scale Verbal: Oriented Ewing Coma Scale Motor: Obeys Commands Ewing Coma Scale Total: 15 Speech: Normal Motor strength normal: LUE, RUE, LLE, RLE Sensory: Normal - Psychological Associated symptoms: Normal affect, Normal mood - Skin Skin Temperature: Warm Skin Moisture: Dry Skin Color: Normal Course - Re-evaluation Re-evalutation: 03/15/18 09:10 Patient with known lung cancer. On chemo, on antibiotics, not hypoxic. Not on oxygen. Heart rate is 86. Oxygen saturations 98%. Give her some pain medication. Will check basic labs and reassess. 03/15/18 10:30 She has worsening chest x-ray. Has poor prognosis at this time with her lung malignancy. Will start on antibiotics including antifungal medication based on the fact that previous aspirate showed that she grew out fungus. Have consulted hospitalist at this time for admission. - Vital Signs Vital signs: Temp Pulse Resp BP Pulse Ox 97.5 F 21 H 121/63 97 03/15/18 08:13 03/15/18 10:09 03/15/18 08:13 03/15/18 10:09 - Laboratory Result Diagrams: 03/15/18 08:19 03/15/18 08:19 Laboratory results interpreted by me: 03/15/18 03/15/18 03/15/18 08:19 08:19 09:20 WBC 18.8 H RBC 3.39 L Hgb 11.0 L Hct 33.5 L MCV 99 H RDW 21.6 H Plt Count 877 H Seg Neutrophils % 78.7 H Lymphocytes % 7.8 L Absolute Neutrophils 14.8 H Absolute Monocytes 2.4 H Sodium 134.5 L Chloride 96 L Creatinine 0.48 L Lactic Acid 2.2 H Direct Bilirubin 0.5 H Total Protein 6.1 L Albumin 3.0 L Urine Protein Urine Ketones Urine Bilirubin Urine Urobilinogen 03/15/18 10:10 WBC RBC Hgb Hct MCV RDW Plt Count Seg Neutrophils % Lymphocytes % Absolute Neutrophils Absolute Monocytes Sodium Chloride Creatinine Lactic Acid Direct Bilirubin Total Protein Albumin Urine Protein 30 H Urine Ketones TRACE H Urine Bilirubin SMALL H Urine Urobilinogen 4.0 H Discharge - Discharge Clinical Impression: Lung cancer, upper lobe Qualifiers: Laterality: left Qualified Code(s): C34.12 - Malignant neoplasm of upper lobe, left bronchus or lung Condition: Poor Disposition: ADMITTED INPATIENT Admitting Provider: Hospitalist - [facility] Admitted: Telemetry Referrals: SHERRY BECK MD [Primary Care Provider] - Follow up as needed
[2018-03-15] MEDS ORDERED: HYDROMORPHONE HCL INJ/PF 2 MG/ML AMPULE IV ONE (09:05)
[2018-03-15] MEDS ORDERED: ALBUTEROL SULFATE 0.083% NEB 2.5 MG/3 ML AMPUL NEB ONE (09:05)
[2018-03-15] MEDS ORDERED: KETOROLAC TROMETHAMINE INJ/PF 30 MG/1 ML SDV IV ONE (09:06)
[2018-03-15 09:10] LABS: ABSOLUTE BASOPHILS # (AUTO) 0.1 10^3/uL (0.0-0.2); ABSOLUTE LYMPHOCYTES (AUTO) 1.5 10^3/uL (0.5-4.7); ABSOLUTE MONOCYTES (AUTO) 2.4 10^3/uL (0.1-1.4); ABSOLUTE NEUT (AUTO) 14.8 10^3/uL (1.7-8.2); BASOPHILS % (AUTO) 0.8 % (0-2); HEMATOCRIT 33.5 % (36.0-47.0); LYMPHOCYTES % (AUTO) 7.8 % (13-45); MEAN CORPUSCULAR HEMOGLOBIN 32.3 pg (27.0-33.4); MEAN CORPUSCULAR HGB CONC 32.7 g/dL (32.0-36.0); MEAN CORPUSCULAR VOLUME 99 fl (80-97); MONOCYTES % (AUTO) 12.7 % (3-13); PLATELET COUNT 877 10^3/uL (150-450); RED BLOOD COUNT 3.39 10^6/uL (3.72-5.28); RED CELL DISTRIBUTION WIDTH 21.6 % (11.5-14.0); SEGMENTED NEUTROPHILS % (AUTO) 78.7 % (42-78); TOTAL CELLS COUNTED % (AUTO) 100 %; WHITE BLOOD COUNT 18.8 10^3/uL (4.0-10.5)
[2018-03-15] MEDS ORDERED: PIPERACILLIN/TAZOBACTAM 3.375 GM VIAL IV ONE (09:17)
[2018-03-15] MEDS ORDERED: RINGERS SOLUTION,LACTATED 1,000 ML IV ONE (09:18)
[2018-03-15 09:19] LABS: ALANINE AMINOTRANSFERASE 23 U/L (9-52); ALKALINE PHOSPHATASE 102 U/L (38-126); ANION GAP 11 (5-19); ASPARTATE AMINO TRANSFERASE 19 U/L (14-36); BILIRUBIN,DIRECT 0.5 mg/dL (0.0-0.4); BLOOD UREA NITROGEN 11 mg/dL (7-20); CALCIUM 9.6 mg/dL (8.4-10.2); CARBON DIOXIDE 28 mmol/L (22-30); CHLORIDE 96 mmol/L (98-107); GLUCOSE 88 mg/dL (75-110); POTASSIUM 4.5 mmol/L (3.6-5.0); SODIUM 134.5 mmol/L (137-145); TOTAL PROTEIN 6.1 g/dL (6.3-8.2)
--- NOTE | 2018-03-15 09:24 | RADIOLOGY REPORT (SQ) ---
EXAM DESCRIPTION: CHEST SINGLE VIEW COMPLETED DATE/TIME: 03/15/2018 9:05 am REASON FOR STUDY: sob,cough COMPARISON: Multiple previous chest CTs since 12/31/2015 Multiple chest films since 01/26/2016 EXAM PARAMETERS: NUMBER OF VIEWS: One view. TECHNIQUE: Single frontal radiographic view of the chest acquired. RADIATION DOSE: NA LIMITATIONS: None. FINDINGS: LUNGS AND PLEURA: Persistent cavitary mass with air-fluid levels in the left upper lobe pe rihilar region. Findings discussed with Dr. Goncalves in the emergency room. No acute infiltrates. No pleural effusion or pneumothorax. MEDIASTINUM AND HILAR STRUCTURES: No masses. Contour normal. HEART AND VASCULAR STRUCTURES: Heart normal in size. Normal vasculature. BONES: No acute findings. HARDWARE: Right jugular permanent central line tip superior vena cava OTHER: Radiodense barium in the left colon from prior barium swallow 03/09/2018. IMPRESSION: Unchanged cavitary mass in the left upper lobe with air-fluid levels. Multiple other sm aller nodules seen on prior CT chest are not apparent by plain film. No acute infiltrates. Findings discussed with Dr. Goncalves in the emergency room TECHNICAL DOCUMENTATION: JOB ID: [id number] [employer]- All Rights Reserved Reading location - IP/workstation name: [email or web address]
--- NOTE | 2018-03-15 09:27 | EKG REPORT ---
SEVERITY:- ABNORMAL ECG - SINUS RHYTHM CONSIDER ANTEROSEPTAL INFARCT : Confirmed by: Jaja Freeman 15-Mar-2018 09:26:25
[2018-03-15 10:27] LABS: APPEARANCE,URINE SLIGHTLY-CLOUDY; BILIRUBIN,URINE SMALL (NEGATIVE); GLUCOSE, URINE NEGATIVE (NEGATIVE); KETONES,URINE TRACE mg/dL (NEGATIVE); LEUKOCYTE ESTERASE,URINE NEGATIVE (NEGATIVE); NITRITE,URINE NEGATIVE (NEGATIVE); PROTEIN,URINE 30 mg/dL (NEGATIVE); URINE SPECIFIC GRAVITY 1.021
[2018-03-15 10:28] LABS: COLOR,URINE DARK YELLOW
[2018-03-15] MEDS ORDERED: VANCOMYCIN HCL INJ 1000 MG VIAL IV ONE (10:28)
[2018-03-15] MEDS ORDERED: FLUCONAZOLE 400 MG/NS RTU 400 MG/200 ML RTUPB IV ONE (10:29)
[2018-03-15] MEDS ORDERED: VANCOMYCIN HCL 0 MG in DEXTROSE 5%-WATER 250 ML IV NR (12:15)
[2018-03-15] MEDS ORDERED: ACETAMINOPHEN SOLN 325 MG/10.15 ML UDCUP PO PRN (12:18)
[2018-03-15] MEDS: HYDROMORPHONE HCL INJ/PF 2 MG/ML AMPULE IV PRN ×3 (13:02→22:29)
--- NOTE | 2018-03-15 13:12 | PDOC H&P ---
History of Present Illness Admission Date/PCP: 03/15/18 10:48 SHERRY BECK MD Patient complains of: Cough and increasing shortness of breath History of Present Illness: JOCLEIN PALMA is a 57 year old female Who has been suffering with lung cancer for the past 2 years. Patient has been undergoing chemotherapy but has not done radiation therapy. On Monday of this week she was seen by her oncologist . She had productive cough with white sputum and was given a prescription of azithromycin. She took it on Monday and Monday had progressive shortness of breath and presented to the emergency room.Workup in the emergency room found the patient to have a normal oxygen saturation. She had a chest x-ray that showed a cavitary lesion in the left lung which was unchanged from her CT done earlier this month.Patient recently had a barium swallow done which showed esophageal narrowing in the distal esophagus and patient has been experiencing dysphasia for the past 2 weeks. She is scheduled to undergo an upper endoscopy with possible dilatation on Monday of next week.She has had nausea vomiting and painful swallowing at home.She denies fevers or rigorsBut has had progressive shortness of breath with increased sputum production and a change in character to a thick white sputum.Request for admission was made to treat suspected postobstructive pneumonitis. Patient was treated in the emergency room with laboratory studies which showed only 18,000 white count and her lactic acid was mildly elevated. She was not tachypneic or tachycardic.She has cachexia consistent with her advanced cancer.Was given lactated Ringer's hydration blood cultures and urine culture were obtained in the emergency room. Past Medical History Cardiac Medical History: Reports: Hyperlipidema, Hypertension - NO MEDS Denies: Congestive Heart Failure, Coronary Artery Disease, DVT, Myocardial Infarction, Pulmonary Embolism Pulmonary Medical History: Reports: Chronic Obstructive Pulmonary Disease (COPD) , Pneumonia, Other - Metastatic lung cancer with left upper lobe cavitary lesion Denies: Asthma, Bronchitis, Sleep Apnea Neurological Medical History: Denies: Seizures Endocrine Medical History: Denies: Diabetes Mellitus Type 1, Diabetes Mellitus Type 2, Hyperthyroidism, Hypothyroidism Malignancy Medical History: Reports: Lung Cancer - Stage IIIB, squamous cell carcinoma, lung involvement, lymph node. GI Medical History: Reports: Other - Dysphasia 2-3 weeks with distal esophageal mass noted on radiographic stud Denies: Cirrhosis, Hepatitis, Hiatal Hernia Musculoskeltal Medical History: Denies: Arthritis Psychiatric Medical History: Reports: Depression Hematology: Reports: Anemia, Sickle Cell Disease - trait carrier Infectious Medical History: Denies: Clostridium Difficile, Methicillin-Resistant Staph Aureus Past Surgical History Past Surgical History: Reports: Appendectomy, Section - 1, Orthopedic Surgery - right knee, Other - Right chest Port-A-Cath Denies: Amputation, Hysterectomy, Mastectomy, Pacemaker Social History Lives with: Family Smoking Status: Current Every Day Smoker Cigarettes Packs Per Day: 1 Frequency of Alcohol Use: Heavy Last Alcohol Use: 03/14/18 Hx Recreational Drug Use: Yes Drugs: Marijuana Hx Prescription Drug Abuse: No Family History Family History: Reviewed & Not Pertinent, CAD, Malignancy Parental Family History Reviewed: Yes Children Family History Reviewed: Yes Sibling(s) Family History Reviewed.: Yes Medication/Allergy Home Medications: Oxycodone HCl [Roxicodone] 30 mg PO Q6HP PRN 01/16/17 Fentanyl [Duragesic 100 Mcg/Hr Transdermal Patch] 1 patch TOP Q3D PRN 07/23/17 Allergies/Adverse Reactions: No Known Allergies Allergy (Verified 03/15/18 08:52) Review of Systems Constitutional: ABSENT: chills, fever(s), headache(s), weight gain, weight loss Eyes: ABSENT: visual disturbances Ears: ABSENT: hearing changes Cardiovascular: ABSENT: chest pain, dyspnea on exertion, edema, orthropnea, palpitations Respiratory: PRESENT: cough, dyspnea, sputum. ABSENT: hemoptysis Gastrointestinal: PRESENT: nausea, vomiting. ABSENT: abdominal pain, constipation, diarrhea, hematemesis, hematochezia Genitourinary: ABSENT: dysuria, hematuria Musculoskeletal: ABSENT: joint swelling Integumentary: ABSENT: rash, wounds Neurological: PRESENT: tingling. ABSENT: abnormal gait, abnormal speech, confusion, dizziness, focal weakness, syncope Psychiatric: ABSENT: anxiety, depression, homidical ideation, suicidal ideation Endocrine: ABSENT: cold intolerance, heat intolerance, polydipsia, polyuria Hematologic/Lymphatic: ABSENT: easy bleeding, easy bruising Physical Exam Vital Signs: Temp Pulse Resp BP Pulse Ox 97.5 F 20 129/85 H 95 03/15/18 08:13 03/15/18 12:01 03/15/18 11:00 03/15/18 12:01 Intake & Output 09/06/1903/15/18 03/16/18 06:59 06:59 06:59 Intake Total 1000 Balance 1000 General appearance: PRESENT: no acute distress, well-developed, other - Cachexia. ABSENT: well-nourished Head exam: PRESENT: atraumatic, normocephalic Eye exam: PRESENT: conjunctiva pink, EOMI, PERRLA. ABSENT: scleral icterus Neck exam: PRESENT: other - Chemo-Port right. ABSENT: carotid bruit, JVD, lymphadenopathy, thyromegaly Respiratory exam: PRESENT: crackles, rales, rhonchi, other - Left greater than right. ABSENT: symmetrical, wheezes Cardiovascular exam: PRESENT: RRR. ABSENT: diastolic murmur, rubs, systolic murmur Pulses: PRESENT: normal dorsalis pedis pul GI/Abdominal exam: PRESENT: normal bowel sounds, soft. ABSENT: distended, guarding, mass, organolmegaly, rebound, tenderness Rectal exam: PRESENT: deferred Extremities exam: PRESENT: full ROM. ABSENT: calf tenderness, clubbing, pedal edema Musculoskeletal exam: PRESENT: full ROM, normal inspection, other - Muscle wasting Neurological exam: PRESENT: alert, altered, reflexes normal, other - Numbness secondary to chemo. ABSENT: motor sensory deficit Psychiatric exam: PRESENT: normal mood Skin exam: PRESENT: dry, intact, warm. ABSENT: cyanosis, rash Results Impressions: Chest X-Ray 03/15/18 08:55 IMPRESSION: Unchanged cavitary mass in the left upper lobe with air-fluid levels. Multiple other smaller nodules seen on prior CT chest are not apparent by plain film. No acute infiltrates. Findings discussed with Dr. Goncalves in the emergency room Assessment & Plan - Diagnosis (1) Pneumonia Qualifiers: Pneumonia type: due to unspecified organism Laterality: left Lung location: upper lobe of lung Qualified Code(s): J18.1 - Lobar pneumonia, unspecified organism Is this a current diagnosis for this admission?: Yes Plan: Patient failed outpatient antibiotics of azithromycin. Because of the cavitary lesion from the lung cancer will treat with Zosyn to cover aspiration vancomycin and Diflucan.Patient may need infectious disease consultation but currently is comfortable not requiring oxygenation. Additionally patient was recently diagnosed with esophageal mass and has been having dysphasia so aspiration is a possibility an infection may not be related to the cavitary lesion in the left upper lobe.Patient may need infectious disease consultation but currently is comfortable not requiring oxygenation. Additionally patient was recently diagnosed with esophageal mass and has been having dysphasia so aspiration is a possibility an infection may not be related to the cavitary lesion in the left upper lobe.Daily CBCsNebulizing treatments (2) Lung cancer, upper lobe Qualifiers: Laterality: left Qualified Code(s): C34.12 - Malignant neoplasm of upper lobe, left bronchus or lung Is this a current diagnosis for this admission?: Yes Plan: Chest x-ray shows unchanged cavitary lesion in the left upper lobe recent CT January 31 will not repeat at this time.Patient denies hemoptysis (3) Sepsis Qualifiers: Sepsis type: sepsis due to unspecified organism Qualified Code(s): A41.9 - Sepsis, unspecified organism Is this a current diagnosis for this admission?: Yes Plan: Elevated white count and elevated lactic acid. Patient's received hydration initiated on antibiotics repeat lactic acid in 4 hours (4) Marijuana dependence Is this a current diagnosis for this admission?: Yes Plan: Daily use as per patient (5) Mass of esophagus Is this a current diagnosis for this admission?: Yes Plan: Confirmed by radiologic study patient scheduled for upper endoscopy Monday of next week with possible dilatation and biopsy. If still in the hospital will consult gastroenterology.We will place patient on a dysphasia diet (6) Severe protein-calorie malnutrition Is this a current diagnosis for this admission?: Yes (7) Tobacco dependence Plan: Consult dietary - Time Time Spent: 50 to 70 Minutes Smoking Cessation Education: 3 to 10 minutes Medications reviewed and adjusted accordingly: Yes Anticipated discharge: Home Within: within 72 hours - Inpatient Certification Based on my medical assessment, after consideration of the patient's comorbidities, presenting symptoms, or acuity I expect that the services needed warrant INPATIENT care.: Yes I certify that my determination is in accordance with my understanding of Medicare's requirements for reasonable and necessary INPATIENT services [42 CFR 412.3e].: Yes Post Hospital Care: D/C [employer] Documentation
--- NOTE | 2018-03-15 13:14 | Progress Note ---
Provider Note Provider Note: ACP Discussed with patient the extent of her lung cancer of the cavitary lesion in the satellite lesions detected on CAT scan and the mass in the esophagus. Patient is medically illiterate and has limited knowledge of the extent of her tumor. Explained that tumor could erode into a blood vessel causing bleeding in the lung and clearing infection from a cavity could be difficult. Discussed treatment options such as palliative care hospice and resuscitation status. At this point the patient is involved in receiving chemotherapy. She does understand that if she were to have a cardiopulmonary collapse a successful resuscitation would leave her with a progressive lung cancer and for this reason she has chosen to be a DO NOT RESUSCITATE. Time spent in counseling 20 minutes
[2018-03-15] MEDS ORDERED: PIPERACILLIN/TAZOBACTAM 3.375 GM VIAL IV SCH (14:00)
[2018-03-15] MEDS: IPRATROPIUM/ALBUTEROL 0.5-2.5 MG/3 ML AMPUL NEB SCH ×2 (15:09→19:07)
[2018-03-15] MEDS: RINGERS SOLUTION,LACTATED 1,000 ML IV PRN (17:29)
[2018-03-15] MEDS: PIPERACILLIN SODIUM/TAZOBACTAM 3.375 GM in NORMAL SALINE 100 ML IV SCH (17:47)
[2018-03-15] MEDS: OXYCODONE HCL IR 5 MG TABLET PO PRN (17:58)
[2018-03-15] MEDS: VANCOMYCIN HCL 750 MG in DEXTROSE 5%-WATER 250 ML IV SCH (18:52)
[2018-03-15] MEDS: FAMOTIDINE 20 MG TABLET PO SCH (22:29)
[2018-03-15] MEDS: ENOXAPARIN SODIUM INJ 30 MG/0.3 ML DISP.SYRIN SUBCUT SCH (22:30)
[2018-03-16] MEDS: OXYCODONE HCL IR 5 MG TABLET PO PRN ×2 (00:17→09:42)
[2018-03-16] MEDS: PIPERACILLIN SODIUM/TAZOBACTAM 3.375 GM in NORMAL SALINE 100 ML IV SCH ×3 (03:33→17:20)
[2018-03-16] MEDS: RINGERS SOLUTION,LACTATED 1,000 ML IV PRN ×2 (03:35→18:38)
[2018-03-16] MEDS: VANCOMYCIN HCL 750 MG in DEXTROSE 5%-WATER 250 ML IV SCH ×2 (06:41→18:35)
[2018-03-16 07:08] LABS: HEMOGLOBIN 9.4 g/dL (12.0-15.5); MEAN CORPUSCULAR HEMOGLOBIN 32.5 pg (27.0-33.4); MEAN CORPUSCULAR HGB CONC 32.5 g/dL (32.0-36.0); MEAN CORPUSCULAR VOLUME 100 fl (80-97); PLATELET COUNT 842 10^3/uL (150-450); RED CELL DISTRIBUTION WIDTH 22.2 % (11.5-14.0); WHITE BLOOD COUNT 25.4 10^3/uL (4.0-10.5)
[2018-03-16] MEDS: HYDROMORPHONE HCL INJ/PF 2 MG/ML AMPULE IV PRN ×3 (07:24→16:55)
[2018-03-16 07:39] LABS: ANION GAP 10 (5-19); BLOOD UREA NITROGEN 12 mg/dL (7-20); CALCIUM 9.3 mg/dL (8.4-10.2); CARBON DIOXIDE 27 mmol/L (22-30); CHLORIDE 96 mmol/L (98-107); GLUCOSE 84 mg/dL (75-110); PHOSPHORUS 3.1 mg/dL (2.5-4.5); POTASSIUM 4.5 mmol/L (3.6-5.0); SODIUM 133.1 mmol/L (137-145)
[2018-03-16] MEDS ORDERED: MAGNESIUM SULFATE INJ 8 MEQ/2 ML IV ONE (07:49)
[2018-03-16] MEDS: IPRATROPIUM/ALBUTEROL 0.5-2.5 MG/3 ML AMPUL NEB SCH ×4 (08:22→19:36)
[2018-03-16] MEDS ORDERED: MAGNESIUM SULFATE 1 GM/D5W 100 ML IV SCH (09:00)
[2018-03-16] MEDS ORDERED: MAGNESIUM SULFATE/D5W 1 GM/100 ML RTUPB IV ONE ×3 (09:05→10:58)
--- NOTE | 2018-03-16 09:09 | PDOC PROGRESS REPORT ---
Subjective Progress Note for:: 03/16/18 Subjective:: Patient sitting up in bed feels improved. White count elevated to 24,000. Patient received her chemo approximately 2 weeks ago and is unsure if she received Neupogen.Patient's blood pressure below normal range likely her baseline lactic acid however increased but feel this is not due to sepsis rather her underlying malignancy.She has no new complaints Reason For Visit: LEFT LUNG PNEUMONIA Physical Exam Vital Signs: Temp Pulse Resp BP Pulse Ox 97.4 F 70 20 99/73 L 98 03/16/18 08:00 03/16/18 08:00 03/16/18 08:00 03/16/18 08:00 03/16/18 08:00 Intake & Output 03/15/18 03/16/18 03/17/18 06:59 06:59 06:59 Intake Total 3716 Balance 3716 Weight 44.6 kg General appearance: PRESENT: no acute distress, thin, well-nourished. ABSENT: well-developed Head exam: PRESENT: atraumatic, normocephalic Eye exam: PRESENT: conjunctiva pink, EOMI, PERRLA. ABSENT: scleral icterus Neck exam: ABSENT: carotid bruit, JVD, lymphadenopathy, thyromegaly Respiratory exam: PRESENT: rales, rhonchi. ABSENT: symmetrical Cardiovascular exam: PRESENT: RRR. ABSENT: diastolic murmur, rubs, systolic murmur Pulses: PRESENT: normal dorsalis pedis pul GI/Abdominal exam: PRESENT: normal bowel sounds, soft. ABSENT: distended, guarding, mass, organolmegaly, rebound, tenderness Rectal exam: PRESENT: deferred Musculoskeletal exam: PRESENT: ambulatory. ABSENT: tenderness Neurological exam: PRESENT: alert, awake, oriented to person, oriented to place , oriented to time, oriented to situation, CN II-XII grossly intact. ABSENT: motor sensory deficit Skin exam: PRESENT: dry, intact, warm. ABSENT: cyanosis, rash Results Laboratory Results: 03/16/18 06:32 03/16/18 06:32 03/15/18 03/16/18 03/16/18 12:50 06:32 06:32 WBC 25.4 H RBC 2.90 L Hgb 9.4 L Hct 29.0 L MCV 100 H MCH 32.5 MCHC 32.5 RDW 22.2 H Plt Count 842 H Sodium 133.1 L Potassium 4.5 Chloride 96 L Carbon Dioxide 27 Anion Gap 10 BUN 12 Creatinine 0.56 Est GFR ( Amer) > 60 Est GFR (Non-Af Amer) > 60 Glucose 84 Lactic Acid 3.2 H Calcium 9.3 Phosphorus 3.1 Magnesium 1.1 L* Impressions: Chest X-Ray 03/15/18 08:55 IMPRESSION: Unchanged cavitary mass in the left upper lobe with air-fluid levels. Multiple other smaller nodules seen on prior CT chest are not apparent by plain film. No acute infiltrates. Findings discussed with Dr. Goncalves in the emergency room Assessment & Plan - Diagnosis (1) Pneumonia Qualifiers: Pneumonia type: due to unspecified organism Laterality: left Lung location: upper lobe of lung Qualified Code(s): J18.1 - Lobar pneumonia, unspecified organism Is this a current diagnosis for this admission?: Yes Plan: Patient failed outpatient antibiotics of azithromycin. Because of the cavitary lesion from the lung cancer will treat with Zosyn to cover aspiration vancomycin and Diflucan.Patient may need infectious disease consultation but currently is comfortable not requiring oxygenation. Additionally patient was recently diagnosed with esophageal mass and has been having dysphasia so aspiration is a possibility an infection may not be related to the cavitary lesion in the left upper lobe.Patient may need infectious disease consultation but currently is comfortable not requiring oxygenation. Patient clinically improved appears to be mobilizing sputum continue nebulizing treatments continue antibiotics as ordered. White count elevated to 24,000 may be secondary to Neupogen Send sputum for culture. (2) Lung cancer, upper lobe Qualifiers: Laterality: left Qualified Code(s): C34.12 - Malignant neoplasm of upper lobe, left bronchus or lung Is this a current diagnosis for this admission?: Yes Plan: Chest x-ray shows unchanged cavitary lesion in the left upper lobe recent CT January 31 will not repeat at this time.Patient denies hemoptysis. Continue nebulizing treatments if white count continues to climb consider CT to further evaluate lesion. (3) Sepsis Qualifiers: Sepsis type: sepsis due to unspecified organism Qualified Code(s): A41.9 - Sepsis, unspecified organism Is this a current diagnosis for this admission?: Yes Plan: Elevated white count and elevated lactic acid. Patient's received hydration initiated on antibiotics repeat lactic acid in 4 hoursLactic acid 3.5 patient has borderline hypotension coupled with tumor likely lactic acidosis secondary to underlying malignancy and not sepsis at this time. We will increase IV hydration repeat lactic acid at 1400 and in a.m.Lactic acid 3.5 patient has borderline hypotension coupled with tumor likely lactic acidosis secondary to underlying malignancy and not sepsis at this time. We will increase IV hydration repeat lactic acid at 1400 and in a.m. (4) Hypomagnesemia Is this a current diagnosis for this admission?: Yes Plan: 2 g IV mag sulfate and begin p.o. supplementation repeat magnesium in a.m. (5) Mass of esophagus Is this a current diagnosis for this admission?: Yes Plan: Confirmed by radiologic study patient scheduled for upper endoscopy Monday of next week with possible dilatation and biopsy. If still in the hospital will consult gastroenterology.We will place patient on a dysphasia diet (6) Marijuana dependence Is this a current diagnosis for this admission?: Yes Plan: Daily use as per patient (7) Severe protein-calorie malnutrition Is this a current diagnosis for this admission?: Yes Plan: Dietary consult has been ordered - Time Time Spent with patient: 25-34 minutes Anticipated discharge: Home
[2018-03-16] MEDS: ENOXAPARIN SODIUM INJ 30 MG/0.3 ML DISP.SYRIN SUBCUT SCH ×2 (09:26→21:06)
[2018-03-16] MEDS: FAMOTIDINE 20 MG TABLET PO SCH ×2 (09:26→21:06)
[2018-03-16] MEDS ORDERED: MAGNESIUM OXIDE 400 MG TABLET ONE ×2 (09:37→17:16)
[2018-03-16] MEDS: MAGNESIUM OXIDE 400 MG TABLET PO SCH ×2 (09:38→17:19)
[2018-03-16] MEDS: MAGNESIUM SULFATE 1 GM/D5W 100 ML IV SCH ×2 (09:43→13:11)
[2018-03-16] MEDS: FLUCONAZOLE 200 MG/NS RTU 200 MG/100 ML RTUPB IV SCH (11:32)
[2018-03-16] MEDS: OXYCODONE HCL IR 5 MG TABLET PO SCH ×2 (17:20→23:23)
[2018-03-16 20:59] LABS: APPEARANCE,URINE CLEAR; BILIRUBIN,URINE NEGATIVE (NEGATIVE); COLOR,URINE STRAW; GLUCOSE, URINE NEGATIVE (NEGATIVE); KETONES,URINE NEGATIVE (NEGATIVE); LEUKOCYTE ESTERASE,URINE NEGATIVE (NEGATIVE); NITRITE,URINE NEGATIVE (NEGATIVE); PROTEIN,URINE NEGATIVE (NEGATIVE); URINE SPECIFIC GRAVITY 1.008; UROBILINOGEN,URINE NEGATIVE mg/dL (<2.0)
[2018-03-17] MEDS: HYDROMORPHONE HCL INJ/PF 2 MG/ML AMPULE IV PRN ×2 (02:32→15:21)
[2018-03-17] MEDS: IPRATROPIUM/ALBUTEROL 0.5-2.5 MG/3 ML AMPUL NEB SCH ×4 (02:32→19:20)
[2018-03-17] MEDS: PIPERACILLIN SODIUM/TAZOBACTAM 3.375 GM in NORMAL SALINE 100 ML IV SCH ×3 (02:32→17:39)
[2018-03-17] MEDS: RINGERS SOLUTION,LACTATED 1,000 ML IV PRN ×2 (02:32→11:59)
[2018-03-17] MEDS: VANCOMYCIN HCL 750 MG in DEXTROSE 5%-WATER 250 ML IV SCH (05:56)
[2018-03-17] MEDS: OXYCODONE HCL IR 5 MG TABLET PO SCH ×3 (05:56→17:39)
[2018-03-17] MEDS ORDERED: LORAZEPAM INJ 2 MG/1 ML VIAL IV ONE (06:00)
[2018-03-17 06:30] LABS: ABSOLUTE BASOPHILS # (AUTO) 0.1 10^3/uL (0.0-0.2); ABSOLUTE LYMPHOCYTES (AUTO) 1.4 10^3/uL (0.5-4.7); ABSOLUTE MONOCYTES (AUTO) 1.1 10^3/uL (0.1-1.4); ABSOLUTE NEUT (AUTO) 14.6 10^3/uL (1.7-8.2); BASOPHILS % (AUTO) 0.8 % (0-2); HEMATOCRIT 28.5 % (36.0-47.0); HEMOGLOBIN 9.7 g/dL (12.0-15.5); LYMPHOCYTES % (AUTO) 7.9 % (13-45); MEAN CORPUSCULAR HEMOGLOBIN 33.6 pg (27.0-33.4); MEAN CORPUSCULAR VOLUME 99 fl (80-97); MONOCYTES % (AUTO) 6.5 % (3-13); PLATELET COUNT 854 10^3/uL (150-450); RED BLOOD COUNT 2.89 10^6/uL (3.72-5.28); RED CELL DISTRIBUTION WIDTH 21.5 % (11.5-14.0); SEGMENTED NEUTROPHILS % (AUTO) 84.8 % (42-78); TOTAL CELLS COUNTED % (AUTO) 100 %; WHITE BLOOD COUNT 17.2 10^3/uL (4.0-10.5)
[2018-03-17 06:56] LABS: VANCOMYCIN,TROUGH 10.5 ug/mL (5.0-20.0)
[2018-03-17 06:58] LABS: ANION GAP 7 (5-19); BLOOD UREA NITROGEN 7 mg/dL (7-20); CALCIUM 9.2 mg/dL (8.4-10.2); CARBON DIOXIDE 29 mmol/L (22-30); CHLORIDE 101 mmol/L (98-107); GLUCOSE 73 mg/dL (75-110); SODIUM 137.2 mmol/L (137-145)
[2018-03-17 07:02] LABS: POTASSIUM 3.5 mmol/L (3.6-5.0)
[2018-03-17] MEDS ORDERED: MAGNESIUM SULFATE INJ 8 MEQ/2 ML IV ONE (08:33)
[2018-03-17] MEDS: MAGNESIUM SULFATE 1 GM/D5W 100 ML IV SCH ×2 (10:45→12:04)
[2018-03-17] MEDS: ENOXAPARIN SODIUM INJ 30 MG/0.3 ML DISP.SYRIN SUBCUT SCH ×2 (10:46→22:45)
[2018-03-17] MEDS: POTASSIUM CHLORIDE 10 MEQ CAPSULE.ER PO SCH (10:46)
[2018-03-17] MEDS: MAGNESIUM OXIDE 400 MG TABLET PO SCH ×2 (10:46→17:39)
[2018-03-17] MEDS: FAMOTIDINE 20 MG TABLET PO SCH ×2 (10:46→22:45)
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
[2018-03-17] MEDS: FLUCONAZOLE 200 MG/NS RTU 200 MG/100 ML RTUPB IV SCH (11:58)
[2018-03-17] MEDS: VANCOMYCIN HCL 500 MG in DEXTROSE 5%-WATER 100 ML IV SCH ×2 (15:11→22:45)
[2018-03-17] MEDS: LORAZEPAM 1 MG TABLET PO PRN (22:45)
[2018-03-18] MEDS: OXYCODONE HCL IR 5 MG TABLET PO SCH ×4 (02:09→18:43)
[2018-03-18] MEDS: IPRATROPIUM/ALBUTEROL 0.5-2.5 MG/3 ML AMPUL NEB SCH ×4 (02:32→20:04)
[2018-03-18] MEDS: PIPERACILLIN SODIUM/TAZOBACTAM 3.375 GM in NORMAL SALINE 100 ML IV SCH ×3 (03:12→18:42)
[2018-03-18] MEDS: VANCOMYCIN HCL 500 MG in DEXTROSE 5%-WATER 100 ML IV SCH ×3 (05:25→22:48)
[2018-03-18 05:39] LABS: ABSOLUTE BASOPHILS # (AUTO) 0.1 10^3/uL (0.0-0.2); ABSOLUTE LYMPHOCYTES (AUTO) 1.6 10^3/uL (0.5-4.7); ABSOLUTE MONOCYTES (AUTO) 1.3 10^3/uL (0.1-1.4); ABSOLUTE NEUT (AUTO) 12.7 10^3/uL (1.7-8.2); BASOPHILS % (AUTO) 0.4 % (0-2); EOSINOPHILS % (AUTO) 0.3 % (0-6); HEMATOCRIT 30.4 % (36.0-47.0); HEMOGLOBIN 10.2 g/dL (12.0-15.5); LYMPHOCYTES % (AUTO) 10.4 % (13-45); MEAN CORPUSCULAR HEMOGLOBIN 32.8 pg (27.0-33.4); MEAN CORPUSCULAR HGB CONC 33.7 g/dL (32.0-36.0); MEAN CORPUSCULAR VOLUME 97 fl (80-97); MONOCYTES % (AUTO) 8.1 % (3-13); PLATELET COUNT 904 10^3/uL (150-450); RED BLOOD COUNT 3.12 10^6/uL (3.72-5.28); RED CELL DISTRIBUTION WIDTH 21.5 % (11.5-14.0); SEGMENTED NEUTROPHILS % (AUTO) 80.8 % (42-78); TOTAL CELLS COUNTED % (AUTO) 100 %; WHITE BLOOD COUNT 15.7 10^3/uL (4.0-10.5)
[2018-03-18 06:04] LABS: BLOOD UREA NITROGEN 3 mg/dL (7-20); CALCIUM 9.4 mg/dL (8.4-10.2); CARBON DIOXIDE 34 mmol/L (22-30); GLUCOSE 73 mg/dL (75-110); POTASSIUM 3.4 mmol/L (3.6-5.0)
[2018-03-18 06:43] LABS: ANION GAP 6 (5-19); CHLORIDE 96 mmol/L (98-107); SODIUM 135.8 mmol/L (137-145)
[2018-03-18] MEDS ORDERED: MAGNESIUM SULFATE/D5W 0 GM/0 ML RTUPB IV ONE (08:34)
[2018-03-18] MEDS: RINGERS SOLUTION,LACTATED 1,000 ML IV PRN (09:02)
[2018-03-18] MEDS ORDERED: MAGNESIUM SULFATE 4 GM/D5W 100 ML IV ONE (09:30)
[2018-03-18] MEDS: ENOXAPARIN SODIUM INJ 30 MG/0.3 ML DISP.SYRIN SUBCUT SCH ×2 (10:36→22:47)
[2018-03-18] MEDS: FAMOTIDINE 20 MG TABLET PO SCH ×2 (10:36→22:47)
[2018-03-18] MEDS: POTASSIUM CHLORIDE 10 MEQ CAPSULE.ER PO SCH (10:36)
[2018-03-18] MEDS: MAGNESIUM OXIDE 400 MG TABLET PO SCH ×2 (10:36→18:44)
[2018-03-18] MEDS: FLUCONAZOLE 200 MG/NS RTU 200 MG/100 ML RTUPB IV SCH (11:57)
[2018-03-18] MEDS ORDERED: NICOTINE 21 MG/24 HR PATCH.TD24 TD PRN (12:02)
--- NOTE | 2018-03-18 12:26 | PDOC PROGRESS REPORT ---
Subjective Progress Note for:: 03/18/18 Subjective:: Patient sitting up in bed feels improved. White count elevated to 17,000. Patient received her chemo approximately 2 weeks ago and is unsure if she received Neupogen.Patient's blood pressure below normal range likely her baseline lactic acid however increased but feel this is not due to sepsis rather her underlying malignancy. I count decreases further. Patient continues to threaten to leave AGAINST MEDICAL ADVICE. Less agitation on as needed p.o. Ativan.Experiencing some nicotine withdrawal as well. Reason For Visit: LEFT LUNG PNEUMONIA Physical Exam Vital Signs: Temp Pulse Resp BP Pulse Ox 97.4 F 76 16 140/84 H 96 03/18/18 07:43 03/18/18 07:54 03/18/18 07:54 03/18/18 07:43 03/18/18 07:54 Intake & Output 03/17/18 03/18/18 03/19/18 06:59 06:59 06:59 Intake Total 4502 3590 Balance 4502 3590 Weight 49.5 kg General appearance: PRESENT: no acute distress, well-developed, well-nourished Eye exam: PRESENT: conjunctiva pink, EOMI, PERRLA. ABSENT: scleral icterus Neck exam: ABSENT: carotid bruit, JVD, lymphadenopathy, thyromegaly Respiratory exam: PRESENT: rales, rhonchi. ABSENT: wheezes Cardiovascular exam: PRESENT: RRR. ABSENT: diastolic murmur, rubs, systolic murmur Pulses: PRESENT: normal dorsalis pedis pul GI/Abdominal exam: PRESENT: normal bowel sounds, soft. ABSENT: distended, guarding, mass, organolmegaly, rebound, tenderness Extremities exam: ABSENT: calf tenderness, pedal edema Musculoskeletal exam: ABSENT: deformity, tenderness Psychiatric exam: PRESENT: anxious Results Laboratory Results: 03/18/18 05:25 03/18/18 05:25 03/18/18 03/18/18 03/18/18 05:25 05:25 05:25 WBC 15.7 H RBC 3.12 L Hgb 10.2 L Hct 30.4 L MCV 97 MCH 32.8 MCHC 33.7 RDW 21.5 H Plt Count 904 H Seg Neutrophils % 80.8 H Lymphocytes % 10.4 L Monocytes % 8.1 Eosinophils % 0.3 Basophils % 0.4 Absolute Neutrophils 12.7 H Absolute Lymphocytes 1.6 Absolute Monocytes 1.3 Absolute Eosinophils 0.0 Absolute Basophils 0.1 Sodium 135.8 L Potassium 3.4 L Chloride 96 L Carbon Dioxide 34 H Anion Gap 6 BUN 3 L Creatinine 0.45 L Est GFR ( Amer) > 60 Est GFR (Non-Af Amer) > 60 Glucose 73 L Lactic Acid 0.9 Calcium 9.4 Magnesium 1.1 L* Impressions: Chest X-Ray 03/15/18 08:55 IMPRESSION: Unchanged cavitary mass in the left upper lobe with air-fluid levels. Multiple other smaller nodules seen on prior CT chest are not apparent by plain film. No acute infiltrates. Findings discussed with Dr. Goncalves in the emergency room Assessment & Plan - Diagnosis (1) Pneumonia Qualifiers: Pneumonia type: due to unspecified organism Laterality: left Lung location: upper lobe of lung Qualified Code(s): J18.1 - Lobar pneumonia, unspecified organism Is this a current diagnosis for this admission?: Yes Plan: Patient failed outpatient antibiotics of azithromycin. Because of the cavitary lesion from the lung cancer will treat with Zosyn to cover aspiration vancomycin and Diflucan. Patient may need infectious disease consultation but currently is comfortable not requiring oxygenation. Additionally patient was recently diagnosed with esophageal mass and has been having dysphasia so aspiration is a possibility an infection may not be related to the cavitary lesion in the left upper lobe.Patient may need infectious disease consultation but currently is comfortable not requiring oxygenation. Patient clinically improved appears to be mobilizing sputum continue nebulizing treatments continue antibiotics Diflucan, vancomycin, Zosyn. White count elevated to 17,000 Continue to monitor response to antibiotics.Should patient insist on signing out AGAINST MEDICAL ADVICE will provide Levaquin p.o. and instructed to follow-up with her primary care provider. She does not require oxygen at this point and would not warrant readmission if she leaves AGAINST MEDICAL ADVICE. (2) Lung cancer, upper lobe Qualifiers: Laterality: left Qualified Code(s): C34.12 - Malignant neoplasm of upper lobe, left bronchus or lung Is this a current diagnosis for this admission?: Yes Plan: Chest x-ray shows unchanged cavitary lesion in the left upper lobe recent CT January 31 will not repeat at this time.Patient denies hemoptysis. Continue nebulizing treatments if white count continues to climb consider CT to further evaluate lesion. (3) Hypomagnesemia Is this a current diagnosis for this admission?: Yes Plan: Despite 2 sequential days of IV supplementation potassium was 1.1. We will give 4 g IV today continue p.o. replacement magnesium level in a.m. (4) Mass of esophagus Is this a current diagnosis for this admission?: Yes Plan: Confirmed by radiologic study patient scheduled for upper endoscopy Monday of next week with possible dilatation and biopsy. If still in the hospital will consult gastroenterology.We will place patient on a dysphasia diet (5) Severe protein-calorie malnutrition Is this a current diagnosis for this admission?: Yes Plan: Dietary consult has been ordered (6) Marijuana dependence Is this a current diagnosis for this admission?: Yes Plan: Daily use as per patient (7) Tobacco dependence Is this a current diagnosis for this admission?: Yes Plan: Complaining of withdrawal will initiate NicoDerm patch (8) Alcohol withdrawal Is this a current diagnosis for this admission?: Yes Plan: Continue p.o. Ativan we will decrease frequency to every 6 hours. (9) Sepsis Qualifiers: Sepsis type: sepsis due to unspecified organism Qualified Code(s): A41.9 - Sepsis, unspecified organism Is this a current diagnosis for this admission?: Yes
[2018-03-18] MEDS: LORAZEPAM 1 MG TABLET PO PRN (15:08)
[2018-03-19] MEDS: OXYCODONE HCL IR 5 MG TABLET PO SCH ×4 (01:05→17:25)
[2018-03-19] MEDS: PIPERACILLIN SODIUM/TAZOBACTAM 3.375 GM in NORMAL SALINE 100 ML IV SCH ×3 (01:18→17:26)
[2018-03-19] MEDS: RINGERS SOLUTION,LACTATED 1,000 ML IV PRN ×3 (01:18→21:20)
[2018-03-19] MEDS: LORAZEPAM 1 MG TABLET PO PRN ×3 (02:08→18:30)
[2018-03-19] MEDS: IPRATROPIUM/ALBUTEROL 0.5-2.5 MG/3 ML AMPUL NEB SCH ×4 (02:21→20:56)
[2018-03-19 05:26] LABS: HEMATOCRIT 28.2 % (36.0-47.0); HEMOGLOBIN 9.4 g/dL (12.0-15.5); MEAN CORPUSCULAR HEMOGLOBIN 32.2 pg (27.0-33.4); MEAN CORPUSCULAR HGB CONC 33.2 g/dL (32.0-36.0); MEAN CORPUSCULAR VOLUME 97 fl (80-97); PLATELET COUNT 778 10^3/uL (150-450); RED CELL DISTRIBUTION WIDTH 21.6 % (11.5-14.0); WHITE BLOOD COUNT 14.7 10^3/uL (4.0-10.5)
[2018-03-19] MEDS: VANCOMYCIN HCL 500 MG in DEXTROSE 5%-WATER 100 ML IV SCH ×3 (05:46→21:07)
[2018-03-19] MEDS: FAMOTIDINE 20 MG TABLET PO SCH ×2 (10:31→21:07)
[2018-03-19] MEDS: MAGNESIUM OXIDE 400 MG TABLET PO SCH ×2 (10:31→17:25)
[2018-03-19] MEDS: ENOXAPARIN SODIUM INJ 30 MG/0.3 ML DISP.SYRIN SUBCUT SCH ×2 (10:31→21:08)
[2018-03-19] MEDS: POTASSIUM CHLORIDE 10 MEQ CAPSULE.ER PO SCH (10:31)
[2018-03-19] MEDS: FLUCONAZOLE 200 MG/NS RTU 200 MG/100 ML RTUPB IV SCH (11:45)
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
[2018-03-19] MEDS ORDERED: MAG HYDROX/AL HYDROX/SIMETH SUSP 30 ML UDCUP PO PRN (18:22)
[2018-03-19] MEDS: ONDANSETRON HCL INJ/PF 4 MG/2 ML SDV IV PRN (18:30)
[2018-03-20] MEDS: OXYCODONE HCL IR 5 MG TABLET PO SCH ×4 (00:48→17:54)
[2018-03-20] MEDS: IPRATROPIUM/ALBUTEROL 0.5-2.5 MG/3 ML AMPUL NEB SCH ×4 (02:08→19:39)
[2018-03-20] MEDS: PIPERACILLIN SODIUM/TAZOBACTAM 3.375 GM in NORMAL SALINE 100 ML IV SCH ×3 (03:23→19:41)
[2018-03-20] MEDS: VANCOMYCIN HCL 500 MG in DEXTROSE 5%-WATER 100 ML IV SCH ×3 (05:37→22:49)
[2018-03-20] MEDS: LORAZEPAM INJ 2 MG/1 ML VIAL IV PRN ×2 (07:41→11:40)
[2018-03-20] MEDS: ONDANSETRON HCL INJ/PF 4 MG/2 ML SDV IV PRN (07:43)
[2018-03-20] MEDS: RINGERS SOLUTION,LACTATED 1,000 ML IV PRN (07:46)
[2018-03-20] MEDS: MAGNESIUM OXIDE 400 MG TABLET PO SCH ×2 (10:44→17:54)
[2018-03-20] MEDS: FAMOTIDINE 20 MG TABLET PO SCH ×2 (10:44→22:56)
[2018-03-20] MEDS: ENOXAPARIN SODIUM INJ 30 MG/0.3 ML DISP.SYRIN SUBCUT SCH ×2 (10:44→22:49)
[2018-03-20] MEDS: POTASSIUM CHLORIDE 10 MEQ CAPSULE.ER PO SCH (10:44)
[2018-03-20] MEDS ORDERED: DEXTROSE 40% GEL 15 GM TUBE PO PRN ×2 (11:06)
[2018-03-20] MEDS ORDERED: GLUCAGON,HUMAN RECOMB 1 MG INJ SUBCUT PRN (11:06)
[2018-03-20] MEDS ORDERED: DEXTROSE 50%-WATER 25 GM/50 ML DISP.SYRIN IV PRN ×2 (11:06)
--- NOTE | 2018-03-20 11:30 | PDOC PROGRESS REPORT ---
Subjective Progress Note for:: 03/20/18 Subjective:: Patient sitting up in bed feels improved. White count elevated to 17,000. Patient received her chemo approximately 2 weeks ago and is unsure if she received Neupogen.Patient's blood pressure below normal range likely her baseline lactic acid however increased but feel this is not due to sepsis rather her underlying malignancy. Patient has had continual vomiting with attempting to eat. Diet changed to pure still vomiting pure. She is unable to keep oral medication down.She was scheduled for an outpatient EGD with dilatation for this week. Reason For Visit: LEFT LUNG PNEUMONIA Physical Exam Vital Signs: Temp Pulse Resp BP Pulse Ox 98.1 F 70 16 122/89 H 94 03/20/18 07:47 03/20/18 07:59 03/20/18 07:59 03/20/18 07:47 03/20/18 07:59 Intake & Output 03/19/18 03/20/18 03/21/18 06:59 06:59 06:59 Intake Total 3510 3465 100 Output Total 575 Balance 3510 2890 100 Weight 49.2 kg 47.2 kg General appearance: PRESENT: no acute distress, thin Neck exam: ABSENT: carotid bruit, JVD, lymphadenopathy, thyromegaly Respiratory exam: PRESENT: rales, rhonchi. ABSENT: wheezes Cardiovascular exam: PRESENT: RRR. ABSENT: diastolic murmur, rubs, systolic murmur GI/Abdominal exam: PRESENT: normal bowel sounds, soft. ABSENT: distended, guarding, mass, organolmegaly, rebound, tenderness Extremities exam: PRESENT: full ROM. ABSENT: calf tenderness, clubbing, pedal edema Skin exam: PRESENT: dry, intact, warm. ABSENT: cyanosis, rash Results Laboratory Results: 03/19/18 04:35 03/18/18 13:45 03/17/18 00:30 Sputum Gram Stain - Final 03/17/18 00:30 Sputum Sputum Culture - Final NORMAL LARISSA Impressions: Chest X-Ray 03/15/18 08:55 IMPRESSION: Unchanged cavitary mass in the left upper lobe with air-fluid levels. Multiple other smaller nodules seen on prior CT chest are not apparent by plain film. No acute infiltrates. Findings discussed with Dr. Goncalves in the emergency room Assessment & Plan - Diagnosis (1) Pneumonia Qualifiers: Pneumonia type: due to unspecified organism Laterality: left Lung location: upper lobe of lung Qualified Code(s): J18.1 - Lobar pneumonia, unspecified organism Is this a current diagnosis for this admission?: Yes Plan: Patient failed outpatient antibiotics of azithromycin. Because of the cavitary lesion from the lung cancer will treat with Zosyn to cover aspiration vancomycin and Diflucan. Patient may need infectious disease consultation but currently is comfortable not requiring oxygenation. Additionally patient was recently diagnosed with esophageal mass and has been having dysphasia so aspiration is a possibility an infection may not be related to the cavitary lesion in the left upper lobe.At this point with intractable vomiting patient likely is having intermittent aspiration rather than a cavitary infection.Continue current antibiotics Patient clinically improved Blood cultures negative. Sputum culture growing normal larissa. Unable to transition patient p.o. due to her intractable vomiting. Review of her esophagram shows significant stenosis with proximal dilatation of the esophagus. I discussed case with Dr. Seo who will see the patient in consultation for EGD. (2) Lung cancer, upper lobe Qualifiers: Laterality: left Qualified Code(s): C34.12 - Malignant neoplasm of upper lobe, left bronchus or lung Is this a current diagnosis for this admission?: Yes Plan: Chest x-ray shows unchanged cavitary lesion in the left upper lobe recent CT January 31 will not repeat at this time.Patient denies hemoptysis. Continue nebulizing treatments if white count continues to climb consider CT to further evaluate lesion. Family member expressed nurse she did not know patient had metastatic disease. CT is far back as October showed diffuse satellite lesions in both lung and now there is an esophageal mass. I have suggested that they go with patient to the next oncology appointment to ask their questions of her oncologist. (3) Hypomagnesemia Is this a current diagnosis for this admission?: Yes Plan: A.m. labs not drawn will order stat (4) Mass of esophagus Is this a current diagnosis for this admission?: Yes Plan: Patient to have EGD with dilatation and possible biopsy today. (5) Severe protein-calorie malnutrition Is this a current diagnosis for this admission?: Yes Plan: Dietary consult recommended dietary changes will have to be initiated post EGD (6) Tobacco dependence Is this a current diagnosis for this admission?: Yes (7) Alcohol withdrawal Is this a current diagnosis for this admission?: Yes Plan: Currently on Ativan 0.5 mg every 6 as needed IV as she cannot tolerate p.o. (8) Marijuana dependence Is this a current diagnosis for this admission?: Yes (9) Sepsis Qualifiers: Sepsis type: sepsis due to unspecified organism Qualified Code(s): A41.9 - Sepsis, unspecified organism Is this a current diagnosis for this admission?: Yes - Time Time Spent with patient: 25-34 minutes
[2018-03-20] MEDS: FLUCONAZOLE 200 MG/NS RTU 200 MG/100 ML RTUPB IV SCH (11:31)
[2018-03-20 13:15] LABS: ABSOLUTE BASOPHILS # (AUTO) 0.1 10^3/uL (0.0-0.2); ABSOLUTE EOSINOPHILS # (AUTO) 0.1 10^3/uL (0.0-0.6); ABSOLUTE LYMPHOCYTES (AUTO) 1.1 10^3/uL (0.5-4.7); ABSOLUTE MONOCYTES (AUTO) 1.2 10^3/uL (0.1-1.4); ABSOLUTE NEUT (AUTO) 12.3 10^3/uL (1.7-8.2); BASOPHILS % (AUTO) 0.6 % (0-2); EOSINOPHILS % (AUTO) 0.5 % (0-6); HEMATOCRIT 29.7 % (36.0-47.0); HEMOGLOBIN 9.7 g/dL (12.0-15.5); LYMPHOCYTES % (AUTO) 7.6 % (13-45); MEAN CORPUSCULAR HEMOGLOBIN 31.5 pg (27.0-33.4); MEAN CORPUSCULAR HGB CONC 32.6 g/dL (32.0-36.0); MEAN CORPUSCULAR VOLUME 97 fl (80-97); MONOCYTES % (AUTO) 8.3 % (3-13); PLATELET COUNT 766 10^3/uL (150-450); RED BLOOD COUNT 3.06 10^6/uL (3.72-5.28); RED CELL DISTRIBUTION WIDTH 21.3 % (11.5-14.0); TOTAL CELLS COUNTED % (AUTO) 100 %; WHITE BLOOD COUNT 14.8 10^3/uL (4.0-10.5)
[2018-03-20 13:40] LABS: BLOOD UREA NITROGEN 3 mg/dL (7-20); CALCIUM 9.8 mg/dL (8.4-10.2); GLUCOSE 82 mg/dL (75-110); PHOSPHORUS 3.2 mg/dL (2.5-4.5); POTASSIUM 3.9 mmol/L (3.6-5.0)
[2018-03-20 13:46] LABS: ANION GAP 6 (5-19); CARBON DIOXIDE 32 mmol/L (22-30); CHLORIDE 96 mmol/L (98-107); SODIUM 134.2 mmol/L (137-145)
[2018-03-20] MEDS ORDERED: ONDANSETRON HCL INJ/PF 4 MG/2 ML SDV ONE (14:07)
[2018-03-20] MEDS ORDERED: DIPHENHYDRAMINE HCL 50 MG/ML VIAL ONE (14:07)
[2018-03-20] MEDS ORDERED: EPINEPHRINE INJ 1 MG/10 ML DISP.SYRIN ONE (14:08)
[2018-03-20] MEDS ORDERED: MIDAZOLAM 2 MG/2 ML INJ ONE (14:08)
[2018-03-20] MEDS ORDERED: FLUMAZENIL INJ 0.5 MG/5 ML VIAL ONE (14:08)
[2018-03-20] MEDS ORDERED: FENTANYL CITRATE INJ/PF 100 MCG/2 ML AMPUL ONE (14:08)
[2018-03-20] MEDS ORDERED: NALOXONE HCL INJ/PF 0.4 MG/1 ML SDV ONE (14:08)
[2018-03-20] MEDS ORDERED: GLUCAGON,HUMAN RECOMB 1 MG INJ ONE (14:08)
[2018-03-20] MEDS ORDERED: MAGNESIUM SULFATE INJ 8 MEQ/2 ML IV ONE (15:56)
--- NOTE | 2018-03-20 16:24 | Operative Report ---
Operative Report DATE OF SURGERY: 03/20/18 PREOPERATIVE DIAGNOSIS: 1. Metastatic lung carcinoma. 2. Esophageal stricture. 3. Extensive substance abuse POSTOPERATIVE DIAGNOSIS: Same with. 1. Extensive esophageal stricture suspicious for malignancy. 2. Retained gastric contents OPERATION: 1. Esophagogastroduodenoscopy. 2. Multiple biopsies of the distal esophagus SURGEON: JOSUE HASKINS ANESTHESIA: Other - None TISSUE REMOVED OR ALTERED: Biopsies of distal esophagus COMPLICATIONS: None ESTIMATED BLOOD LOSS: Scant INTRAOPERATIVE FINDINGS: See below PROCEDURE: Patient was taken from the floor to the endoscopy suite devices were attached. Because the patient was on [id number] Ativan, no additional sedation was required. Surgical plan and surgical timeout were conducted. Oral mouthpiece was inserted. The flexible adult upper endoscope was advanced pharynx uneventfully, and down the esophagus. There was minimal fluid in the midesophagus and some undigested food. In the distal esophagus approximately 37 -38 cm from the incisors were was a concentric irregular narrowing, with bloody , erosive changes to the mucosa. The narrowing tapered down to a diameter of approximately 1.5 cm. I was able to advance the endoscope through this tight narrowing into the stomach proper. The stomach had retained food contents. The contents were too extensive to irrigate out. I did not cannulate the pylorus. The scope was retroflexed in the mid body of the stomach looking at the GE junction from the gastric side. No significant hiatal hernia detected. The scope was brought back through the distal esophagus. Several biopsies were obtained at approximately 37 cm from the incisor. Bleeding was minimal. Specimens were sent as distal esophageal mucosal biopsies. The remainder the esophagus appeared grossly unremarkable. Scope was brought out through the patient's oral pharynx. The patient tolerated the procedure well Recommendations: 1. Await biopsies; highly suspicious for malignancy 2. Pured diet only 3. Discussed the above with primary care team.
[2018-03-20] MEDS: MAGNESIUM SULFATE 1 GM/D5W 100 ML IV SCH ×2 (16:59→17:54)
[2018-03-20] MEDS: MAGNESIUM SULFATE/D5W 1 GM/100 ML RTUPB IV SCH (18:47)
[2018-03-20] MEDS: HYDROMORPHONE HCL INJ/PF 2 MG/ML AMPULE IV PRN (22:48)
[2018-03-21] MEDS: IPRATROPIUM/ALBUTEROL 0.5-2.5 MG/3 ML AMPUL NEB SCH ×4 (02:20→20:20)
[2018-03-21] MEDS: RINGERS SOLUTION,LACTATED 1,000 ML IV PRN ×2 (02:38→12:43)
[2018-03-21] MEDS: OXYCODONE HCL IR 5 MG TABLET PO SCH ×5 (02:43→23:27)
[2018-03-21] MEDS: HYDROMORPHONE HCL INJ/PF 2 MG/ML AMPULE IV PRN ×2 (03:02→21:32)
[2018-03-21] MEDS: PIPERACILLIN SODIUM/TAZOBACTAM 3.375 GM in NORMAL SALINE 100 ML IV SCH ×3 (03:02→17:05)
[2018-03-21] MEDS: VANCOMYCIN HCL 500 MG in DEXTROSE 5%-WATER 100 ML IV SCH ×3 (05:55→21:33)
[2018-03-21 07:59] LABS: HEMATOCRIT 27.4 % (36.0-47.0); HEMOGLOBIN 9.2 g/dL (12.0-15.5); MEAN CORPUSCULAR HEMOGLOBIN 32.5 pg (27.0-33.4); MEAN CORPUSCULAR HGB CONC 33.7 g/dL (32.0-36.0); MEAN CORPUSCULAR VOLUME 97 fl (80-97); PLATELET COUNT 708 10^3/uL (150-450); RED BLOOD COUNT 2.84 10^6/uL (3.72-5.28); RED CELL DISTRIBUTION WIDTH 21.4 % (11.5-14.0); WHITE BLOOD COUNT 14.7 10^3/uL (4.0-10.5)
[2018-03-21 08:26] LABS: BLOOD UREA NITROGEN 3 mg/dL (7-20); CALCIUM 9.4 mg/dL (8.4-10.2); CARBON DIOXIDE 32 mmol/L (22-30); CHLORIDE 98 mmol/L (98-107); GLUCOSE 92 mg/dL (75-110); POTASSIUM 3.6 mmol/L (3.6-5.0)
[2018-03-21 08:44] LABS: SODIUM 133.5 mmol/L (137-145)
[2018-03-21 08:51] LABS: ANION GAP 4 (5-19)
[2018-03-21] MEDS: MAGNESIUM OXIDE 400 MG TABLET PO SCH ×2 (09:09→17:04)
[2018-03-21] MEDS: POTASSIUM CHLORIDE 10 MEQ CAPSULE.ER PO SCH (09:09)
[2018-03-21] MEDS: FAMOTIDINE 20 MG TABLET PO SCH ×2 (09:10→21:33)
[2018-03-21] MEDS: ENOXAPARIN SODIUM INJ 30 MG/0.3 ML DISP.SYRIN SUBCUT SCH ×2 (09:10→21:32)
[2018-03-21] MEDS: FLUCONAZOLE 200 MG/NS RTU 200 MG/100 ML RTUPB IV SCH (11:20)
--- NOTE | 2018-03-21 19:32 | Progress Note ---
Provider Note Provider Note: ID Consult Note Asked to review pt's chart by Pharmacy. Pt not seen or examined. Ms. Huang is a 57 year old woman with PMH including stage IIIB squamous cell lung cancer on chemotherapy, nicotine dependence, continued smoking. She presented to [facility] ED on 03/15/18 with cough productive of thick white sputum and increasing SOB. Associated sx included nausea, vomiting and painful swallowing at home x 2-3 weeks with distal esophageal narrowing on recent swallow study identified. No fever or rigors. Pt noted on exam to be afebrile, without tachypnea or tachycardia, cachectic in appearance, and to have crackles and rhonchi L>R with good O2 sats on room air. Labs included WBC count of 19k on presentation, elevated serum lactic acid. Recent prior CT scan of the chest from January 2018 showed her known cavitary MEGAN mass. Single view AP CXR from shows same cavitary lesion but with air-fluid level. Vancomycin, Zosyn and fluconazole were started empirically. BCx from admission negative x 5 days at this point. Sputum culture was reported as showing growth of normal larissa. Pt has been noted to be clinically improved at this point, suspected of having intermittent aspiration with vomiting upon attempting to eat. She underwent EGD - was found to have extensive esophageal stricture suspicious for malignancy and some undigested food in the esophagus. Impression/Recommendations Pt has had MEGAN cavitary lung lesion due to her malignancy, which is unchanged, apart from new air-fluid level appearing on CXR, and has been predisposed to aspiration due to dysphagia from her esophageal disease. With no resistant organisms identified from sputum culture - only normal oropharyngeal larissa - anti-MRSA and anti-Pseudomonal activity of vancomycin and Zosyn, respectively, should not be required. Recommend discontinuing vancomycin and Zosyn. Unasyn would be sufficient or PO Augmentin if able to take oral medication. Fluconazole is generally not required for treatment of aspiration pneumonia or lung abscess due to aspiration. Susy pneumonia is extremely rare and results from hematogenous dissemination to the lungs causing multiple microabscesses rather than from aspiration of oropharyngeal secretions. Recommend discontinuing fluconazole in absence of another indication for its use. Jaime Navarrete MD [facility] Infectious Diseases pager [phone]
[2018-03-21] MEDS: LORAZEPAM INJ 2 MG/1 ML VIAL IV PRN (23:27)
[2018-03-22] MEDS: IPRATROPIUM/ALBUTEROL 0.5-2.5 MG/3 ML AMPUL NEB SCH ×4 (02:23→20:43)
[2018-03-22] MEDS: HYDROMORPHONE HCL INJ/PF 2 MG/ML AMPULE IV PRN ×2 (02:28→08:42)
[2018-03-22] MEDS: PIPERACILLIN SODIUM/TAZOBACTAM 3.375 GM in NORMAL SALINE 100 ML IV SCH (02:28)
--- NOTE | 2018-03-22 06:02 | PDOC PROGRESS REPORT ---
Subjective Progress Note for:: 03/21/18 Subjective:: The patient states that she is feeling better. Reason For Visit: LEFT LUNG PNEUMONIA Physical Exam Vital Signs: Temp Pulse Resp BP Pulse Ox 97.7 F 72 16 107/77 94 03/21/18 23:05 03/22/18 02:23 03/22/18 02:23 03/21/18 23:05 03/22/18 02:23 Intake & Output 03/20/18 03/21/18 03/22/18 06:59 06:59 06:59 Intake Total 3465 1842 1999 Output Total 575 Balance 2890 1842 1999 Weight 47.2 kg 45.7 kg General appearance: PRESENT: no acute distress, cooperative, thin Head exam: PRESENT: atraumatic, normocephalic Respiratory exam: PRESENT: other - No increased work of breathing.. ABSENT: rales, rhonchi, wheezes Cardiovascular exam: PRESENT: RRR. ABSENT: gallop, rubs, systolic murmur Pulses: PRESENT: other - Diminished distal pulses. GI/Abdominal exam: PRESENT: normal bowel sounds, soft. ABSENT: distended, hernia, mass, tenderness Extremities exam: ABSENT: clubbing, pedal edema, tenderness Neurological exam: PRESENT: alert, awake, oriented to person, oriented to place , oriented to time, oriented to situation, CN II-XII grossly intact. ABSENT: motor sensory deficit Skin exam: PRESENT: dry, intact, warm Results Laboratory Results: 03/21/18 07:30 03/21/18 07:00 03/21/18 03/21/18 07:00 07:30 WBC 14.7 H RBC 2.84 L Hgb 9.2 L Hct 27.4 L MCV 97 MCH 32.5 MCHC 33.7 RDW 21.4 H Plt Count 708 H Sodium 133.5 L Potassium 3.6 Chloride 98 Carbon Dioxide 32 H Anion Gap 4 L BUN 3 L Creatinine 0.52 Est GFR ( Amer) > 60 Est GFR (Non-Af Amer) > 60 Glucose 92 Calcium 9.4 Magnesium 1.4 L Impressions: Chest X-Ray 03/15/18 08:55 IMPRESSION: Unchanged cavitary mass in the left upper lobe with air-fluid levels. Multiple other smaller nodules seen on prior CT chest are not apparent by plain film. No acute infiltrates. Findings discussed with Dr. Goncalves in the emergency room Assessment & Plan - Diagnosis (1) Esophageal stricture Is this a current diagnosis for this admission?: Yes Plan: Biopsies taken during EGD. No dilatation. Pureed diet. (2) Intractable vomiting Is this a current diagnosis for this admission?: Yes Plan: Resolved. (3) Alcohol withdrawal Is this a current diagnosis for this admission?: Yes Plan: CIWA protocol and ativan as needed. (4) Lung cancer, upper lobe Qualifiers: Laterality: left Qualified Code(s): C34.12 - Malignant neoplasm of upper lobe, left bronchus or lung Is this a current diagnosis for this admission?: Yes Plan: Noted (5) Mass of esophagus Is this a current diagnosis for this admission?: Yes Plan: Noted. (6) Severe protein-calorie malnutrition Is this a current diagnosis for this admission?: Yes Plan: Nutrition consult. (7) Tobacco abuse Is this a current diagnosis for this admission?: Yes Plan: Nicotine patch - Time Time Spent with patient: 25-34 minutes Medications reviewed and adjusted accordingly: Yes
[2018-03-22] MEDS: OXYCODONE HCL IR 5 MG TABLET PO SCH ×3 (06:26→17:08)
[2018-03-22] MEDS: RINGERS SOLUTION,LACTATED 1,000 ML IV PRN ×2 (06:27→15:04)
[2018-03-22] MEDS ORDERED: AMOXICILLIN TR/POT CLAVULANATE 250-62.5 MG/5 ML 75 ML PO ONE ×2 (06:30→10:00)
[2018-03-22] MEDS: VANCOMYCIN HCL 500 MG in DEXTROSE 5%-WATER 100 ML IV SCH (08:12)
[2018-03-22] MEDS: FLUCONAZOLE 200 MG/NS RTU 200 MG/100 ML RTUPB IV SCH (09:17)
[2018-03-22] MEDS: POTASSIUM CHLORIDE 10 MEQ CAPSULE.ER PO SCH (09:18)
[2018-03-22] MEDS: FAMOTIDINE 20 MG TABLET PO SCH ×2 (09:23→22:22)
[2018-03-22] MEDS: ENOXAPARIN SODIUM INJ 30 MG/0.3 ML DISP.SYRIN SUBCUT SCH ×2 (09:23→22:22)
[2018-03-22] MEDS: MAGNESIUM OXIDE 400 MG TABLET PO SCH ×2 (09:23→17:08)
[2018-03-22] MEDS: AMOXICILLIN TR/POT CLAVULANATE 250-62.5 MG/5 ML 75 ML PO SCH (13:11)
[2018-03-22] MEDS: LORAZEPAM 1 MG TABLET PO PRN ×2 (15:04→22:22)
--- NOTE | 2018-03-22 16:35 | PDOC PROGRESS REPORT ---
Subjective Progress Note for:: 03/22/18 Subjective:: The patient is very lethargic. She is lying back. When I address her verbally she tells me that she "hurts everywhere" without opening her eyes. She then goes back to sleep. Reason For Visit: LEFT LUNG PNEUMONIA Physical Exam Vital Signs: Temp Pulse Resp BP Pulse Ox 97.7 F 82 18 126/90 H 100 03/22/18 15:04 03/22/18 15:04 03/22/18 15:04 03/22/18 15:04 03/22/18 15:04 Intake & Output 03/21/18 03/22/18 03/23/18 06:59 06:59 06:59 Intake Total 1842 3597 1906 Output Total 6 Balance 2 3591 1906 Weight 45.7 kg 45.8 kg General appearance: PRESENT: no acute distress, cooperative Respiratory exam: PRESENT: other - No increased work of breathing.. ABSENT: rales, rhonchi, wheezes Cardiovascular exam: PRESENT: RRR. ABSENT: gallop, rubs, systolic murmur GI/Abdominal exam: PRESENT: normal bowel sounds, soft, other - Scaffoid. ABSENT : hernia, mass, organolmegaly, tenderness Extremities exam: ABSENT: clubbing, pedal edema, tenderness Musculoskeletal exam: PRESENT: normal inspection. ABSENT: deformity, dislocation, tenderness Neurological exam: PRESENT: other - The patient was lethargic. She said that she wanted more pain medicine, but was barely awake. Skin exam: PRESENT: dry, intact, warm Results Laboratory Results: 03/21/18 07:30 03/21/18 07:00 Impressions: Chest X-Ray 03/15/18 08:55 IMPRESSION: Unchanged cavitary mass in the left upper lobe with air-fluid levels. Multiple other smaller nodules seen on prior CT chest are not apparent by plain film. No acute infiltrates. Findings discussed with Dr. Goncalves in the emergency room Assessment & Plan - Diagnosis (1) Esophageal stricture Is this a current diagnosis for this admission?: Yes Plan: Biopsies taken during EGD. No dilatation. Pureed diet. (2) Intractable vomiting Is this a current diagnosis for this admission?: Yes Plan: Resolved. (3) Alcohol withdrawal Is this a current diagnosis for this admission?: Yes Plan: CIWA protocol and ativan as needed. (4) Lung cancer, upper lobe Qualifiers: Laterality: left Qualified Code(s): C34.12 - Malignant neoplasm of upper lobe, left bronchus or lung Is this a current diagnosis for this admission?: Yes Plan: Noted (5) Mass of esophagus Is this a current diagnosis for this admission?: Yes Plan: Noted. (6) Severe protein-calorie malnutrition Is this a current diagnosis for this admission?: Yes Plan: Nutrition consult. (7) Tobacco abuse Is this a current diagnosis for this admission?: Yes Plan: Nicotine patch - Time Time Spent with patient: 25-34 minutes
[2018-03-23] MEDS: IPRATROPIUM/ALBUTEROL 0.5-2.5 MG/3 ML AMPUL NEB SCH ×4 (02:19→19:27)
[2018-03-23] MEDS: AMOXICILLIN TR/POT CLAVULANATE 250-62.5 MG/5 ML 75 ML PO SCH ×5 (02:37→22:54)
[2018-03-23] MEDS: LORAZEPAM INJ 2 MG/1 ML VIAL IV PRN (02:55)
[2018-03-23] MEDS: OXYCODONE HCL IR 5 MG TABLET PO SCH ×3 (02:56→14:24)
[2018-03-23 06:01] LABS: HEMOGLOBIN 9.9 g/dL (12.0-15.5); MEAN CORPUSCULAR HEMOGLOBIN 32.6 pg (27.0-33.4); MEAN CORPUSCULAR VOLUME 96 fl (80-97); PLATELET COUNT 665 10^3/uL (150-450); RED BLOOD COUNT 3.03 10^6/uL (3.72-5.28); RED CELL DISTRIBUTION WIDTH 21.3 % (11.5-14.0); WHITE BLOOD COUNT 12.1 10^3/uL (4.0-10.5)
[2018-03-23] MEDS: RINGERS SOLUTION,LACTATED 1,000 ML IV PRN ×2 (07:57→14:24)
[2018-03-23] MEDS: ENOXAPARIN SODIUM INJ 30 MG/0.3 ML DISP.SYRIN SUBCUT SCH ×2 (09:17→22:55)
[2018-03-23] MEDS: POTASSIUM CHLORIDE 10 MEQ CAPSULE.ER PO SCH (09:19)
[2018-03-23] MEDS: MAGNESIUM OXIDE 400 MG TABLET PO SCH ×2 (09:20→17:36)
[2018-03-23] MEDS: FAMOTIDINE 20 MG TABLET PO SCH ×2 (09:20→22:53)
--- NOTE | 2018-03-23 12:44 | PDOC PROGRESS REPORT ---
Subjective Progress Note for:: 03/23/18 Subjective:: Patient was admitted with cough with productive sputum and felt to have pneumonia superimposed on underlying lung cancer. She had a left upper lobe cavitary lung lesion thought to be due to malignant. ID evaluation suggest discontinue vancomycin and Zosyn and continuing on p.o. Augmentin which patient is already on. He did recommend also discontinuing fluconazole. 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 Dr. Goodwin has been informed by the pathologist as to the result. Reason For Visit: LEFT LUNG PNEUMONIA Physical Exam Vital Signs: Temp Pulse Resp BP Pulse Ox 98.0 F 82 16 131/89 H 96 03/23/18 11:11 03/23/18 11:11 03/23/18 11:11 03/23/18 11:11 03/23/18 11:11 Intake & Output 03/22/18 03/23/18 03/24/18 06:59 06:59 06:59 Intake Total 3597 3024 Output Total 6 Balance 3591 3024 Weight 45.8 kg 45.9 kg General appearance: PRESENT: no acute distress, cooperative, thin Head exam: PRESENT: atraumatic, normocephalic Mouth exam: PRESENT: dry mucosa Neck exam: ABSENT: carotid bruit, JVD, lymphadenopathy, thyromegaly GI/Abdominal exam: PRESENT: normal bowel sounds, soft. ABSENT: distended, guarding, mass, organolmegaly, rebound, tenderness Rectal exam: PRESENT: deferred Results Laboratory Results: 03/23/18 05:30 03/21/18 07:00 03/23/18 05:30 WBC 12.1 H RBC 3.03 L Hgb 9.9 L Hct 29.0 L MCV 96 MCH 32.6 MCHC 34.0 RDW 21.3 H Plt Count 665 H Impressions: Chest X-Ray 03/15/18 08:55 IMPRESSION: Unchanged cavitary mass in the left upper lobe with air-fluid levels. Multiple other smaller nodules seen on prior CT chest are not apparent by plain film. No acute infiltrates. Findings discussed with Dr. Goncalves in the emergency room Assessment & Plan - Time Time Spent with patient: 15-24 minutes Medications reviewed and adjusted accordingly: Yes Anticipated discharge: Home - Inpatient Certification Based on my medical assessment, after consideration of the patient's comorbidities, presenting symptoms, or acuity I expect that the services needed warrant INPATIENT care.: Yes Medical Necessity: Need Close Monitoring Due to Risk of Patient Decompensation, Need for IV Antibiotics, Risk of Complication if Not Cared For in Hospital - Plan Summary Plan Summary: Pneumonia upper lobe of left lung currently off Zosyn and vancomycin and wound Augmentin as suggested by infectious disease. 2. Lung cancer of the left upper lobe which is currently under management by oncologist. 3. Esophageal mass resulting with adenocarcinoma likely metastatic with questionable GI origin although patient has a known lung primary. Further stains have been requested by service technician oncologist 4. Marijuana dependence 5. Sepsis on initial presentation which has resolved 6. Severe protein calorie malnutrition likely due to the underlying illness. This will impair patient's recovery from an acute pneumonia as well as other diseases 7. Hypokalemia and hypomagnesemia we will recheck labs
[2018-03-23 15:22] LABS: ANION GAP 7 (5-19); BLOOD UREA NITROGEN 2 mg/dL (7-20); CALCIUM 10.9 mg/dL (8.4-10.2); CARBON DIOXIDE 30 mmol/L (22-30); CHLORIDE 98 mmol/L (98-107); GLUCOSE 98 mg/dL (75-110); POTASSIUM 4.2 mmol/L (3.6-5.0); SODIUM 135.4 mmol/L (137-145)
[2018-03-23] MEDS ORDERED: MAGNESIUM SULFATE 4 GM/100 ML RTUPB IV ONE (15:41)
[2018-03-23] MEDS: MAGNESIUM SULFATE/D5W 1 GM/100 ML RTUPB IV SCH ×4 (16:16→22:49)
[2018-03-23] MEDS: LORAZEPAM 1 MG TABLET PO PRN (22:53)
[2018-03-23] MEDS ORDERED: MAGNESIUM SULFATE/D5W 1 GM/100 ML RTUPB IV SCH (23:00)
[2018-03-24] MEDS ORDERED: OXYCODONE HCL IR 5 MG TABLET PO ONE (01:15)
[2018-03-24] MEDS: IPRATROPIUM/ALBUTEROL 0.5-2.5 MG/3 ML AMPUL NEB SCH ×4 (02:13→19:57)
[2018-03-24] MEDS: RINGERS SOLUTION,LACTATED 1,000 ML IV PRN (02:47)
[2018-03-24] MEDS: AMOXICILLIN TR/POT CLAVULANATE 250-62.5 MG/5 ML 75 ML PO SCH ×3 (05:29→21:03)
[2018-03-24] MEDS: OXYCODONE HCL IR 5 MG TABLET PO SCH ×3 (05:29→18:21)
[2018-03-24 07:37] LABS: ABSOLUTE BASOPHILS # (AUTO) 0.2 10^3/uL (0.0-0.2); ABSOLUTE EOSINOPHILS # (AUTO) 0.2 10^3/uL (0.0-0.6); ABSOLUTE LYMPHOCYTES (AUTO) 1.5 10^3/uL (0.5-4.7); ABSOLUTE MONOCYTES (AUTO) 0.9 10^3/uL (0.1-1.4); ABSOLUTE NEUT (AUTO) 9.3 10^3/uL (1.7-8.2); BASOPHILS % (AUTO) 1.9 % (0-2); EOSINOPHILS % (AUTO) 1.5 % (0-6); HEMATOCRIT 31.2 % (36.0-47.0); HEMOGLOBIN 10.3 g/dL (12.0-15.5); LYMPHOCYTES % (AUTO) 12.3 % (13-45); MEAN CORPUSCULAR HEMOGLOBIN 31.8 pg (27.0-33.4); MEAN CORPUSCULAR VOLUME 97 fl (80-97); MONOCYTES % (AUTO) 7.7 % (3-13); PLATELET COUNT 720 10^3/uL (150-450); RED BLOOD COUNT 3.23 10^6/uL (3.72-5.28); RED CELL DISTRIBUTION WIDTH 21.4 % (11.5-14.0); SEGMENTED NEUTROPHILS % (AUTO) 76.6 % (42-78); TOTAL CELLS COUNTED % (AUTO) 100 %; WHITE BLOOD COUNT 12.2 10^3/uL (4.0-10.5)
[2018-03-24] MEDS: FAMOTIDINE 20 MG TABLET PO SCH ×2 (09:43→21:05)
[2018-03-24] MEDS: ENOXAPARIN SODIUM INJ 30 MG/0.3 ML DISP.SYRIN SUBCUT SCH ×2 (09:44→21:04)
[2018-03-24] MEDS: MAGNESIUM OXIDE 400 MG TABLET PO SCH ×2 (09:44→17:13)
--- NOTE | 2018-03-24 13:35 | PDOC PROGRESS REPORT ---
Subjective Progress Note for:: 03/24/18 Subjective:: Patient was admitted with cough with productive sputum and felt to have pneumonia superimposed on underlying lung cancer. She had a left upper lobe cavitary lung lesion thought to be due to malignant. ID evaluation suggest discontinue vancomycin and Zosyn and continuing on p.o. Augmentin which patient is already on. He did recommend also discontinuing fluconazole. 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 Dr. Goodwin has been informed by the pathologist as to the result. Patient informed of results of biopsy today and she is understandably upset to find out about the malignancy. I also informed her sister per patient's permission about the diagnosis. Reason For Visit: LEFT LUNG PNEUMONIA Physical Exam Vital Signs: Temp Pulse Resp BP Pulse Ox 98.5 F 79 18 128/96 H 100 03/24/18 11:11 03/24/18 11:11 03/24/18 11:11 03/24/18 11:11 03/24/18 11:11 Intake & Output 03/23/18 03/24/18 03/25/18 06:59 06:59 06:59 Intake Total 3024 3676 200 Balance 3024 3676 200 Weight 45.9 kg 46.4 kg General appearance: PRESENT: no acute distress, thin, other - cachectic, chronically ill looking Head exam: PRESENT: atraumatic, normocephalic Eye exam: PRESENT: conjunctiva pink, EOMI, PERRLA. ABSENT: scleral icterus Ear exam: PRESENT: normal external ear exam Mouth exam: PRESENT: moist, tongue midline Neck exam: ABSENT: carotid bruit, JVD, lymphadenopathy, thyromegaly Respiratory exam: PRESENT: clear to auscultation davide, decreased breath sounds, rhonchi. ABSENT: rales, wheezes Cardiovascular exam: PRESENT: RRR, +S1, +S2. ABSENT: diastolic murmur, rubs, systolic murmur Pulses: PRESENT: normal dorsalis pedis pul Vascular exam: PRESENT: normal capillary refill GI/Abdominal exam: PRESENT: normal bowel sounds, soft. ABSENT: distended, guarding, mass, organolmegaly, rebound, tenderness Rectal exam: PRESENT: deferred Extremities exam: PRESENT: full ROM. ABSENT: calf tenderness, clubbing, pedal edema Neurological exam: PRESENT: alert, awake, oriented to person, oriented to place , oriented to time, oriented to situation, CN II-XII grossly intact. ABSENT: motor sensory deficit Psychiatric exam: PRESENT: appropriate affect. ABSENT: homicidal ideation, suicidal ideation Skin exam: PRESENT: dry, intact, warm. ABSENT: cyanosis, rash Results Laboratory Results: 03/24/18 05:30 03/23/18 14:35 03/23/18 03/24/18 03/24/18 14:35 05:30 05:30 WBC 12.2 H RBC 3.23 L Hgb 10.3 L Hct 31.2 L MCV 97 MCH 31.8 MCHC 33.0 RDW 21.4 H Plt Count 720 H Seg Neutrophils % 76.6 Lymphocytes % 12.3 L Monocytes % 7.7 Eosinophils % 1.5 Basophils % 1.9 Absolute Neutrophils 9.3 H Absolute Lymphocytes 1.5 Absolute Monocytes 0.9 Absolute Eosinophils 0.2 Absolute Basophils 0.2 Sodium 135.4 L Potassium 4.2 Chloride 98 Carbon Dioxide 30 Anion Gap 7 BUN 2 L Creatinine 0.45 L Est GFR ( Amer) > 60 Est GFR (Non-Af Amer) > 60 Glucose 98 Calcium 10.9 H Magnesium 1.1 L* 1.8 Impressions: Chest X-Ray 03/15/18 08:55 IMPRESSION: Unchanged cavitary mass in the left upper lobe with air-fluid levels. Multiple other smaller nodules seen on prior CT chest are not apparent by plain film. No acute infiltrates. Findings discussed with Dr. Goncalves in the emergency room Assessment & Plan - Time Time Spent with patient: 15-24 minutes Medications reviewed and adjusted accordingly: Yes Anticipated discharge: Home Within: within 72 hours - Inpatient Certification Based on my medical assessment, after consideration of the patient's comorbidities, presenting symptoms, or acuity I expect that the services needed warrant INPATIENT care.: Yes Medical Necessity: Need for IV Antibiotics, Risk of Complication if Not Cared For in Hospital - Plan Summary Plan Summary: Pneumonia upper lobe of left lung currently on Augmentin as suggested by infectious disease. 2. Lung cancer of the left upper lobe which is currently under management by oncologist. 3. Esophageal mass biopsy proven adenocarcinoma likely metastatic with questionable GI origin although patient has a known lung primary. Further stains have been requested by computer installation engineer oncologist 4. Marijuana dependence 5. Sepsis on initial presentation which has resolved 6. Severe protein calorie malnutrition likely due to the underlying illness. This will impair patient's recovery from an acute pneumonia as well as other diseases 7. Hypokalemia and hypomagnesemia -replaced 8. Hypercalcemia, mild likely secondary to dehydration with underlying malignancy
[2018-03-24] MEDS: LORAZEPAM INJ 2 MG/1 ML VIAL IV PRN ×2 (14:35→21:05)
[2018-03-24] MEDS: HYDROMORPHONE HCL 2 MG TABLET PO PRN (17:14)
[2018-03-25] MEDS: OXYCODONE HCL IR 5 MG TABLET PO SCH ×4 (00:45→18:21)
[2018-03-25] MEDS: IPRATROPIUM/ALBUTEROL 0.5-2.5 MG/3 ML AMPUL NEB SCH ×2 (01:30→08:19)
[2018-03-25] MEDS: HYDROMORPHONE HCL 2 MG TABLET PO PRN ×3 (03:50→22:29)
[2018-03-25] MEDS: AMOXICILLIN TR/POT CLAVULANATE 250-62.5 MG/5 ML 75 ML PO SCH ×3 (05:58→21:06)
[2018-03-25] MEDS ORDERED: IPRATROPIUM/ALBUTEROL 0.5-2.5 MG/3 ML AMPUL NEB PRN (09:00)
[2018-03-25] MEDS: FAMOTIDINE 20 MG TABLET PO SCH ×2 (09:39→21:06)
[2018-03-25] MEDS: MAGNESIUM OXIDE 400 MG TABLET PO SCH ×2 (09:39→18:21)
[2018-03-25] MEDS: ENOXAPARIN SODIUM INJ 30 MG/0.3 ML DISP.SYRIN SUBCUT SCH ×2 (09:40→21:06)
--- NOTE | 2018-03-25 15:28 | PDOC PROGRESS REPORT ---
Subjective Progress Note for:: 03/25/18 Subjective:: Patient was admitted with cough with productive sputum and felt to have pneumonia superimposed on underlying lung cancer. She had a left upper lobe cavitary lung lesion thought to be due to malignant. ID evaluation suggest discontinue vancomycin and Zosyn and continuing on p.o. Augmentin which patient is already on. He did recommend also discontinuing fluconazole. 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 Dr. Goodwin has been informed by the pathologist as to the result. Patient's daughter was updated on her condition and answers answered to her satisfaction. Reason For Visit: LEFT LUNG PNEUMONIA Physical Exam Vital Signs: Temp Pulse Resp BP Pulse Ox 98.5 F 52 L 16 115/88 H 98 03/25/18 11:12 03/25/18 13:33 03/25/18 13:33 03/25/18 11:12 03/25/18 13:33 Intake & Output 03/24/18 03/25/18 03/26/18 06:59 06:59 06:59 Intake Total 3676 2758 Balance 3676 2758 Weight 46.4 kg 43.5 kg General appearance: PRESENT: no acute distress, thin Head exam: PRESENT: atraumatic Respiratory exam: PRESENT: chest wall tenderness, crackles, decreased breath sounds, rhonchi Cardiovascular exam: PRESENT: RRR, +S1, +S2. ABSENT: diastolic murmur, rubs, systolic murmur Rectal exam: PRESENT: deferred Musculoskeletal exam: PRESENT: ambulatory Neurological exam: PRESENT: alert, awake, oriented to person, oriented to place , oriented to time, oriented to situation Results Laboratory Results: 03/24/18 05:30 03/23/18 14:35 Impressions: Chest X-Ray 03/15/18 08:55 IMPRESSION: Unchanged cavitary mass in the left upper lobe with air-fluid levels. Multiple other smaller nodules seen on prior CT chest are not apparent by plain film. No acute infiltrates. Findings discussed with Dr. Goncalves in the emergency room Assessment & Plan - Time Time Spent with patient: 25-34 minutes Medications reviewed and adjusted accordingly: Yes Anticipated discharge: Home Within: within 24 hours - Inpatient Certification Based on my medical assessment, after consideration of the patient's comorbidities, presenting symptoms, or acuity I expect that the services needed warrant INPATIENT care.: Yes Medical Necessity: Need For Continuous Telemetry Monitoring, Risk of Complication if Not Cared For in Hospital - Plan Summary Plan Summary: Pneumonia upper lobe of left lung currently on Augmentin as suggested by infectious disease. Will plan to dc home in am if stable/ 2. Lung cancer of the left upper lobe which is currently under management by oncologist. 3. Esophageal mass biopsy proven adenocarcinoma likely metastatic with questionable GI origin although patient has a known lung primary. Further stains have been requested by oncologist. Will discuss with Dr. Tao re further plans 4. Marijuana dependence 5. Sepsis on initial presentation which has resolved 6. Severe protein calorie malnutrition likely due to the underlying illness. This will impair patient's recovery from an acute pneumonia as well as other diseases 7. Hypokalemia and hypomagnesemia -replaced 8. Hypercalcemia, mild likely secondary to dehydration with underlying malignancy 9. F/u labs in am
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
[2018-03-25] MEDS: RINGERS SOLUTION,LACTATED 1,000 ML IV PRN (18:23)
[2018-03-26] MEDS: OXYCODONE HCL IR 5 MG TABLET PO SCH ×4 (00:03→18:13)
[2018-03-26] MEDS: AMOXICILLIN TR/POT CLAVULANATE 250-62.5 MG/5 ML 75 ML PO SCH ×3 (06:03→21:06)
[2018-03-26 06:37] LABS: HEMATOCRIT 32.3 % (36.0-47.0); HEMOGLOBIN 10.8 g/dL (12.0-15.5); MEAN CORPUSCULAR HGB CONC 33.4 g/dL (32.0-36.0); MEAN CORPUSCULAR VOLUME 96 fl (80-97); PLATELET COUNT 629 10^3/uL (150-450); RED BLOOD COUNT 3.38 10^6/uL (3.72-5.28); RED CELL DISTRIBUTION WIDTH 21.5 % (11.5-14.0); WHITE BLOOD COUNT 10.9 10^3/uL (4.0-10.5)
[2018-03-26 06:53] LABS: ANION GAP 5 (5-19); BLOOD UREA NITROGEN 6 mg/dL (7-20); CALCIUM 10.9 mg/dL (8.4-10.2); CARBON DIOXIDE 32 mmol/L (22-30); CHLORIDE 97 mmol/L (98-107); GLUCOSE 90 mg/dL (75-110); POTASSIUM 3.9 mmol/L (3.6-5.0); SODIUM 133.7 mmol/L (137-145)
[2018-03-26] MEDS ORDERED: SENNOSIDES/DOCUSATE 8.6-50 MG 1 EACH TABLET PO PRN (09:12)
--- NOTE | 2018-03-26 09:20 | PDOC PROGRESS REPORT ---
Subjective Progress Note for:: 03/26/18 Subjective:: Patient without new complaints. Still with same pain in the chest and abdomen. Worse with deep breaths. ROS: No nausea Positive Constipation. No weakness. Reason For Visit: LEFT LUNG PNEUMONIA Physical Exam Vital Signs: Temp Pulse Resp BP Pulse Ox 97.7 F 73 20 111/71 97 03/26/18 00:00 03/26/18 00:00 03/26/18 00:00 03/26/18 00:00 03/26/18 00:00 Intake & Output 03/25/18 03/26/18 03/27/18 06:59 06:59 06:59 Intake Total 2758 1867 Balance 2758 1867 Weight 43.5 kg 46 kg General appearance: PRESENT: no acute distress Respiratory exam: PRESENT: clear to auscultation davide, unlabored Cardiovascular exam: PRESENT: RRR Extremities exam: ABSENT: pedal edema Skin exam: PRESENT: normal color Results Laboratory Results: 03/26/18 06:24 03/26/18 06:24 03/26/18 03/26/18 06:24 06:24 WBC 10.9 H RBC 3.38 L Hgb 10.8 L Hct 32.3 L MCV 96 MCH 32.0 MCHC 33.4 RDW 21.5 H Plt Count 629 H Sodium 133.7 L Potassium 3.9 Chloride 97 L Carbon Dioxide 32 H Anion Gap 5 BUN 6 L Creatinine 0.63 Est GFR ( Amer) > 60 Est GFR (Non-Af Amer) > 60 Glucose 90 Calcium 10.9 H Magnesium 1.4 L Impressions: Chest X-Ray 03/15/18 08:55 IMPRESSION: Unchanged cavitary mass in the left upper lobe with air-fluid levels. Multiple other smaller nodules seen on prior CT chest are not apparent by plain film. No acute infiltrates. Findings discussed with Dr. Goncalves in the emergency room Assessment & Plan - Diagnosis (1) Lung cancer, upper lobe Qualifiers: Laterality: left Qualified Code(s): C34.12 - Malignant neoplasm of upper lobe, left bronchus or lung Is this a current diagnosis for this admission?: Yes Plan: Treatment on hold until pneumonia clears. (2) Esophageal cancer Is this a current diagnosis for this admission?: Yes Plan: I discussed again with patient as well as family today. I have explained that this is NOT metastatic from the lung, but appears to be a new primary. However , it will be very difficult to stage and treat this with her known metastatic lung cancer. I may consider PET/CT as outpatient, but will not be able to see which cancer is more active, only which areas of the body are most active. Although surgery, radiation and chemo may be used to treat esophageal cancer, again, with her known metastatic lung cancer, we may opt to only give chemo that may benefit both primaries. Will discuss more as outpatient. (3) Hypothyroid Is this a current diagnosis for this admission?: Yes Plan: She is back on her synthroid. (4) Chest pain Qualifiers: Chest pain type: unspecified Qualified Code(s): R07.9 - Chest pain, unspecified Is this a current diagnosis for this admission?: Yes Plan: Continue current pain meds., No changes. May consider CT/angio to rule out PE if clinically no improvement in pain with treatment of pneumonia.
[2018-03-26] MEDS: MAGNESIUM OXIDE 400 MG TABLET PO SCH ×2 (09:48→18:12)
[2018-03-26] MEDS: FAMOTIDINE 20 MG TABLET PO SCH ×2 (09:48→21:10)
[2018-03-26] MEDS: ENOXAPARIN SODIUM INJ 30 MG/0.3 ML DISP.SYRIN SUBCUT SCH ×2 (09:49→21:10)
[2018-03-26] MEDS: LEVOTHYROXINE SODIUM 0.075 MG TABLET PO SCH (09:49)
[2018-03-26] MEDS: RINGERS SOLUTION,LACTATED 1,000 ML IV PRN (09:54)
[2018-03-26] MEDS: HYDROMORPHONE HCL 2 MG TABLET PO PRN (10:06)
[2018-03-26] MEDS: MAGNESIUM SULFATE/D5W 1 GM/100 ML RTUPB IV SCH ×2 (10:17→12:34)
[2018-03-26] MEDS ORDERED: ACETAMINOPHEN 325 MG TABLET PO PRN (15:13)
--- NOTE | 2018-03-26 16:27 | PDOC PROGRESS REPORT ---
Subjective Progress Note for:: 03/26/18 Subjective:: Patient was admitted with cough with productive sputum and felt to have pneumonia superimposed on underlying lung cancer. She had a left upper lobe cavitary lung lesion thought to be due to malignant. ID evaluation suggest discontinue vancomycin and Zosyn and continuing on p.o. Augmentin which patient is already on. He did recommend also discontinuing fluconazole. 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 Dr. Goodwin has been informed by the pathologist as to the result. P Reason For Visit: LEFT LUNG PNEUMONIA Physical Exam Vital Signs: Temp Pulse Resp BP Pulse Ox 97.9 F 70 18 128/94 H 100 03/26/18 11:32 03/26/18 11:35 03/26/18 11:35 03/26/18 11:32 03/26/18 11:35 Intake & Output 03/25/18 03/26/18 03/27/18 06:59 06:59 06:59 Intake Total 2758 1867 1383 Balance 2758 1867 1383 Weight 43.5 kg 46 kg General appearance: PRESENT: no acute distress, thin Head exam: PRESENT: atraumatic, normocephalic Eye exam: PRESENT: conjunctiva pink, EOMI, PERRLA. ABSENT: scleral icterus Ear exam: PRESENT: normal external ear exam Mouth exam: PRESENT: moist, tongue midline Neck exam: ABSENT: carotid bruit, JVD, lymphadenopathy, thyromegaly Respiratory exam: PRESENT: clear to auscultation davide. ABSENT: rales, rhonchi, wheezes Cardiovascular exam: PRESENT: RRR. ABSENT: diastolic murmur, rubs, systolic murmur Pulses: PRESENT: normal dorsalis pedis pul Vascular exam: PRESENT: normal capillary refill GI/Abdominal exam: PRESENT: normal bowel sounds, soft. ABSENT: distended, guarding, mass, organolmegaly, rebound, tenderness Rectal exam: PRESENT: deferred Extremities exam: PRESENT: full ROM. ABSENT: calf tenderness, clubbing, pedal edema Neurological exam: PRESENT: alert, awake, oriented to person, oriented to place , oriented to time, oriented to situation, CN II-XII grossly intact. ABSENT: motor sensory deficit Psychiatric exam: PRESENT: appropriate affect, normal mood. ABSENT: homicidal ideation, suicidal ideation Skin exam: PRESENT: dry, intact, warm. ABSENT: cyanosis, rash Results Laboratory Results: 03/26/18 06:24 03/26/18 06:24 03/26/18 03/26/18 06:24 06:24 WBC 10.9 H RBC 3.38 L Hgb 10.8 L Hct 32.3 L MCV 96 MCH 32.0 MCHC 33.4 RDW 21.5 H Plt Count 629 H Sodium 133.7 L Potassium 3.9 Chloride 97 L Carbon Dioxide 32 H Anion Gap 5 BUN 6 L Creatinine 0.63 Est GFR ( Amer) > 60 Est GFR (Non-Af Amer) > 60 Glucose 90 Calcium 10.9 H Magnesium 1.4 L Impressions: Chest X-Ray 03/15/18 08:55 IMPRESSION: Unchanged cavitary mass in the left upper lobe with air-fluid levels. Multiple other smaller nodules seen on prior CT chest are not apparent by plain film. No acute infiltrates. Findings discussed with Dr. Goncalves in the emergency room Assessment & Plan - Time Time Spent with patient: 15-24 minutes Medications reviewed and adjusted accordingly: Yes Anticipated discharge: Home Within: within 48 hours - Inpatient Certification Based on my medical assessment, after consideration of the patient's comorbidities, presenting symptoms, or acuity I expect that the services needed warrant INPATIENT care.: Yes Medical Necessity: Need for Pain Control, Need for IV Antibiotics - Plan Summary Plan Summary: Pneumonia upper lobe of left lung currently on Augmentin as suggested by infectious disease. Will plan to dc home in am if stable/ 2. Lung cancer of the left upper lobe which is currently under management by oncologist. 3. Esophageal mass biopsy proven adenocarcinoma likely metastatic with questionable GI origin. Dr. Tao thinks this is another primary malignancy. 4. Marijuana dependence 5. Sepsis on initial presentation which has resolved 6. Severe protein calorie malnutrition likely due to the underlying illness. This will impair patient's recovery from an acute pneumonia as well as other diseases. Continue supplementations 7. Hypokalemia and hypomagnesemia -replaced 8. Hypercalcemia, mild likely secondary to dehydration with underlying malignancy 9.Plan to dc in am
[2018-03-26 21:38] LABS: APPEARANCE,URINE CLEAR; BILIRUBIN,URINE NEGATIVE (NEGATIVE); COLOR,URINE YELLOW; GLUCOSE, URINE NEGATIVE (NEGATIVE); KETONES,URINE NEGATIVE (NEGATIVE); LEUKOCYTE ESTERASE,URINE NEGATIVE (NEGATIVE); NITRITE,URINE NEGATIVE (NEGATIVE); PROTEIN,URINE NEGATIVE (NEGATIVE); URINE SPECIFIC GRAVITY 1.006; UROBILINOGEN,URINE NEGATIVE mg/dL (<2.0)
[2018-03-27] MEDS: OXYCODONE HCL IR 5 MG TABLET PO SCH ×3 (00:47→11:55)
[2018-03-27] MEDS: AMOXICILLIN TR/POT CLAVULANATE 250-62.5 MG/5 ML 75 ML PO SCH (06:46)
[2018-03-27] MEDS: LEVOTHYROXINE SODIUM 0.075 MG TABLET PO SCH (06:46)
[2018-03-27] MEDS: FAMOTIDINE 20 MG TABLET PO SCH (09:09)
[2018-03-27] MEDS: MAGNESIUM OXIDE 400 MG TABLET PO SCH (09:09)
[2018-03-27] MEDS: ENOXAPARIN SODIUM INJ 30 MG/0.3 ML DISP.SYRIN SUBCUT SCH (09:10)
[2018-03-27 12:04] VITALS: BP 127/86
--- NOTE | 2018-03-27 17:58 | PDOC DISCHARGE SUMMARY ---
General - Admit/Disc Date/PCP Admission Date/Primary Care Provider: 03/15/18 10:48 SHERRY BECK MD Discharge Date: 03/27/18 - Discharge Diagnosis (1) Esophageal cancer Is this a current diagnosis for this admission?: Yes (2) Pneumonia Is this a current diagnosis for this admission?: Yes (3) Anemia of chronic disease Is this a current diagnosis for this admission?: Yes (4) Lung cancer, upper lobe Is this a current diagnosis for this admission?: Yes (5) Severe protein-calorie malnutrition Is this a current diagnosis for this admission?: Yes (6) Opioid abuse, continuous use Is this a current diagnosis for this admission?: Yes (7) Sepsis Is this a current diagnosis for this admission?: Yes - Additional Information Resuscitation Status: Do Not Resuscitate Discharge Diet: Regular Discharge Activity: Activity As Tolerated Prescriptions: Amox Tr/Potassium Clavulanate [Augmentin 250-62.5 mg/5 ml Susp] 500 mg PO Q8 # 120 ml Levothyroxine Sodium [Synthroid 0.075 mg Tablet] 0.075 mg PO Q6AM #30 tablet Home Medications: Oxycodone HCl [Roxicodone] 30 mg PO Q6HP PRN 01/16/17 Amox Tr/Potassium Clavulanate [Augmentin 250-62.5 mg/5 ml Susp] 500 mg PO Q8 # 120 ml 03/27/18 Levothyroxine Sodium [Synthroid 0.075 mg Tablet] 0.075 mg PO Q6AM #30 tablet Magnesium Oxide [Mag-Ox 400 mg Tablet] 800 mg PO BID tablet 03/27/18 Sennosides/Docusate 8.6-50 mg [Senna Plus Tablet] 2 each PO BIDP PRN tablet History of Present Illness History of Present Illness: JOCELIN PALMA is a 57 year old female ho has been suffering with lung cancer for the past 2 years. Patient has been undergoing chemotherapy but has not done radiation therapy. On Monday of this week she was seen by her oncologist . She had productive cough with white sputum and was given a prescription of azithromycin. She took it on Monday and Monday had progressive shortness of breath and presented to the emergency room.Workup in the emergency room found the patient to have a normal oxygen saturation. She had a chest x-ray that showed a cavitary lesion in the left lung which was unchanged from her CT done earlier this month.Patient recently had a barium swallow done which showed esophageal narrowing in the distal esophagus and patient has been experiencing dysphasia for the past 2 weeks. She is scheduled to undergo an upper endoscopy with possible dilatation on Monday of next week.She has had nausea vomiting and painful swallowing at home.She denies fevers or rigorsBut has had progressive shortness of breath with increased sputum production and a change in character to a thick white sputum.Request for admission was made to treat suspected postobstructive pneumonitis. Patient was treated in the emergency room with laboratory studies which showed only 18,000 white count and her lactic acid was mildly elevated. She was not tachypneic or tachycardic.She has cachexia consistent with her advanced cancer.Was given lactated Ringer's hydration blood cultures and urine culture were obtained in the emergency room. Hospital Course Hospital Course: This patient was admitted with cough and increasing shortness of breath. She has a history of underlying lung cancer. She had been undergoing chemotherapy. She also complained of difficulty swallowing and CT scan done revealed cavitary lung lesion that was basically unchanged however a barium swallow done revealed esophageal thickening. Patient had an upper endoscopy done with dilatation due to dysphagia and a biopsy was also done and this returned for adenocarcinoma likely of GI origin. Dr. Goodwin was consulted as she is oncologist as outpatient. It is felt that patient has a new GI primary but further interventions and management has been deferred until outpatient Patient was also treated with empiric antibiotics for pneumonia. She was initially on IV antibiotics for this was changed to Augmentin on the advice of infectious disease and patient has actually improved respiratory masterson and has been stable from a respiratory standpoint. She still has some difficulty swallowing but she is actually able to eat pretty well. She and her family were informed of the new diagnosis of the esophageal cancer and the aware that she will follow-up with Dr. Goodwin as outpatient. Physical Exam Vital Signs: Temp Pulse Resp BP Pulse Ox 97.5 F 58 L 16 127/86 H 100 03/27/18 11:42 03/27/18 11:42 03/27/18 11:42 03/27/18 11:42 03/27/18 11:42 Intake & Output 03/26/18 03/27/18 03/28/18 06:59 06:59 06:59 Intake Total 1 4783 Balance 7 3933 Weight 46 kg 46.2 kg General appearance: PRESENT: no acute distress, thin, other - cachectic Head exam: PRESENT: atraumatic, normocephalic Eye exam: PRESENT: conjunctiva pink, EOMI, PERRLA. ABSENT: scleral icterus Ear exam: PRESENT: normal external ear exam Mouth exam: PRESENT: moist, tongue midline Neck exam: ABSENT: carotid bruit, JVD, lymphadenopathy, thyromegaly Respiratory exam: PRESENT: clear to auscultation davide. ABSENT: rales, rhonchi, wheezes Cardiovascular exam: PRESENT: RRR. ABSENT: diastolic murmur, rubs, systolic murmur Pulses: PRESENT: normal dorsalis pedis pul Vascular exam: PRESENT: normal capillary refill GI/Abdominal exam: PRESENT: normal bowel sounds, soft. ABSENT: distended, guarding, mass, organolmegaly, rebound, tenderness Rectal exam: PRESENT: deferred Extremities exam: PRESENT: full ROM. ABSENT: calf tenderness, clubbing, pedal edema Neurological exam: PRESENT: alert, awake, oriented to person, oriented to place , oriented to time, oriented to situation, CN II-XII grossly intact. ABSENT: motor sensory deficit Psychiatric exam: PRESENT: appropriate affect, normal mood. ABSENT: homicidal ideation, suicidal ideation Skin exam: PRESENT: dry, intact, warm. ABSENT: cyanosis, rash Results Laboratory Results: 03/26/18 06:24 03/26/18 06:24 03/26/18 03/27/18 21:20 05:10 Magnesium 1.7 Urine Color YELLOW Urine Appearance CLEAR Urine pH 7.0 Ur Specific [place] 1.006 Urine Protein NEGATIVE Urine Glucose (UA) NEGATIVE Urine Ketones NEGATIVE Urine Blood NEGATIVE Urine Nitrite NEGATIVE Ur Leukocyte Esterase NEGATIVE Urine WBC (Auto) 5 Urine RBC (Auto) 0 Impressions: Chest X-Ray 03/15/18 08:55 IMPRESSION: Unchanged cavitary mass in the left upper lobe with air-fluid levels. Multiple other smaller nodules seen on prior CT chest are not apparent by plain film. No acute infiltrates. Findings discussed with Dr. Goncalves in the emergency room Qualifiers - * PATIENT BEING DISCHARGED WITH ANY OF THE FOLLOWING DIAGNOSIS: No
== END 2018-03-27 12:36 | disposition home or self-care (01) | DRG 871 ==
LOC: ER 08:06 → EH 10:48 → 4N 14:45
PROVIDERS: ADMIT Internal Medicine; ATTEND Internal Medicine
PROC: 0DD38ZX Extraction of Lower Esophagus, Via Natural or Artificial Opening Endoscopic, Diagnostic (ICD-10-PCS; principal; 2018-03-20 15:00)
DX: A41.9 Sepsis, unspecified organism (principal); J18.9 Pneumonia, unspecified organism; E43 Unspecified severe protein-calorie malnutrition; C34.12 Malignant neoplasm of upper lobe, left bronchus or lung; C78.89 Secondary malignant neoplasm of other digestive organs; Z68.1 Body mass index [BMI] 19.9 or less, adult; F10.239 Alcohol dependence with withdrawal, unspecified; Z66 Do not resuscitate; E78.00 Pure hypercholesterolemia, unspecified; E87.6 Hypokalemia; E83.52 Hypercalcemia; E03.9 Hypothyroidism, unspecified; E83.42 Hypomagnesemia; K22.8 Other specified diseases of esophagus; I10 Essential (primary) hypertension; J44.9 Chronic obstructive pulmonary disease, unspecified; R53.1 Weakness; F12.20 Cannabis dependence, uncomplicated; F32.9 Major depressive disorder, single episode, unspecified; F17.210 Nicotine dependence, cigarettes, uncomplicated; Y90.9 Presence of alcohol in blood, level not specified
CPT/HCPCS: 36415; 43239; 71045; 80048; 80053; 80202; 81001; 82565; 83605; 83735; 84100; 84443; 84484; 85025; 85027; 87040; 87070; 87086; 87205; 88305; 88313; 88341; 88342; 93005; 93010; 94640; 96365; 96375; 99285; J0171; J1170; J1200; J1450; J1610; J1650; J1885; J2060; J2250; J2310; J2405; J2543; J3010; J3370; J3475; J3490; J7060; J7620

== ENCOUNTER 2018-04-01 16:49 | Inpatient (IN) | payer MEDICAID ==
[2018-04-01] MEDS ORDERED: RINGERS SOLUTION,LACTATED 1,000 ML IV ONE (17:24)
[2018-04-01] MEDS ORDERED: HYDROMORPHONE HCL INJ/PF 2 MG/ML AMPULE IV ONE ×2 (17:24→19:28)
[2018-04-01] MEDS ORDERED: ONDANSETRON HCL INJ/PF 4 MG/2 ML SDV IV ONE (17:24)
--- NOTE | 2018-04-01 17:43 | ER Document Report ---
ED General - General Mode of Arrival: Ambulatory Information source: Patient TRAVEL OUTSIDE OF THE [place] IN LAST 30 DAYS: No <MAURA CORADO - Last Filed: 04/01/18 23:28> <BRANDENJASMYNOLIVIA - Last Filed: 04/01/18 23:34> - General Chief Complaint: Flank Pain Stated Complaint: BODY PAIN Time Seen by Provider: 04/01/18 17:12 Notes: Patient is a 57 year old female with lung cancer and esophageal cancer presents to the emergency department complaining of diffuse body pain and left sided chest pain. She states her pain has been present for "a while" and further states the oxycodone prescribed to her by her oncologist, Dr. Tao, has not been helping. Patient also complains of vomiting described as green in appearance and throat pain. She denies any diarrhea or fevers. Patient admits to smoking crack cocaine and marijuana yesterday and states this did not alleviate her pain. Patient states she has an appointment with Dr. Tao tomorrow. Patient's PCP is Dr. Guerrero. (MAURA CORADO) - Related Data Allergies/Adverse Reactions: No Known Allergies Allergy (Verified 03/15/18 08:52) Past Medical History - General Information source: Patient - Social History Smoking Status: Current Every Day Smoker Cigarette use (# per day): Yes Chew tobacco use (# tins/day): No Smoking Education Provided: No Frequency of alcohol use: None Drug Abuse: Cocaine, Marijuana Family History: Reviewed & Not Pertinent, CAD, Malignancy - Past Medical History Cardiac Medical History: Reports: Hx Hypercholesterolemia, Hx Hypertension - NO MEDS Pulmonary Medical History: Reports: Hx COPD, Hx Pneumonia Endocrine Medical History: Reports: Hx Hypothyroidism Malignancy Medical History: Reports: Hx Lung Cancer - Stage IIIB, squamous cell carcinoma, lung involvement, lymph node. Psychiatric Medical History: Reports: Hx Depression Past Surgical History: Reports: Hx Appendectomy, Hx Section - 1, Hx Hysterectomy, Hx Orthopedic Surgery - right knee, Other - Right chest Port-A- Cath - Immunizations Hx Diphtheria, Pertussis, Tetanus Vaccination: No <MAURA CORADO - Last Filed: 04/01/18 23:28> Review of Systems - Review of Systems Constitutional: No symptoms reported EENT: See HPI, Throat pain Cardiovascular: No symptoms reported Respiratory: No symptoms reported Gastrointestinal: See HPI, Vomiting Genitourinary: No symptoms reported Female Genitourinary: No symptoms reported Musculoskeletal: See HPI Skin: No symptoms reported Hematologic/Lymphatic: No symptoms reported Neurological/Psychological: No symptoms reported -: Yes All other systems reviewed and negative <MAURA CORADO - Last Filed: 04/01/18 23:28> Physical Exam <MAURA CORADO - Last Filed: 04/01/18 23:28> <OLIVIA CALLAHAN - Last Filed: 04/01/18 23:34> - Vital signs Vitals: Resp Pulse Ox 16 96 04/01/18 17:03 04/01/18 17:03 - Notes Notes: GENERAL: Alert, interacts well. Appears uncomfortable. HEAD: Normocephalic, atraumatic. EYES: Pupils equal, round, and reactive to light. Extraocular movements intact. ENT: Oral mucosa moist, tongue midline. NECK: Full range of motion. Supple. Trachea midline. LUNGS: Clear to auscultation bilaterally, no wheezes, rales, or rhonchi. No respiratory distress. HEART: Port in left upper anterior chest. Regular rate and rhythm. No murmurs, gallops, or rubs. ABDOMEN: Soft, LLQ tenderness to palpation. Non-distended. Bowel sounds present in all 4 quadrants. EXTREMITIES: Moves all 4 extremities spontaneously. No edema, radial and dorsalis pedis pulses 2/4 bilaterally. No cyanosis. NEUROLOGICAL: Alert and oriented x3. Normal speech. PSYCH: Tearful. SKIN: Warm, dry, normal turgor. No rashes or lesions noted. (MAKMAURA) Course - Laboratory Result Diagrams: 04/01/18 18:15 04/01/18 18:15 <MAKMAURA PERALTA - Last Filed: 04/01/18 23:28> - Laboratory Result Diagrams: 04/01/18 18:15 04/01/18 18:15 <OLIVIA CALLAHAN - Last Filed: 04/01/18 23:34> - Re-evaluation Re-evalutation: 04/01/18 20:02 CBC shows leukocytosis at 13.4, anemia at 11.6 and thrombocytosis at 516, chemistries show slightly low sodium and potassium, also elevated calcium which likely explains the majority of her pain the calcium is quite elevated at 13.8, cardiac enzymes are negative, urinalysis is pending, chest x-ray shows similar cavitary lesions to prior x-ray. Discussed with Dr. Tao at her oncologist who requests that we treat with bisphosphonate in the form of Zometa or pamidronate, hydrate with fluids and admit. Discussed with Dr. Rivera the hospitalist who agrees to admit to the [facility], will consult Dr. Tao. Patient's pain is now well controlled after a milligram of Dilaudid at 1730 and 1930. 04/01/18 23:33 (OLIVIA CALLAHAN) - Vital Signs Vital signs: Temp Pulse Resp BP Pulse Ox 98.0 F 58 L 12 135/91 H 96 04/01/18 21:18 04/01/18 22:54 04/01/18 20:31 04/01/18 20:31 04/01/18 20:31 - Laboratory Laboratory results interpreted by me: 04/01/18 04/01/18 04/01/18 18:15 18:15 19:45 WBC 13.4 H RBC 3.66 L Hgb 11.6 L Hct 34.3 L RDW 20.4 H Plt Count 516 H Seg Neutrophils % 83.1 H Lymphocytes % 8.9 L Absolute Neutrophils 11.1 H Sodium 135.4 L Potassium 3.2 L Chloride 91 L Carbon Dioxide 32 H Calcium 13.8 H* Creatine Kinase < 20 L Urine Ketones TRACE H - EKG Interpretation by Me Additional EKG results interpreted by me: 04/01/18 20:04 EKG shows sinus rhythm at a rate of 62, T wave inversions in 2, 3, aVF, no ST segment elevations or depressions, normal axis, normal intervals per my interpretation. (OLIVIA CALLAHAN) Discharge <MAURA CORADO - Last Filed: 04/01/18 23:28> - Discharge Admitting Provider: Beti Rivera Unit Admitted: [facility] <OLIVIA CALLAHAN - Last Filed: 04/01/18 23:34> - Discharge Clinical Impression: Hypercalcemia, Anemia of chronic disease, Mass of esophagus, Cavitating mass of lung, Opioid dependence with current use Condition: Fair Disposition: ADMITTED INPATIENT Scribe Attestation: 04/01/18 23:34 I personally performed the services described in the documentation, reviewed and edited the documentation which was dictated to the scribe in my presence, and it accurately records my words and actions. (OLIVIA CALLAHAN) Scribe Documentation - Scribe Written by Blade:: Blade Urbina, 04/01/2018 17:47 acting as scribe for :: Vishnu <MAURA CORADO - Last Filed: 04/01/18 23:28>
--- NOTE | 2018-04-01 18:11 | RADIOLOGY REPORT (SQ) ---
EXAM DESCRIPTION: CHEST 2 VIEWS COMPLETED DATE/TIME: 04/01/2018 5:54 pm REASON FOR STUDY: metastatic cancer, vomiting, left sded pain COMPARISON: 03/15/2018 TECHNIQUE: Frontal and lateral radiographic views of the chest acquired. NUMBER OF VIEWS: Two view. LIMITATIONS: None. FINDINGS: LUNGS AND PLEURA: No pneumothorax. No acute consolidation or pleural effusion. Similar ca vitary lesions in the left mid lung. MEDIASTINUM AND HILAR STRUCTURES: Stable. HEART AND VASCULAR STRUCTURES: Stable. BONES: No acute findings. HARDWARE: Right chest port. OTHER: No other significant finding. IMPRESSION: No acute consolidation or pleural effusion. Similar cavitary lesions in the left mid barbara g. TECHNICAL DOCUMENTATION: JOB ID: [id number] [id number] [employer]- All Rights Reserved Reading location - IP/workstation name: [email or web address]
[2018-04-01 18:29] LABS: ABSOLUTE BASOPHILS # (AUTO) 0.2 10^3/uL (0.0-0.2); ABSOLUTE LYMPHOCYTES (AUTO) 1.2 10^3/uL (0.5-4.7); ABSOLUTE MONOCYTES (AUTO) 0.8 10^3/uL (0.1-1.4); ABSOLUTE NEUT (AUTO) 11.1 10^3/uL (1.7-8.2); BASOPHILS % (AUTO) 1.7 % (0-2); EOSINOPHILS % (AUTO) 0.3 % (0-6); HEMATOCRIT 34.3 % (36.0-47.0); HEMOGLOBIN 11.6 g/dL (12.0-15.5); LYMPHOCYTES % (AUTO) 8.9 % (13-45); MEAN CORPUSCULAR HEMOGLOBIN 31.7 pg (27.0-33.4); MEAN CORPUSCULAR HGB CONC 33.8 g/dL (32.0-36.0); MEAN CORPUSCULAR VOLUME 94 fl (80-97); PLATELET COUNT 516 10^3/uL (150-450); RED BLOOD COUNT 3.66 10^6/uL (3.72-5.28); RED CELL DISTRIBUTION WIDTH 20.4 % (11.5-14.0); SEGMENTED NEUTROPHILS % (AUTO) 83.1 % (42-78); TOTAL CELLS COUNTED % (AUTO) 100 %; WHITE BLOOD COUNT 13.4 10^3/uL (4.0-10.5)
[2018-04-01 18:51] LABS: ALANINE AMINOTRANSFERASE 17 U/L (9-52); ALBUMIN 3.6 g/dL (3.5-5.0); ALKALINE PHOSPHATASE 115 U/L (38-126); ANION GAP 12 (5-19); ASPARTATE AMINO TRANSFERASE 24 U/L (14-36); BILIRUBIN,DIRECT 0.4 mg/dL (0.0-0.4); BILIRUBIN,TOTAL 0.9 mg/dL (0.2-1.3); BLOOD UREA NITROGEN 11 mg/dL (7-20); CARBON DIOXIDE 32 mmol/L (22-30); CHLORIDE 91 mmol/L (98-107); GLUCOSE 75 mg/dL (75-110); LIPASE 74.9 U/L (23-300); POTASSIUM 3.2 mmol/L (3.6-5.0); SODIUM 135.4 mmol/L (137-145); TOTAL PROTEIN 6.8 g/dL (6.3-8.2)
[2018-04-01 18:52] LABS: CREATINE KINASE < 20 U/L (30-135)
[2018-04-01 19:02] LABS: CREATINE KINASE MB 0.29 ng/mL (<4.55)
[2018-04-01 19:03] LABS: CALCIUM 13.8 mg/dL (8.4-10.2)
[2018-04-01 19:07] LABS: TROPONIN I < 0.012 ng/mL
[2018-04-01] MEDS ORDERED: ZOLEDRONIC ACID 4 MG/100 ML RTU IV ONE (19:18)
[2018-04-01] MEDS ORDERED: PAMIDRONATE DISODIUM INJ 30 MG/10 ML VIAL IV ONE ×2 (19:37→20:14)
[2018-04-01] MEDS ORDERED: SENNOSIDES/DOCUSATE 8.6-50 MG 1 EACH TABLET PO PRN (20:01)
[2018-04-01] MEDS ORDERED: HYDROMORPHONE HCL 2 MG TABLET PO PRN (20:03)
[2018-04-01] MEDS ORDERED: MAG HYDROX/AL HYDROX/SIMETH SUSP 30 ML UDCUP PO PRN (20:03)
[2018-04-01] MEDS ORDERED: IPRATROPIUM/ALBUTEROL 0.5-2.5 MG/3 ML AMPUL NEB PRN (20:03)
[2018-04-01] MEDS ORDERED: ACETAMINOPHEN 325 MG TABLET PO PRN (20:03)
[2018-04-01 20:14] LABS: AMORPHOUS SEDIMENT,URINE TRACE /HPF; APPEARANCE,URINE CLOUDY; BILIRUBIN,URINE NEGATIVE (NEGATIVE); COLOR,URINE YELLOW; GLUCOSE, URINE NEGATIVE (NEGATIVE); KETONES,URINE TRACE mg/dL (NEGATIVE); LEUKOCYTE ESTERASE,URINE NEGATIVE (NEGATIVE); NITRITE,URINE NEGATIVE (NEGATIVE); PROTEIN,URINE NEGATIVE (NEGATIVE); UROBILINOGEN,URINE NEGATIVE mg/dL (<2.0)
[2018-04-01] MEDS ORDERED: NORMAL SALINE 1000 ML 1,000 ML IV PRN (20:15)
--- NOTE | 2018-04-01 21:08 | EKG REPORT ---
SEVERITY:- ABNORMAL ECG - SINUS RHYTHM CONSIDER ANTEROSEPTAL INFARCT NONSPECIFIC T ABNORMALITIES, INFERIOR LEADS : Confirmed by: Maira Rose MD 01-Apr-2018 21:07:15
--- NOTE | 2018-04-01 22:15 | RADIOLOGY REPORT (SQ) ---
CT ABDOMEN PELVIS WITH IV CONTRAST HISTORY: Metastatic cancer, vomiting, left-sided pain. COMPARISON: 10/30/2017 TECHNIQUE: CT scan of the abdomen and pelvis. This exam was performed according to our departmental dose-optimization program, which includes automated exposure control, adjustment of the mA and/or kV according to patient size and/or use of iterative reconstruction technique. FINDINGS: Incompletely visualized with surgical changes in the left upper lobe. Multiple semisolid and groundglass nodules in the bilateral lung bases, new from prior study. Multiple new hypodense nodules scattered throughout the liver. Gallbladder is contracted, limiting evaluation. Spleen, pancreas, adrenal glands, and kidneys are unremarkable. Small hiatal hernia with wall thickening of the distal thoracic esophagus. Contrast is seen throughout the small and large bowel. No bowel obstruction. No free air or free fluid. Normal caliber aorta with atherosclerotic calcifications. Degenerative changes of the spine. IMPRESSION: Wall thickening of the distal thoracic esophagus which may represent esophagitis. Small hiatal hernia. Interval increase in multiple nodules throughout liver consistent with metastatic disease. Interval progression of multiple nodules at the lung bases, incompletely assessed. Consider dedicated chest CT scan.
[2018-04-01] MEDS: OXYCODONE HCL IR 5 MG TABLET PO SCH (23:20)
[2018-04-01] MEDS: HEPARIN SOD (PORCINE) 5,000 UNIT/ML 1 ML SYRINGE SUBCUT SCH (23:20)
[2018-04-02] MEDS: IPRATROPIUM/ALBUTEROL 0.5-2.5 MG/3 ML AMPUL NEB SCH ×3 (00:17→16:33)
--- NOTE | 2018-04-02 05:04 | PDOC H&P ---
History of Present Illness Admission Date/PCP: 04/01/18 20:27 Patient complains of: Diffuse pain History of Present Illness: JOCELIN PALMA is a 57 year old female with a past medical history of stage IV lung cancer, esophageal cancer and opiate dependent chronic pain. She presents with 24 hours of nausea and vomiting gastric content with diffuse pain. In the emergency room she admits to crack cocaine and marijuana yesterday in an attempt to treat her pain which was unsuccessful. Labs reveal hypercalcemia, started on pamidronate, Dilaudid and referred to the hospitalist for admission. Past Medical History Cardiac Medical History: Reports: Hyperlipidema, Hypertension - NO MEDS Denies: Congestive Heart Failure, Coronary Artery Disease, DVT, Myocardial Infarction, Pulmonary Embolism Pulmonary Medical History: Reports: Chronic Obstructive Pulmonary Disease (COPD) , Pneumonia Denies: Asthma, Bronchitis, Sleep Apnea Neurological Medical History: Denies: Seizures Endocrine Medical History: Reports: Hypothyroidism Denies: Diabetes Mellitus Type 1, Diabetes Mellitus Type 2, Hyperthyroidism Malignancy Medical History: Reports: Lung Cancer - Stage IIIB, squamous cell carcinoma, lung involvement, lymph node. GI Medical History: Denies: Cirrhosis, Hepatitis, Hiatal Hernia Musculoskeltal Medical History: Denies: Arthritis Psychiatric Medical History: Reports: Depression, Substance Abuse Hematology: Reports: Anemia Denies: Sickle Cell Disease - trait carrier Infectious Medical History: Denies: Clostridium Difficile, Methicillin-Resistant Staph Aureus Past Surgical History Past Surgical History: Reports: Appendectomy, Section - 1, Hysterectomy , Orthopedic Surgery - right knee, Other - Right chest Port-A-Cath Denies: Amputation, Mastectomy, Pacemaker Social History Information Source: Patient Smoking Status: Current Every Day Smoker Frequency of Alcohol Use: Heavy Hx Recreational Drug Use: Yes Drugs: Cocaine, Marijuana Hx Prescription Drug Abuse: Yes - Advance Directive Resuscitation Status: Full Code Family History Family History: Reviewed & Not Pertinent, CAD, Malignancy Parental Family History Reviewed: Yes Children Family History Reviewed: Yes Sibling(s) Family History Reviewed.: Yes Medication/Allergy Home Medications: Oxycodone HCl [Roxicodone] 30 mg PO Q6HP PRN 01/16/17 Amox Tr/Potassium Clavulanate [Augmentin 250-62.5 mg/5 ml Susp] 500 mg PO Q8 # 120 ml 03/27/18 Levothyroxine Sodium [Synthroid 0.075 mg Tablet] 0.075 mg PO Q6AM #30 tablet Magnesium Oxide [Mag-Ox 400 mg Tablet] 800 mg PO BID tablet 03/27/18 Sennosides/Docusate 8.6-50 mg [Senna Plus Tablet] 2 each PO BIDP PRN tablet Allergies/Adverse Reactions: No Known Allergies Allergy (Verified 03/15/18 08:52) Review of Systems Constitutional: PRESENT: as per HPI, anorexia, fatigue, weakness. ABSENT: fever (s) Eyes: ABSENT: visual disturbances Ears: ABSENT: hearing changes Cardiovascular: PRESENT: dyspnea on exertion, palpitations. ABSENT: orthropnea Respiratory: PRESENT: as per HPI, cough, dyspnea. ABSENT: hemoptysis Gastrointestinal: ABSENT: abdominal pain, constipation, diarrhea, hematemesis, hematochezia, nausea, vomiting Genitourinary: ABSENT: dysuria, hematuria Musculoskeletal: ABSENT: joint swelling Integumentary: ABSENT: rash, wounds Neurological: ABSENT: abnormal gait, abnormal speech, confusion, dizziness, focal weakness, syncope Psychiatric: PRESENT: as per HPI, anxiety, depression. ABSENT: homidical ideation, suicidal ideation Endocrine: ABSENT: cold intolerance, heat intolerance, polydipsia, polyuria Hematologic/Lymphatic: ABSENT: easy bleeding, easy bruising Physical Exam Vital Signs: Temp Pulse Resp BP Pulse Ox 97.4 F 66 20 135/89 H 100 04/02/18 03:04 04/02/18 03:04 04/02/18 03:04 04/02/18 03:04 04/02/18 03:04 Intake & Output 03/31/18 04/01/18 04/02/18 11:59 11:59 11:59 Weight 40.7 kg General appearance: PRESENT: disheveled, mild distress, thin, other - Chronically ill-appearing, cachexia with temporal wasting Head exam: PRESENT: atraumatic, normocephalic Eye exam: PRESENT: conjunctiva pink, EOMI, PERRLA. ABSENT: scleral icterus Ear exam: PRESENT: normal external ear exam Mouth exam: PRESENT: moist, tongue midline Neck exam: ABSENT: carotid bruit, JVD, lymphadenopathy, thyromegaly Respiratory exam: PRESENT: accessory muscle use, crackles, prolonged expiratory phas, tachypnea. ABSENT: rales, rhonchi, wheezes Cardiovascular exam: PRESENT: RRR. ABSENT: diastolic murmur, rubs, systolic murmur Pulses: PRESENT: normal dorsalis pedis pul Vascular exam: PRESENT: normal capillary refill GI/Abdominal exam: PRESENT: normal bowel sounds, soft. ABSENT: distended, guarding, mass, organolmegaly, rebound, tenderness Rectal exam: PRESENT: deferred Extremities exam: PRESENT: full ROM. ABSENT: calf tenderness, clubbing, pedal edema Neurological exam: PRESENT: alert, awake, oriented to person, oriented to place , oriented to time, oriented to situation, CN II-XII grossly intact. ABSENT: motor sensory deficit Psychiatric exam: PRESENT: anxious, depressed, unusual affect. ABSENT: homicidal ideation, suicidal ideation Skin exam: PRESENT: dry, intact, warm. ABSENT: cyanosis, rash Results Impressions: Abdomen/Pelvis CT 04/01/18 17:24 IMPRESSION: Wall thickening of the distal thoracic esophagus which may represent esophagitis. Small hiatal hernia. Interval increase in multiple nodules throughout liver consistent with metastatic disease. Interval progression of multiple nodules at the lung bases, incompletely assessed. Consider dedicated chest CT scan. Chest X-Ray 04/01/18 17:24 IMPRESSION: No acute consolidation or pleural effusion. Similar cavitary lesions in the left mid lung. Assessment & Plan - Diagnosis (1) Hypercalcemia Is this a current diagnosis for this admission?: Yes Plan: Malignancy related, likely contributing to symptoms, pamidronate, IV fluid, diuretics ordered, follow-up chemistry (2) Cavitating mass of lung Is this a current diagnosis for this admission?: Yes Plan: Defer to oncology (3) Mass of esophagus Is this a current diagnosis for this admission?: Yes Plan: Defer to oncology (4) Opioid dependence with current use Is this a current diagnosis for this admission?: Yes Plan: Outpatient regiment, defer to oncology - Time Time Spent: 50 to 70 Minutes - Inpatient Certification Medical Necessity: Need Close Monitoring Due to Risk of Patient Decompensation
[2018-04-02] MEDS ORDERED: POTASSIUM CHLORIDE 10 MEQ CAPSULE.ER PO ONE (05:16)
[2018-04-02] MEDS ORDERED: FUROSEMIDE INJ/PF 20 MG/2 ML SDV IV ONE (05:16)
[2018-04-02] MEDS: LEVOTHYROXINE SODIUM 0.075 MG TABLET PO SCH (06:08)
[2018-04-02] MEDS: OXYCODONE HCL IR 5 MG TABLET PO SCH (06:08)
[2018-04-02] MEDS: HEPARIN SOD (PORCINE) 5,000 UNIT/ML 1 ML SYRINGE SUBCUT SCH ×3 (06:08→21:36)
[2018-04-02 06:47] LABS: ABSOLUTE BASOPHILS # (AUTO) 0.1 10^3/uL (0.0-0.2); ABSOLUTE EOSINOPHILS # (AUTO) 0.1 10^3/uL (0.0-0.6); ABSOLUTE LYMPHOCYTES (AUTO) 1.1 10^3/uL (0.5-4.7); ABSOLUTE MONOCYTES (AUTO) 0.6 10^3/uL (0.1-1.4); ABSOLUTE NEUT (AUTO) 8.2 10^3/uL (1.7-8.2); BASOPHILS % (AUTO) 0.6 % (0-2); EOSINOPHILS % (AUTO) 0.8 % (0-6); HEMATOCRIT 33.7 % (36.0-47.0); HEMOGLOBIN 11.4 g/dL (12.0-15.5); LYMPHOCYTES % (AUTO) 11.1 % (13-45); MEAN CORPUSCULAR HEMOGLOBIN 31.7 pg (27.0-33.4); MEAN CORPUSCULAR HGB CONC 33.8 g/dL (32.0-36.0); MEAN CORPUSCULAR VOLUME 94 fl (80-97); MONOCYTES % (AUTO) 5.9 % (3-13); PLATELET COUNT 483 10^3/uL (150-450); RED BLOOD COUNT 3.59 10^6/uL (3.72-5.28); RED CELL DISTRIBUTION WIDTH 20.5 % (11.5-14.0); SEGMENTED NEUTROPHILS % (AUTO) 81.6 % (42-78); TOTAL CELLS COUNTED % (AUTO) 100 %; WHITE BLOOD COUNT 10.1 10^3/uL (4.0-10.5)
[2018-04-02 07:19] LABS: ANION GAP 7 (5-19); BLOOD UREA NITROGEN 10 mg/dL (7-20); CARBON DIOXIDE 33 mmol/L (22-30); CHLORIDE 93 mmol/L (98-107); GLUCOSE 73 mg/dL (75-110); POTASSIUM 3.2 mmol/L (3.6-5.0); SODIUM 133.1 mmol/L (137-145)
[2018-04-02 07:32] LABS: CALCIUM 12.8 mg/dL (8.4-10.2)
[2018-04-02] MEDS ORDERED: MAGNESIUM SULFATE INJ 8 MEQ/2 ML IV ONE (08:03)
--- NOTE | 2018-04-02 08:44 | PDOC CONSULTATION ---
Consultation Consult Date: 04/02/18 Consult reason:: Hematology oncology consulat was requested for patient with lung and esophageal cancer and new onset Hypercalcemia History of Present Illness Admission Date/PCP: 04/01/18 20:27 History of Present Illness: JOCELIN PALMA is a 57 year old female who has been treated for the past 2 years for metastatic lung cancer which had been stable until about 2 months ago. Her most recent treatment was gemcitabine on 02/26/2018. However, she was admitted to the hospital last week and new esophageal biopsy showed a NEW primary esophageal cancer Different from her original lung cancer. She was discharged last week but returned yesterday with increased pain. She tried Crack cocaine and marijuanna yesterday in an attempt to control the pain, but this did not work. She was found in the ED to have a Ca of 13.8 with normal Albumin. She was given pamidronate. This morning, she states that she has not been able to keep anything down since her discharge from the hospital. She has continued difficulty swallowing. Her pain has increased. She is very depressed and she is currently staying with her daughter as her home was destroyed by [place]. This has caused increased stress. Past Medical History Cardiac Medical History: Reports: Hyperlipidema, Hypertension - NO MEDS Denies: Congestive Heart Failure, Coronary Artery Disease, DVT, Myocardial Infarction, Pulmonary Embolism Pulmonary Medical History: Reports: Chronic Obstructive Pulmonary Disease (COPD) , Pneumonia Denies: Asthma, Bronchitis, Sleep Apnea Neurological Medical History: Denies: Seizures Endocrine Medical History: Reports: Hypothyroidism Denies: Diabetes Mellitus Type 1, Diabetes Mellitus Type 2, Hyperthyroidism Malignancy Medical History: Reports: Lung Cancer - Stage IIIB, squamous cell carcinoma, lung involvement, lymph node., Other - Esophageal cancer GI Medical History: Denies: Cirrhosis, Hepatitis, Hiatal Hernia Musculoskeltal Medical History: Denies: Arthritis Psychiatric Medical History: Reports: Depression, Substance Abuse Hematology: Reports: Anemia Denies: Sickle Cell Disease - trait carrier Infectious Medical History: Denies: Clostridium Difficile, Methicillin-Resistant Staph Aureus Past Surgical History Past Surgical History: Reports: Appendectomy, Section - 1, Hysterectomy , Orthopedic Surgery - right knee, Other - Right chest Port-A-Cath Denies: Amputation, Mastectomy, Pacemaker Social History Information Source: Patient Smoking Status: Current Every Day Smoker Frequency of Alcohol Use: Heavy Hx Recreational Drug Use: Yes Drugs: Cocaine, Marijuana Hx Prescription Drug Abuse: Yes - Advance Directive Resuscitation Status: Do Not Resuscitate Surrogate healthcare decision maker:: Daughter Mer Family History Family History: Reviewed & Not Pertinent, CAD, Malignancy Parental Family History Reviewed: Yes Children Family History Reviewed: Yes Sibling(s) Family History Reviewed.: Yes Medication/Allergy Home Medications: Oxycodone HCl [Roxicodone] 30 mg PO Q6HP PRN 01/16/17 Amox Tr/Potassium Clavulanate [Augmentin 250-62.5 mg/5 ml Susp] 500 mg PO Q8 # 120 ml 03/27/18 Levothyroxine Sodium [Synthroid 0.075 mg Tablet] 0.075 mg PO Q6AM #30 tablet Magnesium Oxide [Mag-Ox 400 mg Tablet] 800 mg PO BID tablet 03/27/18 Sennosides/Docusate 8.6-50 mg [Senna Plus Tablet] 2 each PO BIDP PRN tablet Allergies/Adverse Reactions: No Known Allergies Allergy (Verified 03/15/18 08:52) Review of Systems Constitutional: PRESENT: headache(s). ABSENT: fever(s) Eyes: ABSENT: visual disturbances Ears: ABSENT: hearing changes Nose, Mouth, and Throat: PRESENT: sore throat Cardiovascular: PRESENT: chest pain Gastrointestinal: PRESENT: dysphagia, nausea, vomiting Genitourinary: ABSENT: dysuria Musculoskeletal: PRESENT: back pain Integumentary: PRESENT: rash - Over scalp. Lesions are getting bigger. Neurological: PRESENT: weakness Hematologic/Lymphatic: ABSENT: lymphadenopathy Physical Exam Vital Signs: Temp Pulse Resp BP Pulse Ox 98.0 F 70 18 136/98 H 96 04/02/18 07:54 04/02/18 07:54 04/02/18 07:54 04/02/18 07:54 04/02/18 07:54 Intake & Output 04/01/18 04/02/18 04/03/18 06:59 06:59 06:59 Intake Total 372 Balance 372 Weight 40.7 kg General appearance: PRESENT: no acute distress, thin Exam: 57 year old female. Head exam: PRESENT: normocephalic Eye exam: PRESENT: PERRLA Mouth exam: PRESENT: neck supple, tongue midline Neck exam: ABSENT: lymphadenopathy, tenderness Respiratory exam: PRESENT: clear to auscultation davide, unlabored Cardiovascular exam: PRESENT: RRR Vascular exam: ABSENT: pallor GI/Abdominal exam: PRESENT: soft. ABSENT: organolmegaly, tenderness Extremities exam: ABSENT: pedal edema Musculoskeletal exam: PRESENT: normal inspection Neurological exam: PRESENT: alert, awake Psychiatric exam: PRESENT: depressed, other - Crying often Skin exam: PRESENT: normal color Results Laboratory Results: 04/02/18 06:18 04/02/18 06:18 04/02/18 04/02/18 06:18 06:18 WBC 10.1 RBC 3.59 L Hgb 11.4 L Hct 33.7 L MCV 94 MCH 31.7 MCHC 33.8 RDW 20.5 H Plt Count 483 H Seg Neutrophils % 81.6 H Lymphocytes % 11.1 L Monocytes % 5.9 Eosinophils % 0.8 Basophils % 0.6 Absolute Neutrophils 8.2 Absolute Lymphocytes 1.1 Absolute Monocytes 0.6 Absolute Eosinophils 0.1 Absolute Basophils 0.1 Sodium 133.1 L Potassium 3.2 L Chloride 93 L Carbon Dioxide 33 H Anion Gap 7 BUN 10 Creatinine 0.83 Est GFR ( Amer) > 60 Est GFR (Non-Af Amer) > 60 Glucose 73 L Calcium 12.8 H* Magnesium 1.3 L Impressions: Abdomen/Pelvis CT 04/01/18 17:24 IMPRESSION: Wall thickening of the distal thoracic esophagus which may represent esophagitis. Small hiatal hernia. Interval increase in multiple nodules throughout liver consistent with metastatic disease. Interval progression of multiple nodules at the lung bases, incompletely assessed. Consider dedicated chest CT scan. Chest X-Ray 04/01/18 17:24 IMPRESSION: No acute consolidation or pleural effusion. Similar cavitary lesions in the left mid lung. Status: Image reviewed by me Assessment & Plan - Diagnosis (1) Lung cancer Qualifiers: Laterality: right Lung location: middle lobe of lung Qualified Code(s): C34.2 - Malignant neoplasm of middle lobe, bronchus or lung Is this a current diagnosis for this admission?: Yes Plan: Lung cancer and primary esophageal cancer - both diagnoses currently. All treatment has been on hold due to other problems. (2) Hypercalcemia Is this a current diagnosis for this admission?: Yes Plan: Most likely hypercalcemia of malignancy as most recent scans show her disease to be progressing. She was given pamidronate. Will continue IV fluids and monitor this. (3) Opioid dependence with current use Is this a current diagnosis for this admission?: Yes Plan: She does have increased pain due to the hypercalcemia, but her pain has been difficult to control given her history of drug abuse/misuse. I will order 25 mcg duragesic patch with liquid morphine PRN due to her swallowing difficulties while she is here in the hospital. Previously, she had been given duragesic patches, but was not wearing them on presentation for her chemo. (4) Alcohol abuse Is this a current diagnosis for this admission?: Yes Plan: Watch for DTs (5) Esophageal stricture Is this a current diagnosis for this admission?: Yes Plan: She had been able to swallow OK, but I will try some nystatin swish and swallow as well as Reglan to see if she will be able to eeat and drink a bit better. I am concerned that Diflucan may interact with her other medications. (6) Hypothyroid Is this a current diagnosis for this admission?: Yes Plan: She had been on 150 mcg daily. I will restart this dose and consider repeat TSH prior to discharge. She states that she was unable to take this at home. - Plan Summary Plan Summary: I discussed CODE status with her. She has named her daughter Mer as EVER and wishes to be DNR, but would like to continue to fight her cancer. I am concerned about her daily headaches. She has not had brain imaging for over 4 months. I will check CT with contrast to rule out brain mets. It appears that her cancers are progressing rapidly. However, patient would like to continue treatment as much as possible. I discussed her care with Hospitalist as well.
[2018-04-02] MEDS: MORPHINE SULFATE 10 MG/5 ML ORAL SOLUTION UDCUP PO PRN ×3 (09:19→19:57)
[2018-04-02] MEDS: NYSTATIN 500000 UNIT/5 ML UDCUP PO SCH ×4 (09:21→21:35)
[2018-04-02] MEDS: MAGNESIUM OXIDE 400 MG TABLET PO SCH ×2 (09:25→18:23)
[2018-04-02] MEDS: POTASSIUM CHLORIDE 10 MEQ CAPSULE.ER PO SCH (09:25)
[2018-04-02] MEDS: DOCUSATE SODIUM 100 MG CAPSULE PO SCH ×2 (09:26→18:23)
[2018-04-02] MEDS: MAGNESIUM SULFATE 1 GM/D5W 100 ML IV SCH ×2 (09:27→11:25)
[2018-04-02] MEDS ORDERED: FENTANYL 25 MCG/HR PATCH.TD72 TD SCH (10:00)
[2018-04-02] MEDS: LORAZEPAM 1 MG TABLET PO PRN ×3 (11:23→21:35)
[2018-04-02] MEDS: METOCLOPRAMIDE HCL ORAL SOLN 10 MG/10 ML UDCUP PO SCH ×3 (11:23→21:36)
--- NOTE | 2018-04-02 12:56 | RADIOLOGY REPORT (SQ) ---
EXAM DESCRIPTION: NM MUGA REST COMPLETED DATE/TIME: 04/02/2018 11:27 am REASON FOR STUDY: LVEF prior to starting Herceptin COMPARISON: None. RADIONUCLIDE AND DOSE: 24.5 mCi technetium 99m labeled red blood cells The route of agent administration: Intravenous TECHNIQUE: Following administration of the radionuclide, gated images of the heart are obtained in t hree projections. Left ventricular functional analysis performed. LIMITATIONS: None. FINDINGS: LEFT VENTRICULAR FUNCTION: EJECTION FRACTION: 70%. END-DIASTOLIC VOLUME: 90 mL. END-SYSTOLIC VOLUME: 24 mL. WALL MOTION: No focal wall motion abnormalities. OTHER: No other significant finding. IMPRESSION: NORMAL CARDIAC MUGA STUDY. NORMAL LEFT VENTRICULAR FUNCTION WITH VALUES ABOVE. TECHNICAL DOCUMENTATION: JOB ID: [id number] [employer]- All Rights Reserved Reading location - IP/workstation name: [email or web address]
--- NOTE | 2018-04-02 14:22 | PDOC PROGRESS REPORT ---
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 Patient has metastatic disease to liver which is increased since her last CT in March. She returns to the hospital hypercalcemic from her cancer. She is continued to struggle meeting her nutritional needs because of the stenosis of the distal esophagus. She was seen by Dr. Goodwin on her oncologist and has reaffirmed her DNR status as well as her desire to continue to receive chemotherapy. She continues to struggle with handling oral feeds vomiting frequently and is a high risk for aspiration. Reason For Visit: HYPERCALCEMIA LUNG CA Physical Exam Vital Signs: Temp Pulse Resp BP Pulse Ox 97.4 F 57 L 20 125/83 93 04/02/18 11:34 04/02/18 11:34 04/02/18 11:34 04/02/18 11:34 04/02/18 11:34 Intake & Output 04/01/18 04/02/18 04/03/18 06:59 06:59 06:59 Intake Total 372 100 Balance 372 100 Weight 40.7 kg General appearance: PRESENT: no acute distress, thin. ABSENT: well-nourished Neck exam: ABSENT: carotid bruit, JVD, lymphadenopathy, thyromegaly Respiratory exam: PRESENT: clear to auscultation davide. ABSENT: rales, rhonchi, wheezes Cardiovascular exam: PRESENT: RRR. ABSENT: diastolic murmur, rubs, systolic murmur GI/Abdominal exam: PRESENT: normal bowel sounds, soft. ABSENT: distended, guarding, mass, organolmegaly, rebound, tenderness Extremities exam: PRESENT: full ROM, other - Use muscle wasting. ABSENT: calf tenderness, clubbing, pedal edema Neurological exam: PRESENT: alert, awake, oriented to person, oriented to place , oriented to time, oriented to situation, CN II-XII grossly intact. ABSENT: motor sensory deficit Results Laboratory Results: 04/02/18 06:18 04/02/18 06:18 04/02/18 04/02/18 04/02/18 06:18 06:18 06:18 WBC 10.1 RBC 3.59 L Hgb 11.4 L Hct 33.7 L MCV 94 MCH 31.7 MCHC 33.8 RDW 20.5 H Plt Count 483 H Seg Neutrophils % 81.6 H Lymphocytes % 11.1 L Monocytes % 5.9 Eosinophils % 0.8 Basophils % 0.6 Absolute Neutrophils 8.2 Absolute Lymphocytes 1.1 Absolute Monocytes 0.6 Absolute Eosinophils 0.1 Absolute Basophils 0.1 Sodium 133.1 L Potassium 3.2 L Chloride 93 L Carbon Dioxide 33 H Anion Gap 7 BUN 10 Creatinine 0.83 Est GFR ( Amer) > 60 Est GFR (Non-Af Amer) > 60 Glucose 73 L Calcium 12.8 H* Phosphorus 2.8 Magnesium 1.3 L Impressions: Abdomen/Pelvis CT 04/01/18 17:24 IMPRESSION: Wall thickening of the distal thoracic esophagus which may represent esophagitis. Small hiatal hernia. Interval increase in multiple nodules throughout liver consistent with metastatic disease. Interval progression of multiple nodules at the lung bases, incompletely assessed. Consider dedicated chest CT scan. Chest X-Ray 04/01/18 17:24 IMPRESSION: No acute consolidation or pleural effusion. Similar cavitary lesions in the left mid lung. MUGA 04/02/18 00:00 IMPRESSION: NORMAL CARDIAC MUGA STUDY. NORMAL LEFT VENTRICULAR FUNCTION WITH VALUES ABOVE. Assessment & Plan - Diagnosis (1) Hypercalcemia Is this a current diagnosis for this admission?: Yes Plan: Patient received pamidronate 90 mg calcium is decreasing. Will check BMP in a.m. (2) Esophageal cancer Is this a current diagnosis for this admission?: Yes Plan: No spine biopsy in March. Patient has significant disease including liver metastases which have increased since last CAT scan. (3) Esophageal stricture Is this a current diagnosis for this admission?: Yes Plan: Unable to tolerate p.o. feeds. Request consultation with surgery for PEG tube placement. Change diet to honey thick liquids and pure in the meantime. (4) Lung cancer Is this a current diagnosis for this admission?: Yes Plan: Patient has documented a left upper lobe cavitary lesion with satellite lesions in both lungs. Discussed case with Dr. Goodwin patient is a DNR but requests treatment for her 2 cancers. MUGA scan was ordered ejection fraction 70%. (5) Marijuana dependence Is this a current diagnosis for this admission?: Yes Plan: Chronic (6) Opioid abuse, continuous use Is this a current diagnosis for this admission?: Yes Plan: Patient on liquid morphine requesting Dilaudid however given her drug abuse patient is comfortable and should not be swallowing pills with her stricture. (7) Severe protein-calorie malnutrition Is this a current diagnosis for this admission?: Yes Plan: Need PEG tube for nutritional support (8) Tobacco dependence Is this a current diagnosis for this admission?: Yes Plan: NicoDerm patch (9) Cocaine abuse Is this a current diagnosis for this admission?: Yes Plan: Used crack cocaine prior to admission (10) Alcohol abuse Is this a current diagnosis for this admission?: Yes Plan: Patient suffered delirium tremens last admission. Will have as needed Ativan available - Time Time Spent with patient: 25-34 minutes
[2018-04-02] MEDS ORDERED: ANTIVENIN,CROTALIDAE FAB(OVIN) INJ 1 VIAL IV ONE (15:10)
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
[2018-04-03] MEDS: IPRATROPIUM/ALBUTEROL 0.5-2.5 MG/3 ML AMPUL NEB SCH ×3 (00:41→16:14)
--- NOTE | 2018-04-03 01:41 | RADIOLOGY REPORT (SQ) ---
PROCEDURE: CT OF THE HEAD WITHOUT AND WITH INTRAVENOUS CONTRAST Clinical History: headaches rule out brain mets Indication: Same as above Comparison: None COMPLETED DATE/TME: 04/02/2018 00:00 Technique: CT of the head was done without and with intravenous contrast in orthogonal planes. The patient was injected with radiographic contrast intravenously, without any documented immediate adverse reactions. This exam was performed according to our departmental dose-optimization program, which includes automated exposure control, adjustment of the mA and/or KV according to the patient's size and/or use of iterative reconstruction technique. Findings: There is no intracranial hemorrhage, midline shift mass effect or acute focal infarct. There are no suspicious calcifications in the intra-or the extra-axial brain. There is no visualization of any abnormal enhancing lesions in the supratentorial or infratentorial brain. There is no visualization of any gross aneurysmal formation in the visualized bilateral anterior, middle and posterior cerebral arteries, the intracranial portion of the bilateral internal carotid arteries, basilar and the intracranial portion of the bilateral vertebral arteries. The visualized superior and inferior sagittal sinuses and the bilateral internal cerebral veins are unremarkable If clinical concern exists regarding an acute ischemic/vascular pathology being responsible for patient's symptomatology, an MRI of the brain is more sensitive than the current study, in ruling out such a possibility. The ventricular system is normal. The mastoid air cells are unremarkable . The paranasal sinuses are unremarkable . There is no visualization of fractures involving the calvarium or the skull base. Impression: There are no acute or significant intracranial findings Location of Interpretation: Teleradiology
[2018-04-03] MEDS: HEPARIN SOD (PORCINE) 5,000 UNIT/ML 1 ML SYRINGE SUBCUT SCH ×3 (05:19→21:40)
[2018-04-03] MEDS: LEVOTHYROXINE SODIUM 0.075 MG TABLET PO SCH (05:19)
[2018-04-03 05:38] LABS: ABSOLUTE BASOPHILS # (AUTO) 0.2 10^3/uL (0.0-0.2); ABSOLUTE EOSINOPHILS # (AUTO) 0.1 10^3/uL (0.0-0.6); ABSOLUTE LYMPHOCYTES (AUTO) 0.6 10^3/uL (0.5-4.7); ABSOLUTE MONOCYTES (AUTO) 0.3 10^3/uL (0.1-1.4); ABSOLUTE NEUT (AUTO) 9.4 10^3/uL (1.7-8.2); BASOPHILS % (AUTO) 1.6 % (0-2); EOSINOPHILS % (AUTO) 1.4 % (0-6); HEMATOCRIT 31.5 % (36.0-47.0); HEMOGLOBIN 10.8 g/dL (12.0-15.5); LYMPHOCYTES % (AUTO) 5.8 % (13-45); MEAN CORPUSCULAR HEMOGLOBIN 32.1 pg (27.0-33.4); MEAN CORPUSCULAR HGB CONC 34.2 g/dL (32.0-36.0); MEAN CORPUSCULAR VOLUME 94 fl (80-97); MONOCYTES % (AUTO) 3.3 % (3-13); PLATELET COUNT 408 10^3/uL (150-450); RED BLOOD COUNT 3.35 10^6/uL (3.72-5.28); RED CELL DISTRIBUTION WIDTH 20.5 % (11.5-14.0); SEGMENTED NEUTROPHILS % (AUTO) 87.9 % (42-78); TOTAL CELLS COUNTED % (AUTO) 100 %; WHITE BLOOD COUNT 10.7 10^3/uL (4.0-10.5)
[2018-04-03 05:59] LABS: BLOOD UREA NITROGEN 7 mg/dL (7-20); GLUCOSE 92 mg/dL (75-110)
[2018-04-03 06:00] LABS: ANION GAP 5 (5-19); CARBON DIOXIDE 33 mmol/L (22-30); CHLORIDE 97 mmol/L (98-107); POTASSIUM 3.7 mmol/L (3.6-5.0); SODIUM 135.3 mmol/L (137-145)
[2018-04-03] MEDS ORDERED: MORPHINE SULFATE 10 MG/5 ML ORAL SOLUTION UDCUP PO PRN ×2 (07:34→08:56)
--- NOTE | 2018-04-03 08:57 | PDOC PROGRESS REPORT ---
Subjective Progress Note for:: 04/03/18 Subjective:: Patient sleepy, but again asks for liquid pain medication instead of pills. She is having more difficulty swallowing. She spoke with Surgeons yesterday who have explained that the esophageal mass is now nearly obstructing and PEG tube will be very difficult procedure. They are not recommending this. Reason For Visit: HYPERCALCEMIA LUNG CA Physical Exam Vital Signs: Temp Pulse Resp BP Pulse Ox 97.3 F 87 18 117/79 96 04/03/18 07:46 04/03/18 07:46 04/03/18 07:46 04/03/18 07:46 04/03/18 07:46 Intake & Output 04/02/18 04/03/18 04/04/18 06:59 06:59 06:59 Intake Total 372 400 Balance 372 400 Weight 40.7 kg 46.6 kg General appearance: PRESENT: no acute distress Exam: 57 year old AA female currently in bed, very sleepy and has difficulty speaking with me as she keeps falling asleep. Head exam: PRESENT: normocephalic Respiratory exam: PRESENT: unlabored Extremities exam: ABSENT: pedal edema Psychiatric exam: PRESENT: appropriate affect Skin exam: PRESENT: normal color Results Laboratory Results: 04/03/18 05:26 04/03/18 05:26 04/02/18 04/03/18 04/03/18 06:18 05:26 05:26 WBC 10.7 H RBC 3.35 L Hgb 10.8 L Hct 31.5 L MCV 94 MCH 32.1 MCHC 34.2 RDW 20.5 H Plt Count 408 Seg Neutrophils % 87.9 H Lymphocytes % 5.8 L Monocytes % 3.3 Eosinophils % 1.4 Basophils % 1.6 Absolute Neutrophils 9.4 H Absolute Lymphocytes 0.6 Absolute Monocytes 0.3 Absolute Eosinophils 0.1 Absolute Basophils 0.2 Sodium 135.3 L Potassium 3.7 Chloride 97 L Carbon Dioxide 33 H Anion Gap 5 BUN 7 Creatinine 0.76 Est GFR ( Amer) > 60 Est GFR (Non-Af Amer) > 60 Glucose 92 Calcium 12.0 H* Phosphorus 2.8 Magnesium 1.5 L Impressions: Abdomen/Pelvis CT 04/01/18 17:24 IMPRESSION: Wall thickening of the distal thoracic esophagus which may represent esophagitis. Small hiatal hernia. Interval increase in multiple nodules throughout liver consistent with metastatic disease. Interval progression of multiple nodules at the lung bases, incompletely assessed. Consider dedicated chest CT scan. Chest X-Ray 04/01/18 17:24 IMPRESSION: No acute consolidation or pleural effusion. Similar cavitary lesions in the left mid lung. MUGA 04/02/18 00:00 IMPRESSION: NORMAL CARDIAC MUGA STUDY. NORMAL LEFT VENTRICULAR FUNCTION WITH VALUES ABOVE. Assessment & Plan - Diagnosis (1) Lung cancer Qualifiers: Laterality: right Lung location: middle lobe of lung Qualified Code(s): C34.2 - Malignant neoplasm of middle lobe, bronchus or lung Is this a current diagnosis for this admission?: Yes Plan: All treatment on hold. (2) Hypercalcemia Is this a current diagnosis for this admission?: Yes Plan: Improving after bisphosphonate. (3) Opioid dependence with current use Is this a current diagnosis for this admission?: Yes (4) Alcohol abuse Is this a current diagnosis for this admission?: Yes (5) Esophageal stricture Is this a current diagnosis for this admission?: Yes Plan: Due to esophageal cancer. I had a long discussion with the patient and daughter by phone. I have explained that it appears her cancer is now rapidly progressing and that her nutritional status is such that she is not currently strong enough for treatment. Although her tumor is HER2+ and LVEF is normal, we could consider Herceptin, but she would need to have PEG tube placed first. (6) Hypothyroid Is this a current diagnosis for this admission?: Yes - Time Time Spent with patient: 25-34 minutes - Plan Summary Plan Summary: Although she had been on a much higher dose of duragesic in the past, it now appears that she is quite sleepy on a very small dose. I will watch this very closely and be very mindful of her narcotic doses. Patient and daughter will discuss her overall plan today and let me know how they wish to move forward.
[2018-04-03] MEDS: DOCUSATE SODIUM 100 MG CAPSULE PO SCH (09:19)
[2018-04-03] MEDS ORDERED: ACETAMINOPHEN 650 MG SUPP.RECT PR PRN (09:42)
[2018-04-03] MEDS ORDERED: NICOTINE 14 MG/24 HR PATCH.TD24 TD PRN (09:53)
--- NOTE | 2018-04-03 10:01 | PDOC PROGRESS REPORT ---
Subjective Progress Note for:: 04/03/18 Subjective:: 57-year-old with known lung cancer times 2 years and recently diagnosed esophageal cancer with metastatic disease to liver. Patient has an impending closure of her esophagus. Is not a good surgical candidate for PEG tube placement and is considering hospice at this time. She is somnolent in the bed although requesting increasing her pain medication. She is regurgitating food and medications due to inability to pass the stenosis in her distal esophagus. Reason For Visit: HYPERCALCEMIA LUNG CA Physical Exam Vital Signs: Temp Pulse Resp BP Pulse Ox 97.3 F 86 14 117/79 98 04/03/18 07:46 04/03/18 08:44 04/03/18 08:44 04/03/18 07:46 04/03/18 08:44 Intake & Output 04/02/18 04/03/18 04/04/18 06:59 06:59 06:59 Intake Total 372 400 Balance 372 400 Weight 40.7 kg 46.6 kg General appearance: PRESENT: no acute distress, thin, other - Somnolent. ABSENT : well-nourished Respiratory exam: PRESENT: clear to auscultation davide. ABSENT: rales, rhonchi, wheezes Cardiovascular exam: PRESENT: RRR. ABSENT: diastolic murmur, rubs, systolic murmur GI/Abdominal exam: PRESENT: normal bowel sounds, soft. ABSENT: distended, guarding, mass, organolmegaly, rebound, tenderness Neurological exam: ABSENT: awake - But arousable, motor sensory deficit Results Laboratory Results: 04/03/18 05:26 04/03/18 05:26 04/02/18 04/03/18 04/03/18 06:18 05:26 05:26 WBC 10.7 H RBC 3.35 L Hgb 10.8 L Hct 31.5 L MCV 94 MCH 32.1 MCHC 34.2 RDW 20.5 H Plt Count 408 Seg Neutrophils % 87.9 H Lymphocytes % 5.8 L Monocytes % 3.3 Eosinophils % 1.4 Basophils % 1.6 Absolute Neutrophils 9.4 H Absolute Lymphocytes 0.6 Absolute Monocytes 0.3 Absolute Eosinophils 0.1 Absolute Basophils 0.2 Sodium 135.3 L Potassium 3.7 Chloride 97 L Carbon Dioxide 33 H Anion Gap 5 BUN 7 Creatinine 0.76 Est GFR ( Amer) > 60 Est GFR (Non-Af Amer) > 60 Glucose 92 Calcium 12.0 H* Phosphorus 2.8 Magnesium 1.5 L Impressions: Abdomen/Pelvis CT 04/01/18 17:24 IMPRESSION: Wall thickening of the distal thoracic esophagus which may represent esophagitis. Small hiatal hernia. Interval increase in multiple nodules throughout liver consistent with metastatic disease. Interval progression of multiple nodules at the lung bases, incompletely assessed. Consider dedicated chest CT scan. Chest X-Ray 04/01/18 17:24 IMPRESSION: No acute consolidation or pleural effusion. Similar cavitary lesions in the left mid lung. MUGA 04/02/18 00:00 IMPRESSION: NORMAL CARDIAC MUGA STUDY. NORMAL LEFT VENTRICULAR FUNCTION WITH VALUES ABOVE. Assessment & Plan - Diagnosis (1) Hypercalcemia Is this a current diagnosis for this admission?: Yes Plan: Calcium 12.0 status post 90 mg of pamidronate. BMP in a.m. (2) Esophageal cancer Is this a current diagnosis for this admission?: Yes Plan: Proven by biopsy in March. Patient has significant disease including liver metastases which have increased since last CAT scan. Surgery consulted however discussion with the patient patient would need an open placement of a PEG or J- tube for nutritional status and overall poor prognosis it is not felt that a PEG will be of benefit to the patient. After discussion with the patient she is considering hospice. We will consult palliative care for education and consideration for hospice (3) Esophageal stricture Is this a current diagnosis for this admission?: Yes Plan: Will eliminate all pills as patient is regurgitating them use liquid but patient has impending esophageal closure due to tumor. Prognosis extremely poor unlikely to benefit from any therapeutic intervention (4) Lung cancer Is this a current diagnosis for this admission?: Yes Plan: Metastatic patient has been dealing with her cancer for over 2 years has come to the end of her disease process. (5) Marijuana dependence Is this a current diagnosis for this admission?: Yes (6) Severe protein-calorie malnutrition Is this a current diagnosis for this admission?: Yes Plan: Patient regurgitating pure and honey thick liquids. Will allow patient to continue to eat for comfort at this point. (7) Cocaine abuse Is this a current diagnosis for this admission?: Yes Plan: Used crack cocaine prior to admission (8) Alcohol abuse Is this a current diagnosis for this admission?: Yes Plan: Patient suffered delirium tremens last admission. Will have as needed Ativan available (9) Opioid abuse, continuous use Is this a current diagnosis for this admission?: Yes Plan: Patient on liquid morphine requesting Dilaudid however given her drug abuse patient is comfortable and should not be swallowing pills with her stricture. (10) Tobacco dependence Is this a current diagnosis for this admission?: Yes Plan: NicoDerm patch - Time Time Spent with patient: 25-34 minutes
[2018-04-03] MEDS: NYSTATIN 500000 UNIT/5 ML UDCUP PO SCH ×4 (10:41→21:41)
[2018-04-03] MEDS: METOCLOPRAMIDE HCL ORAL SOLN 10 MG/10 ML UDCUP PO SCH ×4 (10:42→21:40)
[2018-04-03] MEDS: LACTULOSE SYRUP 20 GM/30 ML UDCUP PO SCH ×3 (10:44→17:20)
[2018-04-03] MEDS: POTASSIUM CHLORIDE 10 MEQ CAPSULE.ER PO SCH (10:45)
[2018-04-03] MEDS: MORPHINE SULFATE 10 MG/5 ML ORAL SOLUTION UDCUP PO PRN ×4 (13:18→23:47)
[2018-04-04] MEDS: IPRATROPIUM/ALBUTEROL 0.5-2.5 MG/3 ML AMPUL NEB SCH ×2 (00:32→08:59)
[2018-04-04] MEDS: MORPHINE SULFATE 10 MG/5 ML ORAL SOLUTION UDCUP PO PRN ×4 (04:08→13:58)
[2018-04-04] MEDS: HEPARIN SOD (PORCINE) 5,000 UNIT/ML 1 ML SYRINGE SUBCUT SCH ×2 (05:22→13:59)
[2018-04-04] MEDS ORDERED: LEVOTHYROXINE SODIUM 0.15 MG TABLET PO SCH (06:00)
[2018-04-04] MEDS: METOCLOPRAMIDE HCL ORAL SOLN 10 MG/10 ML UDCUP PO SCH ×2 (07:58→11:12)
--- NOTE | 2018-04-04 08:21 | PDOC PROGRESS REPORT ---
Subjective Progress Note for:: 04/04/18 Subjective:: Patient is awake this morning and states that she is feeling much better than yesterday. She was able to eat and drink yesterday and did not throw up. However, she says that she is not going to any Hospice and she wants to stay right here. She asks where the closest Hospice is and if I can schedule a family meeting with her sisters. On further questioning, I asked her about what she wants to do for the cancer. She tells me that she understands the surgeons do not feel it's safe to put in the PEG tube and she understands that she will not be strong enough for any further chemo without good nutrition, so she will only focus on pain control and getting stronger, without aggressive therapy for now. ROS: Pain controlled with current meds. No nausea. No BMs. Able to walk without difficulty. Reason For Visit: HYPERCALCEMIA LUNG CA Physical Exam Vital Signs: Temp Pulse Resp BP Pulse Ox 98.0 F 84 16 116/78 99 04/04/18 04:12 04/04/18 04:12 04/04/18 04:12 04/04/18 04:12 04/04/18 04:12 Intake & Output 04/03/18 04/04/18 04/05/18 06:59 06:59 06:59 Intake Total 400 0 Balance 400 0 Weight 46.6 kg 43.2 kg General appearance: PRESENT: no acute distress, thin Head exam: PRESENT: normocephalic Eye exam: PRESENT: EOMI Respiratory exam: PRESENT: unlabored Extremities exam: ABSENT: pedal edema Neurological exam: PRESENT: alert, awake Psychiatric exam: PRESENT: appropriate affect Skin exam: PRESENT: normal color Results Laboratory Results: 04/03/18 05:26 04/03/18 05:26 Impressions: Abdomen/Pelvis CT 04/01/18 17:24 IMPRESSION: Wall thickening of the distal thoracic esophagus which may represent esophagitis. Small hiatal hernia. Interval increase in multiple nodules throughout liver consistent with metastatic disease. Interval progression of multiple nodules at the lung bases, incompletely assessed. Consider dedicated chest CT scan. Chest X-Ray 04/01/18 17:24 IMPRESSION: No acute consolidation or pleural effusion. Similar cavitary lesions in the left mid lung. MUGA 04/02/18 00:00 IMPRESSION: NORMAL CARDIAC MUGA STUDY. NORMAL LEFT VENTRICULAR FUNCTION WITH VALUES ABOVE. Assessment & Plan - Diagnosis (1) Lung cancer Qualifiers: Laterality: right Lung location: middle lobe of lung Qualified Code(s): C34.2 - Malignant neoplasm of middle lobe, bronchus or lung Is this a current diagnosis for this admission?: Yes (2) Hypercalcemia Is this a current diagnosis for this admission?: Yes (3) Opioid dependence with current use Is this a current diagnosis for this admission?: Yes (4) Alcohol abuse Is this a current diagnosis for this admission?: Yes (5) Esophageal stricture Is this a current diagnosis for this admission?: Yes (6) Hypothyroid Is this a current diagnosis for this admission?: Yes - Plan Summary Plan Summary: I will arrange for family meeting today. I explained in detail that no matter where she is, she may have Hospice and Palliative services. She again states that she wants to stay here in the hospital. However, currently, I feel she is very appropriate for discharge. Family is making arrangements now for living situation, and I am unsure if this has been arranged, as she lost her home in the [place]. I spent an additional 20 minutes by phone with her Daughter, Lisa today discussing her care and future plans. She asked about a SNF, but I do not believe patient meets criteria for this currently. All questions were answered. She will help to arrange family meeting either in hospital or my office later today.
[2018-04-04 08:31] LABS: ABSOLUTE BASOPHILS # (AUTO) 0.1 10^3/uL (0.0-0.2); ABSOLUTE EOSINOPHILS # (AUTO) 0.4 10^3/uL (0.0-0.6); ABSOLUTE LYMPHOCYTES (AUTO) 1.2 10^3/uL (0.5-4.7); ABSOLUTE MONOCYTES (AUTO) 0.6 10^3/uL (0.1-1.4); EOSINOPHILS % (AUTO) 3.9 % (0-6); HEMATOCRIT 31.4 % (36.0-47.0); HEMOGLOBIN 10.5 g/dL (12.0-15.5); LYMPHOCYTES % (AUTO) 12.9 % (13-45); MEAN CORPUSCULAR HEMOGLOBIN 31.5 pg (27.0-33.4); MEAN CORPUSCULAR HGB CONC 33.4 g/dL (32.0-36.0); MEAN CORPUSCULAR VOLUME 94 fl (80-97); MONOCYTES % (AUTO) 6.4 % (3-13); PLATELET COUNT 384 10^3/uL (150-450); RED BLOOD COUNT 3.33 10^6/uL (3.72-5.28); RED CELL DISTRIBUTION WIDTH 20.3 % (11.5-14.0); SEGMENTED NEUTROPHILS % (AUTO) 75.8 % (42-78); TOTAL CELLS COUNTED % (AUTO) 100 %; WHITE BLOOD COUNT 9.2 10^3/uL (4.0-10.5)
[2018-04-04 08:59] LABS: ALANINE AMINOTRANSFERASE 19 U/L (9-52); ALBUMIN 2.9 g/dL (3.5-5.0); ALKALINE PHOSPHATASE 102 U/L (38-126); ASPARTATE AMINO TRANSFERASE 23 U/L (14-36); BILIRUBIN,DIRECT 0.4 mg/dL (0.0-0.4); BILIRUBIN,TOTAL 0.4 mg/dL (0.2-1.3); BLOOD UREA NITROGEN 6 mg/dL (7-20); CALCIUM 11.2 mg/dL (8.4-10.2); CARBON DIOXIDE 33 mmol/L (22-30); CHLORIDE 97 mmol/L (98-107); GLUCOSE 87 mg/dL (75-110); POTASSIUM 4.2 mmol/L (3.6-5.0); TOTAL PROTEIN 5.8 g/dL (6.3-8.2)
[2018-04-04 09:04] LABS: SODIUM 133.9 mmol/L (137-145)
[2018-04-04 09:09] LABS: ANION GAP 4 (5-19)
[2018-04-04] MEDS: POTASSIUM CHLORIDE 10 MEQ CAPSULE.ER PO SCH (11:13)
[2018-04-04] MEDS: LACTULOSE SYRUP 20 GM/30 ML UDCUP PO SCH ×2 (11:13→13:59)
[2018-04-04] MEDS: NYSTATIN 500000 UNIT/5 ML UDCUP PO SCH ×2 (11:16→13:59)
--- NOTE | 2018-04-04 12:38 | PDOC DISCHARGE SUMMARY ---
General - Admit/Disc Date/PCP Admission Date/Primary Care Provider: 04/01/18 20:27 Discharge Date: 04/04/18 - Discharge Diagnosis (1) Hypercalcemia Is this a current diagnosis for this admission?: Yes Summary: Needed with pamidronate calcium 11.2 at the time of discharge (2) Esophageal cancer Is this a current diagnosis for this admission?: Yes Summary: With impending esophageal obstruction and metastatic liver lesions on CAT scan (3) Esophageal stricture Is this a current diagnosis for this admission?: Yes Summary: Patient regurgitating due to stenosis with impending obstruction. Diet pure with honey thick liquids (4) Lung cancer Is this a current diagnosis for this admission?: Yes Summary: Cavitary left upper lobe lesion with satellite metastatic lesions bilaterally (5) Marijuana dependence Is this a current diagnosis for this admission?: Yes (6) Severe protein-calorie malnutrition Is this a current diagnosis for this admission?: Yes Summary: BMI 16.3 with diffuse muscle wasting and cachexia (7) Cocaine abuse Is this a current diagnosis for this admission?: Yes (8) Alcohol abuse Is this a current diagnosis for this admission?: Yes (9) Opioid abuse, continuous use Is this a current diagnosis for this admission?: Yes (10) Tobacco dependence Is this a current diagnosis for this admission?: Yes - Additional Information Resuscitation Status: Do Not Resuscitate Discharge Diet: As Tolerated Discharge Activity: Activity As Tolerated Home Medications: Levothyroxine Sodium [Synthroid 0.075 mg Tablet] 0.075 mg PO Q6AM #30 tablet Fentanyl [Duragesic 100 Mcg/Hr Transdermal Patch] 1 patch TD Q72H 04/02/18 Levothyroxine Sodium [Synthroid 0.15 mg Tablet] 0.15 mg PO Q6AM 04/02/18 Acetaminophen [Tylenol 650 mg Supp] 650 mg WA Q4HP PRN supp.rect 04/04/18 Ipratropium/Albuterol Sulfate [Duoneb 3 ml Ampul] 3 ml NEB RTQ8 vial.neb Lactulose [Cephulac Syrup 20 gm/30 ml Udcup] 10 gm PO TID udc 04/04/18 Metoclopramide HCl [Reglan Oral Soln 10 mg/10 ml Udcup] 5 mg PO ACHS udc Morphine Sulfate [Morphine 10 mg/5 ml Oral Soln Udcup] 5 mg PO Q3HP PRN udc 09/17 Nicotine [Nicoderm 14 mg/24 Hr Transdermal Patch] 1 each TD DAILYP PRN patch.td24 04/04/18 Nystatin [Mycostatin 500,000 Unit/5 ml Susp Udcup] 500,000 unit PO QID udc 09/17 Potassium Chloride [Klor-Con 10 Meq Capsule ER] 40 meq PO DAILY capsule.er 09/17 History of Present Illness History of Present Illness: JOCELIN PALMA is a 57 year old female with a past medical history of stage IV lung cancer, esophageal cancer and opiate dependent chronic pain. She presents with 24 hours of nausea and vomiting gastric content with diffuse pain. In the emergency room she admits to crack cocaine and marijuana yesterday in an attempt to treat her pain which was unsuccessful. Labs reveal hypercalcemia, started on pamidronate, Dilaudid and referred to the hospitalist for admission. Hospital Course Hospital Course: Patient was admitted to the telemetry floor and pamidronate 90 mg was given. Her calcium began to decrease. She became less somnolent. Consultation with her treating oncologist Dr. Rubi was obtained and there was discussion of patient undergoing Herceptin as her esophageal cancer was HER-2 positive. A consultation with surgery was obtained as patient would require a PEG tube unfortunately the CAT scan showed rapid progression of her esophageal cancer with new and numerous hepatic lesions and impending obstruction of the esophagus. A PEG tube could only be placed by an open surgical procedure with the surgeon felt was not indicated due to the patient's poor overall nutritional status and ultimately her poor prognosis. A discussion with the family and the patient regarding alternative care past to include palliative care and hospice was had at the bedside. The patient realizing she is in the end stages of her disease agreed to hospice and was subsequently discharged home to the daughter's care. Physical Exam Vital Signs: Temp Pulse Resp BP Pulse Ox 97.5 F 89 18 94/68 L 99 04/04/18 12:03 04/04/18 12:03 04/04/18 12:03 04/04/18 12:03 04/04/18 12:03 Intake & Output 04/03/18 04/04/18 04/05/18 06:59 06:59 06:59 Intake Total 400 0 Balance 400 0 Weight 46.6 kg 43.2 kg General appearance: PRESENT: no acute distress, thin Head exam: PRESENT: atraumatic, normocephalic Neck exam: ABSENT: carotid bruit, JVD, lymphadenopathy, thyromegaly Respiratory exam: PRESENT: clear to auscultation davide. ABSENT: rales, rhonchi, wheezes Cardiovascular exam: PRESENT: RRR. ABSENT: diastolic murmur, rubs, systolic murmur GI/Abdominal exam: PRESENT: normal bowel sounds, soft. ABSENT: distended, guarding, mass, organolmegaly, rebound, tenderness Extremities exam: PRESENT: full ROM, other - Muscle wasting diffusely. ABSENT: calf tenderness, clubbing, pedal edema Neurological exam: PRESENT: alert, awake, oriented to person, oriented to place , oriented to situation, CN II-XII grossly intact. ABSENT: motor sensory deficit Results Laboratory Results: 04/04/18 08:00 04/04/18 08:00 04/04/18 04/04/18 08:00 08:00 WBC 9.2 RBC 3.33 L Hgb 10.5 L Hct 31.4 L MCV 94 MCH 31.5 MCHC 33.4 RDW 20.3 H Plt Count 384 Seg Neutrophils % 75.8 Lymphocytes % 12.9 L Monocytes % 6.4 Eosinophils % 3.9 Basophils % 1.0 Absolute Neutrophils 7.0 Absolute Lymphocytes 1.2 Absolute Monocytes 0.6 Absolute Eosinophils 0.4 Absolute Basophils 0.1 Sodium 133.9 L Potassium 4.2 Chloride 97 L Carbon Dioxide 33 H Anion Gap 4 L BUN 6 L Creatinine 0.71 Est GFR ( Amer) > 60 Est GFR (Non-Af Amer) > 60 Glucose 87 Calcium 11.2 H Total Bilirubin 0.4 AST 23 ALT 19 Alkaline Phosphatase 102 Total Protein 5.8 L Albumin 2.9 L Impressions: Abdomen/Pelvis CT 04/01/18 17:24 IMPRESSION: Wall thickening of the distal thoracic esophagus which may represent esophagitis. Small hiatal hernia. Interval increase in multiple nodules throughout liver consistent with metastatic disease. Interval progression of multiple nodules at the lung bases, incompletely assessed. Consider dedicated chest CT scan. Chest X-Ray 04/01/18 17:24 IMPRESSION: No acute consolidation or pleural effusion. Similar cavitary lesions in the left mid lung. MUGA 04/02/18 00:00 IMPRESSION: NORMAL CARDIAC MUGA STUDY. NORMAL LEFT VENTRICULAR FUNCTION WITH VALUES ABOVE. Qualifiers - * PATIENT BEING DISCHARGED WITH ANY OF THE FOLLOWING DIAGNOSIS: No Plan Time Spent: Greater than 30 Minutes
[2018-04-04 14:05] VITALS: BP 147/100
== END 2018-04-04 14:47 | disposition hospice, home (50) | DRG 374 ==
LOC: ER 16:49 → EH 20:27 → 3S 22:44
PROVIDERS: ADMIT Internal Medicine; ATTEND Internal Medicine
DX: C15.9 Malignant neoplasm of esophagus, unspecified (principal); E43 Unspecified severe protein-calorie malnutrition; C34.2 Malignant neoplasm of middle lobe, bronchus or lung; C78.7 Secondary malignant neoplasm of liver and intrahepatic bile duct; Z68.1 Body mass index [BMI] 19.9 or less, adult; E83.52 Hypercalcemia; Z66 Do not resuscitate; K22.2 Esophageal obstruction; I10 Essential (primary) hypertension; E03.9 Hypothyroidism, unspecified; E78.5 Hyperlipidemia, unspecified; J44.9 Chronic obstructive pulmonary disease, unspecified; R07.89 Other chest pain; F14.90 Cocaine use, unspecified, uncomplicated; F12.90 Cannabis use, unspecified, uncomplicated; F17.210 Nicotine dependence, cigarettes, uncomplicated; F10.10 Alcohol abuse, uncomplicated; Y90.9 Presence of alcohol in blood, level not specified
CPT/HCPCS: 36415; 36591; 70470; 71046; 74177; 78472; 80048; 80053; 81001; 82550; 82553; 83690; 83735; 84100; 84484; 85025; 90686; 93005; 93010; 94640; 96361; 96374; 96375; 96376; 99285; A9560; J1170; J1644; J1940; J2405; J2430; J3475; J3489; J3490; J7620